=== PATIENT | male | born 1970 | race Caucasian/White ===

== ENCOUNTER → 2017-08-11 15:13 | Outpatient (REF) | payer BC, SELFPAY ==
[2017-08-11 18:55] LABS: Amphetamine/Metha Screen,Urine Negative ng/mL (<1000); Barbiturates Screen,Urine Negative ng/mL (<200); Benzodiazepines Screen,Urine Negative ng/mL (200); Cannabinoid Screen,Urine Negative ng/mL (<50); Cocaine Screen,Urine Negative ng/g (<300); Methadone Screen,Urine Negative ng/mL (<300); Opiate Screen,Urine Negative ng/mL (<300); Phencyclidine Screen,Urine Negative ng/mL (<25)
== END ==
LOC: LAB 15:13
PROVIDERS: Visit Provider Nurse Practitioner Family
DX: M54.9 Dorsalgia, unspecified (principal); Z79.899 Other long term (current) drug therapy
CPT/HCPCS: 80305

== ENCOUNTER → 2017-09-15 14:18 | Outpatient (CLI) | payer BC, SELFPAY ==
[2017-09-15 18:25] LABS: Basophils % 0.5 % (0.1-2.0); Eosinophils # 0.1 K/mm3 (0.0-0.4); Eosinophils % 1.8 % (0.1-12.0); Hematocrit 44.1 % (42.0-52.0); Lymphocytes # 2.4 K/mm3 (0.7-4.5); Lymphocytes % 33.7 K/mm3 (10-50); Mean Corpuscular Volume 97.2 fl (80-94); Mean Platelet Volume 7.9 fl (7.4-10.4); Monocytes # 0.4 K/mm3 (0.1-1.0); Monocytes % 5.5 % (1.7-9.3); Neutrophils # 4.2 K/mm3 (1.8-7.8); Neutrophils % 58.5 % (37.0-80.0); Platelet Count 370 K/mm3 (142-424); Red Blood Count 4.54 M/mm3 (4.60-6.20); Red Cell Distribution Width 13.7 % (11.5-17.5); White Blood Count 7.2 K/mm3 (4.8-10.8)
[2017-09-15 20:28] LABS: Alanine Aminotransferase 56 U/L (12-78); Albumin Level 4.4 gm/dL (3.4-5.0); Albumin/Globulin Ratio 1.2 (1.1-1.8); Alkaline Phosphatase 84 U/L (46-116); Anion Gap 18.1 mEq/L (5-15); Aspartate Amino Transferase 29 U/L (15-37); Bilirubin,Total 0.5 mg/dL (0.2-1.0); Blood Urea Nitrogen 16 mg/dL (7-18); Calcium 9.5 mg/dL (8.5-10.1); Carbon Dioxide 24 mmol/L (21.0-32.0); Chloride 103 mmol/L (98-107); Chol/HDL Ratio 7.2 (1-3.5); Cholesterol 236 mg/dL (140-200); Creatinine,Serum 1.01 mg/dL (0.70-1.30); Estimated Glomerular Filt Rate 79 ml/min (>60); Free T4 (Free Thyroxine) 1.07 ng/dl (0.76-1.46); GFR (African American) 95 ML/MIN (>60); Globulin 3.6 gm/dl (1.3-3.2); Glucose 165 mg/dL (74-106); HDL Cholesterol 33 mg/dL (27-67); Potassium 4.1 mmoL/L (3.5-5.1); Sodium 141 mmol/L (136-145); Thyroid Stimulating Hormone 1.25 uIU/ml (0.358-3.740)
[2017-09-15 20:35] LABS: Triglycerides 849 mg/dL (30-200)
[2017-09-15 23:15] LABS: Hemoglobin A1C 9.9 % (0.0-7.0)
== END ==
PROVIDERS: Visit Provider Nurse Practitioner Family
DX: R53.83 Other fatigue (principal); E11.9 Type 2 diabetes mellitus without complications; R09.89 Other specified symptoms and signs involving the circulatory and respiratory systems
CPT/HCPCS: 80053; 80061; 83036; 84439; 84443; 85025

== ENCOUNTER → 2017-09-27 08:56 | Outpatient (CLI) | payer BC, SELFPAY ==
--- NOTE | 2017-09-27 08:59 | CI_ITS ---
Cerebrovascular Exam Indications: 780.4 Dizziness and giddiness. IMPRESSIONS 1. The bilateral vertebral arteries are patent with normal antegrade flow. 2. Study suggests less than 20% stenosis involving the right internal carotid artery and the left internal carotid artery. History: Risk factors: Hypertension. Diabetes mellitus. Hyperlipidemia. Carotid duplex study. Complete study and Doppler flow study including spectral analysis, color and triplett scale imaging. Height: Height: 182.9cm. Height: 72in. Weight: Weight: 104.3kg. Weight: 229.5lb. Body mass index: BMI: 31.2kg/m^2. Body surface area: BSA: 2.33m^2. Location: Vascular laboratory. Patient status: Outpatient. Tables: Arterial flow: + +--------+--------+ Location V sys V ed + +--------+--------+ Right CCA - proximal 84.1cm/s 25.9cm/s + +--------+--------+ Right CCA - distal 90.4cm/s 28.3cm/s + +--------+--------+ Right ECA 107cm/s -------- + +--------+--------+ Right ICA - proximal 47.1cm/s 18.2cm/s + +--------+--------+ Right ICA - mid 69.1cm/s 33.9cm/s + +--------+--------+ Right ICA - distal 96.8cm/s 49cm/s + +--------+--------+ Right vertebral 53.4cm/s -------- + +--------+--------+ Left CCA - proximal 104cm/s 30.2cm/s + +--------+--------+ Left CCA - distal 89.3cm/s 28.3cm/s + +--------+--------+ Left ECA 93cm/s -------- + +--------+--------+ Left ICA - proximal 65.4cm/s 26.4cm/s + +--------+--------+ Left ICA - mid 69.8cm/s 30.8cm/s + +--------+--------+ Left ICA - distal 81.7cm/s 35.8cm/s + +--------+--------+ Left vertebral 41.5cm/s -------- + +--------+--------+ Velocity ratios: + + + + + + Right, V sys Right, V ed Left, V sys Left, V ed + + + + + + Max ICA/dist CCA 1.07 1.73 0.91 1.27 + + + + + + (Report amended ) Electronically signed by: Amado Evans [id number]
== END ==
PROVIDERS: Family Provider Nurse Practitioner Family; PCP Emergency Medicine; Visit Provider Nurse Practitioner Family
DX: R09.89 Other specified symptoms and signs involving the circulatory and respiratory systems (principal); R42 Dizziness and giddiness
CPT/HCPCS: 93880

== ENCOUNTER → 2017-10-11 06:12 | Outpatient (CLI) | payer BC, SELFPAY ==
--- NOTE | 2017-10-11 06:14 | NM_ITS ---
SPECT MYOCARDIAL PERFUSION SCAN, REST AND STRESS: EXERCISE STRESS: [facility] REVIEW QGS EF AND WALL MOTION EVALUATION: QPS - PERFUSION EVALUATION: HISTORY: Fatigue, HTN, DM, Hx of CT PROCEDURE: Rest imaging performed after administration of10.89 millicuries Tc MIBI. Dose administered at6:25 a.m., with imaging thereafter. Stress imaging was then performed following7 minutes 15 seconds of exercise stress. The patient achieved a heart [id number] with projected heart rate of146 . Resting BP138/93 with stress 146/90. At maximum exercise stress,31.8 millicuries Tc MIBI administered at8:15 a.m. with [id number] minutes thereafter. FINDINGS: Perfusion Evaluation: The single slice spect images as well as the [facility] bull's-eye data summary were reviewed. Wall Motion and Ejection Fraction Evaluation: Gated SPECT review and analysis used to evaluate these features. There is a 65% % left ventricular ejection fraction. There seems to be good wall motion Uniform myocardial activity with both stress and rest IMPRESSION: No scintigraphic evidence of exercise-induced myocardial ischemia. Normal ejection fraction normal wall motion
--- NOTE | 2017-10-11 06:14 | CA_ITS ---
PROCEDURE: 2-D M-mode and color Doppler study INDICATIONS FOR THE TEST: Chest pain+ COPD Heart Murmur Tobacco Smoking Palpitations Fatigue Syncope Edema Hypertension+Diabetes Mellitus+ Rheumatic Fever SOB CAMPBELL+Obesity+Hyperlipidemia+ Family History HD+ Additional History Dizziness PATIENT INFORMATION HEIGHT: 72 WEIGHT: 230 GENDER: Male B/P: 130/72 2-D/M-MODE INTERPRETATION: 2-D MEASUREMENTS OBSERVED VALUES IN CMS Right Ventricular Dimension (RVDd) 1.6 Interventricular Septum (Thickness)(IVsd) 1.0 Left Ventricular Internal Dimensions(LVIDd) 5.4 Left Ventricular Posterior Wall (Thickness)(LVPWd) 0.9 Aortic Root 3.1 Aortic Cusp Separation 2.1 Left Atrial Dimensions (LAD) 3.2 2D 1. Left atrium is mildly enlarged, left ventricle is normal size, there is mild qualitative concentric left ventricular hypertrophy, visually estimated ejection fraction 55% with no obvious regional wall motion abnormality. 2. The right atrium and right ventricle are normal size and contractility. 3. The aortic valve is minimally thickened and fibrosed. 4. The mitral and tricuspid valve are grossly normal. 5. The pulmonic valve is poorly visualized 6. No significant pericardial effusion noted. DOPPLER INTERROGATION: Doppler interrogation of the aortic, mitral and tricuspid valvular presence of mild mitral and tricuspid regurgitation, tricuspid regurgitant jet velocity insufficient for calculation of the right ventricular systolic pressure, grade 1 diastolic dysfunction seen without tissue Doppler evidence of raised left atrial pressure. CONCLUSION: 1. Mildly enlarged left atrium, normal left ventricular size, mild qualitative concentric left ventricular hypertrophy, visually estimated ejection fraction 55% with no obvious regional wall motion abnormality, grade 1 diastolic dysfunction seen without tissue Doppler evidence of raised left atrial pressure. 2. Mild mitral and tricuspid addition 3. No significant pericardial effusion noted.
--- NOTE | 2017-10-11 06:59 | HMH.ITSHM ---
BASAGLAR HUMALOG GABAPENTIN METOPROLOL ATORVASTATIN LISINOPRIL METFORMIN AMLODIPINE TIZANIDINE SPIRONOLACTONE TOPIRAMATE DULOXETINE
== END ==
PROVIDERS: Family Provider Nurse Practitioner Family; PCP Emergency Medicine; Visit Provider Internal Medicine
DX: G47.33 Obstructive sleep apnea (adult) (pediatric) (principal); Z82.49 Family history of ischemic heart disease and other diseases of the circulatory system; E11.9 Type 2 diabetes mellitus without complications
CPT/HCPCS: 78452; 93017; 93306; A9502

== ENCOUNTER → 2018-01-19 10:02 | Outpatient (CLI) | payer BC, SELFPAY | PROVIDERS: PCP Emergency Medicine; Visit Provider Internal Medicine Cardiovascular Disease | DX: I20.8 Other forms of angina pectoris (principal); R53.83 Other fatigue | CPT/HCPCS: 93225 ==

== ENCOUNTER → 2018-01-30 15:28 | Outpatient (CLI) | payer BC, SELFPAY ==
[2018-01-30 18:48] LABS: Amphetamine/Metha Screen,Urine Negative ng/mL (<1000); Barbiturates Screen,Urine Negative ng/mL (<200); Benzodiazepines Screen,Urine Negative ng/mL (<200); Cannabinoid Screen,Urine Negative ng/mL (<50); Cocaine Screen,Urine Negative ng/mL (<300); Methadone Screen,Urine Negative ng/mL (<300); Opiate Screen,Urine Negative ng/mL (<300); Phencyclidine Screen,Urine Negative ng/mL (<25)
== END ==
PROVIDERS: Visit Provider Nurse Practitioner Family
DX: Z79.899 Other long term (current) drug therapy (principal)
CPT/HCPCS: 80305

== ENCOUNTER → 2018-02-16 14:20 | Outpatient (CLI) | payer BC, SELFPAY | PROVIDERS: Visit Provider Nurse Practitioner Family | DX: R53.83 Other fatigue (principal); Z79.899 Other long term (current) drug therapy ==

== ENCOUNTER → 2018-02-17 07:45 | Outpatient (CLI) | payer BC, SELFPAY ==
[2018-02-17 08:11] LABS: Basophils # 0.1 K/mm3 (0-0.2); Basophils % 0.7 % (0.1-2.0); Eosinophils # 0.1 K/mm3 (0.0-0.4); Eosinophils % 1.7 % (0.1-12.0); Hematocrit 44.3 % (42.0-52.0); Hemoglobin 16.1 g/dL (14.1-18.0); Lymphocytes # 2.5 K/mm3 (0.7-4.5); Lymphocytes % 30.8 K/mm3 (10-50); Mean Corpuscular HGB Conc 36.3 g/dL (31.8-35.4); Mean Corpuscular Hemoglobin 34.6 pg (27.0-31.2); Mean Corpuscular Volume 95.5 fl (80-94); Mean Platelet Volume 6.7 fl (7.4-10.4); Monocytes # 0.4 K/mm3 (0.1-1.0); Neutrophils % 61.8 % (37.0-80.0); Platelet Count 376 K/mm3 (142-424); Red Blood Count 4.64 M/mm3 (4.60-6.20); Red Cell Distribution Width 13.4 % (11.5-17.5); White Blood Count 8.1 K/mm3 (4.8-10.8)
[2018-02-17 08:42] LABS: Hemoglobin A1C 9.6 % (0.0-7.0)
[2018-02-17 12:55] LABS: Anion Gap 18.2 mEq/L (5-15); Carbon Dioxide 27 mmol/L (21.0-32.0); Chloride 96 mmol/L (98-107); Potassium 4.2 mmoL/L (3.5-5.1); Sodium 137 mmol/L (136-145)
[2018-02-17 12:56] LABS: Cholesterol 253 mg/dL (140-200); HDL Cholesterol 28 mg/dL (27-67); Triglycerides 2280 mg/dL (30-200)
[2018-02-17 12:57] LABS: Calcium 9.1 mg/dL (8.5-10.1)
[2018-02-17 12:59] LABS: Bilirubin,Total 0.5 mg/dL (0.2-1.0); Total Protein,Serum 7.9 gm/dL (6.4-8.2)
[2018-02-17 13:00] LABS: Alkaline Phosphatase 104 U/L (46-116)
[2018-02-17 13:02] LABS: Albumin Level 4.3 gm/dL (3.4-5.0); Albumin/Globulin Ratio 1.2 (1.1-1.8); Globulin 3.6 gm/dl (1.3-3.2); T4 (Thyroxine) 10.1 ug/dl (4.7-13.3)
[2018-02-17 13:03] LABS: Alanine Aminotransferase 51.6 U/L (12-78); Aspartate Amino Transferase 26 U/L (15-37)
[2018-02-17 13:04] LABS: Blood Urea Nitrogen 14 mg/dL (7-18); Creatinine,Serum 1.08 mg/dL (0.70-1.30); Estimated Glomerular Filt Rate 73 ml/min (>60); GFR (African American) 88 ML/MIN (>60); Glucose 330 mg/dL (74-106)
[2018-02-18 09:21] LABS: Creatinine, Urine 71.4 mg/dL (Not Estab.); Microalbumin, Urine 7.1 ug/mL (Not Estab.)
== END ==
PROVIDERS: Visit Provider Nurse Practitioner Family
DX: R53.83 Other fatigue (principal); E11.9 Type 2 diabetes mellitus without complications; Z79.899 Other long term (current) drug therapy
CPT/HCPCS: 36415; 80053; 80061; 82043; 82570; 83036; 84436; 84443; 85025

== ENCOUNTER 2018-04-03 16:28 | Observation (INO) ==
--- NOTE | 2018-04-03 16:53 | Emergency Department Note ---
ED Disposition Clinical Impression: Acute kidney injury, CAD (coronary artery disease), Dehydration, Dizziness Disposition: Home, Self-Care Condition on Discharge: Fair Referrals: George Mendez APRN [Primary Care Provider] - - Critical Care Critical Care Time: No Attestation: On , the high probability of a clinically significant, sudden or life threatening deterioration of the following system(s) required my full and direct attention, intervention and personal management. The time I documented below is in addition to time spent performing reported procedures but includes the following listed in this critical care notation. Medical Decision Making - Medical Records Medical records reviewed: Yes: I reviewed the patient's medical records. - Kasi Inquiry Pt receiving controlled substance: No Kasi was queried for this patient: No Vital Signs: 04/03/18 16:43 04/03/18 16:58 Temperature 99.1 F Temperature Source Oral Pulse Rate [Left Radial] 106 H Pulse Rate [Orthostatic Lying Left Radial] 102 H Pulse Rate [Orthostatic Sitting Left Radial] 105 H Pulse Rate [Orthostatic Standing Left Radial] 117 H Respiratory Rate 18 Blood Pressure [Orthostatic Lying Right Arm] 122/72 Blood Pressure [Orthostatic Sitting Right Arm] 126/89 Blood Pressure [Orthostatic Standing Right Arm] 127/80 Blood Pressure [Right Arm] 119/78 Blood Pressure Mean [Right Arm] 91 Blood Pressure Source [Right Arm] Automatic Cuff Blood Pressure Position [Right Arm] Sitting 02 Sat by Pulse Oximetry 95 Oxygen Delivery Method Room Air - Lab Data Lab Results 04/03/18 16:40: WBC 11.6 H, RBC 4.44 L, Hgb 14.2, Hct 42.5, MCV 95.6 H, MCH 31.9 H, MCHC 33.4, RDW 12.8, Plt Count 350, MPV 6.7 L, Neut % (Auto) 66.0, Lymph % (Auto) 26.8, [place] % (Auto) 6.0, Eos % (Auto) 0.8, Baso % (Auto) 0.5, Neut # (Auto) 7.7, Lymph # (Auto) 3.1, [place] # (Auto) 0.7, Eos # (Auto) 0.1, Baso # (Auto) 0.1 04/03/18 16:40: Sodium 139, Potassium 3.9, Chloride 98, Carbon Dioxide 26, Anion Gap 15.0, BUN 28 H, Creatinine 2.08 H, Estimated Creat Clear 61, Estimated GFR 34 L, Est GFR ( Amer) 41 L, Glucose 146 H, Calcium 9.6, Total Bilirubin 0.6, AST 37, ALT 57, Alkaline Phosphatase 67, Total Creatine Kinase 668 H*, CK- MB (CK-2) 4.9 H D, CK-MB (CK-2) Rel Index 0.7, Troponin I < 0.02, Total Protein 8.5 H, Albumin 4.6, Globulin 3.9 H, Albumin/Globulin Ratio 1.2, TSH 2.53 D, Plasma/Serum Alcohol 0 Result diagrams: 04/03/18 16:40 04/03/18 16:40 Orders (Tests/Meds): ED MEDICATIONS Discontinued Medications Generic Name Dose Route Start Last Admin Trade Name Freq PRN Reason Stop Dose Admin Sodium Chloride 1,000 mls @ 999 mls/hr 04/03/18 17:00 04/03/18 17:30 Sod Chlor 0.9% 1000ml Bag IV 04/03/18 18:00 999 mls/hr .Q1H1M BELLA Administration ORDERS Category Date Time Status Drug Screen,Urine Stat Lab 04/03/18 16:55 Ordered Urinalysis and Microscopic Stat Lab 04/03/18 16:55 Ordered ECG Request by /Rory Stat Y 04/03/18 16:55 Ordered - Radiology Data #1 Image(s): Chest Image Reviewed: Yes I have reviewed radiologist's interpretation Preliminary Findings: Normal/NAD - CT Data CT Scan: Head Time Received: 18:13 - ECG Data Tracing #1 Normal sinus rhythm 99/min baseline artifact no acute finding ECG initial impression date: 04/03/18 ECG initial impression time: 16:54 Medical Decision Narrative: Patient did have elevated creatinine possible dehydration or acute kidney injury. Spoke with Dr. Zacarias agreed to admit admit the patient for IV rehydration therapy and rule out MA protocol. Dizzy HPI - General Stated Complaint: dizzy,sick at stomach,feels like going to pass out Time Seen by Provider: 04/03/18 16:50 Mode of Arrival: Ambulatory Limitations: No Limitations Description of Symptoms (Recalled from ER Triage Doc. by RN): Pt states that around 2pm today he felt like he was going to pass out a few times with some right jaw pain and nausea while he was walking around in the yard - History of Present Illness HPI Narrative: 47 years old white male with multiple medical problems including coronary artery disease hypertension hyperlipidemia and tobacco use. Today at 1400 the patient was walking when he started feeling dizzy associated with shortness of breath jaw locking and right hand numbness. Was resolved within 15 minutes. Became concerned came to the ED for evaluation. As having chest pain palpitations nausea vomiting hemoptysis hematemesis coffee-ground emesis melanotic stool or bleeding per rectum. He denies having diarrhea dysuria or hematuria. He denies having diplopia dysphagia dysphonia or dysarthria. MD complaint: dizziness Onset (ago): hour(s) (2 hours.) Time: 14:00 Timing: sudden onset Description: sense of movement History of similar episodes: No History of trauma: No Relieving factors: remaining still Exacerbating factors: movement Associated symptoms: other (see HPI. ) - Related Data Home Medications Medication Instructions Recorded Confirmed nitroglycerin 0.4 mg sublingual 0.4 mg SUBLINGUAL Q5M PRN 09/22/17 04/03/18 tablet Aspirin [Low Dose Aspirin EC] 81 mg PO DAILY 12/14/17 04/03/18 Topiramate 50 mg PO BID 12/14/17 04/03/18 Empagliflozin [Jardiance] 25 mg PO DAILY 04/03/18 04/03/18 Nortriptyline HCl 20 mg PO QHS 04/03/18 04/03/18 dilTIAZem HCl [Diltiazem 24Hr ER] 120 mg PO DAILY 04/03/18 04/03/18 Previous Rx's Medication Instructions Recorded atorvastatin 80 mg tablet 80 mg PO DAILY #90 tab 03/02/18 duloxetine 30 mg capsule,delayed 30 mg PO DAILY #90 cap 03/02/18 release insulin lispro protamine-lispro 60 unit SQ QAM #15 ml 03/02/18 100 unit/mL (75-25) subcutaneous pen lisinopril 20 1 tab PO DAILY #90 tab 03/02/18 mg-hydrochlorothiazide 12.5 mg tablet metformin 1,000 mg tablet 1,000 mg PO BID #60 tab 03/02/18 metoprolol tartrate 50 mg tablet 50 mg PO BID #60 tab 03/02/18 tizanidine 4 mg tablet 8 mg PO QHS 30 Days #60 tab 03/13/18 Allergies Allergy/AdvReac Type Severity Reaction Status Date / Time No Known Allergies Allergy Verified 03/13/18 13:58 [facility] History I have reviewed the patient's past medical history: Yes Medical History: Reports:: Aneurysm, Diabetes Mellitus Type 2, Hiatal Hernia, Hyperlipidemia, Hypertension, Kidney Stones, Migraine, Myocardial Infarction, Palpitations Denies:: Cancer, Diabetes Mellitus Type 1, MRSA Other Medical History: Reports: Arthritis Laterality Cases: Left: Other, Right: Arthroscopy Knee Other Surgeries: Yes: Cardiac Catheterization, Other Amputation: No Fractures: No Comment: Lt hand, Rt Knee x2, c6 and c7 fused - Social History Smoking Status: Never smoker Tobacco Type: smokeless tobacco Alcohol Intake: never Alcohol Intake Frequency:: other Substance Use Type: denies use Occupational Status: employed Housing: house Household Members: spouse - Psychiatric History Expresses thoughts of harming self/others: None Suicide Plan Description: No Plan Family Hx:: Cancer, Heart Attack, Diabetes ROS Obtained: Yes All systems reviewed & no additional complaints Physical Exam - General General appearance: alert, in no apparent distress - Head Head exam: atraumatic, normocephalic, normal inspection - Eye Eye exam: Present: normal appearance, PERRL, EOMI. Absent: scleral icterus, nystagmus - ENT ENT exam: Present: normal exam, normal oropharynx, mucous membranes moist, TM's normal bilaterally, normal external ear exam, other (Negative head turning test. ) - Neck Neck exam: Present: normal inspection, full ROM, trachea midline. Absent: meningismus, lymphadenopathy - Chest Chest inspection: Present: normal inspection, symmetric chest wall rise. Absent: tenderness - Respiratory Respiratory exam: Present: normal lung sounds bilaterally. Absent: respiratory distress - Cardiovascular Cardiovascular exam: Present: regular rate, normal rhythm. Absent: JVD - Abdominal Exam Abdominal exam: Present: soft, normal bowel sounds. Absent: distention, tenderness, guarding, rebound, rigidity - Extremities Exam Extremities exam: Present: normal inspection, full ROM, normal capillary refill. Absent: calf tenderness - Back Exam Back exam: Present: normal inspection. Absent: tenderness, CVA tenderness (R), CVA tenderness (L), paraspinal tenderness - Neurological Exam Neurological exam: Present: alert, oriented X3, CN II-XII intact, reflexes normal - Psychiatric Psychiatric exam: Present: normal affect, normal mood - Skin Skin exam: Present: warm, dry, intact, normal color - Lymphatic Lymphatic Findings: no adenopathy
[2018-04-03 17:07] LABS: Basophils # 0.1 K/mm3 (0-0.2); Basophils % 0.5 % (0.1-2.0); Eosinophils # 0.1 K/mm3 (0.0-0.4); Eosinophils % 0.8 % (0.1-12.0); Hematocrit 42.5 % (42.0-52.0); Hemoglobin 14.2 g/dL (14.1-18.0); Lymphocytes # 3.1 K/mm3 (0.7-4.5); Lymphocytes % 26.8 K/mm3 (10-50); Mean Corpuscular HGB Conc 33.4 g/dL (31.8-35.4); Mean Corpuscular Hemoglobin 31.9 pg (27.0-31.2); Mean Corpuscular Volume 95.6 fl (80-94); Mean Platelet Volume 6.7 fl (7.4-10.4); Monocytes # 0.7 K/mm3 (0.1-1.0); Neutrophils # 7.7 K/mm3 (1.8-7.8); Platelet Count 350 K/mm3 (142-424); Red Blood Count 4.44 M/mm3 (4.60-6.20); Red Cell Distribution Width 12.8 % (11.5-17.5); White Blood Count 11.6 K/mm3 (4.8-10.8)
[2018-04-03 17:19] LABS: Blood Urea Nitrogen 28 mg/dL (7-18); Carbon Dioxide 26 mmol/L (21.0-32.0); Chloride 98 mmol/L (98-107); Creatine Kinase 668 U/L (39-308); Potassium 3.9 mmoL/L (3.5-5.1); Sodium 139 mmol/L (136-145)
[2018-04-03 17:20] LABS: Alanine Aminotransferase 57 U/L (12-78); Albumin Level 4.6 gm/dL (3.4-5.0); Albumin/Globulin Ratio 1.2 (1.1-1.8); Alkaline Phosphatase 67 U/L (46-116); Aspartate Amino Transferase 37 U/L (15-37); Bilirubin,Total 0.6 mg/dL (0.2-1.0); Calcium 9.6 mg/dL (8.5-10.1); Ethyl Alcohol 0 mg/dL (0-99); Globulin 3.9 gm/dl (1.3-3.2); Glucose 146 mg/dL (74-106); Total Protein,Serum 8.5 gm/dL (6.4-8.2)
[2018-04-03 17:28] LABS: Thyroid Stimulating Hormone 2.53 uIU/ml (0.358-3.740)
--- NOTE | 2018-04-04 08:22 | Pharmacy Consult Notes ---
[facility] Pharmacy VTE Monitoring - Patient Demographics Admission date: 04/04/18 Report Date: 04/04/18 Time: 08:22 Allergies/Adverse Reactions: Patient Allergies No Known Allergies Allergy (Verified 03/13/18 13:58) Height: 1.83 m Weight: 99.79 kg Patient Problems: Current Active Problems Acute kidney injury (Acute) Dehydration (Acute) CAD (coronary artery disease) (Chronic) Dizziness (Acute) - VTE Risk Labs: VTE Related Lab Results Hgb 14.2 g/dL (14.1-18.0) 04/03/18 16:40 Hct 42.5 % (42.0-52.0) 04/03/18 16:40 Plt Count 350 K/mm3 (142-424) 04/03/18 16:40 BUN 28 mg/dL (7-18) H 04/03/18 16:40 Creatinine 2.08 mg/dL (0.70-1.30) H 04/03/18 16:40 Estimated Creat Clear 61 mL/min (0-300) 04/03/18 16:40 Was VTE Risk Assessment Performed: Yes VTE Risk Level: Very Low Risk Clinical Trial Participant: No - Prophylaxis VTE Prophylaxis Ordered?: Yes Types of VTE Prophylaxis: TEDS Knee High
[2018-04-04 09:49] LABS: Anion Gap 16.5 mEq/L (5-15); Potassium 4.5 mmoL/L (3.5-5.1)
--- NOTE | 2018-04-04 10:27 | Consult Report ---
History of Present Illness Consult date: 04/04/18 Requesting physician: Franky Lynch Chief complaint: Near syncope, dizziness Additional Medical History:: 1. Nonsustained ventricular tachycardia (likely RVOT origin) on Holter monitor, 01/2018 A. Nonischemic in origin with normal exercise Myoview 10/2017 B. Treated with both beta-collin and diltiazem therapy 2. Diabetes mellitus type 2 3. Coronary artery disease A. History of myocardial infarction approximately 2013, cardiac catheterization, [facility], [place], [place] with no need for intervention. B. Exercise Myoview, 10/2017 no ischemia with normal ejection fraction. 4. Hypertension A. Echocardiogram, 10/2017, normal left ventricular ejection fraction with no significant valvular heart disease 5. History of brain surgery due to aneurysm with metal plate placed in the head A. Followed by Dr. Valdez of neurology 6. Ex-smoker 7. History of IVORY with CPAP use History of present illness: 47-year-old white male presented to the hospital for evaluation of dizziness and near syncope. Patient had been out working on putting up a fence for about 6 hours yesterday sweating profusely when he developed lightheadedness, nausea, abdominal discomfort and tightness in the jaw. Patient had been drinking water, Powerade and propel but relates that he did not urinate during that 6-hour period. He denied any chest pain, pressure or tightness. He denies any palpitations. Patient came to the ER for evaluation and was admitted. Serial cardiac enzymes revealed elevated CPK but with normal troponins (this is consistent with his physical labor yesterday). EKG was sinus with no acute ST segment changes. Cardiology consulted for evaluation recommendations. [facility] History Medical History: Reports:: Aneurysm, Diabetes Mellitus Type 2, Hiatal Hernia, Hyperlipidemia, Hypertension, Kidney Stones, Migraine, Myocardial Infarction, Palpitations Denies:: Cancer, Diabetes Mellitus Type 1, MRSA Other Medical History: Reports: Arthritis Laterality Cases: Left: Other, Right: Arthroscopy Knee Other Surgeries: Yes: Cardiac Catheterization, Other Amputation: No Fractures: No - *Social History Educational Level: Completed High School Smoking Status: Current every day smoker Tobacco Type: smokeless tobacco Alcohol Intake: never Alcohol Intake Frequency:: other Substance Use Type: denies use Occupational Status: employed Housing: house Household Members: spouse - Psychiatric History Expresses thoughts of harming self/others: None Suicide Plan Description: No Plan *Family Hx:: Cancer, Heart Attack, Diabetes Meds Home Medications Medication Instructions Recorded Confirmed Type nitroglycerin 0.4 mg sublingual 0.4 mg SUBLINGUAL Q5M PRN 09/22/17 04/03/18 History tablet Aspirin [Low Dose Aspirin EC] 81 mg PO DAILY 12/14/17 04/03/18 History Empagliflozin [Jardiance] 25 mg PO DAILY 04/03/18 04/03/18 History dilTIAZem HCl [Diltiazem 24Hr ER] 120 mg PO DAILY 04/03/18 04/03/18 History Insulin Glargine,Hum.rec.anlog 70 unit SQ HS 04/04/18 04/04/18 History [Insulin Glargine 100 Units/mL 3mL flexpen] Insulin Lispro Protamin/Lispro 60 units SQ TID 04/04/18 04/04/18 History [HumaLOG Mix 75/25 3mL flexpen] Nortriptyline HCl [Pamelor 10mg 20 mg PO HS 04/04/18 04/04/18 History capsule] Allergies Allergy/AdvReac Type Severity Reaction Status Date / Time No Known Allergies Allergy Verified 03/13/18 13:58 Review of Systems - *Cardiovascular Reports shortness of breath with activity, Denies chest pain - *Respiratory Reports shortness of breath with activity - *Gastrointestinal Denies loose stools, Denies heartburn - *Genitourinary Denies blood in urine - *Musculoskeletal Reports muscle cramps - *Neurologic Reports dizziness Exam Vital signs and Labs for Last 24 Hours: Temp Pulse Resp BP Pulse Ox 98.6 F 88 16 118/63 98 04/04/18 08:00 04/04/18 08:00 04/04/18 08:00 04/04/18 08:00 04/04/18 08:00 Laboratory Results - last 24 hr 04/03/18 16:40: WBC 11.6 H, RBC 4.44 L, Hgb 14.2, Hct 42.5, MCV 95.6 H, MCH 31.9 H, MCHC 33.4, RDW 12.8, Plt Count 350, MPV 6.7 L, Neut % (Auto) 66.0, Lymph % (Auto) 26.8, [place] % (Auto) 6.0, Eos % (Auto) 0.8, Baso % (Auto) 0.5, Neut # (Auto) 7.7, Lymph # (Auto) 3.1, [place] # (Auto) 0.7, Eos # (Auto) 0.1, Baso # (Auto) 0.1 04/03/18 16:40: Sodium 139, Potassium 3.9, Chloride 98, Carbon Dioxide 26, Anion Gap 15.0, BUN 28 H, Creatinine 2.08 H, Estimated Creat Clear 61, Estimated GFR 34 L, Est GFR ( Amer) 41 L, Glucose 146 H, Calcium 9.6, Total Bilirubin 0.6, AST 37, ALT 57, Alkaline Phosphatase 67, Total Creatine Kinase 668 H*, CK- MB (CK-2) 4.9 H D, CK-MB (CK-2) Rel Index 0.7, Troponin I < 0.02, Total Protein 8.5 H, Albumin 4.6, Globulin 3.9 H, Albumin/Globulin Ratio 1.2, TSH 2.53 D, Plasma/Serum Alcohol 0 04/03/18 20:14: POC Glucose 161 H 04/03/18 21:28: Troponin I < 0.02 04/04/18 03:16: Troponin I < 0.02 04/04/18 09:25: Sodium 138, Potassium 4.5, Chloride 101, Carbon Dioxide 25, Anion Gap 16.5 H, BUN 20 H D, Creatinine 1.31 H D, Estimated Creat Clear 96, Estimated GFR 58 L, Est GFR ( Amer) 70 D, Glucose 151 H, Calcium 9.0 I & O for Last 24 hours: Intake & Output 04/01/18 04/02/18 04/03/18 04/04/18 11:59 11:59 11:59 11:59 Intake Total 3695 / 3695 Output Total 1935 / 1935 Balance 1760 / 1760 Weight 220 lb - *Routine Neck Exam Present: supple. Absent: JVD, carotid bruit - *Routine Respiratory Exam Present: CTA bilaterally. Absent: accessory muscle use, rales, rhonchi, wheezes - *Routine Cardiovascular Exam Present: RRR. Absent: murmur, gallop, rubs - *Routine Abdominal Exam Present: soft. Absent: tenderness, distended, guarding - *Routine Extremities Exam Absent: edema, calf tenderness - *Routine Neurological Exam Present: alert, oriented X3, moving all extremities Assessment and Plan (1) Acute kidney injury Current visit: Yes Status: Acute Category: Medical Code(s): N17.9 - Acute kidney failure, unspecified (2) Dehydration Current visit: Yes Status: Acute Category: Medical Code(s): E86.0 - Dehydration (3) Dizziness Current visit: Yes Status: Acute Category: Medical Code(s): R42 - Dizziness and giddiness (4) CAD (coronary artery disease) Current visit: Yes Status: Chronic Qualifiers: Category: Medical Code(s): I25.10 - Atherosclerotic heart disease of [place] coronary artery without angina pectoris (5) Ex-smoker Current visit: No Status: Acute Category: Social Hx Code(s): Z87.891 - Personal history of nicotine dependence (6) Diabetes mellitus Current visit: No Status: Chronic Qualifiers: Diabetes mellitus type: type 2 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: with 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 living use Diabetes mellitus complication status: with circulatory complication Diabetes mellitus complication detail: with other circulatory complications Qualified Code(s): E11.59 - Type 2 diabetes mellitus with other circulatory complications; 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 Category: Medical Code(s): E11.9 - Type 2 diabetes mellitus without complications (7) HTN (hypertension) Current visit: No Status: Chronic Qualifiers: Hypertension type: essential hypertension Qualified Code(s): I10 - Essential (primary) hypertension Category: Medical Code(s): I10 - Essential (primary) hypertension (8) History of MD (myocardial infarction) Current visit: No Status: Chronic Category: Medical Code(s): I25.2 - Old myocardial infarction (9) IVORY (obstructive sleep apnea) Current visit: No Status: Chronic Category: Medical Code(s): G47.33 - Obstructive sleep apnea (adult) (pediatric) - Assessment and plan all Dx Assessment and Plan for all problems:: 1. Dizziness and near syncope felt secondary to dehydration. Cardiac enzymes have returned normal, telemetry reveals no evidence of arrhythmias and patient denies any exertional chest pain pressure or tightness. After IV fluids have been given overnight his creatinine has significantly improved and the patient feels remarkably better. Recommend continuing his home medications. He could be discharged home from a cardiology standpoint. 2. He has an appointment in our office in 2 days which he will keep.
--- NOTE | 2018-04-04 21:16 | Cardiology Report ---
PROCEDURE: 2-D M-mode and color Doppler study INDICATIONS FOR THE TEST: Chest pain+ COPD Heart Murmur Tobacco Smoking+ Palpitations+ Fatigue Syncope Edema Hypertension+Diabetes Mellitus+ Rheumatic Fever SOB [place] Obesity Hyperlipidemia+ Family History HD+ Additional History CAD, dizziness, hx of CA, IVORY PATIENT INFORMATION HEIGHT: 72 WEIGHT: 220 GENDER: Male B/P: 124/85 2-D/M-MODE INTERPRETATION: 2-D MEASUREMENTS OBSERVED VALUES IN CMS Right Ventricular Dimension (RVDd) 1.9 Interventricular Septum (Thickness)(IVsd) 0.9 Left Ventricular Internal Dimensions(LVIDd) 5.3 Left Ventricular Posterior Wall (Thickness)(LVPWd) 0.9 Aortic Root 3.4 Aortic Cusp Separation 2.4 Left Atrial Dimensions (LAD) 3.5 2D 1. Technically difficult study, Definity contrast was utilized to delineate endocardial surfaces. 2. The left atrium is mildly enlarged, left ventricle is normal size, mild concentric left ventricular hypertrophy, visually estimated ejection fraction of 55% with no regional wall motion abnormality. 3. The right atrium and right ventricle are normal size and contractility. 4. The aortic valve is minimally thickened and fibrosed. 5. The mitral and tricuspid valve are grossly normal. 6. The pulmonic valve is poorly visualized. 7. No significant pericardial effusion noted. DOPPLER INTERROGATION: Doppler interrogation of the aortic, mitral and tricuspid valvular presence of mild mitral and tricuspid regurgitation, tricuspid regurgitation jet velocity is adequate for calculation of the right ventricular systolic pressure, grade 1 diastolic dysfunction seen with tissue Doppler evidence of raised left atrial pressure. CONCLUSION: 1. Technically difficult study, Definity contrast ordered test to delineate endocardial surfaces. 2. Mildly enlarged left atrium, normal left ventricular size, mild concentric left ventricular hypertrophy, visually estimated ejection fraction 55% with no regional wall motion abnormality, grade 1 diastolic dysfunction seen with tissue Doppler evidence of raised left atrial pressure. 3. Mild mitral and tricuspid regurgitation 4. No significant pericardial effusion noted.
--- NOTE | 2018-04-13 13:20 | H&P/Discharge Summary ---
General - General Admission date:: 04/03/18 Discharge date: 04/04/18 *Admission Date: 04/04/18 *Chief complaint: chest pain and dizzyness *History of present illness: this wm presented to [facility] ed with chest pain rad to jaw and had dizzyness - he had been working outside and had near syncopal feeling 7 years old white male with multiple medical problems including coronary artery disease hypertension hyperlipidemia and tobacco use. Today at 1400 the patient was walking when he started feeling dizzy associated with shortness of breath jaw locking and right hand numbness. Was resolved within 15 minutes. Became concerned came to the ED for evaluation. As having chest pain palpitations nausea vomiting hemoptysis hematemesis coffee-ground emesis melanotic stool or bleeding per rectum. He denies having diarrhea dysuria or hematuria.pt was admitted for ivf and card eval [facility] History I have reviewed the patient's past medical history: Yes Medical History: Reports:: Aneurysm, Diabetes Mellitus Type 2, Hiatal Hernia, Hyperlipidemia, Hypertension, Kidney Stones, Migraine, Myocardial Infarction, Palpitations Denies:: Cancer, Diabetes Mellitus Type 1, MRSA Other Medical History: Reports: Arthritis Laterality Cases: Left: Other, Right: Arthroscopy Knee Other Surgeries: Yes: Cardiac Catheterization, Other Amputation: No Fractures: No - *Social History Educational Level: Completed High School Smoking Status: Current every day smoker Tobacco Type: smokeless tobacco Alcohol Intake: never Alcohol Intake Frequency:: other Substance Use Type: denies use Occupational Status: employed Housing: house Household Members: spouse - Psychiatric History Expresses thoughts of harming self/others: None Suicide Plan Description: No Plan *Family Hx:: Cancer, Heart Attack, Diabetes Review of Systems - Review of Systems Review of systems:: pertinent systems reviewed and negative unless documented below - Constitutional Reports fatigue, Denies fever(s) - Eyes Denies change in vision - ENT Denies sore throat, Denies throat swelling - *Cardiovascular Reports chest pain, Reports chest pain with activity, Reports shortness of ramon ath, Reports lightheadedness, Reports radiating jaw, neck or arm pain - *Respiratory Denies cough, Denies coughing up blood - *Gastrointestinal Reports nausea, Denies abdominal pain, Denies vomiting blood - *Genitourinary Denies blood in urine - *Musculoskeletal Denies joint pain, Denies neck pain - Integumentary/Breasts Denies rash - *Neurologic Reports dizziness, Denies frequent falls, Denies headache(s), Denies seizure- like activity - Psychiatric Denies anxiety Exam Vital signs and Labs for Last 24 Hours: Temp Pulse Resp BP Pulse Ox 98.2 F 87 18 129/84 99 04/04/18 12:00 04/04/18 12:00 04/04/18 12:00 04/04/18 12:00 04/04/18 12:00 Laboratory Results - last 24 hr 04/03/18 16:40: WBC 11.6 H, RBC 4.44 L, Hgb 14.2, Hct 42.5, MCV 95.6 H, MCH 31.9 H, MCHC 33.4, RDW 12.8, Plt Count 350, MPV 6.7 L, Neut % (Auto) 66.0, Lymph % (Auto) 26.8, [place] % (Auto) 6.0, Eos % (Auto) 0.8, Baso % (Auto) 0.5, Neut # (Auto) 7.7, Lymph # (Auto) 3.1, [place] # (Auto) 0.7, Eos # (Auto) 0.1, Baso # (Auto) 0.1 04/03/18 16:40: Sodium 139, Potassium 3.9, Chloride 98, Carbon Dioxide 26, Anion Gap 15.0, BUN 28 H, Creatinine 2.08 H, Estimated Creat Clear 61, Estimated GFR 34 L, Est GFR ( Amer) 41 L, Glucose 146 H, Calcium 9.6, Total Bilirubin 0.6, AST 37, ALT 57, Alkaline Phosphatase 67, Total Creatine Kinase 668 H*, CK- MB (CK-2) 4.9 H D, CK-MB (CK-2) Rel Index 0.7, Troponin I < 0.02, Total Protein 8.5 H, Albumin 4.6, Globulin 3.9 H, Albumin/Globulin Ratio 1.2, TSH 2.53 D, Plasma/Serum Alcohol 0 04/03/18 20:14: POC Glucose 161 H 04/03/18 21:28: Troponin I < 0.02 04/04/18 03:16: Troponin I < 0.02 04/04/18 09:25: Sodium 138, Potassium 4.5, Chloride 101, Carbon Dioxide 25, Anion Gap 16.5 H, BUN 20 H D, Creatinine 1.31 H D, Estimated Creat Clear 96, Estimated GFR 58 L, Est GFR ( Amer) 70 D, Glucose 151 H, Calcium 9.0 I & O for Last 24 hours: Intake & Output 04/02/18 04/03/18 04/04/18 04/05/18 11:59 11:59 11:59 11:59 Intake Total 3695 / 3695 Output Total 1935 / 1935 Balance 1760 / 1760 Weight 220 lb - Constitutional no acute distress, average body habitus - *Routine HEENT Exam Head: Present: normocephalic Eye: Present: EOMI, PERRL ENT: Present: mucous membranes dry - *Routine Neck Exam Present: supple. Absent: JVD, carotid bruit - *Routine Respiratory Exam Present: CTA bilaterally - *Routine Cardiovascular Exam Present: RRR, murmur - *Routine Abdominal Exam Present: soft - *Routine Extremities Exam Absent: calf tenderness - *Routine Skin Exam Present: intact - *Routine Neurological Exam Present: alert, oriented X3, CN II-XII intact - Routine Psychiatric Exam Present: normal affect Hospital Course Hospital Course: pt did well with stable card enz and improved renal function with hydration -pt was seen by card -ef complaint: Near syncope, dizziness Additional Medical History:: 1. Nonsustained ventricular tachycardia (likely RVOT origin) on Holter monitor, 01/2018 A. Nonischemic in origin with normal exercise Myoview 10/2017 B. Treated with both beta-collin and diltiazem therapy 2. Diabetes mellitus type 2 3. Coronary artery disease A. History of myocardial infarction approximately 2013, cardiac catheterization, [facility], [place], [place] with no need for intervention. B. Exercise Myoview, 10/2017 no ischemia with normal ejection fraction. 4. Hypertension A. Echocardiogram, 10/2017, normal left ventricular ejection fraction with no significant valvular heart disease 5. History of brain surgery due to aneurysm with metal plate placed in the head A. Followed by Dr. Valdez of neurology 6. Ex-smoker 7. History of IVORY with CPAP use History of present illness: 47-year-old white male presented to the hospital for evaluation of dizziness and near syncope. Patient had been out working on putting up a fence for about 6 hours yesterday sweating profusely when he developed lightheadedness, nausea, abdominal discomfort and tightness in the jaw. Patient had been drinking water, Powerade and propel but relates that he did not urinate during that 6-hour period. He denied any chest pain, pressure or tightness. He denies any palpitations. Patient came to the ER for evaluation and was admitted. Serial cardiac enzymes revealed elevated CPK but with normal troponins (this is consistent with his physical labor yesterday). EKG was sinus with no acute ST segment changes. Cardiology consulted for evaluation recommendations. pt is diabetic and has been compliant with diet and meds - pt was improved to follow up with card and pcp Results Labs on day of discharge: Labs from last 24 hours 04/04/18 04/04/18 04/03/18 09:25 03:16 21:28 WBC RBC Hgb Hct MCV MCH MCHC RDW Plt Count MPV Neut % (Auto) Lymph % (Auto) [place] % (Auto) Eos % (Auto) Baso % (Auto) Neut # (Auto) Lymph # (Auto) [place] # (Auto) Eos # (Auto) Baso # (Auto) Sodium 138 Potassium 4.5 Chloride 101 Carbon Dioxide 25 Anion Gap 16.5 H BUN 20 H D Creatinine 1.31 H D Estimated Creat Clear 96 Estimated GFR 58 L Est GFR ( Amer) 70 D Glucose 151 H POC Glucose Calcium 9.0 Total Bilirubin AST ALT Alkaline Phosphatase Total Creatine Kinase CK-MB (CK-2) CK-MB (CK-2) Rel Index Troponin I < 0.02 < 0.02 Total Protein Albumin Globulin Albumin/Globulin Ratio TSH Plasma/Serum Alcohol 04/03/18 04/03/18 04/03/18 20:14 16:40 16:40 WBC 11.6 H RBC 4.44 L Hgb 14.2 Hct 42.5 MCV 95.6 H MCH 31.9 H MCHC 33.4 RDW 12.8 Plt Count 350 MPV 6.7 L Neut % (Auto) 66.0 Lymph % (Auto) 26.8 [place] % (Auto) 6.0 Eos % (Auto) 0.8 Baso % (Auto) 0.5 Neut # (Auto) 7.7 Lymph # (Auto) 3.1 [place] # (Auto) 0.7 Eos # (Auto) 0.1 Baso # (Auto) 0.1 Sodium 139 Potassium 3.9 Chloride 98 Carbon Dioxide 26 Anion Gap 15.0 BUN 28 H Creatinine 2.08 H Estimated Creat Clear 61 Estimated GFR 34 L Est GFR ( Amer) 41 L Glucose 146 H POC Glucose 161 H Calcium 9.6 Total Bilirubin 0.6 AST 37 ALT 57 Alkaline Phosphatase 67 Total Creatine Kinase 668 H* CK-MB (CK-2) 4.9 H D CK-MB (CK-2) Rel Index 0.7 Troponin I < 0.02 Total Protein 8.5 H Albumin 4.6 Globulin 3.9 H Albumin/Globulin Ratio 1.2 TSH 2.53 D Plasma/Serum Alcohol 0 DS: Diagnosis - Discharge Diagnosis (1) Acute kidney injury Status: Acute (2) Dehydration Status: Acute (3) Dizziness Status: Acute (4) CAD (coronary artery disease) Status: Chronic (5) Ex-smoker Status: Acute (6) Diabetes mellitus Status: Chronic (7) HTN (hypertension) Status: Chronic (8) History of IL (myocardial infarction) Status: Chronic (9) IVORY (obstructive sleep apnea) Status: Chronic Discharge Medications - Medications for Discharge Home Medication List at Discharge: New Insulin Lispro Protamin/Lispro [HumaLOG Mix 75/25 3mL flexpen] 60 unit SQ TI DWM insuln.pen Insulin Lispro Protamin/Lispro [HumaLOG Mix 75/25 3mL flexpen] 60 unit SQ TID insuln.pen Nortriptyline HCl [Pamelor 10mg capsule] 20 mg PO HS capsule Topiramate [Topiramate] 50 mg PO BID Continue nitroglycerin 0.4 mg sublingual tablet 0.4 mg SUBLINGUAL Q5M PRN PRN Reason: Chest Pain atorvastatin 80 mg tablet 80 mg PO DAILY #90 tab duloxetine 30 mg capsule,delayed release 30 mg PO DAILY #90 cap metformin 1,000 mg tablet 1,000 mg PO BID #60 tab metoprolol tartrate 50 mg tablet 50 mg PO BID #60 tab tizanidine 4 mg tablet 8 mg PO QHS 30 Days #60 tab lisinopril 20 mg-hydrochlorothiazide 12.5 mg tablet 1 tab PO DAILY #90 tab Aspirin [Low Dose Aspirin EC] 81 mg PO DAILY Empagliflozin [Jardiance] 25 mg PO DAILY dilTIAZem HCl [Diltiazem 24Hr ER] 120 mg PO DAILY Insulin Lispro Protamin/Lispro [HumaLOG Mix 75/25 3mL flexpen] 60 units SQ TID Insulin Glargine,Hum.rec.anlog [Insulin Glargine 100 Units/mL 3mL flexpen] 70 unit SQ HS Nortriptyline HCl [Pamelor 10mg capsule] 20 mg PO HS
== END 2018-04-04 13:59 | disposition home or self-care (01) ==
LOC: 2ND 16:28 → ER 16:28 → 2ND 19:14
PROVIDERS: ADMIT Family Medicine; ATTEND Emergency Medicine
CPT/HCPCS: 36415; 70450; 71020; 71046; 80048; 80053; 82550; 82553; 82962; 84443; 84484; 85025; 93005; 93306; 96365; 99284; G0378

== ENCOUNTER → 2018-04-07 09:09 | Outpatient (CLI) | payer BC, SELFPAY ==
--- NOTE | 2018-04-07 09:11 | MR_ITS ---
MR angio neck wo con CLINICAL INDICATION: ITS.REASON: syncope,headache neck pain, dizziness, blurry vision ORDERING PHYSICIAN: GERALDINE Holloway PATIENT AGE: 47 years Comparison: None TECHNIQUE: 3-D [id number] images are obtained without contrast with multi slab mip reformats FINDINGS: The carotids have an unremarkable appearance. No evidence of stenosis, dissection, or other significant anomalies. Vertebrals also appear unremarkable. IMPRESSION: Negative MRA of the neck
--- NOTE | 2018-04-07 09:11 | MR_ITS ---
MR head/brain wo con HISTORY: Severe headache ITS.REASON: syncope,headache neck pain, dizziness, blurry vision ORDERING PHYSICIAN: GERALDINE Holloway PATIENT AGE: 47 years Comparison: TECHNIQUE: Standard multiplanar multiecho sequences are performed without contrast. FINDINGS: No midline shift, mass effect, intracranial hemorrhage, or hydrocephalus is evident. The cerebellopontine angles, cerebellum, and brainstem are unremarkable. No acute infarction. The pituitary and optic chiasm, corpus callosum and cerebellar tonsils are unremarkable. There is normal triplett-white matter differentiation. Small T2 white matter hyperintensity is present in the right frontal lobe best seen on coronal image #8 nonspecific and may be due to small rounded focus. Susceptibility artifact noted in the right frontal area of the scalp. No mastoid effusion or sinus air-fluid level. IMPRESSION: 1. No acute intracranial finding. 2. Nonspecific small T2 hyperintensity in the deep white matter the right frontal lobe which could be due to small gliotic focus
--- NOTE | 2018-04-07 09:11 | MR_ITS ---
MR angio head wo con HISTORY: ITS.REASON: syncope, headache neck pain, dizziness, blurry vision ORDERING PHYSICIAN: GERALDINE Holloway PATIENT AGE: 47 years Comparison: None TECHNIQUE: 3-D [id number] images obtained without contrast. FINDINGS: No aneurysm, arteriovenous malformation, or major intracranial occlusive process evident. Single shot MR venogram shows no obvious sagittal sinus thrombosis IMPRESSION: Negative MRA of the brain without contrast
== END ==
PROVIDERS: Family Provider Nurse Practitioner Family; PCP Nurse Practitioner Family; Visit Provider Physician Assistant
DX: R55 Syncope and collapse (principal); R51 Headache; M54.2 Cervicalgia; M62.838 Other muscle spasm; E11.59 Type 2 diabetes mellitus with other circulatory complications; E78.5 Hyperlipidemia, unspecified; G47.33 Obstructive sleep apnea (adult) (pediatric)
CPT/HCPCS: 70544; 70547; 70551

== ENCOUNTER → 2018-05-04 13:12 | Outpatient (CLI) | payer BC, SELFPAY ==
--- NOTE | 2018-05-04 13:14 | CT_ITS ---
CT heart w calcium score ITS.REASON: CAD hypertension. Tachycardia ORDERING PHYSICIAN 47 years. 235 pounds. 6 foot COMPARISON: None Technique: All CT scans at this facility use one or more dose reduction techniques, viz.: automated exposure control, ma/kV adjustment per patient size (including targeted exams where dose is matched to indication, i.e. head) or iterative reconstruction technique. FINDINGS: Overall Coronary calcium score is = 263.. This reflects a moderate plaque burden with high coronary vascular disease risk Individual vessel scoring was as follows Right Coronary = 122, Posterior descending artery = 68, left Left main = 67, Left anterior descending = 6. There is a generous caliber somewhat dilated ascending aorta which measures up to 39 mm diameter IMPRESSION Total calcium score equal 263. This reflects a moderate plaque burden, with high coronary vascular disease risk
== END ==
PROVIDERS: PCP Emergency Medicine; Visit Provider Internal Medicine Cardiovascular Disease
DX: I25.10 Atherosclerotic heart disease of native coronary artery without angina pectoris (principal)
CPT/HCPCS: 75571

== ENCOUNTER → 2018-08-10 13:51 | Outpatient (CLI) | payer BC, SELFPAY ==
[2018-08-10 14:12] LABS: Basophils # 0.1 K/mm3 (0-0.2); Basophils % 0.5 % (0.1-2.0); Eosinophils # 0.1 K/mm3 (0.0-0.4); Eosinophils % 0.6 % (0.1-12.0); Hematocrit 43.8 % (42.0-52.0); Lymphocytes # 2.5 K/mm3 (0.7-4.5); Lymphocytes % 24.8 % (10-50); Mean Corpuscular HGB Conc 34.2 g/dL (31.8-35.4); Mean Corpuscular Hemoglobin 31.7 pg (27.0-31.2); Mean Corpuscular Volume 92.6 fl (80-94); Mean Platelet Volume 6.7 fl (7.4-10.4); Monocytes # 0.5 K/mm3 (0.1-1.0); Neutrophils % 69.1 % (37.0-80.0); Platelet Count 361 K/mm3 (142-424); Red Blood Count 4.72 M/mm3 (4.60-6.20); White Blood Count 10.1 K/mm3 (4.8-10.8)
[2018-08-10 14:34] LABS: Hemoglobin A1C 7.5 % (0.0-7.0)
[2018-08-10 15:07] LABS: Alanine Aminotransferase 56 U/L (12-78); Albumin Level 4.6 gm/dL (3.4-5.0); Albumin/Globulin Ratio 1.4 (1.1-1.8); Alkaline Phosphatase 52 U/L (46-116); Anion Gap 16.8 mEq/L (5-15); Aspartate Amino Transferase 32 U/L (15-37); Bilirubin,Total 0.6 mg/dL (0.2-1.0); Blood Urea Nitrogen 20 mg/dL (7-18); Calcium 9.6 mg/dL (8.5-10.1); Carbon Dioxide 26 mmol/L (21.0-32.0); Chloride 99 mmol/L (98-107); Chol/HDL Ratio 5.1 (1-3.5); Cholesterol 149 mg/dL (140-200); Creatinine,Serum 1.47 mg/dL (0.70-1.30); Estimated Glomerular Filt Rate 51 ml/min (>60); Free Thyroxine Index 3.4 ug/dL (5.93-13.13); GFR (African American) 62 ML/MIN (>60); Globulin 3.4 gm/dl (1.3-3.2); Glucose 82 mg/dL (74-106); HDL Cholesterol 29 mg/dL (27-67); LDL Cholesterol 76 mg/dL (0-130); Phosphorous 3.3 mg/dL (2.4-4.9); Potassium 3.8 mmoL/L (3.5-5.1); Sodium 138 mmol/L (136-145); T4 (Thyroxine) 10.6 ug/dl (4.7-13.3); Thyroid Stimulating Hormone 1.31 uIU/ml (0.358-3.740); Triglycerides 222 mg/dL (30-200); Triiodothryronine (T3) Uptake 32 % (31-39); VLDL Cholesterol 44 mg/dL (0-40)
[2018-08-14 08:35] LABS: Vitamin D 25 Hydroxy 18.1 ng/mL (30.0-100.0)
[2018-08-14 08:36] LABS: Microalbumin, Urine <3.0 ug/mL (Not Estab.)
== END ==
PROVIDERS: Visit Provider Nurse Practitioner Family
DX: E11.9 Type 2 diabetes mellitus without complications (principal); E78.2 Mixed hyperlipidemia; R53.83 Other fatigue
CPT/HCPCS: 80053; 80061; 80069; 82043; 82652; 83036; 84436; 84443; 84479; 85025

== ENCOUNTER → 2018-08-24 11:00 | Outpatient (CLI) | payer BC, SELFPAY ==
--- NOTE | 2018-08-24 11:05 | XR_ITS ---
EXAM: XR lumbar spine 6V w bending HISTORY: Low back pain which is increasing in severity ITS.REASON: back pain ORDERING PHYSICIAN: George Mendez PATIENT AGE: 47 years COMPARISON: None FINDINGS: There are hypoplastic 12th ribs. There is slight decrease in the disc space at L2-L3 with minimal osteophytes at L3-L4 and L5. There is mild degenerative disc disease at L5-S1. No fracture or dislocation. No lytic or blastic change. No abnormal subluxation with flexion or extension IMPRESSION: 1. No acute finding. 2. Mild degenerative change. 3. No abnormal subluxation in flexion or extension
--- NOTE | 2018-08-24 11:05 | XR_ITS ---
XR forearm RT 2V HISTORY: Anterior 4 ITS.REASON: pain ORDERING PHYSICIAN: George Mendez PATIENT AGE: 47 years COMPARISON: None FINDINGS: No obvious fracture, dislocation, lytic change or blastic change. Normal mineralization. A 3 mm calcific density is present along the anterior distal aspect of the radius as seen on the lateral view. This is well-circumscribed and could be due to an old avulsion fracture. IMPRESSION: 1. Possible old avulsion fracture of the anterior distal radius otherwise negative
== END ==
PROVIDERS: PCP Emergency Medicine; Visit Provider Nurse Practitioner Family
DX: M54.9 Dorsalgia, unspecified (principal); M79.631 Pain in right forearm; Y04.0XXA Assault by unarmed brawl or fight, initial encounter
CPT/HCPCS: 72114; 73090

== ENCOUNTER → 2018-11-02 10:40 | Outpatient (CLI) | payer BC, SELFPAY ==
[2018-11-02 10:43] LABS: Microscopic, Urine URINE MICROSCOPIC (MICROSCOPIC)
[2018-11-02 11:21] LABS: Appearance,Urine CLEAR (Clear); Bilirubin,Urine Negative (Negative); Blood, Urine Negative (Negative); Color,Urine YELLOW (Yellow); Glucose,Urine (UA) 3+ (Negative); Ketones,Urine Negative (Negative); Leukocyte Esterase,Urine Negative (Negative); Nitrate,Urine Negative (Negative); PH,Urine 6.5 (5.0-8.5); Protein,Urine Negative (Negative); Urobilinogen,Urine 0.2 EU/dl (0.2)
[2018-11-02 11:28] LABS: Basophils # 0.1 K/mm3 (0-0.2); Basophils % 0.5 % (0.1-2.0); Eosinophils # 0.1 K/mm3 (0.0-0.4); Eosinophils % 1.1 % (0.1-12.0); Hemoglobin 14.4 g/dL (14.1-18.0); Lymphocytes # 2.4 K/mm3 (0.7-4.5); Lymphocytes % 26.1 % (10-50); Mean Corpuscular HGB Conc 34.3 g/dL (31.8-35.4); Mean Corpuscular Hemoglobin 31.3 pg (27.0-31.2); Mean Corpuscular Volume 91.5 fl (80-94); Mean Platelet Volume 6.6 fl (7.4-10.4); Monocytes # 0.5 K/mm3 (0.1-1.0); Monocytes % 5.2 % (1.7-9.3); Neutrophils # 6.2 K/mm3 (1.8-7.8); Neutrophils % 67.1 % (37.0-80.0); Platelet Count 360 K/mm3 (142-424); Red Blood Count 4.59 M/mm3 (4.60-6.20); Red Cell Distribution Width 13.3 % (11.5-17.5); White Blood Count 9.2 K/mm3 (4.8-10.8)
[2018-11-02 11:41] LABS: Creatinine,Urine Random 92 mg/dL (20-320); Total Protein,Urine Random 8.6 mg/dL (0.0-11.9)
[2018-11-02 12:04] LABS: Bacteria,Urine Trace /lpf
[2018-11-02 12:55] LABS: Albumin Level 4.5 gm/dL (3.4-5.0); Anion Gap 17.1 mEq/L (5-15); Blood Urea Nitrogen 18 mg/dL (7-18); Calcium 9.8 mg/dL (8.5-10.1); Carbon Dioxide 26 mmol/L (21.0-32.0); Chloride 100 mmol/L (98-107); Estimated Glomerular Filt Rate 50 ml/min (>60); GFR (African American) 60 ML/MIN (>60); Glucose 99 mg/dL (74-106); Phosphorous 3.7 mg/dL (2.4-4.9); Potassium 4.1 mmoL/L (3.5-5.1); Sodium 139 mmol/L (136-145)
[2018-11-02 13:37] LABS: Hemoglobin A1C 7.2 % (0.0-7.0)
[2018-11-02 23:13] LABS: Alanine Aminotransferase 70 U/L (12-78); Albumin Level 4.7 gm/dL (3.4-5.0); Albumin/Globulin Ratio 1.4 (1.1-1.8); Alkaline Phosphatase 56 U/L (46-116); Aspartate Amino Transferase 40 U/L (15-37); Bilirubin,Total 0.6 mg/dL (0.2-1.0); Blood Urea Nitrogen 19 mg/dL (7-18); Calcium 9.8 mg/dL (8.5-10.1); Carbon Dioxide 28 mmol/L (21.0-32.0); Chloride 100 mmol/L (98-107); Chol/HDL Ratio 5.2 (1-3.5); Cholesterol 129 mg/dL (140-200); Creatinine,Serum 1.45 mg/dL (0.70-1.30); Estimated Glomerular Filt Rate 52 ml/min (>60); GFR (African American) 63 ML/MIN (>60); Globulin 3.4 gm/dl (1.3-3.2); Glucose 96 mg/dL (74-106); HDL Cholesterol 25 mg/dL (27-67); LDL Cholesterol 45 mg/dL (0-130); Sodium 138 mmol/L (136-145); T4 (Thyroxine) 9.2 ug/dl (4.7-13.3); Thyroid Stimulating Hormone 1.89 uIU/ml (0.358-3.740); Total Protein,Serum 8.1 gm/dL (6.4-8.2); Triglycerides 297 mg/dL (30-200); VLDL Cholesterol 59 mg/dL (0-40)
[2018-11-03 14:43] LABS: Parathyroid Hormone Intact 22 pg/mL (15-65)
[2018-11-03 14:43] LABS: Microalbumin, Urine 3.4 ug/mL (Not Estab.); Vitamin D 25 Hydroxy 32.5 ng/mL (30.0-100.0)
== END ==
PROVIDERS: Internal Medicine Nephrology; Visit Provider Nurse Practitioner Family
DX: E11.9 Type 2 diabetes mellitus without complications (principal); R53.83 Other fatigue; N18.3 Chronic kidney disease, stage 3 (moderate); Z79.84 Long term (current) use of oral hypoglycemic drugs
CPT/HCPCS: 36415; 80053; 80061; 80069; 81001; 82043; 82570; 82652; 83036; 83970; 84155; 84436; 84443; 85025

== ENCOUNTER → 2018-11-02 14:12 | Outpatient (POV) | payer BC, SELFPAY | PROVIDERS: Visit Provider Internal Medicine Nephrology | DX: Z00.00 Encounter for general adult medical examination without abnormal findings (principal) ==

== ENCOUNTER → 2019-02-06 16:54 | Outpatient (CLI) | payer BC, SELFPAY ==
[2019-02-06 20:58] LABS: Ferritin 146 ng/mL (8-388)
== END ==
PROVIDERS: Visit Provider Nurse Practitioner Family
DX: E83.10 Disorder of iron metabolism, unspecified (principal); R51 Headache
CPT/HCPCS: 36415; 82728

== ENCOUNTER → 2019-05-18 10:48 | Outpatient (CLI) | payer BC, SELFPAY ==
--- NOTE | 2019-05-18 10:52 | CA_ITS ---
APPROVED REPORT Shingle Packer: Christiane Colón RVT Laterality: Bilateral Indications: dizziness,yesi Risk Factors Hypertension: Hyperlipidemia Diabetes, Doppler Spectral Velocity Analysis ECA (R) 86.30/16.60 cm/s ECA (L) 78.60/19.40 cm/s dICA (R) 79.60/31.90 cm/s dICA (L) 66.10/30.00 cm/s Laurent (R) 50.70/14.10 cm/s Laurent (L) 76.40/37.00 cm/s pICA (R) 61.10/24.90 cm/s pICA (L) 66.60/20.20 cm/s dCCA (R) 60.40/16.00 cm/s dCCA (L) 89.90/25.70 cm/s pCCA (R) 91.80/14.10 cm/s pCCA (L) 126.50/28.90 cm/s Vert (R) 28.90/12.20 cm/s Vert (L) 32.20/12.20 cm/s ICA/CCA 1.32 ICA/CCA 0.85 Findings Antegrade flow seen bilateral vertebral arteries. Study suggests less than 20% stenosis of the right internal cartoid artery, unchanged from the 09/27/17 study. Study suggests less than 20% stenosis of the left internal cartoid artery, unchanged from the 09/27/17 study. Conclusion No increased velocities to suggest hemodynamically significant stenosis in either internal carotid artery. Electronically signed by : Amado Evans MD 05/18/2019 18:31:13
== END ==
PROVIDERS: PCP Nurse Practitioner Family; Visit Provider Urology
DX: I65.23 Occlusion and stenosis of bilateral carotid arteries (principal)
CPT/HCPCS: 93880

== ENCOUNTER → 2019-11-02 16:53 | Outpatient (CLI) | payer BC, SELFPAY ==
[2019-11-02 17:28] LABS: Basophils # 0.1 K/mm3 (0-0.2); Basophils % 0.8 % (0.1-2.0); Eosinophils # 0.1 K/mm3 (0.0-0.4); Eosinophils % 0.3 % (0.1-12.0); Hematocrit 49.2 % (42.0-52.0); Hemoglobin 16.4 g/dL (14.1-18.0); Lymphocytes % 5.5 % (10-50); Mean Corpuscular HGB Conc 33.3 g/dL (31.8-35.4); Mean Corpuscular Hemoglobin 32.6 pg (27.0-31.2); Mean Corpuscular Volume 97.9 fl (80-94); Mean Platelet Volume 8.4 fl (7.4-10.4); Monocytes # 0.9 K/mm3 (0.1-1.0); Monocytes % 4.8 % (1.7-9.3); Neutrophils # 15.8 K/mm3 (1.8-7.8); Neutrophils % 88.7 % (37.0-80.0); Platelet Count 471 K/mm3 (142-424); Red Blood Count 5.02 M/mm3 (4.60-6.20); Red Cell Distribution Width 13.2 % (11.5-17.5); White Blood Count 17.8 K/mm3 (4.8-10.8)
[2019-11-02 17:29] LABS: Chloride 98 mmol/L (98-107); Potassium 5.3 mmoL/L (3.5-5.1); Sodium 139 mmol/L (136-145)
[2019-11-02 17:31] LABS: Amylase 63 U/L (30-110); Blood Urea Nitrogen 22 mg/dl (9-20); Estimated Glomerular Filt Rate 58 ml/min (>60); GFR (African American) 71 ML/MIN (>60)
[2019-11-02 17:32] LABS: Alanine Aminotransferase 55 U/L (12-78); Albumin Level 5.3 g/dl (3.5-5.0); Albumin/Globulin Ratio 1.6 (1.1-1.8); Alkaline Phosphatase 78 U/L (38-126); Anion Gap 21.3 mEq/L (5-15); Aspartate Amino Transferase 49 U/L (17-59); Bilirubin,Total 0.9 mg/dl (0.2-1.3); Calcium 10.9 mg/dl (8.4-10.2); Carbon Dioxide 25 mmol/L (22.0-30.0); Globulin 3.3 g/dL (1.3-3.2); Glucose 231 mg/dl (74-100); HDL Cholesterol 38 mg/dl (40-60); Lipase 157 U/L (23-300); MANUAL DIFFERENTIAL MANUAL DIFFERENTIAL (MANUAL DIFF); Total Protein,Serum 8.6 g/dl (6.3-8.2)
[2019-11-02 17:33] LABS: Chol/HDL Ratio 3.3 (1-3.5); Cholesterol 127 mg/dl (140-200)
[2019-11-02 17:43] LABS: Direct LDL Cholesterol 43.16 mg/dL (100-129)
[2019-11-02 17:49] LABS: T4 (Thyroxine) 9.7 ug/dl (5.53-11.0)
[2019-11-02 17:57] LABS: Lymphocytes % 6 % (10-50); Macrocytosis 1+; Neutrophils % 85 % (42-76); Platelet Estimate Slight Increase; Total Cells Counted 100
[2019-11-02 17:58] LABS: Toxic Granulation 1+
[2019-11-02 18:03] LABS: Thyroid Stimulating Hormone 1.22 uIU/mL (0.465-4.68)
[2019-11-02 18:12] LABS: Triglycerides 446 mg/dl (30-150)
== END ==
PROVIDERS: Visit Provider Emergency Medicine
DX: R11.10 Vomiting, unspecified (principal); R19.7 Diarrhea, unspecified
CPT/HCPCS: 80053; 80061; 82150; 83036; 83690; 84436; 84443; 85007; 85025

== ENCOUNTER → 2019-11-09 07:42 | Outpatient (CLI) | payer BC, SELFPAY ==
--- NOTE | 2019-11-09 07:43 | US_ITS ---
PROCEDURE: US GALLBLADDER CLINICAL INDICATION: right upper quad pain, diarrhea Abdominal pain, vomiting, diarrhea, right upper quadrant pain COMPARISON: No exams were available for comparison FINDINGS: Pancreas: Unremarkable/Not well seen Liver: Diffuse fatty liver noted.. There is appropriate direction of blood flow within a non dilated portal vein. Right kidney: Unremarkable appearing. No hydronephrosis. Gallbladder: Gallbladder appears contracted. There is a small polyp along the right lateral wall of the gallbladder. No shadowing stones, gallbladder wall thickening, or pericholecystic fluid evident. IMPRESSION: Small gallbladder polyp with contracted gallbladder. Fatty liver. No obvious stones Dictated by: Amado Evans MD 11/09/2019 09:51 Electronically signed by Amado Evans MD in [place] 11/09/2019 09:51
== END ==
PROVIDERS: PCP Nurse Practitioner Family; Visit Provider Emergency Medicine
DX: R11.10 Vomiting, unspecified (principal); R19.7 Diarrhea, unspecified
CPT/HCPCS: 76705

== ENCOUNTER → 2019-11-09 13:25 | Outpatient (CLI) | payer BC, SELFPAY ==
[2019-11-09 14:54] LABS: Basophils # 0.1 K/mm3 (0-0.2); Basophils % 0.6 % (0.1-2.0); Eosinophils # 0.2 K/mm3 (0.0-0.4); Eosinophils % 1.5 % (0.1-12.0); Hemoglobin 13.6 g/dL (14.1-18.0); Lymphocytes # 2.6 K/mm3 (0.7-4.5); Lymphocytes % 26.9 % (10-50); Mean Corpuscular HGB Conc 33.9 g/dL (31.8-35.4); Mean Corpuscular Hemoglobin 32.7 pg (27.0-31.2); Mean Corpuscular Volume 96.3 fl (80-94); Mean Platelet Volume 7.9 fl (7.4-10.4); Monocytes # 0.5 K/mm3 (0.1-1.0); Monocytes % 5.1 % (1.7-9.3); Neutrophils # 6.3 K/mm3 (1.8-7.8); Platelet Count 404 K/mm3 (142-424); Red Blood Count 4.15 M/mm3 (4.60-6.20); White Blood Count 9.6 K/mm3 (4.8-10.8)
[2019-11-09 15:04] LABS: Alanine Aminotransferase 44 U/L (12-78); Albumin Level 5.1 g/dl (3.5-5.0); Albumin/Globulin Ratio 1.9 (1.1-1.8); Alkaline Phosphatase 85 U/L (38-126); Amylase 75 U/L (30-110); Anion Gap 15.3 mEq/L (5-15); Aspartate Amino Transferase 40 U/L (17-59); Bilirubin,Total 0.5 mg/dl (0.2-1.3); Blood Urea Nitrogen 24 mg/dl (9-20); Calcium 10.1 mg/dl (8.4-10.2); Carbon Dioxide 25 mmol/L (22.0-30.0); Chloride 98 mmol/L (98-107); Estimated Glomerular Filt Rate 58 ml/min (>60); GFR (African American) 71 ML/MIN (>60); Globulin 2.7 g/dL (1.3-3.2); Glucose 255 mg/dl (74-100); Lipase 232 U/L (23-300); Potassium 4.3 mmoL/L (3.5-5.1); Sodium 134 mmol/L (136-145); Total Protein,Serum 7.8 g/dl (6.3-8.2)
== END ==
PROVIDERS: Visit Provider Nurse Practitioner Family
DX: E11.9 Type 2 diabetes mellitus without complications (principal); I10 Essential (primary) hypertension; Z79.4 Long term (current) use of insulin
CPT/HCPCS: 80053; 82150; 83690; 85025

== ENCOUNTER → 2019-11-16 09:57 | Outpatient (CLI) | payer BC, SELFPAY ==
--- NOTE | 2019-11-16 10:08 | NM_ITS ---
PROCEDURE: NM HEPATOBILIARY W PHARM CLINICAL INDICATION: RUQ pain Right upper quadrant pain with vomiting and diarrhea, gallbladder polyp COMPARISON: No exams were available for comparison TECHNIQUE: DOSE: 8.06 mCi technetium Choletec and 2 mcg of CCK FINDINGS: Homogeneous activity is present within the hepatic parenchyma. Activity is present in the gallbladder by 5 minutes. Small bowel visualization is somewhat delayed only seen on the ejection fraction images. The gallbladder ejection fraction is calculated to be 88 percent. CCK-The patient did not report pain or other symptoms during CCK infusion. IMPRESSION: 1. No evidence of common or cystic duct obstruction. There is some delay in visualization of the small bowel nonspecific. 2. The ejection fraction is normal at 88 percent with no pain reported with CCK infusion Dictated by: Amado Evans MD 11/19/2019 10:06 Electronically signed by Amado Evans MD in [place] 11/19/2019 10:06
== END ==
PROVIDERS: PCP Nurse Practitioner Family; Visit Provider Surgery
DX: R10.11 Right upper quadrant pain (principal)
CPT/HCPCS: 78227; A9537; J2805

== ENCOUNTER → 2019-11-29 14:34 | Outpatient (CLI) | payer BC, SELFPAY ==
[2019-12-01 09:15] LABS: Creatinine, Urine 33.2 mg/dL (Not Estab.)
[2019-12-01 11:13] LABS: Microalbumin, Urine <3.0 ug/mL (Not Estab.)
== END ==
PROVIDERS: Visit Provider Nurse Practitioner Family
DX: E11.9 Type 2 diabetes mellitus without complications (principal); Z79.4 Long term (current) use of insulin
CPT/HCPCS: 82043; 82570

== ENCOUNTER → 2019-12-24 07:43 | Outpatient (CLI) | payer BC, SELFPAY ==
[2019-12-24 10:35] LABS: Coronavirus 19 IgG Antibody Negative (Negative); Coronavirus 19 IgM Antibody Negative (Negative)
== END ==
PROVIDERS: Visit Provider Surgery
DX: Z03.818 Encounter for observation for suspected exposure to other biological agents ruled out (principal)
CPT/HCPCS: 36415; 86328

== ENCOUNTER 2019-12-25 06:55 | Day surgery (SDC) | payer BC, SELFPAY ==
[2019-12-24 08:29] VITALS: BMI 30.5
--- NOTE | 2019-12-25 07:17 | HMH.GSHP ---
HPI HPI: Patient is a 48-year-old white male from [place] with history of carotid artery disease, coronary artery disease with angina and previous myocardial infarction, diabetes mellitus, obstructive sleep apnea. He was originally referred by George Mendez for gallbladder. Patient states that for several weeks he has had postprandial nausea and vomiting. He has had associated right upper quadrant pain. He states that he feels sick to my stomach . Symptoms often occur an hour postprandially. He does have a significant amount of vomiting and on one occasion it lasted all day. He underwent gallbladder ultrasound on 11/09/2019 which was relatively unremarkable other than a very tiny gallbladder polyp. He states that foods such as eggs and fatty type foods seem to be worse. After I had seen him in initial consultation, given the minimal findings on ultrasound, I had him undergo HIDA scan. This is unremarkable and normal with an ejection fraction of 88%. Patient does state that he did have some nausea however with CCK. His symptomatology may be potential gallbladder but this seems less likely at this time given the minimal findings on ultrasound and normal HIDA scan. I will plan to proceed with upper endoscopy as the next step. If this is completely unremarkable with normal pathology on biopsies then the potential for gallbladder may be readdressed if his symptomatology continues. Another possibility may be gastroparesis. [facility] History I have reviewed the patient's past medical history: Yes Medical History: Reports:: Aneurysm, Diabetes Mellitus Type 2, Hiatal Hernia, Hyperlipidemia, Hypertension, Kidney Stones, Migraine, Myocardial Infarction, Palpitations Denies:: Cancer, Diabetes Mellitus Type 1, MRSA *Have you ever received a pneumonia vaccine?: No *Have you received a flu vaccine this season?: No Other Medical History: Reports: Arthritis Laterality Cases: Left: Other, Right: Arthroscopy Knee Other Surgeries: Yes: Cardiac Catheterization, Colonoscopy, Other Amputation: No Fractures: No - *Social History Educational Level: Attended High School Smoking Status: Never smoker Tobacco Type: smokeless tobacco Alcohol Intake: never Alcohol Intake Frequency:: other Substance Use Type: denies use *Occupational Status:: employed Housing: house Household Members: spouse *Travel in the last 8 weeks: None Family Hx:: Coronary Artery Disease, Diabetes, Heart Attack Review of Systems - Review of Systems Review of systems:: pertinent systems reviewed and negative unless documented below Meds Home Medications Medication Instructions Recorded Confirmed Type nitroglycerin 0.4 mg sublingual 0.4 mg SUBLINGUAL Q5M PRN 09/22/17 12/24/19 History tablet Aspirin [Low Dose Aspirin EC] 81 mg PO DAILY 12/14/17 12/24/19 History insulin lispro protamine-lispro 60 unit SQ TID #15 ml 05/15/18 12/24/19 Rx 100 unit/mL (75-25) subcutaneous pen fenofibrate 160 mg tablet 160 mg PO DAILY 08/10/18 12/24/19 History atorvastatin 80 mg tablet 80 mg PO DAILY #90 tab 11/20/18 12/24/19 Rx celecoxib 200 mg capsule 200 mg PO DAILY 05/15/19 12/24/19 History tizanidine 4 mg tablet 8 mg PO QHS PRN 30 Days #60 tab 07/09/19 12/24/19 Rx tramadol 50 mg tablet 50 mg PO QHS tab 07/09/19 12/24/19 History lisinopril 20 0.5 tab PO DAILY #90 tab 11/13/19 12/24/19 Rx mg-hydrochlorothiazide 12.5 mg tablet pramipexole 0.25 mg tablet 0.25 mg PO DAILY tab 11/13/19 12/24/19 History Duloxetine HCl [Cymbalta] 60 mg PO DAILY 12/24/19 12/24/19 History Empagliflozin/Metformin HCl 1 each PO BID 12/24/19 12/24/19 History [Synjardy 12.5-1,000 mg Tablet] Nortriptyline HCl 20 mg PO HS 12/24/19 12/24/19 History bisoproloL fumarate [Bisoprolol 10 mg PO BID 12/24/19 12/24/19 History 10mg Tablet] Allergies Allergy/AdvReac Type Severity Reaction Status Date / Time No Known Allergies Allergy Verified 12/24/19 08:17 Exam I & O for Last 24 hours: Intake & Output
[2019-12-25 07:29] VITALS: BP 111/77; PULSE 77; RESP 20; TEMP 36.3; O2SAT 96
--- NOTE | 2019-12-25 08:02 | P.PN_ITS ---
[facility] Anesthesia Checklist - Patient Identification Patient Identification: Arm Band, Verbal (Name & ) - Structural Data Admitted From: Home Planned Operative Procedure/s: egd Consent for Planned Operative Procedure(s) Verified: Yes Verified Documents: History and Physical - NPO Status Verified Time NPO: 00:00 - Chart Verification Results Verified: CBC, BMP - Additional verifications Patient : No Anesthesia Reactions: No Hx Blood Transfusions: No Blood Transfusion Reaction: No Cephalosporin Allergy: No Previous Colonoscopy: No - Cardiovascular Assessment Heart Sounds: S1 & S2 Pulse Strength: Baseline Pulse Rhythm: Regular Peripheral Edema: No - Airway Assessment C-Spine Mobility Assessed: Yes TMJ Mobility Assessed: Yes Dentition: Good Dentition - Neurological Assessment Level of Consciousness: Awake, Alert, Appropriate Hx Seizures: No Numbness or tingling in extremities: No - Anesthesia Plan Anesthesia Risk discussed: Yes Anesthesia Plan: Verified ASA Class: II Anesthesia Type: MAC [facility] History I have reviewed the patient's past medical history: Yes Medical History: Reports:: Aneurysm, Diabetes Mellitus Type 2, Hiatal Hernia, Hyperlipidemia, Hypertension, Kidney Stones, Migraine, Myocardial Infarction, Palpitations Denies:: Cancer, Diabetes Mellitus Type 1, Internal Pacemaker, MRSA, Seizures *Have you ever received a pneumonia vaccine?: No *Have you received a flu vaccine this season?: No Other Medical History: Reports: Arthritis Anesthesia experience/problems:: none Laterality Cases: Left: Other, Right: Arthroscopy Knee Other Surgeries: Yes: Cardiac Catheterization, Colonoscopy, Other. No: Pacemaker Amputation: No Fractures: No - *Social History Educational Level: Attended High School Smoking Status: Never smoker Tobacco Type: smokeless tobacco Alcohol Intake: never Alcohol Intake Frequency:: other Substance Use Type: denies use *Occupational Status:: employed Housing: house Household Members: spouse *Travel in the last 8 weeks: None Family Hx:: Coronary Artery Disease, Diabetes, Heart Attack
[2019-12-25 08:14] VITALS: O2SAT 97
--- NOTE | 2019-12-25 08:21 | P.PCN_ITS ---
- Procedure: Date: 12/25/19 Procedure Performed:: Esophagogastroduodenoscopy with biopsies Indications:: Patient is a 48-year-old white male from [place] with history of carotid artery disease, coronary artery disease with angina and previous myocardial infarction, diabetes mellitus, obstructive sleep apnea. He was originally referred by George Mendez for gallbladder. Patient states that for several weeks he has had postprandial nausea and vomiting. He has had associated right upper q uadrant pain. He states that he feels sick to my stomach . Symptoms often occur an hour postprandially. He does have a significant amount of vomiting and on one occasion it lasted all day. He underwent gallbladder ultrasound on 11/09/2019 which was relatively unremarkable other than a very tiny gallbladder polyp. He states that foods such as eggs and fatty type foods seem to be worse. After I had seen him in initial consultation, given the minimal findings on ultrasound, I had him undergo HIDA scan. This is unremarkable and normal with an ejection fraction of 88%. Patient does state that he did have some nausea however with CCK. His symptomatology may be potential gallbladder but this seems less likely at this time given the minimal findings on ultrasound and normal HIDA scan. I will plan to proceed with upper endoscopy as the next step. If this is completely unremarkable with normal pathology on biopsies then the potential for gallbladder may be readdressed if his symptomatology continues. Another possibility may be gastroparesis. Performing Provider:: Manuel Quigley MD Referring Provider:: Aida Mendez Sedation:: Propofol Procedure:: Patient was taken to endoscopy procedure room. He was positioned in a lateral decubitus position. Adequate intravenous sedation was achieved with anesthesia titration of propofol. Olympus endoscope was inserted via the oropharynx advanced to the esophagus. Overall the esophagus appeared relatively unremarkable. Stomach was cannulated and insufflated. Relatively large amount of retained food was present within the stomach which precluded some visualization. It was unable to be determined if there was a hiatal hernia due to food high in the gastric lumen. There were no obvious masses or ulcers. Gastric mucosal biopsy was obtained for CLOtest for H. pylori. Gastric biopsy was obtained for histopathologic analysis. Pylorus was traversed and there was food within the duodenal bulb but no obvious duodenal obstruction. Endoscope was able to be advanced into the distal duodenum which revealed no evidence of any obstruction. Due to the amount of retained food matter within the stomach biopsies of the normal-appearing distal esophagus were not performed. Endoscope was withdrawn. Findings:: Large amount of retained food matter within the gastric lumen Recommendations:: I will follow-up on the H. pylori and histopathologic analysis. Etiology of his symptoms may potentially be gastroparesis secondary to his diabetes. If biopsies are unremarkable I may plan for upper GI with small bowel follow- through to rule out mechanical etiology and gastric emptying scan to rule out functional etiology. Complications:: None immediately apparent Estimated blood obtained (mL): 2
[2019-12-25 08:23] VITALS: BP 100/64; PULSE 81; RESP 16; TEMP 36.6; O2SAT 95
[2019-12-25 08:33] VITALS: BP 96/64; PULSE 77; RESP 16; TEMP 36.6; O2SAT 94
[2019-12-25 08:43] VITALS: BP 114/74; PULSE 73; RESP 16; TEMP 36.6; O2SAT 98
[2019-12-25 08:50] VITALS: BP 108/71; PULSE 74; RESP 16; TEMP 36.6; O2SAT 95
[2019-12-25 08:56] LABS: POC Glucose,Bedside 243 (70-110)
[2019-12-25 11:40] LABS: POC Glucose,Bedside 254 (70-110)
== END 2019-12-25 08:53 | disposition home or self-care (01) ==
LOC: OUTP 06:57
PROVIDERS: PCP Nurse Practitioner Family; Visit Provider Surgery
PROC: 0DJ08ZZ Inspection of Upper Intestinal Tract, Via Natural or Artificial Opening Endoscopic (ICD-10-PCS; CPT 43235; principal; 2019-12-25 08:00)
DX: R11.2 Nausea with vomiting, unspecified (principal); R10.11 Right upper quadrant pain; Z91.19 Patient's noncompliance with other medical treatment and regimen; I25.118 Atherosclerotic heart disease of native coronary artery with other forms of angina pectoris; I25.2 Old myocardial infarction; E11.9 Type 2 diabetes mellitus without complications; G47.33 Obstructive sleep apnea (adult) (pediatric); R00.2 Palpitations; G43.909 Migraine, unspecified, not intractable, without status migrainosus; Z87.39 Personal history of other diseases of the musculoskeletal system and connective tissue; Z79.82 Long term (current) use of aspirin; Z79.899 Other long term (current) drug therapy
CPT/HCPCS: 43239; 82962; 87339

== ENCOUNTER → 2020-01-23 09:51 | Outpatient (CLI) | payer BC, SELFPAY ==
--- NOTE | 2020-01-23 09:51 | NM_ITS ---
PROCEDURE: NM GASTRIC EMPTYING STUDY CLINICAL INDICATION: nausea and vomiting COMPARISON: No exams were available for comparison FINDINGS: Dose: 0.55 mCi technetium sulfur colloid in radial labeled meal The 1/2 emptying time is 76 minutes which is within normal limits. Approximately 55 percent of the gastric contents had emptied at 90 minutes. Images demonstrates no evidence GE reflux. IMPRESSION: Normal gastric emptying time Dictated by: Amado Evans MD 01/23/2020 15:28 Electronically signed by Amado Evans MD in [facility] 01/23/2020 15:28
== END ==
PROVIDERS: PCP Nurse Practitioner Family; Visit Provider Surgery
DX: R10.9 Unspecified abdominal pain (principal); R11.2 Nausea with vomiting, unspecified
CPT/HCPCS: 78264; A9541

== ENCOUNTER → 2020-01-28 08:34 | Outpatient (CLI) | payer BC, SELFPAY ==
--- NOTE | 2020-01-28 08:35 | FL_ITS ---
PROCEDURE: FL UPPER GI SMALL BOWEL CLINICAL INDICATION: Nausea and vomiting. Right-sided abdominal pain. COMPARISON: No relevant prior is available for comparison. TECHNIQUE: FLUOROSCOPY TIME : 2 minutes 4 seconds. Double contrast upper GI was performed. Single contrast small bowel follow-through was performed and overhead images were obtained. FINDINGS: Following oral administration of barium there is flow of barium through the esophagus into the stomach with no obstruction in countered. The esophagus is normal in course and caliber and is well distended. No narrowing or strictures is evident. Esophageal peristalsis is normal. No gastroesophageal reflux was detected. The gastroesophageal junction is normally positioned. The stomach is normal in course with normal mucosal pattern. There is no evidence of gastric ulceration or other deformity noted. The duodenal C-loop is nondisplaced. A 1.5 centimeter diverticulum/duplication cyst of the proximal segment of the duodenum is seen medially. Small intestinal status post performed and demonstrated normal contrast transit time. The outlined jejunal and ileal mucosa normal in appearance. There is no evidence of displacement or dilatation of the intestinal loops. No significant gastric retention is demonstrated. IMPRESSION: Unremarkable upper GI and small bowel follow-through. A normal variant small duodenal diverticulum is seen. Dictated by: Chuck Bucio 01/28/2020 17:05 Electronically signed by Chuck Bucio in [place] 01/28/2020 17:05
== END ==
PROVIDERS: PCP Nurse Practitioner Family; Visit Provider Surgery
DX: R10.9 Unspecified abdominal pain (principal); R11.2 Nausea with vomiting, unspecified
CPT/HCPCS: 74246; 74248

== ENCOUNTER → 2020-02-21 16:58 | Outpatient (CLI) | payer BC, SELFPAY ==
[2020-02-21 17:26] LABS: Basophils # 0.1 K/mm3 (0-0.2); Basophils % 0.8 % (0.1-2.0); Eosinophils # 0.1 K/mm3 (0.0-0.4); Eosinophils % 1.5 % (0.1-12.0); Hematocrit 40.8 % (42.0-52.0); Hemoglobin 14.1 g/dL (14.1-18.0); Lymphocytes # 1.9 K/mm3 (0.7-4.5); Lymphocytes % 30.1 % (10-50); Mean Corpuscular HGB Conc 34.5 g/dL (31.8-35.4); Mean Corpuscular Hemoglobin 33.5 pg (27.0-31.2); Mean Corpuscular Volume 97.3 fl (80-94); Mean Platelet Volume 7.7 fl (7.4-10.4); Monocytes # 0.4 K/mm3 (0.1-1.0); Neutrophils # 3.8 K/mm3 (1.8-7.8); Neutrophils % 61.6 % (37.0-80.0); Platelet Count 312 K/mm3 (142-424); Red Cell Distribution Width 12.6 % (11.5-17.5); White Blood Count 6.2 K/mm3 (4.8-10.8)
[2020-02-21 17:30] LABS: Chloride 99 mmol/L (98-107); Potassium 4.6 mmoL/L (3.5-5.1); Sodium 136 mmol/L (136-145)
[2020-02-21 17:32] LABS: Blood Urea Nitrogen 15 mg/dl (9-20); Estimated Glomerular Filt Rate 79 ml/min (>60); GFR (African American) 95 ML/MIN (>60)
[2020-02-21 17:33] LABS: Alanine Aminotransferase 47 U/L (12-78); Albumin Level 4.2 g/dl (3.5-5.0); Albumin/Globulin Ratio 1.4 (1.1-1.8); Alkaline Phosphatase 95 U/L (38-126); Anion Gap 19.6 mEq/L (5-15); Aspartate Amino Transferase 40 U/L (17-59); Bilirubin,Total 0.7 mg/dl (0.2-1.3); Carbon Dioxide 22 mmol/L (22.0-30.0); Cholesterol 231 mg/dl (140-200); Globulin 3.1 g/dL (1.3-3.2); Glucose 392 mg/dl (74-100); Total Protein,Serum 7.3 g/dl (6.3-8.2)
[2020-02-21 17:34] LABS: Calcium 10.1 mg/dl (8.4-10.2); Chol/HDL Ratio 9.2 (1-3.5); HDL Cholesterol 25 mg/dl (40-60)
[2020-02-21 17:45] LABS: Direct LDL Cholesterol < 30.00 mg/dL (100-129); Hemoglobin A1C 11.1 % (4.0-6.0)
[2020-02-21 17:50] LABS: T4 (Thyroxine) 7.8 ug/dl (5.53-11.0)
[2020-02-21 18:02] LABS: Triglycerides 2105 mg/dl (30-150)
[2020-03-02 18:48] LABS: 1,25 Dihydroxy Vitamin D 88 pg/mL (.); 1,25-Dihydroxy, Vitamin D-2 13 pg/mL (.); 1,25-Dihydroxy, Vitamin D-3 75 pg/mL (.)
== END ==
PROVIDERS: Visit Provider Nurse Practitioner Family
DX: E11.9 Type 2 diabetes mellitus without complications (principal); I10 Essential (primary) hypertension; R53.83 Other fatigue; E67.3 Hypervitaminosis D
CPT/HCPCS: 80053; 80061; 82652; 83036; 84436; 84443; 85025

== ENCOUNTER 2020-04-10 08:52 | Outpatient (RCR) | payer BC, SELFPAY | END 2020-05-06 15:15 | disposition home or self-care (01) | LOC: OT 08:52 | PROVIDERS: PCP Nurse Practitioner Family; Visit Provider Nurse Practitioner Family | DX: S49.91XA Unspecified injury of right shoulder and upper arm, initial encounter (principal) | CPT/HCPCS: 97165 ==

== ENCOUNTER → 2020-07-09 06:23 | Outpatient (CLI) | payer BC, SELFPAY ==
--- NOTE | 2020-07-09 06:24 | CA_ITS ---
APPROVED REPORT EXAM: Comprehensive 2D, Doppler, and color-flow Echocardiogram Licensed Psychiatric Technician: Christiane Colón RVT Ht: 6 ft 1 in Wt: 230lbs BSA: 2.28 BP: 132/84 mmHg Indications: PRE-OP,SOA,CAD,CP,IVORY,SMOKER,PALPS,DM,HLD,HTN 2D Dimensions LVOT 1.95 cm (M/F) 1.5-2.5 M-Mode Dimensions RVDd 3.29 cm (0.9-2.6) LA Diam 3.41 cm (1.9-4.0) LVDd 4.27 cm (3.5-5.7) Ao Diam 3.16 cm (2.0-3.7) LVDs 3.00 cm (3.5-5.7) IVSd 1.18 cm (0.6-1.1) PWd 0.86 cm (0.6-1.1) EF (Teich) 57.20% FS 29.70% EDV (Teich) 81.70 mL ESV (Teich) 35.00 mL LV Diastology E Decel Time 217.00 (160-240 msec) E/A Ratio 0.8 MED E' 5.40 (< 7 cm/sec) E'/MED E' Ratio 12.63 (>14) LAT E' 7.50 (<10 cm/sec) E/LAT E' Ratio 9.09 (>14) Mitral Valve MV E Max Yobany. 68.00 (40-130 cm/s) MV A Velocity 82.00 (40-130 cm/s) E/A Ratio 0.83 MV Decel. Time 217.00 (160-240 ms) MV PHT 63.00 ms Pulmonary Valve PV Peak Velocity 110.00 (50-150 cm/s) Left Ventricle Left atrium is mildly enlarged, left ventricle is normal size, mild concentric left ventricular hypertrophy, visually estimated ejection fraction 55% with no regional wall motion abnormality. Grade 1 diastolic dysfunction seen without tissue Doppler evidence of raise left atrial pressure. Right Ventricle Right atrium and right ventricle are mildly enlarged with normal contractility. Aortic Valve Aortic valve is minimally thickened and fibrosed, there is no aortic stenosis or aortic insufficiency. Mitral Valve Mitral valve is grossly normal, there is mild mitral regurgitation. Tricuspid Valve Tricuspid valve is grossly normal, there is mild tricuspid regurgitation, tricuspid regurgitation jet velocity is inadequate for calculation of the right ventricular systolic pressure. Pulmonic Valve Pulmonic valve is poorly visualized. Great Vessels Aortic root is normal size. Pericardium No significant pericardial effusion noted. Conclusion 1. Mild biatrial enlargement, normal left ventricular size, mild concentric left ventricular hypertrophy, visually estimated ejection fraction 55% with no regional wall motion abnormality, grade 1 diastolic dysfunction seen without tissue Doppler evidence of raise left atrial pressure. 2. Mildly enlarged right ventricle with normal contractility. 3. Mild mitral and tricuspid regurgitation. 4. No significant pericardial effusion noted. Electronically signed by : Everett Mackay, 07/10/2020 15:53:25
--- NOTE | 2020-07-09 06:24 | NM_ITS ---
APPROVED REPORT Exam: Nuclear Stress Test Indication: SOB, Palpitations, HTN, DM, High cholesterol, Family history Patient Location: Outpatient Stress Tech: Pauline Goel [place] Tech:Katia Wilson, ARRT, RT (R)(N) Ht: 6 ft 0 in Wt: 222 lbs HR: 88 bpm BP: 123/80 mmHg BSA: 2.23 m2 History: SOB, Palpitations, HTN, DM, High cholesterol, Family history Procedure: Patient received a 0.4 mg of intravenous Lexiscan, resting heart rate 88 bpm, resting blood pressure 123/80 mmHg, with Lexiscan maximum heart rate achived was 110 bpm which is Less than 85 % of the maximum predicted heart rate and blood pressure was 116/70 mmHg. With Lexiscan, patient denied any complaint of chest pain. Electrocardiogram Resting electrocardiogram showed sinus rhythm, with Lexiscan there is less than 1.[address] segment depression noted from the baseline EKG. The EKG portion of the Lexiscan is nondiagnostic. Cardiac Stress and Resting SPECT Images: Cardiac Stress and Resting SPECT images were obtained using technetium 99m Myoview 31.8 mCi stress and 10.91 mCi at rest. Gated SPECT for analysis of segmental wall motion and calculation of the ejection fraction also done. Prone images were also obtained. Cardiac stress and resting SPECT images show uniform myocardial activity without segmental perfusion abnormality, computer derived ejection fraction is 58% with no regional wall motion abnormality, right ventricle is normal size and contractility. Conclusion: 1. The EKG portion of the Lexiscan is nondiagnostic. 2. No scintigraphic evidence of reversible ischemia seen, computer derived ejection fraction 58% with no regional wall motion abnormality, right ventricle is normal size and contractility. 3. Normal Lexiscan Myoview study. Electronically signed by : Everett Mackay, 07/10/2020 11:04:09
--- NOTE | 2020-07-09 06:24 | CA_ITS ---
APPROVED REPORT Exam: Pharmacologic Technologist: Pauline Goel Ht: 6 ft 1 in Wt: 230 lbs BSA: 2.28 m2 HR: 88 bpm BP: 123/80 mmHg Indications: Shortness of Air, Pre-Op clearance Medical History Medications: Lisinopril,,,,, Aspirin,,,,, Atorvastatin,,,,, INSULIN,,,,, DulOXETINE,,,,, FeNOfibrate,,,,, BisOPROLOL,,,,, Tizanidine,,,,, Celecoxib,,,,, Nitroglycerin,,,,, Nortriptyline,,,,, EMpagliflozin-Metformin,,,,, Stress Test Details Test: LEXISCAN HR Resting HR: 97 bpm Max Heart Rate (APMHR): 169 bpm Max HR Achieved: 111 bpm Target HR (85% APMHR): 143 bpm % of APMHR: 65 Recovery HR: 101 bpm BP Resting BP: 123.0/80.0 mmHg Max BP: 123.0/80.0 mmHg Recovery BP: 120.0/79.0 mmHg ECG Resting ECG: Normal sinus rhythm, T wave abnormalities inferiorly, PVC Clinical Exercise duration: 04:00 min Highest Stage Achieved: Exercise capacity: 1.0 METs Stress ECG Conclusion Symptoms: Brief shortness of air, mild malaise. No chest pain. Arrhythmias/Ectopy: None ST-T Changes: No significant changes. Conclusion: Unremarkable Lexiscan stress. Myoview images reported separately. Electronically signed by : Everett Mackay, 07/10/2020 11:00:28
--- NOTE | 2020-07-09 08:00 | HMH.ITSHM ---
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 []TIZANIDINE NORTRIPTYLINE NITRO LISINOPRIL INSULIN FENOFIBRATE EMPAGLIFLOZIN DULOXETINE CELECOXIB BISOPROLOL ATORVASTATIN ASA
== END ==
PROVIDERS: PCP Nurse Practitioner Family; Visit Provider Urology
DX: Z01.810 Encounter for preprocedural cardiovascular examination (principal); I25.10 Atherosclerotic heart disease of native coronary artery without angina pectoris; I25.2 Old myocardial infarction; E78.2 Mixed hyperlipidemia; E78.1 Pure hyperglyceridemia; I65.23 Occlusion and stenosis of bilateral carotid arteries; I10 Essential (primary) hypertension; G47.33 Obstructive sleep apnea (adult) (pediatric)
CPT/HCPCS: 78452; 93017; 93306; A9502; J2785

== ENCOUNTER → 2020-11-07 13:03 | Outpatient (CLI) | payer BC, SELFPAY ==
[2020-11-07 13:09] LABS: Microscopic, Urine URINE MICROSCOPIC (MICROSCOPIC)
[2020-11-07 13:31] LABS: Appearance,Urine CLEAR (Clear); Bilirubin,Urine Negative (Negative); Blood, Urine Negative (Negative); Color,Urine YELLOW (Yellow); Glucose,Urine (UA) 3+ (Negative); Ketones,Urine Negative (Negative); Leukocyte Esterase,Urine Negative (Negative); Nitrate,Urine Negative (Negative); Protein,Urine Negative (Negative); Urobilinogen,Urine 0.2 EU/dl (0.2)
[2020-11-07 13:37] LABS: Basophils # 0.1 K/mm3 (0-0.2); Basophils % 0.7 % (0.1-2.0); Eosinophils # 0.2 K/mm3 (0.0-0.4); Eosinophils % 1.5 % (0.1-12.0); Hemoglobin 14.5 g/dL (14.1-18.0); Lymphocytes # 2.8 K/mm3 (0.7-4.5); Lymphocytes % 28.9 % (10-50); Mean Corpuscular HGB Conc 33.8 g/dL (31.8-35.4); Mean Corpuscular Hemoglobin 31.6 pg (27.0-31.2); Mean Corpuscular Volume 93.4 fl (80-94); Mean Platelet Volume 7.1 fl (7.4-10.4); Monocytes # 0.5 K/mm3 (0.1-1.0); Monocytes % 5.2 % (1.7-9.3); Neutrophils # 6.1 K/mm3 (1.8-7.8); Neutrophils % 63.7 % (37.0-80.0); Platelet Count 429 K/mm3 (142-424); Red Cell Distribution Width 14.9 % (11.5-17.5); White Blood Count 9.5 K/mm3 (4.8-10.8)
[2020-11-07 13:46] LABS: Creatinine,Urine Random 53 mg/dL (Not Estab.)
[2020-11-07 14:36] LABS: Chloride 93 mmol/L (98-107); Potassium 4.6 mmoL/L (3.5-5.1); Sodium 134 mmol/L (136-145)
[2020-11-07 14:37] LABS: Albumin Level 4.8 g/dl (3.5-5.0)
[2020-11-07 14:39] LABS: Anion Gap 21.6 mEq/L (5-15); Blood Urea Nitrogen 19 mg/dl (9-20); Carbon Dioxide 24 mmol/L (22.0-30.0); Estimated Glomerular Filt Rate 64 ml/min (>60); GFR (African American) 77 ML/MIN (>60); Phosphorous 5.9 mg/dl (2.5-4.5)
[2020-11-07 14:40] LABS: Calcium 10.2 mg/dl (8.4-10.2)
[2020-11-07 15:15] LABS: Ferritin 125 ng/ml (17.9-464)
[2020-11-07 16:44] LABS: Glucose 409 mg/dl (74-100)
== END ==
PROVIDERS: Nurse Practitioner Family; Visit Provider Internal Medicine Nephrology
DX: E83.10 Disorder of iron metabolism, unspecified (principal); G25.81 Restless legs syndrome
CPT/HCPCS: 36415; 80069; 81001; 82570; 82728; 84155; 85025

== ENCOUNTER → 2020-11-10 14:37 | Outpatient (POV) | payer BC, SELFPAY | PROVIDERS: Visit Provider Internal Medicine Nephrology | DX: Z00.00 Encounter for general adult medical examination without abnormal findings (principal) ==

== ENCOUNTER → 2020-11-17 09:19 | Outpatient (CLI) | payer BC, SELFPAY ==
[2020-11-17 10:00] LABS: Basophils # 0.1 K/mm3 (0-0.2); Basophils % 0.7 % (0.1-2.0); Eosinophils # 0.1 K/mm3 (0.0-0.4); Eosinophils % 1.7 % (0.1-12.0); Hematocrit 44.2 % (42.0-52.0); Hemoglobin 14.3 g/dL (14.1-18.0); Lymphocytes # 2.5 K/mm3 (0.7-4.5); Lymphocytes % 29.4 % (10-50); Mean Corpuscular HGB Conc 32.3 g/dL (31.8-35.4); Mean Corpuscular Volume 95.8 fl (80-94); Mean Platelet Volume 6.7 fl (7.4-10.4); Monocytes # 0.4 K/mm3 (0.1-1.0); Monocytes % 4.9 % (1.7-9.3); Neutrophils # 5.3 K/mm3 (1.8-7.8); Neutrophils % 63.4 % (37.0-80.0); Platelet Count 376 K/mm3 (142-424); Red Blood Count 4.62 M/mm3 (4.60-6.20); Red Cell Distribution Width 14.7 % (11.5-17.5); White Blood Count 8.4 K/mm3 (4.8-10.8)
[2020-11-17 10:48] LABS: Hemoglobin A1C 11.3 % (4.0-6.0)
[2020-11-17 11:16] LABS: Chloride 101 mmol/L (98-107); Sodium 140 mmol/L (136-145)
[2020-11-17 11:17] LABS: Potassium 5.1 mmoL/L (3.5-5.1)
[2020-11-17 11:19] LABS: Alanine Aminotransferase 24 U/L (12-78); Alkaline Phosphatase 117 U/L (38-126); Anion Gap 19.1 mEq/L (5-15); Aspartate Amino Transferase 27 U/L (17-59); Bilirubin,Total 0.7 mg/dl (0.2-1.3); Blood Urea Nitrogen 19 mg/dl (9-20); Carbon Dioxide 25 mmol/L (22.0-30.0); Estimated Glomerular Filt Rate 70 ml/min (>60); GFR (African American) 85 ML/MIN (>60)
[2020-11-17 11:20] LABS: Albumin Level 4.8 g/dl (3.5-5.0); Albumin/Globulin Ratio 1.5 (1.1-1.8); Calcium 10.7 mg/dl (8.4-10.2); Cholesterol 207 mg/dl (140-200); Globulin 3.1 g/dL (1.3-3.2); Glucose 234 mg/dl (74-100); Total Protein,Serum 7.9 g/dl (6.3-8.2)
[2020-11-17 11:34] LABS: T4 (Thyroxine) 9.5 ug/dl (5.53-11.0)
[2020-11-17 11:48] LABS: Thyroid Stimulating Hormone 1.26 uIU/mL (0.465-4.68)
== END ==
PROVIDERS: PCP Nurse Practitioner Family; Visit Provider Nurse Practitioner Family
DX: R42 Dizziness and giddiness (principal); E11.9 Type 2 diabetes mellitus without complications; R53.83 Other fatigue; E78.5 Hyperlipidemia, unspecified; Z79.4 Long term (current) use of insulin
CPT/HCPCS: 36415; 80053; 82465; 83036; 84436; 84443; 85025; 93017; 93270

== ENCOUNTER → 2020-11-25 12:56 | Outpatient (CLI) | payer BC, SELFPAY ==
--- NOTE | 2020-11-25 12:57 | CA_ITS ---
APPROVED REPORT EXAM: Comprehensive 2D, Doppler, and color-flow Echocardiogram Decision Unit Rn: Christiane Colón RVT Ht: 6 ft 1 in Wt: 227lbs BSA: 2.27 BP: 124/83 mmHg Indications: SOA,CAD,DM,SYNCOPE,SMOKER,HTN,HLD 2D Dimensions LVOT 2.44 cm (M/F) 1.5-2.5 LA Volume 22.50 mL LA Volume Index 9.91 mL/m2 (M/F) 16-34 M-Mode Dimensions RVDd 3.00 cm (0.9-2.6) LA Diam 3.61 cm (1.9-4.0) LVDd 5.29 cm (3.5-5.7) Ao Diam 3.25 cm (2.0-3.7) LVDs 3.65 cm (3.5-5.7) IVSd 0.50 cm (0.6-1.1) PWd 0.86 cm (0.6-1.1) EF (Teich) 58.20% FS 31.00% EDV (Teich) 134.80 mL TAPSE 2.26 (<1.7) ESV (Teich) 56.30 mL LV Diastology E Decel Time 247.00 (160-240 msec) E/A Ratio 1.0 MED E' 6.10 (< 7 cm/sec) E'/MED E' Ratio 12.66 (>14) LAT E' 9.00 (<10 cm/sec) E/LAT E' Ratio 8.58 (>14) Aortic Valve AO Peak GR. 6.90 mmHg Mitral Valve MV E Max Yobany. 77.00 (40-130 cm/s) MV A Velocity 76.00 (40-130 cm/s) E/A Ratio 1.02 MV Decel. Time 247.00 (160-240 ms) MV PHT 72.00 ms Pulmonary Valve PV Peak Velocity 98.00 (50-150 cm/s) Tricuspid Valve TR P. Velocity 261.00 cm/s RAP Estimate 10.00 mmHg RVSP 37.20 mmHg Left Ventricle Left atrium is mildly enlarged, left ventricle is normal size, mild concentric left ventricular hypertrophy, visually estimated ejection fraction 55% with no regional wall motion abnormality, grade 1 diastolic dysfunction seen without tissue Doppler evidence of raise left atrial pressure. Right Ventricle Right atrium and right ventricle are mildly enlarged with normal contractility. Aortic Valve Aortic valve is minimally thickened and fibrosed, there is no aortic stenosis or aortic insufficiency. Mitral Valve Mitral valve grossly normal, there is trace mitral regurgitation. Tricuspid Valve Tricuspid grossly normal, there is trace tricuspid regurgitation, tricuspid regurgitation jet velocity is inadequate for calculation of the right ventricular systolic pressure. Pulmonic Valve Pulmonic valve is poorly visualized. Great Vessels Aortic root is normal size. Pericardium No significant pericardial effusion noted. Conclusion 1. Mild biatrial normal, normal left ventricular size, mild concentric left ventricular hypertrophy, visually estimated ejection fraction 55% with no regional wall motion abnormality, grade 1 diastolic dysfunction seen without tissue Doppler evidence of raise left atrial pressure. 2. Trace mitral and tricuspid regurgitation. 3. No significant pericardial effusion noted. Electronically signed by : Everett Mackay, 11/25/2020 18:49:56
--- NOTE | 2020-11-25 12:57 | CA_ITS ---
APPROVED REPORT Perl Software Engineer: Christiane Colón RVT Laterality: Bilateral Study Quality: Good Indications: Dizziness Risk Factors Hypertension: Hyperlipidemia Smoking Doppler Spectral Velocity Analysis ECA (R) 89.80/15.00 cm/s ECA (L) 102.70/31.00 cm/s dICA (R) 94.10/38.50 cm/s dICA (L) 71.60/35.30 cm/s Laurent (R) 71.60/29.90 cm/s Laurent (L) 59.90/32.10 cm/s pICA (R) 72.70/17.10 cm/s pICA (L) 53.50/16.00 cm/s dCCA (R) 74.90/18.20 cm/s dCCA (L) 79.10/25.70 cm/s pCCA (R) 86.60/20.30 cm/s pCCA (L) 82.30/20.30 cm/s Vert (R) 38.50/16.00 cm/s Vert (L) 25.00/9.60 cm/s ICA/CCA 1.26 ICA/CCA 0.91 Findings Study suggests less than 20% stenosis of the right internal cartoid artery. Study suggests less than 20% stenosis of the left internal cartoid artery. Antegrade flow seen bilateral vertebral arteries. Conclusion Study suggests less than 20% stenosis of the right internal cartoid artery. Study suggests less than 20% stenosis of the left internal cartoid artery. Antegrade flow seen bilateral vertebral arteries. Electronically signed by : Amado Evans MD 11/25/2020 16:20:21
== END ==
PROVIDERS: PCP Nurse Practitioner Family; Visit Provider Nurse Practitioner Family
DX: R42 Dizziness and giddiness (principal); R06.02 Shortness of breath
CPT/HCPCS: 93306; 93880

== ENCOUNTER → 2021-01-26 10:55 | Outpatient (CLI) | payer BC, SELFPAY ==
--- NOTE | 2021-01-26 10:56 | CT_ITS ---
PROCEDURE: CT HEAD/BRAIN WO/W CON CLINICAL INDICATION: syncope Migraines Syncope x several months COMPARISON: CT HEADWO CT head/brain wo con from 04/03/2018 MR AGHEADWO MR angio head wo con from 04/07/2018 TECHNIQUE: IV Contrast: 100ML Isovue 370 Axial images obtained. All CT scans at the facility use one or more dose reduction, viz: automated exposure control, ma/kV adjustment per patient size (including targeted exams where dose is matched to indication, i.e. head), or iterative reconstruction technique. FINDINGS: No midline shift, mass effect, intracranial hemorrhage, hydrocephalus, or extra-axial fluid collection is evident. No enhancing lesions are evident. The calvarium has an unremarkable appearance. No mastoid effusion. No sinus air-fluid level IMPRESSION: Negative CT head without and with contrast. Dictated by: Amado Evans MD 01/27/2021 08:28 Amado Evans MD in [facility] 01/27/2021 08:28
[2021-01-26 12:09] LABS: Blood Urea Nitrogen 14 mg/dl (9-20); Estimated Glomerular Filt Rate 78 ml/min (>60); GFR (African American) 95 ML/MIN (>60)
== END ==
PROVIDERS: PCP Nurse Practitioner Family; Visit Provider Urology
DX: R06.00 Dyspnea, unspecified (principal); R55 Syncope and collapse; I25.10 Atherosclerotic heart disease of native coronary artery without angina pectoris; I10 Essential (primary) hypertension; I25.2 Old myocardial infarction; I65.29 Occlusion and stenosis of unspecified carotid artery; E78.1 Pure hyperglyceridemia; E78.2 Mixed hyperlipidemia
CPT/HCPCS: 36415; 70470; 82565; 84520; Q9967

== ENCOUNTER → 2021-04-24 13:54 | Outpatient (CLI) | payer BC, SELFPAY ==
[2021-04-24 14:02] LABS: Basophils # 0.1 K/mm3 (0-0.2); Basophils % 0.7 % (0.1-2.0); Eosinophils # 0.1 K/mm3 (0.0-0.4); Eosinophils % 1.5 % (0.1-12.0); Hematocrit 45.7 % (42.0-52.0); Hemoglobin 15.3 g/dL (14.1-18.0); Lymphocytes # 1.8 K/mm3 (0.7-4.5); Lymphocytes % 28.1 % (10-50); Mean Corpuscular HGB Conc 33.5 g/dL (31.8-35.4); Mean Corpuscular Hemoglobin 34.3 pg (27.0-31.2); Mean Corpuscular Volume 102.5 fl (80-94); Mean Platelet Volume 9.4 fl (7.4-10.4); Monocytes # 0.5 K/mm3 (0.1-1.0); Monocytes % 6.9 % (1.7-9.3); Neutrophils # 4.1 K/mm3 (1.8-7.8); Neutrophils % 62.8 % (37.0-80.0); Platelet Count 388 K/mm3 (142-424); Red Blood Count 4.46 M/mm3 (4.60-6.20); Red Cell Distribution Width 15.5 % (11.5-17.5); White Blood Count 6.6 K/mm3 (4.8-10.8)
[2021-04-24 14:24] LABS: Chloride 98 mmol/L (98-107); Potassium 4.9 mmoL/L (3.5-5.1); Sodium 138 mmol/L (136-145)
[2021-04-24 14:27] LABS: Alanine Aminotransferase 28 U/L (12-78); Albumin Level 4.7 g/dl (3.5-5.0); Albumin/Globulin Ratio 1.3 (1.1-1.8); Alkaline Phosphatase 123 U/L (38-126); Anion Gap 19.9 mEq/L (5-15); Aspartate Amino Transferase 35 U/L (17-59); Blood Urea Nitrogen 11 mg/dl (9-20); Carbon Dioxide 25 mmol/L (22.0-30.0); Cholesterol 224 mg/dl (140-200); Estimated Glomerular Filt Rate 118 ml/min (>60); GFR (African American) 143 ML/MIN (>60); Globulin 3.5 g/dL (1.3-3.2); Total Protein,Serum 8.2 g/dl (6.3-8.2)
[2021-04-24 14:28] LABS: Calcium 9.8 mg/dl (8.4-10.2); Chol/HDL Ratio 7.7 (1-3.5); Glucose 269 mg/dl (74-100); HDL Cholesterol 29 mg/dl (40-60); Hemoglobin A1C 9.7 % (4.0-6.0)
[2021-04-24 14:39] LABS: Direct LDL Cholesterol 71.75 mg/dL (100-129)
[2021-04-24 14:47] LABS: T4 (Thyroxine) 10.4 ug/dl (5.53-11.0)
[2021-04-24 14:48] LABS: Triglycerides 710 mg/dl (30-150)
[2021-04-24 14:58] LABS: Thyroid Stimulating Hormone 1.47 uIU/mL (0.465-4.68)
[2021-04-24 15:57] LABS: 25-OH Vitamin D, Total 38.7 ng/mL (30-100)
== END ==
PROVIDERS: Visit Provider Nurse Practitioner Family
DX: E11.9 Type 2 diabetes mellitus without complications (principal); E66.3 Overweight; I10 Essential (primary) hypertension; Z68.30 Body mass index [BMI] 30.0-30.9, adult; Z79.4 Long term (current) use of insulin
CPT/HCPCS: 80053; 80061; 82043; 82306; 83036; 84436; 84443; 84681; 85025

== ENCOUNTER → 2021-10-23 10:50 | Outpatient (CLI) | payer BC, SELFPAY ==
[2021-10-23 11:31] LABS: Basophils # 0.1 K/mm3 (0-0.2); Eosinophils # 0.1 K/mm3 (0.0-0.4); Eosinophils % 2.2 % (0.1-12.0); Hematocrit 48.5 % (42.0-52.0); Hemoglobin 16.4 g/dL (14.1-18.0); Lymphocytes # 2.1 K/mm3 (0.7-4.5); Lymphocytes % 33.7 % (10-50); Mean Corpuscular HGB Conc 33.9 g/dL (31.8-35.4); Mean Corpuscular Hemoglobin 34.3 pg (27.0-31.2); Mean Corpuscular Volume 101.3 fl (80-94); Mean Platelet Volume 7.7 fl (7.4-10.4); Monocytes # 0.4 K/mm3 (0.1-1.0); Monocytes % 6.7 % (1.7-9.3); Neutrophils # 3.5 K/mm3 (1.8-7.8); Neutrophils % 55.5 % (37.0-80.0); Platelet Count 345 K/mm3 (142-424); Red Blood Count 4.79 M/mm3 (4.60-6.20); Red Cell Distribution Width 14.4 % (11.5-17.5); White Blood Count 6.2 K/mm3 (4.8-10.8)
[2021-10-23 11:43] LABS: Alanine Aminotransferase 50 U/L (12-78); Albumin Level 4.9 g/dl (3.5-5.0); Albumin/Globulin Ratio 1.7 (1.1-1.8); Alkaline Phosphatase 71 U/L (38-126); Anion Gap 13.2 mEq/L (5-15); Aspartate Amino Transferase 43 U/L (17-59); Bilirubin,Total 0.6 mg/dl (0.2-1.3); Blood Urea Nitrogen 15 mg/dl (9-20); Calcium 9.9 mg/dl (8.4-10.2); Carbon Dioxide 31 mmol/L (22.0-30.0); Chloride 101 mmol/L (98-107); Chol/HDL Ratio 7.3 (1-3.5); Cholesterol 197 mg/dl (140-200); Estimated Glomerular Filt Rate 64 ml/min (>60); GFR (African American) 77 ML/MIN (>60); Globulin 2.9 g/dL (1.3-3.2); Glucose 145 mg/dl (74-100); HDL Cholesterol 27 mg/dl (40-60); Potassium 4.2 mmoL/L (3.5-5.1); Sodium 141 mmol/L (136-145); Total Protein,Serum 7.8 g/dl (6.3-8.2)
[2021-10-23 11:54] LABS: Direct LDL Cholesterol 75.55 mg/dL (100-129)
[2021-10-23 11:56] LABS: Triglycerides 583 mg/dl (30-150)
[2021-10-23 12:00] LABS: 25-OH Vitamin D, Total 29.9 ng/mL (30-100); T4 (Thyroxine) 8.9 ug/dl (5.53-11.0)
[2021-10-23 12:14] LABS: Thyroid Stimulating Hormone 3.21 uIU/mL (0.465-4.68)
[2021-10-23 12:30] LABS: Hemoglobin A1C 7.7 % (4.0-6.0)
[2021-10-24 16:20] LABS: C-Peptide 3.5 ng/mL (1.1-4.4)
== END ==
PROVIDERS: Visit Provider Nurse Practitioner Family
DX: E11.9 Type 2 diabetes mellitus without complications (principal); I10 Essential (primary) hypertension; E78.5 Hyperlipidemia, unspecified; G62.9 Polyneuropathy, unspecified; Z79.4 Long term (current) use of insulin
CPT/HCPCS: 36415; 80053; 80061; 82043; 82306; 83036; 84436; 84443; 84681; 85025

== ENCOUNTER → 2021-11-13 11:18 | Outpatient (CLI) | payer BC, SELFPAY ==
--- NOTE | 2021-11-13 11:22 | XR_ITS ---
FINAL REPORT CLINICAL HISTORY: shoulder pain COMPARISON: December 16, 2016 FINDINGS: RIGHT SHOULDER: 3 views of the right shoulder were obtained. There is no acute fracture or dislocation. There is mild AC joint degenerative change. There is no soft tissue abnormality. There are postoperative changes in the lower cervical spine. IMPRESSION: Mild AC joint degenerative change. Reviewed, Interpreted and Dictated by Manuel Neri III, MD Transcribed by William De Jesus Authenticated by Manuel Neri III, MD on 11/13/2021 11:54:15 AM [facility]
--- NOTE | 2021-11-13 11:22 | XR_ITS ---
FINAL REPORT CLINICAL HISTORY: shoulder pain FINDINGS: LEFT SHOULDER Three views demonstrate no acute fracture or dislocation. There are mild degenerative changes of the acromioclavicular and the glenohumeral joints. The visualized bony structures are well aligned. No soft tissue abnormality is seen. IMPRESSION: Mild degenerative changes. Reviewed, Interpreted and Dictated by Manuel Neri III, MD Transcribed by William De Jesus Authenticated by Manuel Neri III, MD on 11/13/2021 12:16:[address] [facility]
== END ==
PROVIDERS: PCP Nurse Practitioner Family; Visit Provider Orthopaedic Surgery
DX: M25.511 Pain in right shoulder (principal); M25.512 Pain in left shoulder
CPT/HCPCS: 73030

== ENCOUNTER → 2021-12-03 15:53 | Outpatient (CLI) | payer BC, SELFPAY | PROVIDERS: PCP Nurse Practitioner Family; Visit Provider Internal Medicine Nephrology | DX: N17.9 Acute kidney failure, unspecified (principal) ==

== ENCOUNTER → 2021-12-03 16:02 | Outpatient (POV) | payer BC, SELFPAY | PROVIDERS: Visit Provider Internal Medicine Nephrology | DX: Z00.00 Encounter for general adult medical examination without abnormal findings (principal) ==

== ENCOUNTER → 2021-12-22 13:39 | Outpatient (CLI) | payer BC, SELFPAY ==
--- NOTE | 2021-12-22 13:40 | MR_ITS ---
FINAL REPORT CLINICAL HISTORY: left shoulder pain limited rom x 3 months weakness in arm FINDINGS: Multiplanar MR imaging of the left shoulder was performed without contrast. There is supraspinatus tendinosis. There is a partial-thickness articular surface tear of the anterior footprint of the supraspinatus tendon involving greater than 50%. There is moderate acromioclavicular joint arthrosis. A small amount of fluid is seen in the subacromial/subdeltoid bursa. There is increased signal at the base of the superior labrum which likely represents a SLAP tear. The long head of the biceps tendon is intact. No significant glenohumeral joint effusion is seen. There is no evidence of fracture or dislocation. The musculature is intact. There is no evidence of soft tissue mass. There is mild glenohumeral joint degenerative change with moderate chondromalacia. There are small subchondral cysts in the glenoid. There is abnormal signal and thickening of the joint capsule at the axillary recess, consistent with adhesive capsulitis. IMPRESSION: Supraspinatus tendon tear as above. Findings likely representing a SLAP tear. Adhesive capsulitis. Degenerative change and chondromalacia. Reviewed, Interpreted and Dictated by Manuel Neri III, MD Transcribed by Jodi Crowe Authenticated and [facility]
== END ==
PROVIDERS: PCP Nurse Practitioner Family; Visit Provider Orthopaedic Surgery
DX: M75.102 Unspecified rotator cuff tear or rupture of left shoulder, not specified as traumatic (principal)
CPT/HCPCS: 73221

== ENCOUNTER → 2022-05-17 12:24 | Outpatient (CLI) | payer BC, SELFPAY ==
--- NOTE | 2022-05-17 13:09 | XR_ITS ---
FINAL REPORT CLINICAL HISTORY: pain, falls, imbal, prior surger COMPARISON: 08/24/2018 FINDINGS: LUMBAR SPINE Three views were obtained. There is new posterior interbody fusion hardware at L5-S1. There is no acute fracture. There is no malalignment. There is mild anterior osteophyte formation at C2-3 and C3-4. There is no soft tissue abnormality. IMPRESSION: No acute bony abnormality. Reviewed, Interpreted and Dictated by Martín Camejo MD Transcribed by Simona Perez Authenticated and [facility]
--- NOTE | 2022-05-17 13:09 | XR_ITS ---
FINAL REPORT CLINICAL HISTORY: neck pain, imbala, falls, prior surgery COMPARISON: 12/16/2016 FINDINGS: CERVICAL SPINE 5 views including flexion and extension views were obtained. There is no acute fracture. There is anterior interbody fusion hardware at C5-6 and C6-7. There is no malalignment. There is moderate hypertrophic changes at C3-4. There is no significant instability with flexion or extension. The disc spaces are preserved. There is no soft tissue abnormality. IMPRESSION: New fusion hardware since the previous exam. Moderate hypertrophic changes at C3-4 which have significantly progressed since the prior exam. Reviewed, Interpreted and Dictated by Martín Camejo MD Transcribed by Simona Perez Authenticated and [facility]
[2022-05-17 13:23] LABS: Basophils # 0.1 K/mm3 (0-0.2); Basophils % 1.4 % (0.1-2.0); Eosinophils # 0.1 K/mm3 (0.0-0.4); Eosinophils % 1.3 % (0.1-12.0); Hematocrit 46.1 % (42.0-52.0); Hemoglobin 15.6 g/dL (14.1-18.0); Lymphocytes # 2.6 K/mm3 (0.7-4.5); Lymphocytes % 26.8 % (10-50); Mean Corpuscular HGB Conc 33.8 g/dL (31.8-35.4); Mean Corpuscular Hemoglobin 33.8 pg (27.0-31.2); Mean Corpuscular Volume 99.9 fl (80-94); Mean Platelet Volume 7.5 fl (7.4-10.4); Monocytes # 0.5 K/mm3 (0.1-1.0); Neutrophils # 6.3 K/mm3 (1.8-7.8); Neutrophils % 65.5 % (37.0-80.0); Platelet Count 417 K/mm3 (142-424); Red Blood Count 4.62 M/mm3 (4.60-6.20); Red Cell Distribution Width 13.6 % (11.5-17.5); White Blood Count 9.6 K/mm3 (4.8-10.8)
[2022-05-17 13:51] LABS: Alanine Aminotransferase 55 U/L (12-78); Albumin Level 5.2 g/dl (3.5-5.0); Albumin/Globulin Ratio 1.7 (1.1-1.8); Alkaline Phosphatase 87 U/L (38-126); Anion Gap 23.3 mEq/L (5-15); Aspartate Amino Transferase 52 U/L (17-59); Bilirubin,Total 0.4 mg/dl (0.2-1.3); Blood Urea Nitrogen 24 mg/dl (9-20); Calcium 10.9 mg/dl (8.4-10.2); Carbon Dioxide 25 mmol/L (22.0-30.0); Chloride 98 mmol/L (98-107); Estimated Glomerular Filt Rate 53 ml/min (>60); GFR (African American) 64 ML/MIN (>60); Glucose 157 mg/dl (74-100); Potassium 4.3 mmoL/L (3.5-5.1); Sodium 142 mmol/L (136-145); Total Protein,Serum 8.2 g/dl (6.3-8.2)
[2022-05-17 14:15] LABS: Hemoglobin A1C 7.2 % (4.0-6.0)
[2022-05-17 14:23] LABS: Thyroid Stimulating Hormone 1.31 uIU/mL (0.465-4.68)
[2022-05-17 14:29] LABS: Ferritin 79.9 ng/ml (17.9-464)
[2022-05-17 15:05] LABS: Vitamin B12 < 159 pg/mL (239-931)
[2022-05-19 08:44] LABS: Ceruloplasmin 24.1 mg/dL (16.0-31.0)
== END ==
PROVIDERS: PCP Nurse Practitioner Family; Visit Provider Nurse Practitioner Family
DX: E11.69 Type 2 diabetes mellitus with other specified complication (principal); G25.81 Restless legs syndrome; G89.29 Other chronic pain; M54.2 Cervicalgia; M54.50 Low back pain, unspecified; R25.1 Tremor, unspecified; E66.9 Obesity, unspecified; R29.3 Abnormal posture; R29.6 Repeated falls; R51.9 Headache, unspecified; Z98.890 Other specified postprocedural states
CPT/HCPCS: 36415; 72052; 72100; 80053; 82390; 82607; 82728; 82746; 83036; 84443; 85025; 94762

== ENCOUNTER → 2022-06-29 12:02 | Outpatient (CLI) | payer BC, SELFPAY ==
--- NOTE | 2022-06-29 12:07 | XR_ITS ---
FINAL REPORT TECHNIQUE: Chest PA & Lateral CLINICAL HISTORY: nocturnal hypoxemia COMPARISON: April 2018 FINDINGS: 2 views of the chest were performed. The heart size is normal. The mediastinum is within normal limits. There is no acute cardiopulmonary process. There are no pleural effusions. There is no pneumothorax. There is postoperative change in the lower cervical spine. IMPRESSION: No acute cardiopulmonary process. Reviewed, Interpreted and Dictated by Manuel Neri III, MD Transcribed by William De Jesus Authenticated and [facility]
== END ==
PROVIDERS: PCP Nurse Practitioner Family; Visit Provider Nurse Practitioner Family
DX: G47.34 Idiopathic sleep related nonobstructive alveolar hypoventilation (principal)
CPT/HCPCS: 71046

== ENCOUNTER → 2022-07-06 12:34 | Outpatient (CLI) | payer BC, SELFPAY ==
--- NOTE | 2022-07-06 12:35 | MR_ITS ---
FINAL REPORT TECHNIQUE: Multiplanar MR without gadolinium enhancement CLINICAL HISTORY: neck pain, prior neck surgery, imbalance, falls FINDINGS: Limited images of the posterior fossa are unremarkable. Fusion of C5-C7. Alignment is normal. Cervical spinal cord shows normal signal and contour. C2-3: Unremarkable. C3-4: Moderate annular disc bulge partially covered by osteophytes. Moderate bilateral neural foraminal narrowing. C4-5: Moderate annular disc bulge partially covered by osteophytes. Moderate bilateral neural foraminal narrowing. C5-6: Postoperative change of fusion without central canal or neural foraminal narrowing. C6-7: Postoperative change from fusion. Bony hypertrophic changes resulting in severe left neural foraminal narrowing. No central canal or right neural foraminal narrowing. C7-T1: Minimal annular disc bulge. IMPRESSION: Postoperative and degenerative changes as described. Reviewed, Interpreted and Dictated by Janneth Gao MD Transcribed by William De Jesus Authenticated and [facility]
--- NOTE | 2022-07-06 12:35 | MR_ITS ---
FINAL REPORT TECHNIQUE: Multiplanar MR without contrast CLINICAL HISTORY: pain, falls, imbalance , prior surgery FINDINGS: Sagittal images show normal vertebral height. There are postoperative changes from fusion of L5-S1. Alignment is normal. Marrow signal pattern is unremarkable. T12-L1: Unremarkable L1-2: Unremarkable L2-3: Unremarkable L3-4: Unremarkable L4-5: No focal disc protrusion. Mild bony hypertrophic changes with moderate bilateral neural foraminal narrowing. No central canal stenosis. L5-S1: Postoperative changes from fusion. Mild bilateral neural foraminal narrowing. IMPRESSION: Neural foraminal narrowing in the lower lumbar spine. Reviewed, Interpreted and Dictated by Janneth Gao MD Transcribed by Rosi Chan Authenticated and . [facility]
--- NOTE | 2022-07-06 12:35 | MR_ITS ---
FINAL REPORT TECHNIQUE: Multiplanar MR without contrast CLINICAL HISTORY: imbalance, falls, tremor, headache COMPARISON: 04/07/2018 FINDINGS: Diffusion sequences show no signal abnormality to indicate acute infarct. No mass, hemorrhage or edema is seen. Ventricles are normal. Major vascular flow voids are intact. IMPRESSION: Unremarkable MR of the brain without contrast Reviewed, Interpreted and Dictated by Janneth Gao MD Transcribed by Rosi Chan Authenticated and [facility]
== END ==
PROVIDERS: PCP Nurse Practitioner Family; Visit Provider Nurse Practitioner Family
DX: R51.9 Headache, unspecified (principal); M54.2 Cervicalgia; M54.50 Low back pain, unspecified; R29.6 Repeated falls; E11.69 Type 2 diabetes mellitus with other specified complication; G25.81 Restless legs syndrome; G89.29 Other chronic pain; R25.1 Tremor, unspecified; R29.3 Abnormal posture; E66.9 Obesity, unspecified; Z68.32 Body mass index [BMI] 32.0-32.9, adult; Z98.890 Other specified postprocedural states; Z79.4 Long term (current) use of insulin
CPT/HCPCS: 70551; 72141; 72148; 76376

== ENCOUNTER → 2022-07-08 12:51 | Outpatient (CLI) | payer BC, SELFPAY | PROVIDERS: PCP Nurse Practitioner Family; Visit Provider Nurse Practitioner Family | DX: G47.34 Idiopathic sleep related nonobstructive alveolar hypoventilation (principal) | CPT/HCPCS: 94060; 94618; 94726; 94729 ==

== ENCOUNTER → 2022-08-23 13:30 | Outpatient (POV) | payer BC, SELFPAY ==
--- NOTE | 2022-08-23 13:46 | EXP.PAIN.OV ---
HPI Data of Consult Patient: new to practice Consult date: 08/23/22 Requesting Physician: Viviana Jovel APRN Primary Care Provider: George Mendez APRN Consult Narrative Reason for consult: Low back pain with bilateral leg pain, neck pain with bilateral arm pain History of present illness: Mr. Ordaz is a 51 year old male who presents today as a new patient. He is a referral from Dr. Valdez's office. Today the patient rates his pain a 7 out of 10. Patient states he has pain in his upper back/neck with radiating symptoms into his bilateral arms as well as low back pain with radiating symptoms into his bilateral lower extremities. Patient states that he has had his low back pain since he was in his 20s. Patient states that it is progressively worsened over time. Patient does describe this as a aching, throbbing sensation that is worse with increased activity as well as constant cramping, spasms in his lower extremities. Patient states he was previously told that slow iron tablets would help improve his symptoms however he states he has not seen any additional benefit. Patient does state his neck pain is the result from a tree limb coming down and hitting him approximately 7 years ago. He describes this as an aching sensation that does cause limited range of motion and migraines. He does have numbness and tingling in his bilateral arms that is worse with increased activity. Patient has had physical therapy last fall and this did provide increased range of motion of his upper extremities however no additional improvement in his pain symptoms. Patient has had multiple injections in the past however these did not provide additional improvement. Patient has tried Tylenol and ibuprofen along with heat and ice however this did not improve his symptoms. Patient is also used ontu-bhc-vznnbtx creams such as Biofreeze, Blue emu, Aspercreme with minimal relief. Patient has done multiple massage therapy treatments however this is only gives temporary relief. Patient has also tried tizanidine but states he has not noticed any additional relief. Patient does state that he constantly feels like he has spasms and tightening in his lower extremities. Patient states that he did have a nerve conduction test done in [place]. Patient does also see Dr. Johnson. Patient's states that he had an abnormal finding on an EKG and is scheduled for a repeat stress test just as a follow-up precaution. Patient does have a history of cervical fusion as well as lumbar fusion. Patient is also managed with gabapentin 300 mg 3 times a day from his primary care provider. Patient denies any side effects from this medication. His Kasi is [id number]. Patient's Kasi has been reviewed and appropriate. CC: Viviana Jovel APRN [facility] Disclaimer: The information contained in this section may have been updated after the patient was seen, as this information can be updated by other users. Medical History (Updated 08/23/22 @ 13:48 by Viviana Jovel APRN) Back Pain Carotid artery stenosis Diabetes mellitus HLD (hyperlipidemia) Neuropathy Surgical History (Updated 08/23/22 @ 13:49 by Viviana Jovel APRN) Previous back surgery Social History Smoking Status: Never smoker alcohol intake: never counseling provided: none substance use type: denies use current occupational status: unemployed Travel in the last 8 weeks: None household members: spouse housing: house caffeine: Yes Review of Systems Review of Systems Review of systems:: pertinent systems reviewed and negative unless documented below Review of systems (narrative): Review of Systems: General: No recent weight changes, no fever, no sleep disturbances Respiratory: No cough, no shortness of air, no recurring pulmonary infections Cardiovascular/peripheral vascular: No chest pain, no palpitations, no edema, no shortness of breath Gastr
[2022-08-23 15:19] VITALS: BP 127/90; PULSE 87; RESP 18; O2SAT 97; BMI 33.0
== END | disposition home or self-care (01) ==
PROVIDERS: PCP Nurse Practitioner Family; Visit Provider Nurse Practitioner Family
DX: M50.30 Other cervical disc degeneration, unspecified cervical region (principal); M51.36 Other intervertebral disc degeneration, lumbar region; Z98.1 Arthrodesis status; Z79.899 Other long term (current) drug therapy
CPT/HCPCS: 99202; G0463

== ENCOUNTER → 2022-09-08 10:06 | Outpatient (CLI) | payer BC, SELFPAY ==
[2022-09-08 11:15] LABS: Blood Urea Nitrogen 16 mg/dl (9-20); Carbon Dioxide 27 mmol/L (22.0-30.0); Chloride 102 mmol/L (98-107); Estimated Glomerular Filt Rate 63 ml/min (>60); GFR (African American) 77 ML/MIN (>60); Glucose 100 mg/dl (74-100); Sodium 139 mmol/L (136-145)
== END ==
PROVIDERS: PCP Nurse Practitioner Family; Visit Provider Internal Medicine
DX: I20.8 Other forms of angina pectoris (principal); E11.59 Type 2 diabetes mellitus with other circulatory complications; E11.69 Type 2 diabetes mellitus with other specified complication; I10 Essential (primary) hypertension; E78.2 Mixed hyperlipidemia; I65.23 Occlusion and stenosis of bilateral carotid arteries; R94.31 Abnormal electrocardiogram [ECG] [EKG]; G47.33 Obstructive sleep apnea (adult) (pediatric); E66.9 Obesity, unspecified; Z68.32 Body mass index [BMI] 32.0-32.9, adult; Z79.4 Long term (current) use of insulin
CPT/HCPCS: 36415; 78452; 80048; 93017; 93306; A9502; J2785

== ENCOUNTER → 2022-09-23 12:47 | Outpatient (POV) | payer BC, SELFPAY ==
--- NOTE | 2022-09-23 13:10 | EXP.PAIN.SOA ---
[facility] Pain Management SOAP Note Subjective:: Patient is a pleasant 51-year-old male who presents today for follow-up of psychiatric evaluation. We are currently treating the patient for degenerative disc disease of cervical and lumbar spine with cervical and lumbar radiculopathy symptoms, low back pain, neck pain, status post cervical fusion. Today he rates his pain a 7 out of 10. Patient denies any new trauma or injury. Patient denies any change to location or type of pain he experiences. Patient continues to describe his pain as a aching, throbbing sensation that is worse with increased activity that does occasionally have cramping and spasms into his lower extremities. Patient has been to physical therapy just last fall and it did help improve some of his range of motion however made no difference in his pain symptoms. Patient has tried multiple medications including donb-akw-ewqzqti Tylenol and ibuprofen along with heat and ice and multiple creams such as Biofreeze and Aspercreme with minimal improvement. Patient continues to do at home exercising and stretching with no additional relief. At our last visit he was prescribed ropinirole 2 Mg and methocarbamol 750 mg twice a day. Patient states the muscle relaxer did help however he did not notice significant improvement with the ropinirole.his Kasi is [id number]. Its been reviewed and appropriate. Review of Systems: General: No recent weight changes, no fever, no sleep disturbances Respiratory: No cough, no shortness of air, no recurring pulmonary infections Cardiovascular/peripheral vascular: No chest pain, no palpitations, no edema, no shortness of breath Gastrointestinal: No new onset incontinence, normal bowel movements reported Genitourinary: No new onset incontinence Musculoskeletal: Low back pain Psychiatric: [Normal mood/affect] Neurological: [Denies weakness in extremities], [denies balance issues] Objective:: Physical Exam: General: Alert and oriented x3, no acute distress, pleasant and cooperative Lungs: Respirations even and unlabored, symmetrical chest expansion Eyes: PERRL Musculoskeletal: Flexion and extension of lumbar [spine] somewhat guarded secondary to pain, [antalgic gait noted] Neurological: Speech clear, no gross sensory deficit FINAL REPORT TECHNIQUE: Multiplanar MR without contrast CLINICAL HISTORY: pain, falls, imbalance , prior surgery FINDINGS: Sagittal images show normal vertebral height.? There are postoperative changes from fusion of L5-S1.? Alignment is normal. Marrow signal pattern is unremarkable.? T12-L1: Unremarkable? L1-2: Unremarkable ? L2-3: Unremarkable? L3-4: Unremarkable? L4-5:? No focal disc protrusion.? Mild bony hypertrophic changes with moderate bilateral neural foraminal narrowing.? No central canal stenosis.? L5-S1:? Postoperative changes from fusion.? Mild bilateral neural foraminal narrowing. IMPRESSION: Neural foraminal narrowing in the lower lumbar spine. Reviewed, Interpreted and Dictated by Jannteh Gao MD Transcribed by Rosi Chan Authenticated and . [facility] Assessment:: Degenerative disc disease of cervical and lumbar spine with cervical and lumbar radiculopathy symptoms, low back pain, neck pain, status post cervical fusion Plan:: Patient continues to have significant pain in his low back and neck with limited range of motion. Patient has tried and failed conservative therapy such as oral medications, heat and ice, topicals, physical therapy, at home stretching and exercise for longer than 6 weeks. Patient was deemed an appropriate candidate for a pain pump trial by psychiatric evaluation. We will plan to proceed forward with the pain pump trial and submit this to insurance during today's visit. I will refill the patient's methocarbamol 750 mg 3 times a day and provide a 1 month supply of this medication. Patient does still have ropinirole av
[2022-09-23 13:17] VITALS: BP 108/70; PULSE 90; RESP 18; O2SAT 97; BMI 32.8
== END | disposition home or self-care (01) ==
PROVIDERS: PCP Nurse Practitioner Family; Visit Provider Nurse Practitioner Family
DX: M50.10 Cervical disc disorder with radiculopathy, unspecified cervical region (principal); M51.16 Intervertebral disc disorders with radiculopathy, lumbar region; Z98.1 Arthrodesis status
CPT/HCPCS: 99212; G0463

== ENCOUNTER 2022-10-15 10:11 | Day surgery (SDC) | payer BC, SELFPAY ==
[2022-10-15] VITALS (7 sets, daily range): BP systolic 116–170; BP diastolic 49–100; PULSE 80–90; RESP 18–20; O2SAT 94–98; BMI 32.5
--- NOTE | 2022-10-15 12:06 | PC.NURSE ---
1100-pt ambulated to bay, accompanied by nursing staff. VSS, no c/o pain. Lumbar dressing C/D/I. pt c/o itching. medicated per PRN order. no other needs or concerns at this time. spouse at bedside. 1115-pt resting in chair, tolerating po fluids. VSS, no c/o pain. continues to itch. lumbar dressing c/d/i. no needs or concerns at this time. spouse at bedside 1120-MD at bedside. 1130-pt resting in chair. VSS, no c/o pain. reports itching has eased somewhat. lumbar dressing c/d/i. no needs or concerns at this time. 1140-Pt ambulated to nurse's station, accompanied by nursing staff. gait steady. no c/o pain with ambulation. 1145-pt resting in chair. VSS, no c/o pain lumbar dressing c/d/i. no needs or concerns at this time.
--- NOTE | 2022-10-15 12:23 | EXP.PAIN.PRO ---
Procedure Date: 10/15/22 Time: 12:23 Anesthesiologist:: Dwayne Garcia MD Complications:: None Pre-procedure Diagnosis:: Postlaminectomy syndrome cervical spine with cervical radiculopathy symptoms. Postlaminectomy syndrome lumbar spine with lumbar radiculopathy symptoms. Post-procedure Diagnosis:: Same Indications for Procedure:: This patient is a pleasant 51-year-old white male who we are treating for neck pain and low back pain with cervical and lumbar radiculopathy symptoms. He has failed all previous conservative treatments including injections, oral medications, physical therapy and previous surgery. He is not a candidate for any further surgery. He has had a successful psychological evaluation. He presents for intrathecal pump trial today Procedure Details:: Pain pump trial Informed consent was obtained and the risk and benefits of the procedure was explained to the patient. The patient was taken to the procedure room and placed prone on the procedure table. Patient was prepped and draped in sterile fashion. C-arm fluoroscopy was used to view the lumbar spine. The skin and subcutaneous tissues were anesthetized using lidocaine. I placed a 18-gauge spinal needle into the L4-5 interspace and advanced until clear CSF was obtained. After this intrathecal catheter was inserted and advanced very easily to the T8 vertebral body. The needle was withdrawn. We were able to freely withdraw clear CSF through the catheter. We then injected intrathecal opioid single shot bolus of 25 mcg followed by saline and followed by the previous CSF that was withdrawn. The needle and catheter were then removed and a Band-Aid was placed. Patient tolerated the procedure well with no complications. We reevaluated the patient after 30 minutes to 1 hour. He had 80 to 90% relief in pain symptoms. He is much more functional. He did have some itching however overall he was doing much better. Pain score is down to 1 out of 10. Bowel indications this was a successful intrathecal pump trial. Patient was discharged home neurologic intact with good relief of pain symptoms. Plan and Disposition:: We will follow-up with him in 1 week. We will reevaluate efficacy of this trial. If successful we will plan on permanent placement with intrathecal morphine 1 mg/mL to start at 0.1 mg/day. Catheter tip will be at the T8 vertebral body.
== END 2022-10-15 12:00 | disposition home or self-care (01) ==
LOC: SC.PAINP 10:11
PROVIDERS: PCP Nurse Practitioner Family; Visit Provider Anesthesiology
DX: M54.12 Radiculopathy, cervical region (principal); M54.2 Cervicalgia; M96.1 Postlaminectomy syndrome, not elsewhere classified
CPT/HCPCS: 62323; 96365

== ENCOUNTER → 2022-10-28 08:23 | Outpatient (CLI) | payer BC, SELFPAY ==
[2022-10-28 09:00] LABS: Basophils # 0.1 K/mm3 (0-0.2); Basophils % 0.6 % (0.1-2.0); Eosinophils # 0.1 K/mm3 (0.0-0.4); Eosinophils % 1.1 % (0.1-12.0); Hematocrit 47.2 % (42.0-52.0); Lymphocytes # 2.4 K/mm3 (0.7-4.5); Lymphocytes % 25.6 % (10-50); Mean Corpuscular HGB Conc 33.8 g/dL (31.8-35.4); Mean Corpuscular Hemoglobin 31.8 pg (27.0-31.2); Mean Platelet Volume 7.1 fl (7.4-10.4); Monocytes # 0.5 K/mm3 (0.1-1.0); Monocytes % 5.5 % (1.7-9.3); Neutrophils # 6.3 K/mm3 (1.8-7.8); Neutrophils % 67.2 % (37.0-80.0); Platelet Count 270 K/mm3 (142-424); Red Blood Count 5.02 M/mm3 (4.60-6.20); Red Cell Distribution Width 13.1 % (11.5-17.5); White Blood Count 9.3 K/mm3 (4.8-10.8)
[2022-10-28 09:10] LABS: Amphetamine/Metha Screen,Urine Negative ng/ml (<1000); Benzodiazepines Screen,Urine Negative ng/ml (<200)
[2022-10-28 09:11] LABS: Barbiturates Screen,Urine Negative ng/ml (<200)
[2022-10-28 09:12] LABS: Cannabinoid Screen,Urine Negative ng/ml (<50); Cocaine Screen,Urine Negative ng/ml (<300)
[2022-10-28 09:13] LABS: Methadone Screen,Urine Negative ng/ml (<300); Opiate Screen,Urine Negative ng/ml (<300)
[2022-10-28 09:14] LABS: Phencyclidine Screen,Urine Negative ng/ml (<25)
[2022-10-28 09:42] LABS: Blood Urea Nitrogen 19 mg/dl (9-20); Calcium 9.2 mg/dl (8.4-10.2); Carbon Dioxide 30 mmol/L (22.0-30.0); Chloride 99 mmol/L (98-107); Estimated Glomerular Filt Rate 70 ml/min (>60); GFR (African American) 85 ML/MIN (>60); Glucose 112 mg/dl (74-100); Sodium 140 mmol/L (136-145)
[2022-10-28 15:08] LABS: Hemoglobin A1C 6.6 % (4.0-6.0)
== END ==
PROVIDERS: PCP Nurse Practitioner Family; Visit Provider Anesthesiology
DX: Z01.812 Encounter for preprocedural laboratory examination (principal); M51.36 Other intervertebral disc degeneration, lumbar region
CPT/HCPCS: 36415; 80048; 80305; 83036; 85025

== ENCOUNTER 2022-10-29 07:42 | Day surgery (SDC) | payer BC, SELFPAY ==
[2022-10-22 10:42] VITALS: BMI 31.8
[2022-10-29] VITALS (10 sets, daily range): BP systolic 116–141; BP diastolic 68–88; PULSE 75–89; RESP 14–16; TEMP 36.5–43; O2SAT 93–100
[2022-10-29 08:15] LABS: POC Glucose,Bedside 143 (70-110)
--- NOTE | 2022-10-29 09:08 | P.PN_ITS ---
[facility] Disclaimer: The information contained in this section may have been updated after the patient was seen, as this information can be updated by other users. Medical History Back Pain Carotid artery stenosis Claudication Diabetes mellitus Gout HLD (hyperlipidemia) Hypertension Kidney stone Neuropathy Surgical History Hx of cardiac cath Previous back surgery S/P right knee arthroscopy Family History Father Prostate cancer Grandmother Family history of myocardial infarction Grandfather Family history of myocardial infarction Sister Family history of myocardial infarction Sister Family history of myocardial infarction Mother Family history of diabetes mellitus type II Other No significant family history Social History (Updated 10/29/22 @ 08:10 by Radha Dailey RN) Smoking Status: Never smoker alcohol intake: never counseling provided: none substance use type: denies use current occupational status: unemployed Travel in the last 8 weeks: None household members: spouse housing: house caffeine: Yes [facility] Anesthesia Checklist Patient Identification Patient Identification: Verbal (Name & ) Structural Data Admitted From: Home Planned Operative Procedure/s: intrathecal pain pump Additional verifications Anesthesia Reactions: No Hx Blood Transfusions: No Blood Transfusion Reaction: No Airway Assessment C-Spine Mobility Assessed: Yes TMJ Mobility Assessed: Yes Dentition: Good Dentition Neurological Assessment Level of Consciousness: Awake, Alert and Appropriate Anesthesia Plan Anesthesia Risk discussed: Yes Anesthesia Plan: Verified ASA Class: II Anesthesia Type: MAC
--- NOTE | 2022-10-29 09:40 | EXP.OP.NOTE ---
Date of procedure: 10/29/22 Pre-op Diagnosis:: Postlaminectomy syndrome lumbar spine with lumbar radiculopathy symptoms Post-op Diagnosis:: Same Procedure performed:: Permanent placement intrathecal pain pump with tunneled intrathecal catheter and generator placement Surgeon:: Dwayne Garcia MD [employer] DEPARTMENT:: Robel Ferraro Anesthesia: MAC Estimated blood loss (mL): 5 Clinical Note:: This patient is a pleasant 51-year-old white male who we have been treating for low back pain with lumbar radiculopathy symptoms and postlaminectomy syndrome of the cervical and lumbar spine with cervical lumbar radiculopathy symptoms. He has failed all previous conservative treatments including injections, oral medications, physical therapy and previous surgery. He is not a candidate for any further surgery. He has had a successful psychological evaluation and a successful intrathecal pump trial. He presents for permanent placement of his intrathecal pain pump today. Operative findings:: None Operative note:: Informed consent was obtained risk and benefits of the procedure were explained to the patient. The patient was taken the operating room placed prone on the procedure table. He was prepped and draped in sterile fashion. C-arm fluoroscopy was used to view the right flank. The skin and subcutaneous tissues chcf between the 12th rib and iliac crest were anesthetized using lidocaine. I made an incision and dissected out the pump pocket. We placed 3 Ray-Rosa M's in the pump pocket for hemostasis. We then viewed the lumbar spine with C arm fluoroscopy. The skin and subcutaneous tissues were anesthetized using lidocaine. I made an incision adjacent to the L4-5 and L5-S1 interspace. I dissected down to the lumbar paraspinous fascia. A 17-gauge spinal needle was inserted and advanced into the L4-5 interspace until clear CSF was obtained. After this intrathecal catheter was inserted and advanced very easily to the T8 vertebral body. The stylette of the catheter and the needle were withdrawn. The catheter secured to the fascia with anchor device and 2-0 Prolene. I then prepared the pump with 20 mils of intrathecal morphine 1 mg per mill. I tunneled the catheter from the back to the pump pocket and attached catheter to the pump. We were able to freely withdraw clear CSF from the sideport once we placed pump in the pump pocket. Prior to this the 3 Ray-Rosa M's were removed. Both incisions were irrigated with antibiotic solution. Both incisions were then closed with 2-0 Vicryl followed by 4-0 nylon. A wound VAC was placed over both incisions. The patient was placed in an abdominal binder taken recovery in stable condition. The patient tolerated the procedure well with no complications. The pump was interrogated and started at 0.1 mg/day of intrathecal morphine with PTM boluses of 0.01 mg up to 4 times a day. Patient was discharged home neurologic intact with good relief of pain symptoms. Plan and disposition: We will follow-up with this patient in 1 week for wound check and reprogram. We will follow-up in 2 weeks for suture removal. Condition: stable Disposition: PACU Complications:: None
--- NOTE | 2022-10-29 10:56 | P.PN_ITS ---
[facility] Disclaimer: The information contained in this section may have been updated after the patient was seen, as this information can be updated by other users. Medical History Back Pain Carotid artery stenosis Claudication Diabetes mellitus Gout HLD (hyperlipidemia) Hypertension Kidney stone Neuropathy Surgical History Hx of cardiac cath Previous back surgery S/P right knee arthroscopy Family History Father Prostate cancer Grandmother Family history of myocardial infarction Grandfather Family history of myocardial infarction Sister Family history of myocardial infarction Sister Family history of myocardial infarction Mother Family history of diabetes mellitus type II Other No significant family history Social History (Updated 10/29/22 @ 08:10 by Radha Dailey RN) Smoking Status: Never smoker alcohol intake: never counseling provided: none substance use type: denies use current occupational status: unemployed Travel in the last 8 weeks: None household members: spouse housing: house caffeine: Yes [facility] Anesthesia Checklist Patient Identification Patient Identification: Verbal (Name & ) Structural Data Admitted From: Home Planned Operative Procedure/s: pain pump lead revision Additional verifications Anesthesia Reactions: No Hx Blood Transfusions: No Blood Transfusion Reaction: No Airway Assessment C-Spine Mobility Assessed: Yes TMJ Mobility Assessed: Yes Dentition: Poor Dentition Anesthesia Plan Anesthesia Risk discussed: Yes Anesthesia Plan: Verified ASA Class: III Anesthesia Type: MAC
== END 2022-10-29 11:00 | disposition home or self-care (01) ==
PROVIDERS: PCP Nurse Practitioner Family; Visit Provider Anesthesiology
PROC: (CPT 62350; principal; 2022-10-29 09:30)
DX: M54.16 Radiculopathy, lumbar region (principal); M96.1 Postlaminectomy syndrome, not elsewhere classified; Z79.899 Other long term (current) drug therapy; E11.9 Type 2 diabetes mellitus without complications
CPT/HCPCS: 62350; 62362; 82962; 96374; C1755; C1772; J2704

== ENCOUNTER → 2022-11-05 10:26 | Outpatient (POV) | payer BC, SELFPAY ==
--- NOTE | 2022-11-05 11:37 | EXP.PAIN.PRO ---
Procedure Date: 11/05/22 Time: 10:55 Anesthesiologist:: Viviana Jovel APRN Complications:: None Pre-procedure Diagnosis:: Degenerative disc disease of cervical and lumbar spine with cervical and lumbar radiculopathy symptoms, low back pain, neck pain, status post cervical fusion Post-procedure Diagnosis:: Same Indications for Procedure:: Patient is a pleasant 51-year-old male who presents today for intrathecal pain pump reprogramming and adjustment and follow-up of intrathecal pain pump placement on 10/29/2022. The patient is being treated for degenerative disc disease of cervical and lumbar spine with cervical and lumbar radiculopathy symptoms, low back pain, neck pain, status post cervical fusion. Patient is currently being managed with methocarbamol 750 mg twice a day and intrathecal morphine 1 mg/mL with a daily dose of 0.1 mg/day. Patient denies any side effects from this medication. Patient rates pain a 5 out of 10. Drug screen is appropriate. Kasi has been reviewed and is appropriate. Physical exam General: Alert and oriented x3, no acute distress, pleasant and cooperative Lungs: Respirations even and unlabored, symmetrical chest expansion Eyes: PERRL Musculoskeletal: Flexion and extension of lumbar [spine] somewhat guarded secondary to pain, [antalgic gait noted] Neurological: Speech clear, no gross sensory deficit Skin: Incision sites clean, dry, well approximated with minimal erythema noted, fay and sutures intact Procedure Details:: Informed consent was obtained and the risk and benefits of the procedure were explained to the patient. Patient was taken to the procedure room where noninvasive monitoring was placed including noninvasive blood pressure cuff and pulse oximeter. Patient's pump was interrogated and was reprogrammed to morphine 0.11 mg/day. The patient tolerated the procedure well with no complications. Plan and Disposition:: Patient is doing well following his intrathecal pain pump placement. His incisions are clean, dry, well approximated with minimal erythema noted and fay and sutures intact. I have counseled the patient that at our next visit we will plan on removing the sutures and fay if indicated and applying skin glue and Steri-Strips. Patient has been counseled to continue his postop restrictions with minimal bending, lifting or twisting, continue to wear his abdominal binder to prevent seroma formation and no submerging in water until his incision is fully healed. Patient does have some complaints of itching and I will prescribe Vistaril 25 mg twice daily and provide 14 tablets. Patient will return to clinic in 2 weeks for reevaluation of symptoms, suture and staple removal and plan of care. patient has been instructed to contact the clinic with any concerns before the next appointment. Dr. Garcia has reviewed this note and agrees with this plan of care. This note was dictated using voice recognition software and make contain errors or omissions. -- It Is medically necessary for this patient to continue to have their intrathecal pump refilled at regular intervals. This patient had an intrathecal pain pump implanted after meeting criteria of chronic intractable pain for greater than 3 months and failing conservative treatments. Patient has committed and been compliant to the treatment plan and all planned follow up care. Since implantation of the intrathecal pain pump, the patient has had decreased pain and been more functional. Oral medications have been reduced including intake of oral opioids. Patient continues to do well with intrathecal therapy with decrease in pain symptoms and increase in functional status. Stopping intrathecal medications can lead to life threatening withdrawal, seizures, cardiac arrest, severe pain, and possible . Pumps that are not refilled at regular intervals can be damages and cause and need for replacement. We continually titrate dose and concentration to optimize
[2022-11-05 11:45] VITALS: BP 108/78; PULSE 88; RESP 20; BMI 32.5
== END | disposition home or self-care (01) ==
PROVIDERS: PCP Nurse Practitioner Family; Visit Provider Nurse Practitioner Family
DX: Z45.1 Encounter for adjustment and management of infusion pump (principal); M50.10 Cervical disc disorder with radiculopathy, unspecified cervical region; Z98.1 Arthrodesis status
CPT/HCPCS: 62368

== ENCOUNTER → 2022-11-22 12:11 | Outpatient (POV) | payer BC, SELFPAY ==
--- NOTE | 2022-11-22 12:46 | EXP.PAIN.SOA ---
[facility] Pain Management SOAP Note Subjective:: Patient is a pleasant 52-year-old male who presents today for 3-week follow-up of intrathecal pain pump placement on 11/05/2022. We are currently treating the patient for degenerative disc disease of cervical and lumbar spine with cervical and lumbar radiculopathy symptoms, low back pain, neck pain, status post cervical fusion. Today he rates his pain a 0 out of 10. Patient denies any new trauma or injury. Patient denies any change to location or type of pain he experiences. He does state he is done well following this procedure and had much better pain coverage been in the past. He is currently managed with morphine 1 mg/mL with a daily dose of 0.11 mg/day. Patient denies any side effects from this medication. He is also prescribed ropinirole 2 mg 1 to 2 tablets at bedtime and methocarbamol 750 mg 3 a day. Patient denies any side effects from these medications. He is requesting refills today. His Kasi has been reviewed and is appropriate. Review of Systems: General: No recent weight changes, no fever, no sleep disturbances Respiratory: No cough, no shortness of air, no recurring pulmonary infections Cardiovascular/peripheral vascular: No chest pain, no palpitations, no edema, no shortness of breath Gastrointestinal: No new onset incontinence, normal bowel movements reported Genitourinary: No new onset incontinence Musculoskeletal: Low back pain Psychiatric: [Normal mood/affect] Neurological: [Denies weakness in extremities], [denies balance issues] Objective:: Physical Exam: General: Alert and oriented x3, no acute distress, pleasant and cooperative Lungs: Respirations even and unlabored, symmetrical chest expansion Eyes: PERRL Musculoskeletal: Flexion and extension of lumbar [spine] somewhat guarded secondary to pain, [antalgic gait noted] Neurological: Speech clear, no gross sensory deficit Skin: Incision sites are clean, dry, well approximated with minimal erythema and sutures and fay intact Assessment:: Degenerative disc disease of cervical and lumbar spine with cervical and lumbar radiculopathy symptoms, low back pain, neck pain, status post cervical fusion Plan:: Patient continues to do well from his intrathecal pain pump placement. His incision sites are clean, dry, well approximated with no erythema noted. His sutures and fay were removed with skin glue and Steri-Strips applied. I have counseled the patient to continue his 6-week postop restrictions of minimal bending, lifting or twisting no submerging in water until his incision is fully healed and to continue to wear his abdominal binder to prevent seroma formation. I will refill the patient's ropinirole 2 mg 1 to 2 tablets at night and methocarbamol 750 mg 3 times a day and provide a 1 month supply of this medication. Patient will return to clinic in 1 month for reevaluation of symptoms and plan of care. Patient has been instructed to contact the clinic with any concerns before the next appointment. Dr. Garcia has reviewed this note and agrees with this plan of care. This note was dictated using voice recognition software and make contain errors or omissions. -- It Is medically necessary for this patient to continue to have their intrathecal pump refilled at regular intervals. This patient had an intrathecal pain pump implanted after meeting criteria of chronic intractable pain for greater than 3 months and failing conservative treatments. Patient has committed and been compliant to the treatment plan and all planned follow up care. Since implantation of the intrathecal pain pump, the patient has had decreased pain and been more functional. Oral medications have been reduced including intake of oral opioids. Patient continues to do well with intrathecal therapy with decrease in pain symptoms and increase in functional status. Stopping intrathecal medications can lead to life threatening withdrawal, seizures, cardiac arrest, severe pain, and po
[2022-11-22 13:09] VITALS: BP 97/61; PULSE 72; RESP 18; O2SAT 98; BMI 31.8
== END | disposition home or self-care (01) ==
PROVIDERS: Visit Provider Nurse Practitioner Family
DX: M51.16 Intervertebral disc disorders with radiculopathy, lumbar region (principal); M50.10 Cervical disc disorder with radiculopathy, unspecified cervical region; Z98.890 Other specified postprocedural states
CPT/HCPCS: 99213; G0463

== ENCOUNTER → 2022-12-13 12:37 | Outpatient (POV) | payer BC, SELFPAY | PROVIDERS: Visit Provider Internal Medicine Nephrology | DX: Z00.00 Encounter for general adult medical examination without abnormal findings (principal) ==

== ENCOUNTER → 2022-12-20 11:28 | Outpatient (POV) | payer BC, SELFPAY ==
--- NOTE | 2022-12-20 11:46 | EXP.PAIN.PRO ---
Procedure Date: 12/20/22 Time: 11:46 Anesthesiologist:: Viviana Jovel APRN Complications:: None Pre-procedure Diagnosis:: Degenerative disc disease of cervical and lumbar spine with cervical and lumbar radiculopathy symptoms, low back pain, neck pain, status post cervical fusion Post-procedure Diagnosis:: Same Indications for Procedure:: Patient is a pleasant 52-year-old male who presents today for intrathecal adjustment and reprogram as well as medication refill. We are currently treating the patient for degenerative disc disease of cervical and lumbar spine with cervical and lumbar radiculopathy symptoms, low back pain, neck pain, status post cervical fusion. Today he rates his pain a 5 out of 10. Patient denies any new trauma or injury. Patient denies any change location or type of pain he experiences. Patient does state that he is experiencing worsening pain but this is more related to him increasing his activity. Patient states he has been able to move around easier and do things around the house with decreased pain following his intrathecal pump placement. He is currently managed with morphine 1 mg/mL with a daily dose of 0.11 mg/day. Patient denies any side effects from this medication. He is also managed with ropinirole 2 mg 1 to 2 tablets at bedtime and methocarbamol 750 mg 3 times a day. Patient denies any side effects from this medication. His Kasi has been reviewed and is appropriate. Physical Exam: General: Alert and oriented x3, no acute distress, pleasant and cooperative Lungs: Respirations even and unlabored, symmetrical chest expansion Eyes: PERRL Musculoskeletal: Flexion and extension of lumbar [spine] somewhat guarded secondary to pain, [antalgic gait noted] Neurological: Speech clear, no gross sensory deficit Procedure Details:: Informed consent was obtained and the risk and benefits of the procedure were explained to the patient. Patient was taken to the procedure room where noninvasive monitoring was placed including noninvasive blood pressure cuff and pulse oximeter. Patient's pump was interrogated and was reprogrammed to morphine 0.1-1 1 mg/day. The patient tolerated the procedure well with no complications. Plan and Disposition:: Patient continues to do well following his intrathecal pump placement. Patient tolerated his intrathecal increase with no complications and was discharged neurologically intact. I will refill the patient's ropinirole 2 mg 1 to 2 tablets at bedtime and methocarbamol 750 mg 3 times a day and provide a 3-month supply of these medications. Patient will return to clinic in 1 month for reevaluation of symptoms and possible intrathecal adjustment and reprogram. Patient has been instructed to contact the clinic with any concerns before the next appointment. Dr. Garcia has reviewed this note and agrees with this plan of care. This note was dictated using voice recognition software and make contain errors or omissions. -- It Is medically necessary for this patient to continue to have their intrathecal pump refilled at regular intervals. This patient had an intrathecal pain pump implanted after meeting criteria of chronic intractable pain for greater than 3 months and failing conservative treatments. Patient has committed and been compliant to the treatment plan and all planned follow up care. Since implantation of the intrathecal pain pump, the patient has had decreased pain and been more functional. Oral medications have been reduced including intake of oral opioids. Patient continues to do well with intrathecal therapy with decrease in pain symptoms and increase in functional status. Stopping intrathecal medications can lead to life threatening withdrawal, seizures, cardiac arrest, severe pain, and possible . Pumps that are not refilled at regular intervals can be damages and cause and need for replacement. We continually titrate dose and concentration to optimize pain relief and function. We a
[2022-12-20 11:51] VITALS: BP 129/89; PULSE 83; RESP 18; BMI 31.8
== END | disposition home or self-care (01) ==
PROVIDERS: PCP Nurse Practitioner Family; Visit Provider Nurse Practitioner Family
DX: M50.10 Cervical disc disorder with radiculopathy, unspecified cervical region (principal); M51.16 Intervertebral disc disorders with radiculopathy, lumbar region; M43.22 Fusion of spine, cervical region
CPT/HCPCS: 62368; 99213; G0463

== ENCOUNTER → 2023-01-17 10:26 | Outpatient (POV) | payer BC, SELFPAY ==
--- NOTE | 2023-01-17 10:44 | EXP.PAIN.SOA ---
[facility] Pain Management SOAP Note Subjective:: Patient is a pleasant 52-year-old male who presents today for follow-up. We are currently treating the patient for degenerative disc disease of cervical and lumbar spine with cervical and lumbar radiculopathy symptoms, low back pain, neck pain, status post cervical fusion. Today the patient rates his pain a 0 out of 10. Patient denies any new trauma or injury. He denies any change location or type of pain he experiences. He does state that he was mowing his neighbors yard last night and did have a little bit of a flareup of his back pain however he used his bolus device and he is back to his baseline today. He denies any problems with his intrathecal pump medication of morphine 1 mg/mL with a daily dose of 0.1211 mg/day. He is also managed with ropinirole 2 mg 1 to 2 tablets at bedtime and methocarbamol 750 mg 3 times a day. He denies any side effects from these medications. His Kasi has been reviewed and is appropriate. Review of Systems: General: No recent weight changes, no fever, no sleep disturbances Respiratory: No cough, no shortness of air, no recurring pulmonary infections Cardiovascular/peripheral vascular: No chest pain, no palpitations, no edema, no shortness of breath Gastrointestinal: No new onset incontinence, normal bowel movements reported Genitourinary: No new onset incontinence Musculoskeletal: Low back pain Psychiatric: [Normal mood/affect] Neurological: [Denies weakness in extremities], [denies balance issues] Objective:: Physical Exam: General: Alert and oriented x3, no acute distress, pleasant and cooperative Lungs: Respirations even and unlabored, symmetrical chest expansion Eyes: PERRL Musculoskeletal: Flexion and extension of lumbar [spine] somewhat guarded secondary to pain, [antalgic gait noted] Neurological: Speech clear, no gross sensory deficit Assessment:: Degenerative disc disease of cervical and lumbar spine with cervical and lumbar radiculopathy symptoms, low back pain, neck pain, status post cervical fusion Plan:: I will refill the patient's ropinirole 2 mg 1 to 2 tablets at bedtime and methocarbamol 750 mg 3 times a day and provide a 2 month supply of these medications. Patient will return to clinic in 2 months for reevaluation of symptoms and medication refill. Patient has been instructed to contact the clinic with any concerns before the next appointment. Dr. Garcia has reviewed this note and agrees with this plan of care. This note was dictated using voice recognition software and make contain errors or omissions. [facility] Disclaimer: The information contained in this section may have been updated after the patient was seen, as this information can be updated by other users. Medical History Back Pain Carotid artery stenosis Claudication Diabetes mellitus Gout HLD (hyperlipidemia) Hypertension Kidney stone Neuropathy Surgical History Hx of cardiac cath Previous back surgery S/P right knee arthroscopy Family History Father Prostate cancer Grandmother Family history of myocardial infarction Grandfather Family history of myocardial infarction Sister Family history of myocardial infarction Sister Family history of myocardial infarction Mother Family history of diabetes mellitus type II Other No significant family history Social History (Updated 10/29/22 @ 08:10 by Radha Dailey RN) Smoking Status: Never smoker alcohol intake: never counseling provided: none substance use type: denies use current occupational status: disabled Travel in the last 8 weeks: None household members: spouse housing: house caffeine: Yes
[2023-01-17 10:50] VITALS: BP 121/81; PULSE 81; RESP 18; O2SAT 91; BMI 31.8
== END | disposition home or self-care (01) ==
PROVIDERS: PCP Nurse Practitioner Family; Visit Provider Nurse Practitioner Family
DX: M50.10 Cervical disc disorder with radiculopathy, unspecified cervical region (principal); M51.16 Intervertebral disc disorders with radiculopathy, lumbar region; M43.22 Fusion of spine, cervical region
CPT/HCPCS: 99212; G0463

== ENCOUNTER 2023-02-15 13:42 | Day surgery (SDC) | payer BC, SELFPAY ==
[2023-02-15 13:47] VITALS: BP 122/87; PULSE 87; RESP 18; O2SAT 96
[2023-02-15 13:50] VITALS: BP 142/89; PULSE 89; RESP 18; TEMP 36.4; O2SAT 99; BMI 31.8
--- NOTE | 2023-02-15 14:05 | EXP.PAIN.PRO ---
Procedure Date: 02/15/23 Time: 14:00 Anesthesiologist:: Deshaun Clements CRNA Complications:: None Pre-procedure Diagnosis:: Degenerative disc lumbar spine multilevels. Lumbar radiculopathy Post-procedure Diagnosis:: Same. Indications for Procedure:: Patient is a pleasant 52-year-old male that comes our clinic today for intrathecal pain pump interrogation refill. Patient currently being managed with morphine sulfate 1 mg/mL at 0.1211 mg/day. He is doing very well with his current settings. He does not request any changes in his current intrathecal pain pump management. He does not report any side effects or complications. Procedure Details:: Details of the procedure explained to the patient. The patient taken the procedure room placed in sitting position. The area of the pumps cleansed using chlorhexidine as a cleansing solution. The pump was interrogated. The pump was accessed with ease using a 22-gauge inch and a half needle. 6 mL of solution was withdrawn and discarded appropriately. The pump was then filled with 20 cc of a solution containing morphine sulfate 1 mg/mL. Patient tolerated procedure without difficulty. There are no complications. Plan and Disposition:: Patient was discharged without incident.
[2023-02-15 14:07] VITALS: BP 128/85; PULSE 81; RESP 16; O2SAT 99
[2023-02-15 21:20] LABS: Amphetamine/Metha Screen,Urine Negative ng/ml (<1000)
[2023-02-15 21:21] LABS: Barbiturates Screen,Urine Negative ng/ml (<200)
[2023-02-15 21:22] LABS: Benzodiazepines Screen,Urine Negative ng/ml (<200); Cannabinoid Screen,Urine Negative ng/ml (<50)
[2023-02-15 21:23] LABS: Cocaine Screen,Urine Negative ng/ml (<300); Methadone Screen,Urine Negative ng/ml (<300)
[2023-02-15 21:25] LABS: Opiate Screen,Urine Negative ng/ml (<300)
[2023-02-15 21:26] LABS: Phencyclidine Screen,Urine Negative ng/ml (<25)
[2023-02-21 18:36] LABS: Opiates Negative (Cutoff=100)
== END 2023-02-15 14:07 | disposition home or self-care (01) ==
PROVIDERS: Anesthesiology; PCP Nurse Practitioner Family; Visit Provider Nurse Anesthetist, Certified Registered
DX: M51.16 Intervertebral disc disorders with radiculopathy, lumbar region (principal)
CPT/HCPCS: 80305; 80361; 80365; 95991; G0480

== ENCOUNTER → 2023-03-31 13:25 | Outpatient (POV) | payer BC, SELFPAY ==
--- NOTE | 2023-03-31 13:48 | EXP.PAIN.PRO ---
Procedure Date: 03/31/23 Time: 13:48 Anesthesiologist:: Viviana Jovel APRN Complications:: None Pre-procedure Diagnosis:: Degenerative disc disease of cervical and lumbar spine with cervical and lumbar radiculopathy symptoms status post cervical fusion Post-procedure Diagnosis:: Same Indications for Procedure:: Patient is a pleasant 52-year-old male who presents today for follow-up. We are currently treating the patient for degenerative disc disease of cervical and lumbar spine with cervical and lumbar radiculopathy symptoms. Patient does state he did have a recent fall last week however this was related to him losing his balance as he was walking in the yard. Patient denies any leg weakness or new changes to the pain he experiences. He is currently managed with morphine 1 mg/mL with a daily dose of 0.1211 mg/day. Patient denies any side effects from this medication. He is also managed on ropinirole 2 mg 1 to 2 tablets at bedtime and methocarbamol 750 mg 3 times a day. Patient denies any side effects from these medications. His Kasi has been appropriate. Physical Exam: General: Alert and oriented x3, no acute distress, pleasant and cooperative Lungs: Respirations even and unlabored, symmetrical chest expansion Eyes: PERRL Musculoskeletal: Flexion and extension of lumbar [spine] somewhat guarded secondary to pain, [antalgic gait noted] Neurological: Speech clear, no gross sensory deficit Procedure Details:: Informed consent was obtained and the risk and benefits of the procedure were explained to the patient. Patient was taken to the procedure room where noninvasive monitoring was placed including noninvasive blood pressure cuff and pulse oximeter. Patient's pump was interrogated and was reprogrammed to morphine 0.1332 mg/day. The patient tolerated the procedure well with no complications. Plan and Disposition:: Patient tolerated his intrathecal increase with no complications and was discharged neurologically intact. I will refill his ropinirole 2 mg 1 to 2 tablets at bedtime and methocarbamol 750 mg 3 times a day and provide a 1 month supply of this medication. Patient will return to clinic in 1 month for reevaluation of symptoms and plan of care. Patient has been instructed to contact the clinic with any concerns before the next appointment. Dr. Garcia has reviewed this note and agrees with this plan of care. This note was dictated using voice recognition software and make contain errors or omissions. -- It Is medically necessary for this patient to continue to have their intrathecal pump refilled at regular intervals. This patient had an intrathecal pain pump implanted after meeting criteria of chronic intractable pain for greater than 3 months and failing conservative treatments. Patient has committed and been compliant to the treatment plan and all planned follow up care. Since implantation of the intrathecal pain pump, the patient has had decreased pain and been more functional. Oral medications have been reduced including intake of oral opioids. Patient continues to do well with intrathecal therapy with decrease in pain symptoms and increase in functional status. Stopping intrathecal medications can lead to life threatening withdrawal, seizures, cardiac arrest, severe pain, and possible . Pumps that are not refilled at regular intervals can be damages and cause and need for replacement. We continually titrate dose and concentration to optimize pain relief and function. We are limited in concentration for certain drugs to safely deliver medications through the pump and stay within the recommendations from the Polyanalgesic Consensus Committee Guidelines. Depending on dose and concentration these pumps may need to be refilled sooner than 3 months as we titrate.
[2023-03-31 14:37] VITALS: BP 150/90; PULSE 101; RESP 18; O2SAT 95; BMI 33.2
== END | disposition home or self-care (01) ==
PROVIDERS: PCP Nurse Practitioner Family; Visit Provider Nurse Practitioner Family
DX: M50.10 Cervical disc disorder with radiculopathy, unspecified cervical region (principal); M51.16 Intervertebral disc disorders with radiculopathy, lumbar region; M43.22 Fusion of spine, cervical region; Z97.8 Presence of other specified devices
CPT/HCPCS: 62368; 99213; G0463

== ENCOUNTER → 2023-04-01 13:26 | Outpatient (CLI) | payer BC, SELFPAY ==
--- NOTE | 2023-04-01 13:26 | CA_ITS ---
FINAL REPORT TECHNIQUE: Multiple transverse and longitudinal images were performed of the right femoral-popliteal deep venous system with augmentation and compression maneuvers. CLINICAL HISTORY: Right lower extremity edema FINDINGS: Right lower extremity duplex ultrasound demonstrates normal flow in the deep venous system. There is no abnormal echogenicity to suggest thrombus. There is normal compression and augmentation. IMPRESSION: No evidence of right DVT. Reviewed, Interpreted and Dictated by Sapphire Marquez MD Transcribed by Guerline Rincon Authenticated and [facility]
== END ==
PROVIDERS: PCP Nurse Practitioner Family; Visit Provider Nurse Practitioner
DX: M79.89 Other specified soft tissue disorders (principal)
CPT/HCPCS: 93971

== ENCOUNTER → 2023-04-28 13:35 | Outpatient (POV) | payer BC, SELFPAY ==
[2023-04-28 13:56] VITALS: BP 148/88; PULSE 105; RESP 20; O2SAT 98; BMI 31.1
--- NOTE | 2023-04-28 13:59 | EXP.PAIN.SOA ---
[facility] Pain Management SOAP Note Subjective:: Patient is a pleasant 52-year-old male who presents today for 1 month follow-up. We are currently treating the patient for degenerative disc disease of cervical and lumbar spine with cervical and lumbar radiculopathy symptoms, status post cervical fusion. Today he rates his pain a 2 out of 10. Patient denies any new trauma or injury. He does state that the intrathecal pump medication has been working well and overall does a great job controlling his back pain. He is currently managed with morphine 1 mg/mL with a daily dose of 0.1332 mg/day. Patient denies any side effects from this medication. He is also managed with ropinirole 2 mg 1 to 2 tablets at bedtime and methocarbamol 750 mg 3 times a day. He denies any side effects from these medications. He does state that this overall combination has worked well for him and he feels like he is able to be more functional and do more activities. His Kasi has been reviewed and is appropriate. Review of Systems: General: No recent weight changes, no fever, no sleep disturbances Respiratory: No cough, no shortness of air, no recurring pulmonary infections Cardiovascular/peripheral vascular: No chest pain, no palpitations, no edema, no shortness of breath Gastrointestinal: No new onset incontinence, normal bowel movements reported Genitourinary: No new onset incontinence Musculoskeletal: Low back pain Psychiatric: [Normal mood/affect] Neurological: [Denies weakness in extremities], [denies balance issues] Objective:: Physical Exam: General: Alert and oriented x3, no acute distress, pleasant and cooperative Lungs: Respirations even and unlabored, symmetrical chest expansion Eyes: PERRL Musculoskeletal: Flexion and extension of lumbar [spine] somewhat guarded secondary to pain, [antalgic gait noted] Neurological: Speech clear, no gross sensory deficit Assessment:: Degenerative disc disease of cervical and lumbar spine with cervical and lumbar radiculopathy symptoms, status post cervical fusion Plan:: Patient is doing well with his current medication regimen. Patient does not need any adjustment with his intrathecal pump today. I will refill his ropinirole 2 mg 1 to 2 tablets at bedtime and methocarbamol 750 mg 3 times a day and provide a 3-month supply of this medications. Patient will follow-up at his next intrathecal refill date. We will see the patient back in the clinic at the next intrathecal refill. Patient has been instructed to contact the clinic with any concerns before the next appointment. Dr. Garcia has reviewed this note and agrees with this plan of care. This note was dictated using voice recognition software and make contain errors or omissions. -- It Is medically necessary for this patient to continue to have their intrathecal pump refilled at regular intervals. This patient had an intrathecal pain pump implanted after meeting criteria of chronic intractable pain for greater than 3 months and failing conservative treatments. Patient has committed and been compliant to the treatment plan and all planned follow up care. Since implantation of the intrathecal pain pump, the patient has had decreased pain and been more functional. Oral medications have been reduced including intake of oral opioids. Patient continues to do well with intrathecal therapy with decrease in pain symptoms and increase in functional status. Stopping intrathecal medications can lead to life threatening withdrawal, seizures, cardiac arrest, severe pain, and possible . Pumps that are not refilled at regular intervals can be damages and cause and need for replacement. We continually titrate dose and concentration to optimize pain relief and function. We are limited in concentration for certain drugs to safely deliver medications through the pump and stay within the recommendations from the Polyanalgesic Consensus Committee Guidelines. Depending on dose and concentration these pumps may need
== END | disposition home or self-care (01) ==
PROVIDERS: PCP Nurse Practitioner Family; Visit Provider Nurse Practitioner Family
DX: M50.10 Cervical disc disorder with radiculopathy, unspecified cervical region (principal); M43.22 Fusion of spine, cervical region; M51.16 Intervertebral disc disorders with radiculopathy, lumbar region; Z97.8 Presence of other specified devices
CPT/HCPCS: 99212; G0463

== ENCOUNTER 2023-05-24 13:04 | Day surgery (SDC) | payer BC, SELFPAY ==
[2023-05-24 13:21] VITALS: BP 138/86; PULSE 97; RESP 16; TEMP 37; O2SAT 95; BMI 31.1
[2023-05-24 13:29] VITALS: PULSE 99; O2SAT 97
--- NOTE | 2023-05-24 13:35 | EXP.PAIN.PRO ---
Procedure Date: 05/24/23 Time: 13:50 Anesthesiologist:: Deshaun Clements CRNA Complications:: None Pre-procedure Diagnosis:: Degenerative disc lumbar spine multilevels. Lumbar radiculopathy. Lumbar postlaminectomy syndrome. Left sacroiliitis. Post-procedure Diagnosis:: Same. Indications for Procedure:: Patient is a very pleasant 52-year-old male comes our clinic today for intrathecal pain pump interrogation refill. He is currently being managed with morphine sulfate 1 mg/mL daily dose of 0.1332 mg/day. Patient doing very well with his current settings. He does not request any changes at this time. Patient reports having some left low lumbar back pain with left posterior hip pain. He describes the pain as constant, dull, sharp, stabbing. Patient reports he is having difficulty transitioning from sitting to standing. Upon examination is as extreme point tenderness over the left sacroiliac joint. He has positive left Aaron test. Positive left Gaenslen's test. Positive left sacroiliac joint compression test. I discussed in detail with the patient regarding left sacroiliac joint injection. He wishes to proceed. We will get this scheduled for him. Procedure Details:: Details of procedure explained to the patient. Patient was taken the procedure room and placed in the sitting position. The area over the pump was cleansed with chlorhexidine's cleansing solution. The pump was interrogated. The pump was accessed with ease using a 22-gauge inch and half needle. 6.5 mL of solution was withdrawn and discarded appropriately. The pump was then filled with 20 cc of solution containing morphine sulfate 1 mg/mL. No change in rate. Patient tolerated procedure without difficulty. There were no complications. Plan and Disposition:: Patient was discharged without incident.
[2023-05-24 13:36] VITALS: PULSE 93; O2SAT 97
[2023-05-24 13:50] VITALS: BP 127/84; PULSE 93; RESP 16; O2SAT 95
== END 2023-05-24 13:50 | disposition home or self-care (01) ==
PROVIDERS: PCP Nurse Practitioner Family; Visit Provider Nurse Anesthetist, Certified Registered
DX: M51.16 Intervertebral disc disorders with radiculopathy, lumbar region (principal); M96.1 Postlaminectomy syndrome, not elsewhere classified; M46.1 Sacroiliitis, not elsewhere classified; Z97.8 Presence of other specified devices
CPT/HCPCS: 95991

== ENCOUNTER 2023-06-21 10:51 | Day surgery (SDC) | payer BC, SELFPAY ==
[2023-06-21 11:07] VITALS: BP 148/91; PULSE 100; RESP 18; TEMP 36.4; O2SAT 98; BMI 31.1
[2023-06-21 11:23] VITALS: BP 124/82; PULSE 95; RESP 18; O2SAT 98
[2023-06-21 11:27] VITALS: BP 124/82; PULSE 95; RESP 18; O2SAT 98
--- NOTE | 2023-06-21 11:29 | P.PCN_ITS ---
Procedure Date: 06/21/23 Time: 11:05 Anesthesiologist:: Deshaun Clements CRNA Complications:: None Pre-procedure Diagnosis:: Left sacroiliitis. Degenerative disc lumbar spine multilevels. Lumbar radiculopathy. Lumbar postlaminectomy syndrome. Post-procedure Diagnosis:: Same. Indications for Procedure:: Patient is a very pleasant 52-year-old male comes our clinic today for left sacroiliac joint injection. Patient has low lumbar back pain chronically. Patient had lumbar fusion several years ago. He continues having low back pain as well as bilateral hip and leg radicular symptoms. His main focal point today is left posterior hip as well as left low lumbar back pain. He has extreme point tenderness over his left sacroiliac joint. Patient reports having difficulty since sitting and/or standing. He reports difficulty transitioning from sitting to standing. Difficult with ambulation. Procedure Details:: Procedure: Left sacroiliac injection under fluoroscopy Informed consent was obtained and the risk and benefits of the procedure were explained to the patient.~ The patient was taken to the procedure room and noninvasive monitors were placed including noninvasive blood pressure cuff and pulse oximeter.~ The patient was placed prone on the procedure table.~ The~ left hip was cleansed using Betadine as a cleansing solution.~ C-arm fluorosocpy was used to view the left SI joint.~ The skin and subcutaneous tissues were ane sthetized using Lidocaine 1.5% and a 25-gauge needle.~ After this, a 22-gauge spinal needle was inserted under fluoroscopic guidance into the inferior aspect of the left SI joint.~ Omnipaque dye was injected and a good spread was seen throughout the joint.~ After this, approximately 5 mL of bupivacaine 0.25% and Depo-Medrol 40 mg was incrementally injected into the sacroiliac joint.~ The patient tolerated the procedure well with no complications.~ The patient was observed in the Pain Clinic for a period of 30-45 minutes, then discharged home neurologically intact.~ Plan and Disposition:: She was discharged without incident.
[2023-06-21 11:30] VITALS: BP 132/88; PULSE 94
== END 2023-06-21 11:30 | disposition home or self-care (01) ==
LOC: SC.PAINP 10:52
PROVIDERS: PCP Nurse Practitioner Family; Visit Provider Nurse Anesthetist, Certified Registered
DX: M46.1 Sacroiliitis, not elsewhere classified (principal); M51.16 Intervertebral disc disorders with radiculopathy, lumbar region; M96.1 Postlaminectomy syndrome, not elsewhere classified
CPT/HCPCS: 27096; G0260; J1040

== ENCOUNTER → 2023-07-08 12:51 | Outpatient (POV) | payer BC, SELFPAY ==
[2023-07-08 13:08] VITALS: BP 107/76; PULSE 86; RESP 18; O2SAT 97; BMI 31.1
--- NOTE | 2023-07-08 13:23 | EXP.PAIN.PRO ---
Procedure Date: 07/08/23 Time: 13:23 Anesthesiologist:: Viviana Jovel APRN Complications:: None Pre-procedure Diagnosis:: Degenerative disc disease of lumbar spine with lumbar radiculopathy symptoms, lumbar postlaminectomy syndrome Post-procedure Diagnosis:: Same Indications for Procedure:: Patient is a pleasant 52-year-old male who comes in today for intrathecal adjustment and reprogram and follow-up of left SI injection on 06/21/2023. We are currently treating the patient for degenerative disc disease of lumbar spine with lumbar radiculopathy symptoms, lumbar postlaminectomy syndrome, sacroiliitis. Today he rates his pain a 5 out of 10. Patient denies any new trauma or injury. He does state that he has had at least 50 to 60% improvement following this injection. Patient does state it is still providing additional relief however he does still feel occasional pain at this site that seems to be triggered by prolonged driving. Patient does state this has been going on for years and typically will flareup from time to time. 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 Patient is currently managed with methocarbamol 750 mg 3 times a day and ropinirole 2 mg 1 to 2 tablets at bedtime along with intrathecal morphine 1 mg/mL with a daily dose of 0.1332 mg/day. He denies any side effects from these medications. His Kasi is in manual process currently. Physical Exam: General: Alert and oriented x3, no acute distress, pleasant and cooperative Lungs: Respirations even and unlabored, symmetrical chest expansion Eyes: PERRL Musculoskeletal: Flexion and extension of lumbar [spine] somewhat guarded secondary to pain, [antalgic gait noted] Neurological: Speech clear, no gross sensory deficit Procedure Details:: Informed consent was obtained and the risk and benefits of the procedure were explained to the patient. Patient was taken to the procedure room where noninvasive monitoring was placed including noninvasive blood pressure cuff and pulse oximeter. Patient's pump was interrogated and was reprogrammed to morphine 0.1466 mg/day. The patient tolerated the procedure well with no complications. Plan and Disposition:: Patient did have significant improvement following his sacroiliac joint injection. I have discussed with the patient due to this being a chronic issue that he may benefit from a SI fusion in the future. Risk and benefits and educational handouts were given at today's visit. We will follow-up with this at future visits. I will refill the patient's methocarbamol 750 mg 3 times a day and ropinirole 2 mg 1 to 2 tablets at bedtime and provide a 3-month supply of this medication. Patient will return to clinic at his next intrathecal refill date. Patient tolerated his intrathecal increase with no complications and was discharged neurologically intact. We will see the patient back in the clinic at the next intrathecal refill. Patient has been instructed to contact the clinic with any concerns before the next appointment. Dr. Garcia has reviewed this note and agrees with this plan of care. This note was dictated using voice recognition software and make contain errors or omissions. -- It Is medically necessary for this patient to continue to have their intrathecal pump refilled at regular intervals. This patient had an intrathecal pain pump implanted after meeting criteria of chronic intractable pain for greater than 3 months and failing conservative treatments. Patient has committed and been compliant to the treatment plan and all planned follow up care. Since implantation of the intrathecal pain pump, the patient has had decreased pain and been more functional. Oral medications have been reduced including intake of oral opioids. Patient continues to do well with intrathecal therapy with decrease in pain symptoms and increase in functional status. Stopping intrathecal medications can lead to life threatening withdrawal, seizures, cardiac arrest, severe pain, and possible . Pumps that are not refilled at regular intervals can be damages and cause and need for replacement. We continually titrate dose and concentration to optimize pain relief and function. We are limited in concentration for certain drugs to safely deliver medications through the pump and stay within the recommendations from the Polyanalgesic Consensus Committee Guidelines. Depending on dose and concentration these pumps may need to be refilled sooner than 3 months as we titrate.
== END | disposition home or self-care (01) ==
PROVIDERS: PCP Nurse Practitioner Family; Visit Provider Nurse Practitioner Family
DX: M51.16 Intervertebral disc disorders with radiculopathy, lumbar region (principal); M96.1 Postlaminectomy syndrome, not elsewhere classified; Z97.8 Presence of other specified devices; Z45.1 Encounter for adjustment and management of infusion pump
CPT/HCPCS: 62368; 99212; G0463

== ENCOUNTER 2023-08-16 11:05 | Day surgery (SDC) | payer BC, SELFPAY ==
[2023-08-16 11:08] VITALS: BP 148/98; PULSE 93; RESP 18; O2SAT 98; BMI 31.8
[2023-08-16 11:22] VITALS: BP 156/96; PULSE 92; RESP 18; O2SAT 98
[2023-08-16 11:23] VITALS: BP 156/96; PULSE 92; RESP 18; O2SAT 95
--- NOTE | 2023-08-16 11:31 | EXP.PAIN.PRO ---
Procedure Date: 08/16/23 Time: 11:30 Anesthesiologist:: Deshaun Clements CRNA Complications:: None Pre-procedure Diagnosis:: Degenerative disc lumbar spine multilevels. Lumbar radiculopathy. Lumbar postlaminectomy syndrome. Post-procedure Diagnosis:: Same. Indications for Procedure:: Patient very pleasant 52-year-old male comes our clinic today for intrathecal pain pump interrogation refill. Patient currently being managed with morphine sulfate 1 mg/mL. With a daily dose of 0.1466 mg/day. He doing very well his current settings. He is not reporting any side effects or complications. He is not requesting any changes. Procedure Details:: Details of the procedure explained to the patient. The patient taken to procedure room placed in the sitting position. The area of the pump was cleansed using chlorhexidine as a cleansing solution. The pump was interrogated. The pump was accessed with ease using a 22-gauge inch and half needle. 7 mL of solution was withdrawn discarded appropriate. The pump was then filled with 20 cc of a solution containing morphine sulfate 1 mg/mL. Pump rate will remain the same. 0.1466 mg/day. Patient tolerated procedure without difficulty. There are no complications. Plan and Disposition:: Patient was discharged without incident.
[2023-08-16 11:36] VITALS: BP 153/92; PULSE 84; RESP 16; O2SAT 98
[2023-08-16 12:11] LABS: Amphetamine/Metha Screen,Urine Negative ng/ml (<1000); Barbiturates Screen,Urine Negative ng/ml (<200)
[2023-08-16 12:12] LABS: Benzodiazepines Screen,Urine Negative ng/ml (<200)
[2023-08-16 12:32] LABS: Phencyclidine Screen,Urine Negative ng/ml (<25)
[2023-08-16 12:33] LABS: Opiate Screen,Urine Negative ng/ml (<300)
[2023-08-16 12:50] LABS: Cannabinoid Screen,Urine Negative ng/ml (<50)
[2023-08-16 12:51] LABS: Cocaine Screen,Urine Negative ng/ml (<300)
[2023-08-16 12:55] LABS: Methadone Screen,Urine Negative ng/ml (<300)
[2023-08-21 18:30] LABS: Opiates Negative (Cutoff=100)
== END 2023-08-16 11:36 | disposition home or self-care (01) ==
PROVIDERS: Anesthesiology; PCP Nurse Practitioner Family; Visit Provider Nurse Anesthetist, Certified Registered
DX: M51.16 Intervertebral disc disorders with radiculopathy, lumbar region (principal); M96.1 Postlaminectomy syndrome, not elsewhere classified; Z97.8 Presence of other specified devices; Z45.1 Encounter for adjustment and management of infusion pump
CPT/HCPCS: 80307; 80361; 80365; 95991; G0480

== ENCOUNTER 2023-09-29 11:05 | Outpatient (POV) | payer BC, SELFPAY ==
--- NOTE | 2023-09-29 11:40 | P.PCN_ITS ---
Procedure Date: 09/29/23 Time: 11:47 Anesthesiologist:: Viviana Jovel APRN Complications:: None Pre-procedure Diagnosis:: degenerative disc disease of lumbar spine with lumbar radiculopathy symptoms, lumbar postlaminectomy syndrome, sacroiliitis Post-procedure Diagnosis:: Same Indications for Procedure:: Patient is a pleasant 52-year-old male who comes in today for intrathecal adjustment and reprogram and follow-up. We are currently treating the patient for degenerative disc disease of lumbar spine with lumbar radiculopathy symptoms, lumbar postlaminectomy syndrome, sacroiliitis. Today he rates his pain a 10 out of 10. Patient states that last week he started experiencing severe muscle spasms. He states that his entire body was shaking. He states he had not had any injury or trauma. He states that he did end up going to the ER for evaluation and he had a critically low magnesium level. Patient states he was given IV magnesium and Valium. He states that he was put on oral magnesium 3 times a day. Patient states that he did have updated lab work done about 3 days ago from his primary care however he has not been given the results. He does state his pain today is severe aching, throbbing sensation with numbness and tingling that goes down the entire length of his right leg. Patient states the pain does interfere with his ability perform activities of daily living such as cooking and cleaning. Patient is interested in any help we may be able to provide. Patient is currently managed with methocarbamol 750 mg 3 times a day and ropinirole 2 mg 1 to 2 tablets at bedtime along with intrathecal morphine 1 mg/mL with a daily dose of 0.1466 mg/day. He denies any side effects from these medications. His Kasi is in manual process currently. Physical Exam: General: Alert and oriented x3, no acute distress, pleasant and cooperative Lungs: Respirations even and unlabored, symmetrical chest expansion Eyes: PERRL Musculoskeletal: Flexion and extension of lumbar [spine] somewhat guarded secondary to pain, [antalgic gait noted] extreme point tenderness along right SI, patient unable to tolerate Aaron's test, decreased sensation to light touch with a positive right leg raise Neurological: Speech clear, no gross sensory deficit Procedure Details:: Informed consent was obtained and the risk and benefits of the procedure were explained to the patient. Patient was taken to the procedure room where noninva sive monitoring was placed including noninvasive blood pressure cuff and pulse oximeter. Patient's pump was interrogated and was reprogrammed to morphine 0.1614 mg/day. The patient tolerated the procedure well with no complications. Plan and Disposition:: Patient is experiencing significant pain throughout his low back that radiates down his entire right extremity. Patient did have limited range of motion of his lumbar spine along with extreme point tenderness at his right SI joint and was not able to tolerate additional testing such as the Aaron's test. Patient did have decreased sensation to light touch with a positive right leg raise. I have discussed with the patient that he may benefit from both the right SI as well as a right transforaminal epidural steroid injection. Risk and benefits were discussed with the patient and at this time we will proceed forward with a right transforaminal. Patient is not on any blood thinners. Patient tolerated his intrathecal increase with adjustment of PTM bolus device with up to 6 boluses available in 24-hour. I have discussed with the patient that I will send when a 7-day dose of prednisone 20 mg twice daily along with increase of methocarbamol 1000 mg 3 times a day. I will also order the patient a compounded cream and reach out to George from his office for his updated lab work regarding his magnesium level for our records. Patient was counseled to contact her office as well to get his results for himself. I have also counseled the patient due to the severity of his pain I will go ahead and order x-ray imaging to confirm any immediate fractures or change in his spine to explain the constant pain. Patient will be scheduled for a right transforaminal epidural steroid injection L4-L5 and L5-S1 under fluoroscopy. Patient has been instructed to contact the clinic with any concerns before the next appointment. Dr. Garcia has reviewed this note and agrees with this plan of care. This note was dictated using voice recognition software and make contain errors or omissions. -- It Is medically necessary for this patient to continue to have their intrathecal pump refilled at regular intervals. This patient had an intrathecal pain pump implanted after meeting criteria of chronic intractable pain for greater than 3 months and failing conservative treatments. Patient has committed and been compliant to the treatment plan and all planned follow up care. Since implantation of the intrathecal pain pump, the patient has had decreased pain and been more functional. Oral medications have been reduced including intake of oral opioids. Patient continues to do well with intrathecal therapy with decrease in pain symptoms and increase in functional status. Stopping intrat hecal medications can lead to life threatening withdrawal, seizures, cardiac arrest, severe pain, and possible . Pumps that are not refilled at regular intervals can be damages and cause and need for replacement. We continually titrate dose and concentration to optimize pain relief and function. We are limited in concentration for certain drugs to safely deliver medications through the pump and stay within the recommendations from the Polyanalgesic Consensus Committee Guidelines. Depending on dose and concentration these pumps may need to be refilled sooner than 3 months as we titrate. Addendum: Patient's magnesium level was within range 1.8
--- NOTE | 2023-09-29 11:58 | XR_ITS ---
FINAL REPORT CLINICAL HISTORY: RT LEG PAIN, woke up 3 weeks ago with shaking in back and leg then pain came later in right leg very unsteady, doc wanted him standing if possible, patient was able to stand for all but oblique views FINDINGS: LUMBAR SPINE Seven views demonstrate no acute fracture. There is posterior and interbody fusion hardware at L5-S1. There are moderate hypertrophic changes at L3-4. Stimulator device is seen in the right flank. There is no malalignment. IMPRESSION: Degenerative and postsurgical changes. Reviewed, Interpreted and Dictated by Martín Camejo MD Transcribed by Rosi Chan Authenticated and [facility]
[2023-09-29 12:26] VITALS: BP 175/100; PULSE 111; RESP 20; O2SAT 97; BMI 31.0
== END 2023-09-29 23:59 | disposition home or self-care (01) ==
PROVIDERS: PCP Nurse Practitioner Family; Visit Provider Nurse Practitioner Family
DX: M51.16 Intervertebral disc disorders with radiculopathy, lumbar region (principal); M96.1 Postlaminectomy syndrome, not elsewhere classified; M46.1 Sacroiliitis, not elsewhere classified; Z97.8 Presence of other specified devices; Z45.1 Encounter for adjustment and management of infusion pump
CPT/HCPCS: 62368; 72110; 99213; G0463

== ENCOUNTER 2023-10-07 09:43 | Day surgery (SDC) | payer BC, SELFPAY ==
[2023-10-07 09:54] VITALS: BP 125/97; PULSE 104; PULSE 105; RESP 19; O2SAT 99
[2023-10-07 10:01] VITALS: BP 140/92; PULSE 104; RESP 18; TEMP 36.2; O2SAT 98; BMI 35.2
[2023-10-07] MEDS: LIDOCAINE 1% 5ML PF VIAL 5 ML (10:02)
[2023-10-07] MEDS: IOPAMIDOL-200 (41%);10ML VIAL 10 ML IV (10:09)
[2023-10-07 10:13] VITALS: BP 156/99; PULSE 94; RESP 16; O2SAT 98
--- NOTE | 2023-10-07 10:15 | EXP.PAIN.PRO ---
Procedure Date: 10/07/23 Time: 10:00 Anesthesiologist:: Deshaun Clements CRNA Complications:: None Pre-procedure Diagnosis:: Degenerative disc lumbar spine multilevels. Lumbar radiculopathy. Lumbar postlaminectomy syndrome Post-procedure Diagnosis:: Same. Indications for Procedure:: Patient is a pleasant 52-year-old male comes our clinic today for right L4-5 and L5-S1 transforaminal epidural steroid injection. Patient describes right hip and leg radicular symptoms to the foot. Patient also reporting low lumbar back pain right greater than left. He rates his pain 7/10 Procedure Details:: Details of the procedure explained to the patient. The patient taken procedure room placed in the prone position on the fluoroscopy table. The area over the lumbar spine was cleansed using chlorhexidine's cleansing solution. A marker was placed on the right lateral border of the L4 vertebral body. The skin is subcutaneous tissue was anesthetized using 1% lidocaine and 25-gauge needle. Using fluoroscopy guidance a 22-gauge 3 and half inch spinal needle was used to access the upper one third of the right L4-5 foramen. Needle position was confirmed using fluoroscopy and a lateral position and injecting 0.5 mL of contrast dye. Positive neurogram was identified. At this time after negative aspiration I injected 2 cc of 1% lidocaine and 40 mg of Depo-Medrol. Patient tolerated procedure without difficulty. There are no complications. L5-S1 was not visible due to hardware. Plan and Disposition:: Patient was discharged without incident.
--- NOTE | 2023-10-07 10:29 | EXP.PAIN.PRO ---
Procedure Date: 10/07/23 Time: 10:00 Anesthesiologist:: Deshaun Clements CRNA Complications:: None Pre-procedure Diagnosis:: Degenerative disc lumbar spine multilevels. Lumbar radiculopathy. Lumbar postlaminectomy syndrome. Post-procedure Diagnosis:: Same. Indications for Procedure:: Patient is a very pleasant 52-year-old female comes our clinic today for lumbar epidural steroid injection L3-4 level. She reports low back pain as well as bilateral hip and leg radicular symptoms at times. She rates pain 01/10 Procedure Details:: Procedure: Lumbar epidural steroid injection under fluoroscopy Informed consent was obtained and the risks and benefits of the procedure were explained to the patient. The patient was taken to the procedure room and noninvasive monitors placed, including noninvasive blood pressure cuff and pulse oximeter. The back was viewed using C-arm Fluoroscopy and prepped using Chloraprep as a cleansing solution and the L3-4 interspace was palpated. Skin and subcutaneous tissues were anesthetized using lidocaine 1.5% and a 25-gauge needle. After this, an 18-gauge Touhy epidural needle was placed into the L3-4 interspace and advanced using fluoroscopic guidance and loss of resistance to air until the epidural space was encountered. After confirmation of needle placement in the epidural space, with dye, a solution containing normal saline, 3 mL and Depo-Medrol 80 mg were incrementally injected into the lumbar epidural space. The patient tolerated the procedure well with no complications. The patient was observed in the Pain Clinic and then discharged home neurologically intact. Plan and Disposition:: Patient was discharged without incident.
== END 2023-10-07 10:13 | disposition home or self-care (01) ==
PROVIDERS: PCP Nurse Practitioner Family; Visit Provider Nurse Anesthetist, Certified Registered
DX: M51.16 Intervertebral disc disorders with radiculopathy, lumbar region (principal); M96.1 Postlaminectomy syndrome, not elsewhere classified
CPT/HCPCS: 64483; J1010; Q9966

== ENCOUNTER 2023-10-19 13:55 | Outpatient (POV) | payer BC, SELFPAY ==
[2023-10-19 13:56] VITALS: BP 132/88; PULSE 88; RESP 18; O2SAT 96; BMI 32.5
--- NOTE | 2023-10-19 16:15 | A.OFFVIS_ITS ---
[facility] Pain Management SOAP Note Subjective:: Patient is a pleasant 52-year-old male who presents today for follow-up of right transforaminal epidural steroid injection L4-L5 and L5-S1 on 10/07/2023. Today he rates his pain a 2 out of 10. Patient states that he has had at least 95% improvement from our last visit and feels like it is still helping. He does state that he will still have some pain in and around the left side of his low back as well as numbness on the right lower extremity below the knee however it is much better than what it had been. Patient does state that the oral steroids and increased muscle relaxer of the methocarbamol 1000 mg 3 times a day did help significantly. Patient does state that he is needing to follow-up with his PCP regarding if he needs to continue to take his magnesium due to the previous low levels. Patient is currently managed with intrathecal morphine 1 mg/mL with a daily dose 0.1614 mg/day. He denies any side effects from this medication. He does feel like this is working well for him. His Kasi has been reviewed and is appropriate. Review of Systems: General: No recent weight changes, no fever, no sleep disturbances Respiratory: No cough, no shortness of air, no recurring pulmonary infections Cardiovascular/peripheral vascular: No chest pain, no palpitations, no edema, no shortness of breath Gastrointestinal: No new onset incontinence, normal bowel movements reported Genitourinary: No new onset incontinence Musculoskeletal: Low back pain Psychiatric: [Normal mood/affect] Neurological: [Denies weakness in extremities], [denies balance issues] Objective:: Physical Exam: General: Alert and oriented x3, no acute distress, pleasant and cooperative Lungs: Respirations even and unlabored, symmetrical chest expansion Eyes: PERRL Musculoskeletal: Flexion and extension of lumbar [spine] somewhat guarded secondary to pain, [antalgic gait noted] Neurological: Speech clear, no gross sensory deficit Assessment:: Degenerative disc disease of lumbar spine with lumbar radiculopathy symptoms, lumbar postlaminectomy syndrome, sacroiliitis Plan:: I will refill the patient's methocarbamol 1000 mg 3 times a day and provide a 1 month supply of this medication. I have counseled the patient to follow-up with his primary care regarding his magnesium levels and have recommended that to order additional updated labs at the 3-month awa as a precaution. Patient did also mention that he recently had some updated imaging related to a urology appointment. Patient states at that visit they did mention that there was some type of device noted in his abdomen on the opposite side of his pump that look like batteries. Patient states that he was unsure what exactly this was. Patient does state that this was at [facility] in [place]. We will reach out to this facility and get a copy of the imaging to see what exactly was shown on the imaging. We will plan on reviewing this at the next visit. Patient will return to clinic in 1 month for reevaluation of symptoms and plan of care. Patient has been instructed to contact the clinic with any concerns before the next appointment. Dr. Garcia has reviewed this note and agrees with this plan of care. This note was dictated using voice recognition software and make contain errors or omissions. -- It Is medically necessary for this patient to continue to have their intrathecal pump refilled at regular intervals. This patient had an intrathecal pain pump implanted after meeting criteria of chronic intractable pain for greater than 3 months and failing conservative treatments. Patient has committed and been compliant to the treatment plan and all planned follow up care. Since implantation of the intrathecal pain pump, the patient has had decreased pain and been more functional. Oral medications have been reduced including intake of oral opioids. Patient continues to do well with intrathecal therapy with decrease in pain symptoms and increase in functional status. Stopping intrathecal medications can lead to life threatening withdrawal, seizures, cardiac arrest, severe pain, and possible . Pumps that are not refilled at regular intervals can be damages and cause and need for replacement. We continually titrate dose and concentration to optimize pain relief and function. We are limited in concentration for certain drugs to safely deliver medications through the pump and stay within the recommendations from the Polyanalgesic Consensus Committee Guidelines. Depending on dose and concentration these pumps may need to be refilled sooner than 3 months as we titrate. [facility] Disclaimer: The information contained in this section may have been updated after the patient was seen, as this information can be updated by other users. Medical History Back Pain Carotid artery stenosis Claudication Diabetes mellitus Gout HLD (hyperlipidemia) Hypertension Kidney stone Neuropathy Surgical History Hx of cardiac cath Previous back surgery S/P right knee arthroscopy Family History Father Prostate cancer Grandmother Family history of myocardial infarction Grandfather Family history of myocardial infarction Sister Family history of myocardial infarction Sister Family history of myocardial infarction Mother Family history of diabetes mellitus type II Other No significant family history Social History Smoking Status: Never smoker alcohol intake: never counseling provided: none substance use type: denies use current occupational status: employed Travel in the last 8 weeks: None household members: spouse housing: house caffeine: Yes
== END 2023-10-19 23:59 | disposition home or self-care (01) ==
PROVIDERS: PCP Nurse Practitioner Family; Visit Provider Nurse Practitioner Family
DX: M51.16 Intervertebral disc disorders with radiculopathy, lumbar region (principal); M96.1 Postlaminectomy syndrome, not elsewhere classified; M46.1 Sacroiliitis, not elsewhere classified; Z97.8 Presence of other specified devices
CPT/HCPCS: 99212; G0463

== ENCOUNTER 2023-11-01 09:40 | Day surgery (SDC) | payer BC, SELFPAY ==
[2023-11-01 09:53] VITALS: BP 146/91; PULSE 107; RESP 16; O2SAT 96; BMI 33.2
[2023-11-01 10:13] VITALS: BP 150/104; PULSE 91; RESP 18; O2SAT 96
--- NOTE | 2023-11-01 12:24 | EXP.PAIN.PRO ---
Procedure Date: 11/01/23 Time: 10:45 Anesthesiologist:: Deshaun Clements CRNA Complications:: None Pre-procedure Diagnosis:: Degenerative disc lumbar spine multilevels. Lumbar radiculopathy. Lumbar postlaminectomy syndrome. Lumbar spondylosis. Post-procedure Diagnosis:: Same. Indications for Procedure:: Patient is a very pleasant 52-year-old male comes our clinic today for intrathecal pain pump interrogation refill. Patient is currently being managed with morphine sulfate 1 mg/mL at a rate of 0.1614 mg/day. Patient is reporting some right leg numbness below the knee. He reports makes his legs feel somewhat weak. Will increase his pump 20% today to see if in fact this does help. Patient rates his pain 08/13 Procedure Details:: Details of the procedure explained to the patient. The patient taken the procedure room placed in sitting position. The area over the pump is cleansed using chlorhexidine as a cleansing solution. The pump was interrogated. The pump was accessed with ease using a 22-gauge inch and half needle. 7 mL of solution was withdrawn discarded appropriately. The pump was then filled with 20 cc of a solution containing morphine sulfate 1 mg/mL. The rate was increased by 20%. His new rate will be 0.1935 mg/day. Patient tolerated procedure without difficulty. There are no complications Plan and Disposition:: Patient was discharged without incident.
== END 2023-11-01 10:13 | disposition home or self-care (01) ==
LOC: SC.PAINP 09:41
PROVIDERS: PCP Nurse Practitioner Family; Visit Provider Nurse Anesthetist, Certified Registered
DX: M51.16 Intervertebral disc disorders with radiculopathy, lumbar region (principal); M96.1 Postlaminectomy syndrome, not elsewhere classified; M47.26 Other spondylosis with radiculopathy, lumbar region; Z97.8 Presence of other specified devices; Z45.1 Encounter for adjustment and management of infusion pump
CPT/HCPCS: 62370

== ENCOUNTER 2023-11-17 14:02 | Outpatient (POV) | payer BC, SELFPAY ==
[2023-11-17 14:17] VITALS: BP 111/72; PULSE 114; RESP 16; O2SAT 96; BMI 33.2
--- NOTE | 2023-11-17 15:08 | EXP.PAIN.SOA ---
[facility] Pain Management SOAP Note Subjective:: Patient is a pleasant 52-year-old male who presents today for follow-up. Today he rates his pain a 0 out of 10. He states he is doing really well and denies any new injuries or trauma. He does state that occasionally he will still have pain in and around his right groin that has a catching sensation but it is random. He also still feels like his right foot has some weakness. Patient does state that his current dosage in his pump is working well. He does however request that he is still having issues with his right arm with numbness and tingling and is unsure if it is nerve related patient does state that in the past he did see a neurologist who did do some testing however he is unsure what all they went into there in [place]. He states he does not remember his name. He is currently managed with morphine 1 mg/mL with a daily dose of 0.1935 mg/day. He states that he has been able to increase his activity with this medication and that he even mowed the yard yesterday with minimal pain. He is also prescribed methocarbamol 1000 mg 3 times a day. He denies any side effects from these medications and is requesting a refill. His Kasi has been reviewed and is appropriate. Review of Systems: General: No recent weight changes, no fever, no sleep disturbances Respiratory: No cough, no shortness of air, no recurring pulmonary infections Cardiovascular/peripheral vascular: No chest pain, no palpitations, no edema, no shortness of breath Gastrointestinal: No new onset incontinence, normal bowel movements reported Genitourinary: No new onset incontinence Musculoskeletal: Low back pain Psychiatric: [Normal mood/affect] Neurological: [Denies weakness in extremities], [denies balance issues] Objective:: Physical Exam: General: Alert and oriented x3, no acute distress, pleasant and cooperative Lungs: Respirations even and unlabored, symmetrical chest expansion Eyes: PERRL Musculoskeletal: Flexion and extension of lumbar [spine] somewhat guarded secondary to pain, [antalgic gait noted] Neurological: Speech clear, no gross sensory deficit Assessment:: Degenerative disc disease of lumbar spine with lumbar radiculopathy symptoms, lumbar postlaminectomy syndrome, sacroiliitis Plan:: Patient will be refilled on his methocarbamol 1000 mg 3 times a day and provided a 3-month supply of this medication. I have counseled the patient that we will reach out to the neurologist there and myself to see whether or not if he did already have the EMG testing for his right arm symptoms. We will send a referral to this office if needed to be reevaluated. Patient will return to clinic on or before his next intrathecal pump refill date. Patient agrees with this plan of care. We will see the patient back in the clinic at the next intrathecal refill. Patient has been instructed to contact the clinic with any concerns before the next appointment. Dr. Garcia has reviewed this note and agrees with this plan of care. This note was dictated using voice recognition software and make contain errors or omissions. -- It Is medically necessary for this patient to continue to have their intrathecal pump refilled at regular intervals. This patient had an intrathecal pain pump implanted after meeting criteria of chronic intractable pain for greater than 3 months and failing conservative treatments. Patient has committed and been compliant to the treatment plan and all planned follow up care. Since implantation of the intrathecal pain pump, the patient has had decreased pain and been more functional. Oral medications have been reduced including intake of oral opioids. Patient continues to do well with intrathecal therapy with decrease in pain symptoms and increase in functional status. Stopping intrathecal medications can lead to life threatening withdrawal, seizures, cardiac arrest, severe pain, and possible . Pumps that are not refilled at regular intervals can be damages and cause and need for replacement. We continually titrate dose and concentration to optimize pain relief and function. We are limited in concentration for certain drugs to safely deliver medications through the pump and stay within the recommendations from the Polyanalgesic Consensus Committee Guidelines. Depending on dose and concentration these pumps may need to be refilled sooner than 3 months as we titrate. [facility] Disclaimer: The information contained in this section may have been updated after the patient was seen, as this information can be updated by other users. Medical History Back Pain Carotid artery stenosis Claudication Diabetes mellitus Gout HLD (hyperlipidemia) Hypertension Kidney stone Neuropathy Surgical History Hx of cardiac cath Previous back surgery S/P right knee arthroscopy Family History Father Prostate cancer Grandmother Family history of myocardial infarction Grandfather Family history of myocardial infarction Sister Family history of myocardial infarction Sister Family history of myocardial infarction Mother Family history of diabetes mellitus type II Other No significant family history Social History Smoking Status: Never smoker alcohol intake: never counseling provided: none substance use type: denies use current occupational status: other Travel in the last 8 weeks: None household members: spouse housing: house caffeine: Yes
--- NOTE | 2023-11-18 12:31 | PC.NURSE ---
Records requested from [facility] r/t appt with GERALDINE Whaley neurology per BERTHA Tinoco request. states will fax records that are available.
== END 2023-11-17 23:59 | disposition home or self-care (01) ==
LOC: SC.PAIN 14:03
PROVIDERS: Visit Provider Nurse Practitioner Family
DX: M51.16 Intervertebral disc disorders with radiculopathy, lumbar region (principal); M96.1 Postlaminectomy syndrome, not elsewhere classified; M46.1 Sacroiliitis, not elsewhere classified; Z97.8 Presence of other specified devices
CPT/HCPCS: 99212; G0463

== ENCOUNTER 2023-12-13 12:44 | Day surgery (SDC) | payer BC, SELFPAY ==
[2023-12-13 13:06] VITALS: BP 164/99; PULSE 98; RESP 18; TEMP 36.2; O2SAT 98; BMI 32.5
[2023-12-13 13:08] VITALS: BP 165/97; PULSE 91; RESP 18; O2SAT 97
--- NOTE | 2023-12-13 13:12 | EXP.PAIN.PRO ---
Procedure Date: 12/13/23 Time: 13:10 Anesthesiologist:: Deshaun Clements CRNA Complications:: None Pre-procedure Diagnosis:: Degenerative disc lumbar spine multilevels. Lumbar radiculopathy. Post-procedure Diagnosis:: Same. Indications for Procedure:: Patient is a very pleasant 53-year-old male comes our clinic today for intrathecal pain pump interrogation and refill. He is currently being managed with morphine sulfate 1 mg/mL. His rate is 0.1935 mg/day. He is reporting again today numbness tingling in his right leg from the knee down. This is on the lateral border of the right lower leg. He reports the same on the left lower leg. However, right is greater than left. We discussed that his last feeling potential for lumbar epidural steroid injection. He is requesting today to try lumbar epidural steroid injection for the bilateral leg radicular symptoms. Patient has tried and failed conservative measures including physical therapy, home exercise program, NSAIDs, acetaminophen and currently is being managed with intrathecal pain pump. Otherwise, he is doing well. He is not reporting side effects or complications. He is not requesting any changes. Procedure Details:: Details of the procedure explained to the patient. The patient taken procedure and placed in sitting position. The area of the pump was cleansed using chlorhexidine's cleansing solution. The pump was interrogated. The pump was accessed with ease using a 22-gauge inch and half needle. 11 mL of solution was withdrawn discarded appropriately. The pump was then filled with 20 cc of solution containing morphine sulfate 1 mg/mL. The rate will remain the same. Patient tolerated procedure without difficulty. There are no complications. Plan and Disposition:: Patient was discharged without incident.
[2023-12-13 13:26] VITALS: BP 164/94; PULSE 87; RESP 18; O2SAT 97
[2023-12-13 16:05] LABS: Opiate Screen,Urine Negative ng/ml (<300)
[2023-12-13 16:06] LABS: Phencyclidine Screen,Urine Negative ng/ml (<25)
[2023-12-13 16:07] LABS: Amphetamine/Metha Screen,Urine Negative ng/ml (<1000)
[2023-12-13 16:08] LABS: Benzodiazepines Screen,Urine Negative ng/ml (<200)
[2023-12-13 16:09] LABS: Cannabinoid Screen,Urine Negative ng/ml (<50)
[2023-12-13 16:10] LABS: Cocaine Screen,Urine Negative ng/ml (<300)
[2023-12-13 16:11] LABS: Methadone Screen,Urine Negative ng/ml (<300)
[2023-12-13 17:12] LABS: Barbiturates Screen,Urine Negative ng/ml (<200)
[2023-12-19 06:08] LABS: Opiates Negative (Cutoff=100)
== END 2023-12-13 13:27 | disposition home or self-care (01) ==
PROVIDERS: Anesthesiology; PCP Nurse Practitioner Family; Visit Provider Nurse Anesthetist, Certified Registered
DX: M51.16 Intervertebral disc disorders with radiculopathy, lumbar region (principal); Z97.8 Presence of other specified devices; Z45.1 Encounter for adjustment and management of infusion pump
CPT/HCPCS: 80307; 80361; 80365; 95991; G0480

== ENCOUNTER 2024-01-24 09:16 | Day surgery (SDC) | payer BC, SELFPAY ==
[2024-01-24 09:30] VITALS: BP 136/93; PULSE 71; RESP 18; TEMP 36.3; O2SAT 98; BMI 33.2
[2024-01-24 09:40] VITALS: BP 129/81; PULSE 73; RESP 18; O2SAT 97
[2024-01-24 09:41] VITALS: BP 129/81; PULSE 73; RESP 18; O2SAT 97
--- NOTE | 2024-01-24 09:52 | P.PCN_ITS ---
Procedure Date: 01/24/24 Time: 09:30 Anesthesiologist:: Deshaun Clements CRNA Complications:: None Pre-procedure Diagnosis:: Degenerative disc lumbar spine multilevels. Lumbar radiculopathy. Post-procedure Diagnosis:: Same. Indications for Procedure:: Patient is a pleasant 53-year-old male comes our clinic today for intrathecal pain pump interrogation refill. Patient currently being managed with morphine sulfate 1 mg/mL at a rate of 0.1935 mg/day. Patient doing very well with his current settings. He is not requesting any changes. He is not reporting any side effects or complications. Procedure Details:: Details of the procedure explained to the patient. The patient taken procedure and placed in sitting position. They over the pumps cleansed using chlorhexidine's cleansing solution. The pump was interrogated. The pump was ac cessed with ease using a 22-gauge inch and half needle. 11 mL of solution was withdrawn and discarded appropriately. The pump was then filled with 20 cc of a solution containing morphine sulfate 1 mg/mL. The pump rate will remain the same at 0.1935 mg/day. Patient tolerated procedure without difficulty. There are no complications. Plan and Disposition:: Patient was discharged without incident.
[2024-01-24 09:54] VITALS: BP 122/82; PULSE 71; RESP 18; TEMP 36.3; O2SAT 97
== END 2024-01-24 09:55 | disposition home or self-care (01) ==
PROVIDERS: PCP Nurse Practitioner Family; Visit Provider Nurse Anesthetist, Certified Registered
DX: G89.29 Other chronic pain (principal); M51.36 Other intervertebral disc degeneration, lumbar region; M54.16 Radiculopathy, lumbar region
CPT/HCPCS: 95991

== ENCOUNTER 2024-05-01 12:55 | Day surgery (SDC) | payer BC, SELFPAY ==
[2024-05-01 13:07] VITALS: BP 168/92; PULSE 82; RESP 16; TEMP 36.6; O2SAT 97; BMI 33.2
[2024-05-01 13:22] VITALS: BP 156/97; PULSE 81; RESP 18; O2SAT 97
[2024-05-01 13:29] VITALS: BP 156/97; PULSE 81; RESP 18; O2SAT 97
--- NOTE | 2024-05-01 13:31 | P.PCN_ITS ---
Procedure Date: 05/01/24 Time: 13:15 Anesthesiologist:: Deshaun Clements CRNA Complications:: None Pre-procedure Diagnosis:: Degenerative disc lumbar spine multilevels. Lumbar radiculopathy. Lumbar postlaminectomy syndrome. Post-procedure Diagnosis:: Same. Indications for Procedure:: Patient is a pleasant 53-year-old male who comes our clinic today for intrathecal pain pump interrogation and refill. Patient is currently being managed with morphine sulfate 1 mg/mL at a rate of 0.1935 mg/day. Patient is requesting increase in the pump rate. He is reporting low back pain off the midline to the left. Pain intensifies with activity. He reports suffering a fall recently. He rates his pain 7/10. I will increase his pump 20% today. Patient is awake alert [place] x 3. In no acute distress. Flexion-extension lumbar spine somewhat guarded secondary to pain. Deep tendon reflexes upper and lower extremities normal. Motor strength upper and lower extremities normal. There is no gross sensory deficit. Gait is normal. Procedure Details:: Details of the procedure explained to the patient. The patient taken procedure room placed in the sitting position. The air over the pump was cleansed using chlorhexidine as a cleansing solution. The pump was interrogated. The pump was accessed with ease using a 22-gauge inch and half needle. 8.5 mL of solution was withdrawn discarded appropriate. The pump was then filled with 20 cc of solution containing morphine sulfate 1 mg/mL. Pump rate will increase to 0.23 to 3 mg/day. Patient tolerated procedure without difficulty. No complications. Plan and Disposition:: Patient was discharged without incident.
[2024-05-01 13:35] VITALS: BP 159/99; PULSE 76; RESP 16; O2SAT 99
== END 2024-05-01 13:35 | disposition home or self-care (01) ==
PROVIDERS: PCP Nurse Practitioner Family; Visit Provider Nurse Anesthetist, Certified Registered
DX: M51.16 Intervertebral disc disorders with radiculopathy, lumbar region (principal); M96.1 Postlaminectomy syndrome, not elsewhere classified
CPT/HCPCS: 62370

== ENCOUNTER 2024-05-07 14:05 | Outpatient (POV) | payer BC, SELFPAY ==
--- NOTE | 2024-05-07 14:38 | EXP.PAIN.PRO ---
Procedure Date: 05/07/24 Time: 14:38 Anesthesiologist:: Viviana Jovel APRN Complications:: None Pre-procedure Diagnosis:: Degenerative disc disease of lumbar spine with lumbar radiculopathy symptoms, lumbar postlaminectomy syndrome Post-procedure Diagnosis:: Same Indications for Procedure:: Patient is a pleasant 53-year-old male who presents today for worsening pain. He rates his pain a 8 out of 10. Patient states that he was helping a family member last week and ended up having to pick him up 3 times to help assist with moving him and that he feels like he may have pulled something in his low back. He states he is just have a lot more soreness and did have sharp shooting pains on the third lift. He states he was recently also diagnosed with a abdominal hernia. Patient denies any other injuries or changes from her last visit. Patient is currently managed with morphine 1 mg/mL with a daily dose of 0.2323 mg/day. He denies any side effects from this medication. He is requesting an increase if possible. He is also managed with methocarbamol 1000 mg 3 times a day from our office. He states he has still been using this and it does help. He is not requesting refills at this time. He is also prescribed compounded cream. His Kasi has been reviewed and is appropriate. Physical Exam: General: Alert and oriented x3, no acute distress, pleasant and cooperative Lungs: Respirations even and unlabored, symmetrical chest expansion Eyes: PERRL Musculoskeletal: Flexion and extension of lumbar [spine] somewhat guarded secondary to pain, [antalgic gait noted] Neurological: Speech clear, no gross sensory deficit Procedure Details:: Informed consent was obtained and the risk and benefits of the procedure were explained to the patient. Patient was taken to the procedure room where noninvasive monitoring was placed including noninvasive blood pressure cuff and pulse oximeter. Patient's pump was interrogated and was reprogrammed to morphine 0.2787 mg/day. The patient tolerated the procedure well with no complications. Plan and Disposition:: Patient tolerated his intrathecal increase with no complications and was discharged neurologically intact. I did discuss with the patient in future we could always do oral steroids however the patient is a diabetic and just now has his sugar better regulated. I did also discuss if the pain does not get better or progressively worsens that we may need to order additional imaging to confirm no other injuries. Patient acknowledges understanding. Patient will be scheduled for a 2-week follow-up for reevaluation of symptoms and plan of care. We will see the patient back in the clinic at the next intrathecal refill. Patient has been instructed to contact the clinic with any concerns before the next appointment. Dr. Garcia has reviewed this note and agrees with this plan of care. This note was dictated using voice recognition software and make contain errors or omissions. -- It Is medically necessary for this patient to continue to have their intrathecal pump refilled at regular intervals. This patient had an intrathecal pain pump implanted after meeting criteria of chronic intractable pain for greater than 3 months and failing conservative treatments. Patient has committed and been compliant to the treatment plan and all planned follow up care. Since implantation of the intrathecal pain pump, the patient has had decreased pain and been more functional. Oral medications have been reduced including intake of oral opioids. Patient continues to do well with intrathecal therapy with decrease in pain symptoms and increase in functional status. Stopping intrathecal medications can lead to life threatening withdrawal, seizures, cardiac arrest, severe pain, and possible . Pumps that are not refilled at regular intervals can be damages and cause and need for replacement. We continually titrate dose and concentration to optimize pain relief and function. We are limited in concentration for certain drugs to safely deliver medications through the pump and stay within the recommendations from the Polyanalgesic Consensus Committee Guidelines. Depending on dose and concentration these pumps may need to be refilled sooner than 3 months as we titrate.
[2024-05-07 14:40] VITALS: BP 138/92; PULSE 99; RESP 18; O2SAT 97; BMI 33.1
== END 2024-05-07 23:59 | disposition home or self-care (01) ==
PROVIDERS: PCP Nurse Practitioner Family; Visit Provider Nurse Practitioner Family
DX: M51.16 Intervertebral disc disorders with radiculopathy, lumbar region (principal); M96.1 Postlaminectomy syndrome, not elsewhere classified
CPT/HCPCS: 62368; 99212; 99213; G0463

== ENCOUNTER 2024-06-15 09:44 | Day surgery (SDC) | payer BC, SELFPAY ==
--- NOTE | 2024-06-15 10:02 | EXP.PAIN.PRO ---
Procedure Date: 06/15/24 Time: 09:56 Anesthesiologist:: Viviana Jovel APRN Complications:: None Pre-procedure Diagnosis:: Degenerative disc disease of lumbar spine with lumbar radiculopathy symptoms, chronic pain syndrome Post-procedure Diagnosis:: Same Indications for Procedure:: Patient is a pleasant 53-year-old male who presents today for intrathecal refill and reprogram. Today he rates his pain a 5 out of 10. He denies any new trauma or injury. He does state that he recently got a new fireplace and he was taking that as she is out in the bucket fell causing him to bend down to get it. Patient states he did have increased pain there to his low back along the right side during that time. He states it has still continued and has been bothersome but is only staying at his right side and denies any radiating symptoms into his legs. Patient is currently managed with morphine 1 mg/mL with a daily dose of 0.2787 mg/day. He denies any side effects from this medication. He is requesting an adjustment. Patient is also managed with methocarbamol 1000 mg 3 times daily as needed. He denies any side effects from this medication. He states he is also using his compounded cream that still continues to help. His Kasi has been reviewed and is appropriate. Physical Exam: General: Alert and oriented x3, no acute distress, pleasant and cooperative Lungs: Respirations even and unlabored, symmetrical chest expansion Eyes: PERRL Musculoskeletal: Flexion and extension of lumbar [spine] somewhat guarded secondary to pain, [antalgic gait noted] point tenderness along right SI with positive right Aaron's, Danny's, Gaenslen's, compression and distraction exam Neurological: Speech clear, no gross sensory deficit Procedure Details:: Informed consent was obtained and the risk and benefits of the procedure were explained to the patient. The patient had noninvasive monitoring placed including noninvasive blood pressure cuff and pulse oximeter. Patient's pump was interrogated. The area over the pump was cleansed with chlorhexidine as a cleansing solution.In sterile fashion the pump was accessed with a 22-gauge needle. Approximately 6.8 mls of the pump solution was removed and discarded appropriately. The pump was then refilled with 20 mL's of morphine 1 mg/mL. The needle was withdrawn and a bandage was placed over the puncture site. The infusion rate was reprogrammed and morphine 0.3063 mg/day. The patient tolerated well with no complication. Plan and Disposition:: Patient tolerated his intrathecal refill and reprogram with no complications and was discharged neurologically intact. I will refill his methocarbamol. I did discuss with the patient that he does have symptoms consistent with right sacroiliitis. Patient was recommended that he may benefit from injection therapy however patient did have a previous reaction to steroids in the past and is not interested in this option at this time. Patient will return to clinic on before his next intrathecal refill. We will see the patient back in the clinic at the next intrathecal refill. Patient has been instructed to contact the clinic with any concerns before the next appointment. Dr. Garcia has reviewed this note and agrees with this plan of care. This note was dictated using voice recognition software and make contain errors or omissions. -- It Is medically necessary for this patient to continue to have their intrathecal pump refilled at regular intervals. This patient had an intrathecal pain pump implanted after meeting criteria of chronic intractable pain for greater than 3 months and failing conservative treatments. Patient has committed and been compliant to the treatment plan and all planned follow up care. Since implantation of the intrathecal pain pump, the patient has had decreased pain and been more functional. Oral medications have been reduced including intake of oral opioids. Patient continues to do well with intrathecal therapy with decrease in pain symptoms and increase in functional status. Stopping intrathecal medications can lead to life threatening withdrawal, seizures, cardiac arrest, severe pain, and possible . Pumps that are not refilled at regular intervals can be damages and cause and need for replacement. We continually titrate dose and concentration to optimize pain relief and function. We are limited in concentration for certain drugs to safely deliver medications through the pump and stay within the recommendations from the Polyanalgesic Consensus Committee Guidelines. Depending on dose and concentration these pumps may need to be refilled sooner than 3 months as we titrate. A UDS is needed to verify patient's compliance with our office pain contract. This is ordered based off specific treatments related to chronic pain with the potential to abuse certain medications.
[2024-06-15 10:25] VITALS: BP 125/76; PULSE 121; RESP 16; TEMP 36.6; O2SAT 97; BMI 33.2
[2024-06-15 10:30] VITALS: BP 119/74; PULSE 112; RESP 18; O2SAT 94
[2024-06-15 10:31] VITALS: BP 119/74; PULSE 109; RESP 20; O2SAT 94
[2024-06-15 10:51] VITALS: BP 122/76; PULSE 67; RESP 16; O2SAT 99
== END 2024-06-15 10:51 | disposition home or self-care (01) ==
PROVIDERS: PCP Nurse Practitioner Family; Visit Provider Nurse Practitioner Family
DX: M51.16 Intervertebral disc disorders with radiculopathy, lumbar region (principal); G89.4 Chronic pain syndrome
CPT/HCPCS: 62370

== ENCOUNTER 2024-07-20 09:00 | Day surgery (SDC) | payer OTHER, SELFPAY ==
[2024-07-20 09:45] VITALS: BP 126/84; PULSE 84; RESP 16; TEMP 36.8; O2SAT 100; BMI 33.2
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
[2024-07-20 10:13] VITALS: BP 142/95; PULSE 92; RESP 18; O2SAT 94
[2024-07-20 10:14] VITALS: BP 142/95; PULSE 92; RESP 18; O2SAT 94
[2024-07-20 10:20] VITALS: BP 114/80; PULSE 69; RESP 16; O2SAT 95
== END 2024-07-20 10:20 | disposition home or self-care (01) ==
PROVIDERS: PCP Nurse Practitioner Family; Visit Provider Nurse Practitioner Family
DX: M51.16 Intervertebral disc disorders with radiculopathy, lumbar region (principal)
CPT/HCPCS: 62370

== ENCOUNTER 2024-10-12 10:06 | Day surgery (SDC) | payer OTHER, SELFPAY ==
[2024-10-12 10:16] VITALS: BP 127/85; PULSE 74; RESP 16; TEMP 36.8; O2SAT 98; BMI 31.8
--- NOTE | 2024-10-12 10:41 | EXP.PAIN.PRO ---
Procedure Date: 10/12/24 Time: 10:48 Anesthesiologist:: Viviana Jovel APRN Complications:: None Pre-procedure Diagnosis:: Degenerative disc disease of lumbar spine with lumbar radiculopathy symptoms Post-procedure Diagnosis:: Same Indications for Procedure:: Patient is a pleasant 53-year-old male who presents today for intrathecal refill and reprogram. Today he rates his pain a 3 out of 10 however does state that he has been having worsening pain along the left side of his hip and it will go to a 10 out of 10 or above. He states that he was doing more work around the house and had a water leak and had been shoveling dirt when this immediately sent sharp shooting pains. He states for the most part it stays right there at his low back and left hip. He states the pain is interfering with his ability to perform activities of daily living such as cooking and cleaning. Patient is interested in additional injection therapy.Patient is currently managed with morphine 2 mg/mL with a daily dose of 0.3063 mg/day and methocarbamol 1000 mg 3 times a day with compounded cream from our office. He denies any side effects from this medication. His Kasi has been reviewed and is appropriate. Physical Exam: General: Alert and oriented x3, no acute distress, pleasant and cooperative Lungs: Respirations even and unlabored, symmetrical chest expansion Eyes: PERRL Musculoskeletal: Flexion and extension of lumbar [spine] somewhat guarded secondary to pain, [antalgic gait noted] point tenderness along left SI with positive left Aaron's, Danny's, Gaenslen's, compression and distraction exam Neurological: Speech clear, no gross sensory deficit Procedure Details:: Informed consent was obtained and the risk and benefits of the procedure were explained to the patient. The patient had noninvasive monitoring placed including noninvasive blood pressure cuff and pulse oximeter. Patient's pump was interrogated. The area over the pump was cleansed with chlorhexidine as a cleansing solution. In sterile fashion the pump was accessed with a 22-gauge needle. Approximately 6.6 mls of the pump solution was removed and discarded appropriately. The pump was then refilled with 20 mL's of morphine 2 mg/mL. The needle was withdrawn and a bandage was placed over the puncture site. The infusion rate was reprogrammed and continued at its current dosage. The patient tolerated well with no complication. Plan and Disposition:: Patient tolerated the procedure well with no complications and was discharged neurologically intact. Patient did have extreme point tenderness along his left SI with positive Aaron's, Danny's, Gaenslen's, compression and distraction exam. I did discuss with the patient that I do believe he would benefit from a left SI injection. Patient has done conservative therapy including oral medication, heat and ice, topicals, at home stretching exercise for longer than 12 weeks that was physician guided. Patient has had issues with sacroiliitis in the past and his last injection wasIn June 2023. Patient did have 80% initially with this injection and then it did start to decrease down after the 2-week awa at about 60%. Patient does state that it did provide an overall decrease of the severity of that pain for longer than 3 months.patient will be given 2 appointments with 1 being a left SI injection under fluoroscopy and his next refill date. Patient will return to clinic on or before their next intrathecal refill date. We will see the patient back in the clinic at the next intrathecal refill. Patient has been instructed to contact the clinic with any concerns before the next appointment. Dr. Garcia has reviewed this note and agrees with this plan of care. This note was dictated using voice recognition software and make contain errors or omissions. -- It Is medically necessary for this patient to continue to have their intrathecal pump refilled at regular intervals. This patient had an intrathecal pain pump implanted after meeting criteria of chronic intractable pain for greater than 3 months and failing conservative treatments. Patient has committed and been compliant to the treatment plan and all planned follow up care. Since implantation of the intrathecal pain pump, the patient has had decreased pain and been more functional. Oral medications have been reduced including intake of oral opioids. Patient continues to do well with intrathecal therapy with decrease in pain symptoms and increase in functional status. Stopping intrathecal medications can lead to life threatening withdrawal, seizures, cardiac arrest, severe pain, and possible . Pumps that are not refilled at regular intervals can be damages and cause and need for replacement. We continually titrate dose and concentration to optimize pain relief and function. We are limited in concentration for certain drugs to safely deliver medications through the pump and stay within the recommendations from the Polyanalges[employer] Consensus Committee Guidelines. Depending on dose and concentration these pumps may need to be refilled sooner than 3 months as we titrate. A UDS is needed to verify patient's compliance with our office pain contract. This is ordered based off specific treatments related to chronic pain with the potential to abuse certain medications.
[2024-10-12 10:46] VITALS: BP 128/87; PULSE 76; RESP 18; O2SAT 98
[2024-10-12 10:47] VITALS: BP 128/87; PULSE 76; RESP 18; O2SAT 98
[2024-10-12 10:59] VITALS: BP 122/81; PULSE 79; RESP 16; O2SAT 98
== END 2024-10-12 10:59 | disposition home or self-care (01) ==
PROVIDERS: PCP Nurse Practitioner Family; Visit Provider Nurse Practitioner Family
DX: M51.16 Intervertebral disc disorders with radiculopathy, lumbar region (principal); Z73.89 Other problems related to life management difficulty
CPT/HCPCS: 62370; 99212; G0463

== ENCOUNTER 2024-12-05 14:56 | Outpatient (POV) | payer OTHER, SELFPAY ==
[2024-12-05 15:22] VITALS: BP 117/77; PULSE 84; RESP 14; O2SAT 99; BMI 30.9
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
== END 2024-12-05 23:59 | disposition home or self-care (01) ==
PROVIDERS: Visit Provider Nurse Practitioner Family
DX: M51.360 Other intervertebral disc degeneration, lumbar region with discogenic back pain only (principal); M46.1 Sacroiliitis, not elsewhere classified; G89.4 Chronic pain syndrome; Z79.891 Long term (current) use of opiate analgesic; Z79.899 Other long term (current) drug therapy
CPT/HCPCS: 99212; G0463

== ENCOUNTER 2024-12-25 10:26 | Day surgery (SDC) | payer OTHER, SELFPAY ==
[2024-12-25 10:33] VITALS: BP 138/86; PULSE 85; RESP 18; O2SAT 100; BMI 31.8
[2024-12-25] MEDS: DEXAMETHASONE 10MG/ML 1ML VIAL 10 MG (10:49)
[2024-12-25] MEDS: LIDOCAINE 1% 5ML PF VIAL 5 ML (10:49)
[2024-12-25] MEDS: BUPIVACAINE 0.25% 10ML INJ 25 MG IJ (10:49)
[2024-12-25 10:50] VITALS: BP 138/77; PULSE 91; RESP 18; O2SAT 98
[2024-12-25 10:51] VITALS: BP 138/77; PULSE 91; RESP 18; O2SAT 98
--- NOTE | 2024-12-25 10:57 | P.PCN_ITS ---
Procedure Date: 12/25/24 Time: 10:45 Anesthesiologist:: Deshaun Clements CRNA Complications:: None Pre-procedure Diagnosis:: Left sacroiliitis. Degenerative disc lumbar spine multilevels. Lumbar radiculopathy. Lumbar postlaminectomy syndrome. Post-procedure Diagnosis:: Same. Indications for Procedure:: Patient's pleasant 54-year-old male who comes our clinic today for left sacroiliac joint injection. Patient reports having months of relief with previous left sacroiliac joint injection. He describes his left low lumbar back pain as constant, dull, aching. Patient is status post L5-S1 lumbar fusion. We also managed him with intrathecal pain pump. He rates his left posterior hip p ain 7/10. Procedure Details:: Procedure: Left sacroiliac injection under fluoroscopy Informed consent was obtained and the risk and benefits of the procedure were explained to the patient.~ The patient was taken to the procedure room and noninvasive monitors were placed including noninvasive blood pressure cuff and pulse oximeter.~ The patient was placed prone on the procedure table.~ The~ left hip was cleansed using Betadine as a cleansing solution.~ C-arm fluorosocpy was used to view the left SI joint.~ The skin and subcutaneous tissues were anesthetized using Lidocaine 1.5% and a 25-gauge needle.~ After this, a 22-gauge spinal needle was inserted under fluoroscopic guidance into the inferior aspect of the left SI joint.~ Omnipaque dye was injected and a good spread was seen throughout the joint.~ After this, approximately 5 mL of bupivacaine 0.25% and dexamethasone 10 mg was incrementally injected into the sacroiliac joint.~ The patient tolerated the procedure well with no complications.~ The patient was observed in the Pain Clinic for a period of 30-45 minutes, then discharged home neurologically intact.~ Plan and Disposition:: Patient was discharged without incident.
[2024-12-25 11:09] VITALS: BP 129/85; PULSE 88; RESP 16; O2SAT 99
== END 2024-12-25 11:09 | disposition home or self-care (01) ==
PROVIDERS: Visit Provider Nurse Anesthetist, Certified Registered
DX: M46.1 Sacroiliitis, not elsewhere classified (principal); M51.16 Intervertebral disc disorders with radiculopathy, lumbar region; M96.1 Postlaminectomy syndrome, not elsewhere classified; Z97.8 Presence of other specified devices; I65.29 Occlusion and stenosis of unspecified carotid artery; E11.9 Type 2 diabetes mellitus without complications; E78.5 Hyperlipidemia, unspecified; I10 Essential (primary) hypertension; Z79.85 Long-term (current) use of injectable non-insulin antidiabetic drugs; Z79.899 Other long term (current) drug therapy; Z79.84 Long term (current) use of oral hypoglycemic drugs; Z88.8 Allergy status to other drugs, medicaments and biological substances; Z79.82 Long term (current) use of aspirin
CPT/HCPCS: 27096; J0665; J1100; J2003

== ENCOUNTER 2024-12-28 09:31 | Day surgery (SDC) | payer OTHER, SELFPAY ==
--- NOTE | 2024-12-28 09:37 | EXP.PM.HP ---
History of Present Illness *Admission Date: 12/28/24 *Reason for visit:: Intrathecal refill; DDD *History of present illness: Same [facility] Disclaimer: The information contained in this section may have been updated after the patient was seen, as this information can be updated by other users. Medical History Back Pain Carotid artery stenosis Claudication Diabetes mellitus Gout HLD (hyperlipidemia) Hypertension Kidney stone Neuropathy Surgical History Hx of cardiac cath Previous back surgery S/P right knee arthroscopy Family History Father Prostate cancer Grandmother Family history of myocardial infarction Grandfather Family history of myocardial infarction Sister Family history of myocardial infarction Sister Family history of myocardial infarction Mother Family history of diabetes mellitus type II Other No significant family history Social History Smoking Status: Never smoker alcohol intake: never counseling provided: none substance use type: denies use current occupational status: other Travel in the last 8 weeks?: None household members: spouse housing: house caffeine: Yes Have you lived/traveled outside [place] in past 30 days?: No Contact w/someone who lives/traveled outside [place] past 30 days?: No Exposure to someone with infectious disease in past 14 days?: No Do you have a fever (greater than 100.4 F or 38 C)?: No Have you tested positive for COVID-19?: No Exposed to someone with COVID-19 in past 14 days?: No Do you have a sore throat?: No Do you have a cough?: No Do you have any weakness?: No Do you have any diarrhea?: No Are you experiencing any unusual bleeding?: No Do you have any muscle aches/pain?: No Do you have any abdominal pain?: No Are you experiencing loss of taste or smell?: No Other Medical History Have you received the Flu Vaccine for this season: No Have you received the Pneumonia Vaccine: No Review of Systems Review of Systems Review of systems:: pertinent systems reviewed and negative unless documented below Review of systems (narrative): Review of Systems: General: No recent weight changes, no fever, no sleep disturbances Respiratory: No cough, no shortness of air, no recurring pulmonary infections Cardiovascular/peripheral vascular: No chest pain, no palpitations, no edema, no shortness of breath Gastrointestinal: No new onset incontinence, normal bowel movements reported Genitourinary: No new onset incontinence Musculoskeletal: Chronic back pain Psychiatric: [Normal mood/affect] Neurological: [Denies weakness in extremities], [denies balance issues] Meds Home Medications and Allergies Home Medications ?Medication ?Instructions ?Recorded ?Confirmed ?Type fremanezumab-vfrm 225 mg/1.5 mL 225 mg (1.5 mL) SQ QMONTH migraine 04/30/22 12/25/24 Rx subcutaneous auto-injector (Ajovy) #1.5 mL ubrogepant 100 mg tablet (Ubrelvy) 100 mg PO ONCE PRN Episodic 08/02/22 12/25/24 Rx migraine #10 tabs aspirin 81 mg tablet,delayed See Rx Instructions .Route 08/23/22 12/25/24 History release .COMPLEX BLOOD bisoprolol fumarate 10 mg tablet 20 mg PO BID BLOOD PRESSURE 08/23/22 12/25/24 History colchicine 0.6 mg tablet 0.6 mg PO BID PRN gout 08/23/22 12/25/24 History duloxetine 60 mg capsule,delayed See Rx Instructions .Route 08/23/22 12/25/24 History release .COMPLEX MOOD empagliflozin 12.5 mg-metformin See Rx Instructions .Route 08/23/22 12/25/24 History 1,000 mg tablet (Synjardy) .COMPLEX Diabetes flash glucose scanning reader 08/23/22 12/25/24 History (FreeStyle Nir 2 [place]) flash glucose sensor (FreeStyle 08/23/22 12/25/24 History Nir 2 Sensor kit) fluticasone propionate 50 1 spray intranasal QDAY Breathing 08/23/22 12/25/24 History mcg/actuation nasal problems spray,suspension (Flonase Allergy Relief) insulin pump cart,cont inf,BT 08/23/22 12/25/24 History (Omnipod Dash Pods (Gen 4) subcutaneous cartridge) pen needle, diabetic 31 gauge x 08/23/22 12/25/24 History 3/16 (BD Ultra-Fine Mini Pen Needle) semaglutide 0.25 mg or 0.5 mg (2 See Rx Instructions .Route 08/23/22 12/25/24 History mg/1.5 mL) subcutaneous pen .COMPLEX Diabetes injector (Ozempic) meclizine 25 mg tablet 25 mg PO TID DIZZINESS 09/23/22 12/25/24 History insulin lispro 100 unit/mL See Rx Instructions .Route 10/22/22 12/25/24 History subcutaneous solution (Humalog .COMPLEX Diabetes U-100 Insulin) hydroxyzine pamoate 25 mg capsule 25 mg PO BID PRN itching #14 caps 11/05/22 12/25/24 Rx (Vistaril) morphine (PF) 1 mg/mL injection 0.11 mg continuous intrathecal 11/05/22 12/25/24 History solution infusion CONT Pain syringe with needle 3 mL 23 x 1 12/20/22 12/25/24 History (BD Luer-Lyndon Syringe) ropinirole 2 mg tablet 2 mg PO BID LEGS #60 tabs 07/08/23 12/25/24 Rx valsartan 160 mg tablet 160 mg PO DAILY BLOOD PRESSURE 09/15/23 12/25/24 Rx #180 tabs prednisone 20 mg tablet 20 mg PO BID #14 tabs 09/29/23 12/25/24 Rx gabapentin 300 mg capsule 300 mg PO TID Pain #90 caps 12/05/24 12/25/24 Rx methocarbamol 500 mg tablet 1,000 mg (2 x 500 mg) PO TID PRN 12/05/24 12/25/24 Rx muscle spasm #180 tabs New Prescriptions to Start Prescriptions: Allergies Allergy/AdvReac Type Severity Reaction Status Date / Time primidone AdvReac Severe Verified 11/01/23 09:55 Exam Constitutional Constitutional: no acute distress *Routine HEENT Exam Head: Present normocephalic and atraumatic Eye: Present PERRL ENT: Present mucous membranes moist *Routine Neck Exam Neck: Present supple *Routine Respiratory Exam Respiratory: Present CTA bilaterally *Routine Cardiovascular Exam Cardiovascular: Present RRR *Routine Abdominal Exam Abdominal: Present soft *Routine Rectal Exam Rectal:: deferred *Routine Genitalia Exam Genitalia:: deferred Routine Back/Spine/Pelvis Exam Back/Spine: Present pain with flexion *Routine Skin Exam Skin: Present intact and warm *Routine Neurological Exam Neurological: Present alert and oriented X3 Routine Psychiatric Exam Psychiatric: Present normal affect and normal thought process Assessment and Plan *Assessment and plan (1) Low back pain: Status: Chronic Category: Medical Code(s): M54.50 - Low back pain, unspecified (2) Hx of cervical spine surgery: Status: Chronic Category: Surgical Code(s): Z98.890 - Other specified postprocedural states (3) History of lumbosacral spine surgery: Status: Chronic Category: Surgical Code(s): Z98.890 - Other specified postprocedural states Plan Patient has been instructed to contact the clinic with any concerns before the next appointment. Dr. Garcia has reviewed this note and agrees with this plan of care. This note was dictated using voice recognition software and make contain errors or omissions. All injections are used with Lidocaine, Bupivacaine and dexamethasone. Occasionally urine drug screen is needed to verify patient's compliance with our office pain contract. This is ordered based off specific treatments related to chronic pain with the potential to abuse certain medications.
[2024-12-28 09:41] VITALS: BP 121/85; PULSE 70; RESP 18; O2SAT 98; BMI 31.8
--- NOTE | 2024-12-28 09:46 | EXP.PAIN.PRO ---
Procedure Date: 12/28/24 Time: 09:57 Anesthesiologist:: Viviana Jovel APRN Complications:: None Pre-procedure Diagnosis:: Degenerative disc disease of lumbar spine, chronic pain syndrome, left sacroiliitis Post-procedure Diagnosis:: Same Indications for Procedure:: Patient is a pleasant 54-year-old male who presents today for intrathecal refill and reprogram. Today he rates his pain a 0 out of 10. He states that the left SI injection that we did give him here recently did make a world of difference. He is riding at least 80% improvement and feels like it is still working well. Patient is currently managed with morphine 2 mg/mL with a daily dose of 0.3063 mg/day. Patient is also prescribed methocarbamol 1000 mg 3 times a day, gabapentin 300 mg 3 times a day and compounded cream from our office. He denies any side effects. His Kasi has been reviewed and is appropriate. Physical Exam: General: Alert and oriented x3, no acute distress, pleasant and cooperative Lungs: Respirations even and unlabored, symmetrical chest expansion Eyes: PERRL Musculoskeletal: Flexion and extension of lumbar [spine] somewhat guarded secondary to pain, [antalgic gait noted] Neurological: Speech clear, no gross sensory deficit Procedure Details:: Informed consent was obtained and the risk and benefits of the procedure were explained to the patient. The patient had noninvasive monitoring placed including noninvasive blood pressure cuff and pulse oximeter. Patient's pump was interrogated. The area over the pump was cleansed with chlorhexidine as a cleansing solution. In sterile fashion the pump was accessed with a 22-gauge needle. Approximately 7 mls of the pump solution was removed and discarded appropriately. The pump was then refilled with 20 mL's of morphine 2 mg/mL. The needle was withdrawn and a bandage was placed over the puncture site. The infusion rate was reprogrammed and continued at its current dosage. The patient tolerated well with no complication. Plan and Disposition:: Patient tolerated the procedure well with no complications and was discharged neurologically intact. Patient will return to clinic on or before their next intrathecal refill date. We will see the patient back in the clinic at the next intrathecal refill. Patient has been instructed to contact the clinic with any concerns before the next appointment. Dr. Garcia has reviewed this note and agrees with this plan of care. This note was dictated using voice recognition software and make contain errors or omissions. -- It Is medically necessary for this patient to continue to have their intrathecal pump refilled at regular intervals. This patient had an intrathecal pain pump implanted after meeting criteria of chronic intractable pain for greater than 3 months and failing conservative treatments. Patient has committed and been compliant to the treatment plan and all planned follow up care. Since implantation of the intrathecal pain pump, the patient has had decreased pain and been more functional. Oral medications have been reduced including intake of oral opioids. Patient continues to do well with intrathecal therapy with decrease in pain symptoms and increase in functional status. Stopping intrathecal medications can lead to life threatening withdrawal, seizures, cardiac arrest, severe pain, and possible . Pumps that are not refilled at regular intervals can be damages and cause and need for replacement. We continually titrate dose and concentration to optimize pain relief and function. We are limited in concentration for certain drugs to safely deliver medications through the pump and stay within the recommendations from the [employer] Consensus [employer] Guidelines. Depending on dose and concentration these pumps may need to be refilled sooner than 3 months as we titrate. A UDS is needed to verify patient's compliance with our office pain contract. This is ordered based off specific treatments related to chronic pain with the potential to abuse certain medications.
[2024-12-28 09:50] VITALS: BP 129/87; PULSE 74; RESP 18; O2SAT 96
[2024-12-28 10:03] VITALS: BP 100/75; PULSE 78; RESP 18; O2SAT 98
== END 2024-12-28 10:03 | disposition home or self-care (01) ==
PROVIDERS: Visit Provider Nurse Practitioner Family
DX: Z45.1 Encounter for adjustment and management of infusion pump (principal); M51.369 Other intervertebral disc degeneration, lumbar region without mention of lumbar back pain or lower extremity pain; G89.4 Chronic pain syndrome; M46.1 Sacroiliitis, not elsewhere classified; E11.9 Type 2 diabetes mellitus without complications; M10.9 Gout, unspecified; E78.5 Hyperlipidemia, unspecified; I10 Essential (primary) hypertension; G62.9 Polyneuropathy, unspecified; Z88.8 Allergy status to other drugs, medicaments and biological substances; Z79.4 Long term (current) use of insulin; Z79.891 Long term (current) use of opiate analgesic; Z79.899 Other long term (current) drug therapy
CPT/HCPCS: 62370; 95991

== ENCOUNTER 2025-01-14 13:48 | Outpatient (POV) | payer OTHER, SELFPAY ==
--- OUTSIDE RECORDS SUMMARY | 2025-01-14 13:59 | XMS_ITS | Continuity of Care Document ---
Author Organization [facility] Address [address] [place] [address] Care Team Providers Care Certified Histologic Technician Name Role Phone HONG BURNS Referring Provider SEBASTIAN CHAMBERS Referring Provider SARAH NGUYEN Primary Care Provider [phone] Assessment No assessment recorded. Plan of Treatment Reminders Order Date Submit Date Provider Last Modified By Organization Details Last Modified Time Details Appointments Annual Exam 20 2024 08:40A M Damaris Muniz, SPONGE DIVER Not available Not available Not available Diabetic F/U 2024 01:40P M Sarah Nguyen, SPONGE DIVER Not available Not available Not available Lab rapid SARS CoV + SARS CoV 2 Ag, QL IA, respirato ry specimen 2024 025 [facility], [address], [place], [address], 11/30/2024 16:56:03 rapid flu (A+B) 2024 025 [facility], [address], [place], [address], 11/30/2024 16:55:56 rapid strep group A, throat 2024 025 [facility], [address], [place], [address], 11/30/2024 16:55:47 Referral None recorded. Procedures None recorded. Surgeries None recorded. Imaging None recorded. Medication Orders albuterol sulfate HFA 90 mcg/actua tion aerosol inhaler 2024 025 [facility] [place], [address], [place], [address], 11/30/2024 15:43:29 Zithromax Z-Tony 250 mg tablet 2024 025 [facility] [place], [address], [place], [address], 12/20/2024 14:01:36 Patient TargetsNo targets recorded. Patient Instructions Encounter Date Encounter Id Patient Instructions Last Modified By Organization Details Last Modified Time 11/30/2024 [id number] strep, covid and flu screens were negative. 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 [email or web address] Not available 11/30/2024 15:57:34 Reason for Referral None Reported. Results Created Date Observation Date Name Description Value Unit Range Abnormal Flag Note LastModifiedBy Organization Detail LastModifiedTime 12/01/19 25 11/30/2024 rapid SARS CoV + SARS CoV 2 Ag, QL IA, respi rator y speci men SARS CoV antigen Negati ve Not Available [facility] [address], [place], [address], 11/30/2024 15:08:36 12/01/19 25 11/30/2024 rapid strep group A, throa t Strep negati ve Not Available [facility] [address], [place], [address], 11/30/2024 15:08:39 12/01/19 25 11/30/2024 rapid strep group A, throa t Culture No Not Available [facility] [address], [place], [address], 11/30/2024 15:08:39 12/01/19 25 11/30/2024 rapid flu (A+B) Flu negati ve Not Available [facility] [address], [place], [address], 11/30/2024 15:08:38 12/01/19 25 11/30/2024 rapid flu (A+B) Type Both A & B Not Available [facility] [address], [place], [address], 11/30/2024 15:08:38 11/13/19 25 11/12/2024 XR, chest [facility] Name: LEWIS ORDAZ [employer] [facility] [employer] Phys: Cat [place]NA[place] [address] : 1970 Age: 53 Sex: M Acct: [id number] Loc: Jermaine Overton PHONE #: [phone] Exam Date: 2024 Status : ADM IN FAX #: Rad# [id number] Unit# [id number] Admit Date: 2024 EXAMS: CPT CODE: [id number] CHEST PORTAB LE 37003 EXAM: XR CHEST 1 VIEW PORTAB LE INDICA TION: Diagno sis? FUO. TECHNI QUE: Portab le AP or PA view of the chest dated 2024 at 6:07:5 7 AM. COMPAR SIDRA: XR Chest 1 view portab le 2024 at 1:59:2 7 PM FINDIN GS: Heart size and pulmon hellen vascul arity are normal . No pneumo medias tinum or medias tinal wideni ng. No pulmon hellen airspa ce consol idatio n, obviou s pulmon hellen nodule or abnorm al pulmon hellen inters titial patter n. No eviden ce for pneumo thorax or sizabl e pleura l fluid collec tion. No obviou s acute osseou s abnorm ality. Incomp letely visual ized postop erativ e change s of cervic al spinal fusion . No obviou s acute upper abdomi nal abnorm ality. IMPRES TEDDY: NO RADIOG RAPHIC EVIDEN CE OF AN ACUTE CARDIO PULMON HELLEN [employer] Electr onical ly signed by: Aranza Matos DO 2024 11:01 AM EDT RP Workst ation: [id number] Electr onical ly Signed by ARANZA MATOS DO on 2024 at 0826 Report ed and signed by: Eyal MATOS DO PAGE 1 Signed Report (FRANCISCA NUED) [facility] Name: LEWIS ORDAZ [address] [place], [place] [address]a [facility] Phys: Cat HERNANDEZ,[place] [address] : 1970 Age: 53 Sex: M Acct: [id number] Loc: Jermaine A PHONE #: [phone] Exam Date: 2024 Status : ADM IN FAX #: Rad# [id number] Unit# [id number] Admit Date: 2024 EXAMS: CPT CODE: [id number] [id number] CHEST PORTAB LE [id number] CC: Erick Nguyen APRN; Maci Diaz MD Dictat ed Date/T tim: 2024 (0826) Techno logist : ALISHA Parikh RT(R)( CT); BAKARI Lamas Transc ribed Date/T tim: 2024 (0826) Transc riptio nist: DR.HAL Friedman onic Signat ure Date/T tim: 2024 (0826) Printe d Date/T tim: 2024 (1105) BATCH NO: N/A PAGE 2 Signed Report CC'ed Logic: Orderi ng Provid er: CAT SCOTT Attend ing Provid er: CAT SCOTT Referr ing Provid er: PHYSIC MADONNA AMELIA Consul ting Provid er: WENDY Overton Admitt ing Provid er: CAT [email or web address] [address] [place], [address], 11/13/2024 11:31:05 0511/12/2024 US, abdom en, limit ed [facility] Name: LEWIS ORDAZ [address] [employer] [address] Phys: Cat HERNANDEZ,[place] [address] : 1970 Age: 53 Sex: M Acct: [id number] Loc: G.310 A PHONE #: Exam Date: 2024 Status : ADM IN FAX #: Rad# [id number] Unit# [id number] Admit Date: 2024 EXAMS: CPT CODE: [id number] US ABDOME N LIMITE D 57652 US ABDOME N LIMITE D Reason for study: iagnos is? hepati tis TECHNI QUE:Tr ansver se and longit udinal sonogr aphy of the right upper quadra nt of the abdome n. COMPAR SIDRA:N o prior study was submit barrett for compar sidra. FINDIN GS: Liver length approx imatel y 22.7 cm. Increa sed hepati c echoge nicity . No focal hepati c abnorm ality was demons trated . No gallst ones, gallbl adder wall thicke pooja or perich olecys tic fluid was demons trated . Sonogr apher notes negati ve sonogr aphic Shell sign. Common bile duct diamet er was approx imatel y 5.7 mm. Color Dopple r demons trates flow within the portal vein. Right kidney measur es approx imatel y 12.9 x 5.9 x 6.1 cm with cortic al thickn ess approx imatel y 1.7 cm. No hydron ephros is or eviden ce of a renal cortic al mass. Limite d imagin g of the pancre as demons trated no obviou s abnorm ality. IMPRES TEDDY: Hepato megaly . Increa sed hepati c echoge nicity may indica te hepati c steato sis and/or hepato cellul ar diseas e. Electr onical ly signed by: Aranza Matos DO 2024 11:03 AM EDT RP Workst ation: [id number] Electr onical ly Signed by ARANZA MATOS DO on 2024 at 1101 Report ed and signed by: Eyal MATOS DO PAGE 1 Signed Report (FRANCISCA NUED) [facility] Name: LEWIS ORDAZ [employer] Phys: [place] [address] : 1970 Age: 53 Sex: M Acct: [id number] Loc: G.310 A PHONE #: Exam Date: 2024 Status : ADM IN FAX #: Rad# [id number] Unit# [id number] Admit Date: 2024 EXAMS: CPT CODE: [id number] [id number] US ABDOME N LIMITE D 96080 CC: Erick Nguyen APRN; Maci Diaz MD Dictat ed Date/T tim: 2024 (1101) Techno logist : LINDSA Y STEFANIE Transc ribed Date/T tim: 2024 (1101) Transc riptio nist: DR.HAL BATES Electr onic Signat ure Date/T tim: 2024 (1101) Printe d Date/T tim: 2024 (1107) BATCH NO: N/A PAGE 2 Signed Report CC'ed Logic: Orderi ng Provid er: CAT SCOTT Attend ing Provid er: CAT SCOTT Referr ing Provid er: PHYSIC MADONNA NO Consul ting Provid er: WENDY Overton Admitt ing Provid er: CAT [email or web address] [address] , [place], [address], 11/13/2024 11:31:05 11/13/19 25 11/12/2024 - MRI lumba r spine wwo cont [facility] Name: LEWIS ORDAZ [employer] Phys: [place] [address] : 1970 Age: 53 Sex: M Acct: [id number] Loc: Jermaine A PHONE #: Exam Date: 2024 Status : ADM IN FAX #: [phone] Rad# [id number] Unit# [id number] Admit Date: 2024 EXAMS: CPT CODE: [id number] [id number] MRI LUMBAR SPINE WWO CONT 61640 EXAMIN ATION: MR LUMBAR SPINE WITHOU T THEN WITH IV CONTRA ST INDICA TION: Bilate ral leg pain and weakne ss. LBP. Orthop edic screws in cervic al and lumbar spine. TECHNI QUE: Multip lanar multis equenc e MRI of the lumbar spine. Imagin g perfor med before and follow ing IV admini strati on of PROHAN CE- 20 mL GADOLI NIUM Unless specif ied, no imagin g follow -up is recomm ended for incide ntal findin gs. COMPAR SIDRA: CT Lumbar spine withou t IV contra st 2024 FINDIN GS: Postop erativ e change s of L5-S1 Bipedi cular spinal fusion . Interb abimbola fusion at the L5-S1 disc space. The hardwa re produc es artifa ct that degrad es image qualit y. Anatom ic alignm ent of lumbar verteb kristina. The verteb ral body height s are preser oswaldo. No eviden ce for a marrow replac ing proces s. The visual ized portio n of the spinal cord in unrema rkable . No obviou s abnorm ality of the spinal nerves . T12-L1 :Christina l disc height and signal . No obviou s disc hernia tion, spinal stenos is or neurof oramin al narrow ing. L1-L2: Normal disc height . Disc dehydr ation. No disc hernia tion, spinal stenos is or signif icant neural forami nal narrow ing. Left latera l annula r fissur e. L2-L3: Disc space narrow ing and disc dehydr ation. Mild disc bulgin g. Left forami nal disc protru teddy produc es modera te left neural forami nal narrow ing and abuts the exitin g left L2 nerve. No signif icant neural forami nal narrow ing on the right. L3-L4: Disc space narrow ing. Disc dehydr ation. Diffus e disc bulgin g with small centra l disc protru teddy. Deform ity of the thecal sac withou t signif icant spinal stenos is. Mild bilate ral neural forami nal PAGE 1 Signed Report (FRANCISCA NUED) [facility] Name: [facility] [employer] [facility] [employer] [address] [employer] Phys: Cat HERNANDEZ,[place] [address] : 1970 Age: 53 Sex: M Acct: [id number] Loc: G.310 A PHONE #: Exam Date: 2024 Status : ADM IN FAX #: [phone] Rad# [id number] Unit# [id number] Admit Date: 2024 EXAMS: CPT CODE: [id number] [id number] MRI LUMBAR SPINE WWO CONT 26446 narrow ing withou t defini te encroa chment of the exitin g L3 nerves by the bulgin g disc. L4-L5: Normal disc height . Disc dehydr ation. Diffus e disc bulgin g. Right latera l annula r fissur e. No signif icant centra l spinal stenos is. Modera te bilate ral neural forami nal narrow ing with abutme nt of both exitin g L4 nerves by the bulgin g disc. L5-S1: Interb abimbola fusion . No eviden ce for signif icant centra l spinal stenos is. No signif icant left neural forami nal narrow ing. There appear s to be modera te right neural forami nal narrow ing with abutme nt and deform ity of the exitin g right L5 nerve. No abnorm al enhanc ement. No obviou s parasp inal mass or abdomi nal aortic aneury sm. IMPRES TEDDY: 1. NO ACUTE OSSEOU S ABNORM ALITY OR SIGNIF ICANT MALALI GNMENT . 2. L5-S1 SPINAL FUSION . 3. 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 Electr onical ly signed by: Aranza Matos DO 2024 03:39 PM EDT RP Workst ation: [id number] Electr onical ly Signed by ARANZA MATOS DO on 2024 at 1515 Report ed and signed by: Eyal MATOS DO CC: Erick Nguyen APRN; NO PRIMAR Y CARE PHYSIC MADONNA; Maci Diaz MD Dictat ed Date/T tim: 2024 (1515) Techno logist : LIU ACEVEDO RT(R)( M)(CT) (MR) Transc ribed Date/T tim: 2024 (1515) Transc riptio nist: DR.HAL BATES Electr onic Signat ure Date/T tim: 2024 (1514) Printe d Date/T tim: 2024 (1543) BATCH NO: N/A PAGE 2 Signed Report CC'ed Logic: Orderi ng Provid er: CAT SCOTT Attend ing Provid er: CAT SCOTT Referr ing Provid er: PHYSIC MADONNA NO Consul ting Provid er: WENDY Overton Admitt ing Provid er: CAT SCOTT [email or web address] [place], [address], 11/13/2024 11:31:05 01/02/20 25 XR, lumba r spine No observ ation record ed. [email or web address] [facility] [address], [address], 01/03/2025 15:07:08 Result Notes None recorded. Problems Name Problem SNOMED Code Status Onset Date Resolution Date Notes Provider Name and Address Organization Details Recorded Time Hypertensi ve disorder 66513350 Active Tamanna Phelps null, [place] - [facility] 2 11:25:40 Type 2 diabetes mellitus 49830031 Active Tamanna Phelps null, [place] - [facility] 11:25:50 Sleep apnea 97962470 Active Tamanna Phelps null, [place] - [facility] 2 11:26:23 Neuropathy 720308033 Active 2022 Sarah Nguyen, SPONGE DIVER [address], [place], [address] , [place] - [facility] 3 14:45:26 Chronic back pain 945100112 Active 2022 Sarah Nguyen, SPONGE DIVER [address], [place], [address] , [place] - [facility] 3 14:45:41 Chronic neck pain 9626733287950 Active 2022 Sarah Nguyen, SPONGE DIVER [address], [place], [address] , [place] [facility] 3 14:45:51 Migraine 96456655 Active 2022 Sarah Nguyen, SPONGE DIVER [address], [place], [address] , [place] [facility] 3 14:45:59 Depressive disorder 56306142 Active 2022 Sarah Nguyen, SPONGE DIVER [address], [place], [address] , [place] [facility] 3 10:49:49 Gout 79541811 Active 2023 Tiffanie Stears null, [place] - [facility] 4 10:23:45 Restless legs 97430546 Active 2023 Tiffanie Stears null, [place] - [facility] 4 10:23:56 Chronic constipati on 270264587 Active 2023 Tiffanie Stears null, [place] - [facility] 4 10:24:38 Hyperlipid emia 74051797 Active 2023 Sarah Nguyen, SPONGE DIVER [address], [place], [address] , [place] [facility] 4 11:03:13 Cerebrovas cular accident 430801659 Active 2023 Sarah Nguyen, SPONGE DIVER [address], [place], [address] , [place] [facility] 4 15:54:51 Vitamin D deficiency 05650752 Active 2023 Sarah Nguyen, SPONGE DIVER [address], [place], [address] , [place] - [facility] 4 16:40:48 Essential hypertensi on 74652196 Active 2024 Damaris quezada, SPONGE DIVER [address], [place], [address] , [place] - [facility] 5 14:54:31 Asthenia 95854267 Active Tamanna Phelps null, [place] - [facility] 5 15:32:06 Sepsis 08256272 Active Tamanna Phelps null, [place] - [facility] 5 15:32:06 Low back pain 641382333 Active 2024 Damaris quezada, SPONGE DIVER [address], [place], [address] , [place] - [facility] 5 14:34:16 Kidney stone 96373773 Active 2024 Damaris quezada, SPONGE DIVER [address], [place], [address] , [place] - [facility] 5 14:35:13 Renal impairment 486652385 Active 2024 Damaris quezada, SPONGE DIVER [address], [place], [address] , [place] - [facility] 5 14:35:59 Insulin treated type 2 diabetes mellitus 852699249 Active 2024 Damaris quezada, SPONGE DIVER [address], [place], [address] , [place] - [facility] 5 14:37:44 Problem Notes None recorded. Procedures Surgical History Date Name Laterality Status Provider Name and Address Organization Details Recorded Time 02/21/20 24 Suture/Staple removal completed Sarah Nguyen, SPONGE DIVER [address], [place], [address], [place] - [facility] 02/21/2024 17:09:37 12/01/19 24 Medication Reconcilliation completed Tamanna Phelps [place] - [facility] 12/01/2023 14:11:03 09/26/19 24 Medication Reconcilliation completed Tamanna Phelps [place] - [facility] 09/26/2023 14:34:51 Stress test completed Tamanna CHAVEZ - [facility] 06/17/2022 11:23:29 Knee Surgery completed Tamanna CHAVEZ - [facility] 06/17/2022 11:23:29 Endoscopy completed Tamanna CHAVEZ - [facility] 06/17/2022 11:23:29 Cardiac Cath completed Tamanna CHAVEZ - [facility] 06/17/2022 11:23:29 Colonoscopy completed Tamanna CHAVEZ - [facility] 06/17/2022 11:23:29 Back Surgery completed Tamanna CHAVEZ - [facility] 06/17/2022 11:23:29 procedure on neck completed Alessandra CHAVEZ - [facility] 06/17/2022 11:28:57 procedure on hand completed Alessandra CHAVEZ - [facility] 06/17/2022 11:29:30 Imaging Results None recorded. Procedure Notes None recorded. Medical Equipment None Reported. Allergies Allergen ID Allergen Name Allergen Category Reaction Reaction Severity Criticality Documentation Date Start Date Code Code System Note Provider Name and Address Organization Details Recorded Time 229259 ibuprofen medicatio n other moderate high 06/17/2022 5640 RxNorm KATHY Malin - [facility] 11:23:56 285526 primidone medicatio n Not available Not available high 07/15/2022 8691 RxNorm agres teddy/ anxie ty- does not want to take again KATHY Malin - [facility] 3 14:03:33 Medications Name Sig Start Date Stop Date Status Note LastModified by Organization Details LastModified Time Prescript ion - Renewal 08/01 completed Not Available Not Available Not Available amantadin e HCl 100 mg tablet active Not Available Not Available No t Available BD Luer-Lyndon Syringe 3 mL 23 x 1 USE ONCE MONTHLY WITH B-12 active Not Available Not Available No t Available atorvasta tin 40 mg tablet TAKE ONE (1) TABLET BY MOUTH EVERY DAY 05/22 completed Not Available Not Available Not Available methocarb ashley 500 mg tablet TAKE TWO (2) TABLETS BY MOUTH THREE (3) TIMES DAILY NEEDED active Not Available Not Available No t Available primidone 50 mg tablet TAKE ONE (1) TABLET BY MOUTH EVERY NIGHT AT BEDTIME active Not Available Not Available No t Available prednison e 10 mg tablet Take 1 tablet twice a day by oral route for 5 days, for back pain. 10/23 completed Not Available Not Available Not Available Humulin R U-500 (Concentr ated) Insulin 500 unit/mL subcutane ous soln INJECT PER PUMP 250 UNITS MAX DAILY DOSE active Not Available Not Available No t Available azithromy john 250 mg tablet TAKE TWO (2) TABLETS BY MOUTH TODAY THEN TAKE ONE (1) TABLET EVERY DAY FOR 4 DAYS 12/20 completed Not Available Not Available Not Available tizanidin e 4 mg tablet TAKE TWO (2) TABLETS EVERY NIGHT AT BEDTIME 10/14 completed Not Available Not Available Not Available prednison e 20 mg tablet TAKE ONE (1) TABLET BY MOUTH TWICE DAILY 10/23 completed Not Available Not Available Not Available acetamino phen 300 mg-codein e 30 mg tablet TAKE ONE (1) TABLET BY MOUTH EVERY FOUR (4) HOURS NEEDED FOR PAIN 06/17 completed Not Available Not Available Not Available clopidogr el 75 mg tablet TAKE ONE (1) TABLET BY MOUTH ONCE DAILY active Not Available Not Available No t Available amlodipin e 5 mg tablet Take 5 mg every day by oral route. active Not Available Not Available No t Available sulfameth oxazole 800 mg-trimet hoprim 160 mg tablet TAKE ONE (1) TABLET TWICE DAILY FOR 10 DAYS 01/17 completed Not Available Not Available Not Available aspirin 81 mg tablet,de layed release TAKE ONE (1) TABLET EVERY DAY 11/30 completed Not Available Not Available Not Available bisoprolo l fumarate 10 mg tablet TAKE TWO (2) TABLETS BY MOUTH TWICE DAILY 2024 active Not Available Not Available Not Avai lable magnesium oxide 400 mg (241.3 mg magnesium ) tablet TAKE ONE (1) TABLET BY MOUTH FOUR TIMES DAILY 05/22 completed Not Available Not Available Not Available methocarb ashley 750 mg tablet TAKE ONE (1) TABLET BY MOUTH THREE (3) TIMES DAILY FOR PAIN 02/20 completed Not Available Not Available Not Available Humalog U-100 Insulin 100 unit/mL subcutane ous solution INJECT PER SLIDING SCALE. MAX DOSE OF 100 UNITS PER DAY. INCREASE DOSE DUE TO STEROID INJECTIO NS active Not Available Not Available No t Available RegalBoxTouch Ultra Test strips USE TO TEST BLOOD SUGAR THREE (3) TIMES DAILY active Not Available Not Available No t Available ropinirol e 2 mg tablet TAKE ONE (1) TABLET BY MOUTH THREE (3) TIMES DAILY active Not Available Not Available No t Available cephalexi n 500 mg capsule TAKE ONE (1) CAPSULE BY MOUTH THREE (3) TIMES DAILY UNTIL GONE 12/20 completed Not Available Not Available Not Available nortripty line 10 mg capsule TAKE TWO (2) CAPSULES AT BEDTIME 10/14 completed Not Available Not Available Not Available cyanocoba merrill (vit B-12) 1,000 mcg/mL injection solution INJECT 1ML SUBCUTAN EOUSLY EVERY MONTH active Not Available Not Available No t Available hydrochlo rothiazid e 12.5 mg capsule TAKE ONE (1) CAPSULE BY MOUTH EVERY DAY active Not Available Not Available No t Available pramipexo le 0.25 mg tablet TAKE ONE (1) TABLET EVERY NIGHT AT BEDTIME 06/17 completed Not Available Not Available Not Available gabapenti n 300 mg capsule TAKE ONE (1) CAPSULE BY MOUTH THREE (3) TIMES DAILY active Not Available Not Available No t Available aspirin 81 mg chewable tablet CHEW 1 TABLET EVERY DAY 05/22 completed Not Available Not Available Not Available codeine 10 mg-guaife nesin 100 mg/5 mL oral liquid TAKE 10ML BY MOUTH EVERY 4 TO 6 HOURS NEEDED 06/17 completed Not Available Not Available Not Available bisacodyl 5 mg tablet,de layed release TAKE FOUR (4) TABLETS BY MOUTH WITH 8 OZ OF WATER 05/22 completed Not Available Not Available Not Available mupirocin 2 % topical ointment APPLY A SMALL AMOUNT TOPICALL Y TO AFFECTED AREA(S) THREE (3) TIMES DAILY 05/22 completed Not Available Not Available Not Available gabapenti n 100 mg capsule TAKE ONE (1) CAPSULE THREE (3) TIMES DAILY 06/17 completed Not Available Not Available Not Available ergocalci ferol (vitamin D2) 1,250 mcg (50,000 unit) capsule TAKE ONE (1) CAPSULE BY MOUTH EVERY WEEK active Not Available Not Available No t Available dexametha sone sodium phosphate 4 mg/mL injection solution Inject 1 mL twice a day by intramus cular route. 10/23 completed Not Available Not Available Not Available polyethyl kisha glycol 3350 17 gram/dose oral powder MIX ENTIRE BOTTLE WITH 64 OZ OF GATORADE . DRINK MIXTURE OVER THREE (3) HOURS. 05/22 completed Not Available Not Available Not Available colchicin e 0.6 mg tablet TAKE ONE (1) TABLET BY MOUTH EVERY DAY active Not Available Not Available No t Available fluticaso ne propionat e 50 mcg/actua tion nasal spray,booker pension SPRAY ONE (1) SPRAY INTO EACH NOSTRIL EVERY DAY active Not Available Not Available No t Available Ventolin HFA 90 mcg/actua tion aerosol inhaler INHALE TWO (2) PUFFS EVERY FOUR (4) HOURS NEEDED active Not Available Not Available No t Available hydroxyzi ne pamoate 25 mg capsule TAKE ONE (1) CAPSULE BY MOUTH TWICE DAILY NEEDED FOR ITCHING 04/19 completed Not Available Not Available Not Available valsartan 160 mg tablet 160 mg by oral route. active Not Available Not Available No t Available meclizine 25 mg chewable tablet CHEW 1 TABLET AND SWALLOW THREE (3) TIMES DAILY active Not Available Not Available No t Available rosuvasta tin 20 mg tablet TAKE ONE (1) TABLET DAILY 04/19 completed Not Available Not Available Not Available duloxetin e 30 mg capsule,d elayed release TAKE ONE (1) CAPSULE BY MOUTH EVERY DAY 10/14 completed Not Available Not Available Not Available duloxetin e 60 mg capsule,d elayed release TAKE ONE (1) CAPSULE BY MOUTH EVERY DAY active Not Available Not Available No t Available fenofibra te 160 mg tablet TAKE ONE (1) TABLET DAILY 10/14 completed Not Available Not Available Not Available morphine pain pump active Not Available Not Available No t Available ropinirol e ER 2 mg tablet,ex tended release 24 hr 11/23 completed Not Available Not Available Not Available BD Ultra-Fin e Elana Pen Needle 32 gauge x USE DIRECTED active Not Available Not Available No t Available Synjardy 12.5 mg-1,000 mg tablet TAKE ONE (1) TABLET BY MOUTH TWICE DAILY active Not Available Not Available No t Available Align (B.infant is) 10.5 mg (10 million cell) chewable tablet Take 1 tablet every day by oral route. 12/25 completed Not Available Not Available Not Available Synjardy XR 12.5 mg-1,000 mg tablet, extended release Take 1 tablet twice a day by oral route. 01/17 completed Not Available Not Available Not Available oxygen 2 L at bedtime, daytime prn active Not Available Not Available No t Available Ozempic 0.25 mg or 0.5 mg (2 mg/1.5 mL) subcutane ous pen injector Inject 0.5 mg every week by subcutan eous route. 12/25 completed Not Available Not Available Not Available Dexcom G6 Sensor device CHANGE SENSOR EVERY 10 DAYS DIRECTED active Not Available Not Available No t Available Dexcom G6 Eating Disorder Specialist USE DIRECTED 2022 active Not Available Not Available Not Avai labrach Dexcom G6 Transmitt er device USE DIRECTED , CHANGING EVERY 90 DAYS active Not Available Not Available No t Available Omnipod Dash Pods (Gen 4) subcutane ous cartridge change every 48 hours based on sliding scale 11/29 completed switchin g to medtroni cs Not Available Not Available Not Available Ajovy Syringe 225 mg/1.5 mL subcutane ous INJECT 1.5ML (225MG) SUBCUTAN EOUSLY ONCE EVERY MONTH active Not Available Not Available No t Available OneTouch Ultra2 Meter USE DIRECTED active Not Available Not Available No t Available OneTouch Delica Plus Lancet 30 gauge USE TO TEST BLOOD SUGAR THREE (3) TIMES DAILY active Not Available Not Available No t Available Ubrelvy 100 mg tablet TAKE ONE TABLET AT ONSET OF HEADACHE , MAY REPEAT TAKE ONE TABLET AFTER TWO (2) HOURS IF SYMPTOMS PERSIST, MAX TWO (2) TABLETS IN 24 HOURS active Not Available Not Available No t Available Ajovy 225 mg/1.5 mL subcutane ous auto-inje ctor Inject 1.5 mL every month by subcutan eous route as directed . 08/01 completed Not Available Not Available Not Available FreeStyle Nir 2 Sensor kit CHANGE SENSOR EVERY 14 DAYS 10/14 completed Not Available Not Available Not Available FreeStyle Nir 2 Otis DIRECTED (SCAN SELF AT LEAST THREE (3) TIMES DAILY ) 10/14 completed Not Available Not Available Not Available Ozempic 0.25 mg or 0.5 mg (2 mg/3 mL) subcutane ous pen injector INJECT 0.5 MG EVERY WEEK BY SUBCUTAN EOUS ROUTE. 12/25 completed Not Available Not Available Not Available Omnipod 5 G6-G7 Intro Kit(Gen 5) subcutane ous cartridge and controlle r USE DIRECTED - CHANGING PODS EVERY THREE (3) DAYS 11/29 completed switchin g to medtroni cs Not Available Not Available Not Available Omnipod 5 G6-G7 Pods (Gen 5) subcutane ous cartridge USE DIRECTED AND CHANGE EVERY 48 HOURS 11/29 completed switchin g to medtroni cs Not Available Not Available Not Available Vitals Date Recorded Body height Body mass index (BMI) Body weight Body temperature Heart rate Oxygen saturation Oxygen saturation in Arterial blood by Pulse oximetry Respiratory rate Systolic And Diastolic Provider Name and Address Organization Details Last Updated DateTime 5 182.88 cm 32.2 kg/m2 146174. 19 g 97 [degF] 93 /min 98 % 98 % 23 /min 144/86 mm[Hg] Renae Lovelace [place] - [facility] 15:11:05 Social History Question Answer Notes LastModified by Organizat ion Details LastModified Time Tobacco Smoking Status Never Smoker Tamanna [place], [place] - [facility] 06/17/2022 11:27:17 Do You Have An Advance Directive? No Information n ot available 06/17/2022 Are You Blind Or Do You Have Difficulty Seeing? No Information n ot available 06/17/2022 What Is Your Level Of Caffeine Consumption? Moderate Information not available 06/17/2022 In The 14 Days Before Symptom Onset, Have You Had Close Contact With A Laboratory-confirm ed COVID-19 While That Case Was Ill? No Information n ot available 06/17/2022 In The 14 Days Before Symptom Onset, Have You Had Close Contact With A Person Who Is Under Investigation For COVID-19 While That Person Was Ill? No Information not available 06/17/2022 Have You Been To An Area Known To Be High Risk For COVID-19? No Information not available 06/17/2022 Are You Deaf Or Do You Have Serious Difficulty Hearing? No Information not available 06/17/2022 What Type Of Diet Are You Following? DIABETIC Information n ot available 06/17/2022 Have You Processed Blood Or Body Fluids From An Ebola Virus Disease Patient Without Appropriate PPE? No Information not available 06/17/2022 Do You Reside In Or Have You Traveled To An Area Where Ebola Virus Transmission Is Active? No Information not available 06/17/2022 What Is The Highest Grade Or Level Of School You Have Completed Or The Highest Degree You Have Received? [id number] Information not available 06/17/2022 Have There Been Any Changes To Your Family Or Social Situation? No Information no t available 06/17/2022 What Is The Fluoride Status Of Your Home? Fluoridated Information not available 06/17/2022 Have You Recently Or Are You Planning To Travel To An Area With Zika Virus? No Information not available 06/17/2022 Do You Have A Medical Power Of Agricultural Economics Teacher? No Information not available 06/17/2022 What Was The Date Of Your Most Recent Tobacco Screening? 08/28/2024 Information not available 08/28/2024 What Is Your Relationship Status? Information not available 06/17/2022 Do You Have Smoke And Carbon Monoxide Detectors In Your Home? Yes Information not available 06/17/2022 Are You Passively Exposed To Smoke? No Information no t available 06/17/2022 Has Tobacco Cessation Counseling Been Provided? Yes Information not available 10/14/2022 On What Date Was Tobacco Cessation Counseling Provided? 08/01/2023 Information not available 08/01/2023 Do You Have Difficulty Walking Or Climbing Stairs? No Information not available 06/17/2022 How Many Years Have You Used Smokeless Tobacco? 45 Information n ot available 06/17/2022 Sex: Male Functional Status Question Answer Note LastModified by Organizat ion Details LastModified Time Do you use any illicit or recreational drugs? No Information not available 06/17/2022 Do you or have you ever used any other forms of tobacco or nicotine? Yes Information not available 06/17/2022 What is your level of alcohol consumption? None Information not available 06/17/2022 Do you or have you ever used smokeless tobacco? Current snuff user Information not available 06/17/2022 Are you currently employed? No Information not available 06/17/2022 Do you have transportation difficulties? No Information not available 06/17/2022 Are you able to walk? YESWOREST Information not available 06/17/2022 Do you have difficulty doing errands alone? No Information not available 06/17/2022 Are you able to care for yourself? Yes Information n ot available 06/17/2022 Do you have difficulty dressing or bathing? No Information not available 06/17/2022 Do you or have you ever used e-cigarettes or vape? Never used electronic cigarettes Information not available 01/17/2023 What is your exercise level? Occasional Information not available 06/17/2022 Mental Status Question Answer Note LastModified by Organizat ion Details LastModified Time Do you feel stressed (tense, restless, nervous, or anxious, or unable to sleep at night)? [id number] Information not available 06/17/2022 Do you have difficulty concentrating, remembering or making decisions? No Information no t available 06/17/2022 Family History Relationship Description Onset Age of this Age Resolved Age Notes LastModified by Organization Details LastModified Time Unspecified Relation Hypercholest erolemia cbuckler Not available 2021 11:23:28 Unspecified Relation Malignant neoplastic disease cbuckler Not available 2021 11:23:28 Unspecified Relation Diabetes mellitus cbuckler Not available 2021 11:23:28 Unspecified Relation Arthritis cbuckler Not available 2021 11:23:28 Unspecified Relation Hypertensive disorder cbuckler Not available 2021 11:23:28 Medical History Condition Response Diabetes Y Muscle, Joint, or Bone Problems Y Gout Y Vision or Eye Problems Y Arthritis Y Constipation Y Hypercholesterolemia Y Sleep Apnea Y Neuropathy Y Headaches Y Hypertension Y Immunizations Vaccine Type Date Status Note Provider Nam e and Address Organization Details Recorded Time Influenza, split virus, quadrivalent, PF 0 completed Tamanna Phelps null, [place] - [facility] 06/17/2022 11:43:26 Tdap 7 completed Tamanna Phelps [place] [facility] 06/17/2022 11:43:26 Influenza, split virus, trivalent, PF 8 completed Tamanna [place]hel[place] [facility] 06/17/2022 11:43:26 Influenza, split virus, quadrivalent, PF 8 completed Tamanna Mattie [place] [facility] 06/17/2022 11:43:26 Influenza, split virus, quadrivalent, PF 6 completed Tamanna [place]hel[place] [facility] 06/17/2022 11:43:26 Influenza, split virus, quadrivalent, preservative 7 completed Tamanna [place] [facility] 06/17/2022 11:43:26 Tdap 6 completed Tamanna [place]hel[place] [facility] 06/17/2022 11:43:26 COVID-19 vaccine, vector-nr, rS-Ad26, PF, 0.5 mL 1 completed Tamanna [place]hel[place] [facility] 06/17/2022 11:43:26 zoster recombinant 4 completed Chasity Samuel null[place] [facility] 10/20/2023 11:40:11 zoster recombinant 4 completed Chasity Samuel null[place] - [facility] 12/20/2023 16:07:43 Past Encounters Encounter ID Performer Location Encounter Start Date Encounter Closed Date Diagnosis/Indication Diagnosis SNOMED-CT Code Diagnosis ICD10 Code Diagnosis Note [id number] Damaris quezada APRN [facility] [address] [place] [address] 11/05/2024 11:11:55 11/05/2024 11:54:09 Type 2 diabetes mellitus 70464775 Z79.4 A1c 8.5 08/28/24. Patient wants to switch to Medtronic. Patient is in contact with Medtronic rep. Patient enters glucose into Omnipod and give himself bolus manually. Will contact Sarkis, Medtronic rep for update. Body mass index 30+ - obesity 460026844 Z68.32 [id number] Damaris quezada, BERTHA [facility] [address] [address] 11/19/2024 09:43:59 11/19/2024 11:15:35 Type 2 diabetes mellitus 96459349 Z79.4 A1c 8.1, uncontroll ed, improved. Patient wants to switch to Medtronic. Avoid sweet tea and soft drinks. Make appointmen t with nutritioni st. Essential hypertension 20853143 I10 BP 124/85 controlled . Continue Valsartan 160mg daily, Amlodipine 5mg at bedtime. Body mass index 30+ - obesity 872570882 Z68.32 [id number] Claudia Webb MS, RDN, LDN [facility] [address] [address] 11/22/2024 13:48:43 11/22/2024 15:57:06 Type 2 diabetes mellitus 81663407 E11.9 Z79.4 [id number] Sarah Nguyen APRN [address] [address] 11/23/2024 15:17:27 11/23/2024 16:09:32 Chronic low back pain 391904267 M54.40 G89.29 follow up with pain mangement and surgery as scheduled. return for any concerns or go to ed for eval [id number] Jordan Denise MD [facility] [address] [address] 11/30/2024 14:41:41 11/30/2024 15:47:56 Viral screening status 573507840 Z11.59 Asthmatic bronchitis 405 508750 J45.909 Health Concerns Section Related Observation LastModified by Organization Detai ls LastModified Time None Recorded Concern Status LastModified by Organization Details LastModified Time None Recorded Payers Encounter Date Sequence Insurance Name Policy Number Policy Zamudio Covered Member ID Zamudio Member ID Guarantor Name 11/30/2024 1 [facility] (MEDICAID REPLACEMENT - HMO) [id number] Lewis Ordaz [id number] Lewis Ordaz Notes Date Note Type Note Provider Name and Address Organization Details Recorded Time 11/30/2024 text/html Generic HPI TemplateReported bypatient.Notes:54 y/o male with PMH of HTN, HLP, DM, CVA history, RLS, IVORY, migraines, CPS with C/L spine DDD/DJD = s/p surgical intervention and morphine pump, gout and depression who presents with 3-4 days sinus and chest congestion with sweats and chills and harsh non productive cough and mild dyspnea, especially when recumbent. He is without N/V/D. His spouse and grandchildren have been similarly ill. He has been using Theraflu. 54 y/o male sick visit for cough and congestion starting last night. Denies n/v/d and fever. He has taken theraflu. He and grandkids have been sick. Jordan Denise MD [facility] [address], [place], [address], [place] [facility] 11/30/2024 15:57:51
--- OUTSIDE RECORDS SUMMARY | 2025-01-14 13:59 | XMS_ITS | Continuity of Care Document ---
Author Organization [facility] Address [address] [place] [address] Care Team Providers Care Warehouse Analyst Name Role Phone HONG BURNS Referring Provider SEABSTIAN CHAMBERS Referring Provider SARAH NGUYEN Primary Care Provider [phone] Assessment Encounter Date Assessment Date Assessment LastModified by Organization Details LastModified Time 12/20/2024 12/20/2024 Pt counseled on diet and weight management at today's visit. Pt will try to comply with ADA guidelines in regards to diet and increase daily activity as tolerated. Call or RTC sooner than follow up should any questions or concerns arise. reggie Not available 12/20/2024 13:44:29 Plan of Treatment Reminders Order Date Submit Date Provider Last Modified By Organization Details Last Modified Time Details Appointments Annual Exam 20 2024 08:40A M Damaris Muniz APRN Not available Not available Not available Diabet ic F/U 2024 01:40P M Sarah Nguyen, BERTHA Not available Not available Not available Lab None record ed. Referral None record ed. Procedures contin uous glucos e monito ring (PROC) 2024 025 [email or web address] ert Not available 12/20/2024 13:22:51 Surgeries None record ed. Imaging None record ed. Medication Orders Humalo g U-100 Insuli n 100 unit/m L subcut aneous soluti on 2024 025 EDITH [facility] [place], [address], [place], [address], 12/20/2024 13:47:06 Patient Targets Encounter Date Encounter Id Patient Goals Patient Target Last Modified By Organization Details Last Modified Time 12/20/2024 [id number] Goal is A1c 6.5, lose 15 lbs., increase water and exercise as tolerated [email or web address] Not available 12/20/2024 16:48:56 Patient Instructions Encounter Date Encounter Id Patient Instructions Last Modified By Organization Details Last Modified Time 12/20/2024 [id number] learning about healthy weight [email or web address] Not available 12/20/2024 13:22:51 body mass index: care instructions [email or web address] Not available 12/20/2024 13:22:51 pump and meter download and interpretation* [email or web address] Not available 12/20/2024 16:45:26 Call if any questions or if symptoms worsen. [email or web address] Not available 12/20/2024 16:49:09 Reason for Referral None Reported. Results Created Date Observation Date Name Description Value Unit Range Abnormal Flag Note LastModifiedBy Organization Detail LastModifiedTime 01/02/20 25 XR, lumba r spine No observ ation record ed. [email or web address] [facility] [address], [place], [address], 01/03/2025 15:07:08 Result Notes None recorded. Problems Name Problem SNOMED Code Status Onset Date Resolution Date Notes Provider Name and Address Organization Details Recorded Time Hypertensi ve disorder 73317667 Active Tamanna [place], [place] - [facility] 2 11:25:40 Type 2 diabetes mellitus 67001188 Active Tamanna Phelps null, [place] - [facility] 2 11:25:50 Sleep apnea 51185182 Active Tamanna Phelps null, [place] - [facility] 2 11:26:23 Neuropathy 607241069 Active 2022 Sarah Nguyen APRN [address], [place], [address] , [place] - [facility] 3 14:45:26 Chronic back pain 076712539 Active 2022 Sarah Nguyen APRN [address], [place], [address] , [place] - [facility] 3 14:45:41 Chronic neck pain 8320223040369 Active 2022 Sarah Nguyen, CIVIL ENGINEERING PROFESSIONAL [address], [place], [address] , [place] - [facility] 3 14:45:51 Migraine 48668880 Active 2022 Sarah Nguyen, CIVIL ENGINEERING PROFESSIONAL [address], [place], [address] , [place] - [facility] 3 14:45:59 Depressive disorder 87092650 Active 2022 Sarah Nguyen, CIVIL ENGINEERING PROFESSIONAL [address], [place], [address] , [place] - [facility] 3 10:49:49 Gout 42037352 Active 2023 Tiffanie Stears null, [place] - [facility] 4 10:23:45 Restless legs 06697178 Active 2023 Tiffanie Stears null, [place] - [facility] 4 10:23:56 Chronic constipati on 456326469 Active 2023 Tiffanie Stears null, [place] - [facility] 4 10:24:38 Hyperlipid emia 85410821 Active 2023 Sarah Nguyen, CIVIL ENGINEERING PROFESSIONAL [address], [place], [address] , [place] - [facility] 4 11:03:13 Cerebrovas cular accident 264932657 Active 2023 Sarah Nguyen, CIVIL ENGINEERING PROFESSIONAL [address], [place], [address] , [place] - [facility] 4 15:54:51 Vitamin D deficiency 03894682 Active 2023 Sarah Nguyen, CIVIL ENGINEERING PROFESSIONAL [address], [place], [address] , [place] - [facility] 4 16:40:48 Essential hypertensi on 72602901 Active 2024 Damaris quezada, CIVIL ENGINEERING PROFESSIONAL [address], [place], [address] , [place] - [facility] 14:54:31 Asthenia 55054817 Active Tamanna Matt[place] [facility] 15:32:06 Sepsis 83880989 Active Tamanna Matt[place] [facility] 15:32:06 Low back pain 470041789 Active 2024 Damaris quezada, CIV[employer] ENGINEERING PROFESSIONAL [address], [place], [address] , [place] - [facility] 5 14:34:16 Kidney stone 58462284 Active 2024 Damaris quezada, CIVIL ENGINEERING PROFESSIONAL [address], [place], [address] , [place] [facility] 14:35:13 Renal impairment 221884265 Active 2024 Damaris quezada, CIVIL ENGINEERING PROFESSIONAL [address], [place], [address] , [place] - [facility] 14:35:59 Insulin treated type 2 diabetes mellitus 543545889 Active 2024 Damaris quezada, CIVIL ENGINEERING PROFESSIONAL [address], [place], [address] , [place] - [facility] 14:37:44 Problem Notes None recorded. Procedures Surgical History Date Name Laterality Status Provider Name and Address Organization Details Recorded Time 02/21/20 24 Suture/Staple removal completed Ezekielzachariah Andrea, CIVIL ENGINEERING PROFESSIONAL [address], [place], [address], [place] - [facility] 02/21/2024 17:09:37 12/01/19 24 Medication Reconcilliation completed Tamanna Phelps [place] - [facility] 12/01/2023 14:11:03 09/26/19 24 Medication Reconcilliation completed Tamanna Phelps [place] - [facility] 09/26/2023 14:34:51 Stress test completed Tamanna Phelps [place] - [facility] 06/17/2022 11:23:29 Knee Surgery completed Tamanna Phelps [place] - [facility] 06/17/2022 11:23:29 Endoscopy completed Tamanna Phelps [place] [facility] 06/17/2022 11:23:29 Cardiac Cath completed Tamanna Phelps [place] - [facility] 06/17/2022 11:23:29 Colonoscopy completed Tamanna [...] Name and Address Organization Details Recorded Time 959999 ibuprofen medicatio n other moderate high 06/17/2022 5640 RxNorm KATHY Malin - [facility] 11:23:56 959755 primidone medicatio n Not available Not available high 07/15/2022 8691 RxNorm agres barrington/ anxie ty- does not want to take again KATHY Malin - [facility] 14:03:33 Medications Name Sig Start Date Stop [...] Available Not Available No t Available OneTouch Ultra Test strips USE TO TEST BLOOD [...] e Elana Pen Needle 32 gauge x 5/32 USE DIRECTED active Not Available Not Available [...] Not Available No t Available Dexcom G6 Retail Asset Protection Specialist USE DIRECTED 2022 active Not Available Not Available Not Avai lable Dexcom G6 Transmitt er device USE DIRECTED [...] Not Available Not Available FreeStyle Nir 2 [employer] DIRECTED (SCAN SELF AT LEAST THREE (3) [...] height Body mass index (BMI) Body weight Respiratory rate Oxygen saturation Oxygen saturation in Arterial blood by Pulse oximetry Heart rate Systolic And Diastolic Provider Name and Address Organization Details Last Updated DateTime 5 182.88 cm 32.1 kg/m2 431055. 39 g 20 /min 94 % 94 % 88 /min 116/78 mm[Hg] Franny Huerta [place] - [facility] 5 13:11:57 Social History Question Answer Notes LastModified by [...] Or The Highest Degree You Have Received? [id number] Information not available 06/17/2022 Have There Been Any Changes To Your Family Or Social Situation? No Information no t available 06/17/2022 What Is The Fluoride Status Of Your Home? Fluoridated Information not available 06/17/2022 Have You Recently Or Are You Planning To Travel To An Area With Zika Virus? No Information not available 06/17/2022 Do You Have A Medical Power Of Move Coordinator? No Information not available 06/17/2022 What Was [...] anxious, or unable to sleep at night)? [id number] Information not available 06/17/2022 Do you have [...] Eye Problems Y Arthritis Y Constipation Y Sleep Apnea Y Hypercholesterolemia Y Neuropathy Y Headaches Y Hypertension Y [...] split virus, quadrivalent, PF 8 completed Tamanna [place]hel[place] [facility] 06/17/2022 11:43:26 Influenza, split virus, quadrivalent, PF 6 completed Tamanna [place] [facility] 06/17/2022 11:43:26 Influenza, split virus, quadrivalent, preservative 7 completed Tamanna [place] [facility] 06/17/2022 11:43:26 Tdap 6 completed Tamanna [place]hel[place], [place] [facility] 06/17/2022 11:43:26 COVID-19 vaccine, vector-nr, rS-Ad26, PF, 0.5 mL 1 completed Tamanna [place], [place] [facility] 06/17/2022 11:43:26 zoster recombinant 4 completed Chasity Lizzie null[place] - [facility] 10/20/2023 11:40:11 zoster recombinant 4 completed Chasity Samuel null, [place] [facility] 12/20/2023 16:07:43 Past Encounters Encounter ID Performer Location Encounter Start Date Encounter Closed Date Diagnosis/Indication Diagnosis SNOMED-CT Code Diagnosis ICD10 Code Diagnosis Note [id number] Damaris quezada APRN [facility] [address] [place] [address] 11/19/2024 09:43:59 11/19/2024 11:15:35 Type 2 diabetes mellitus 20072163 Z79.4 A1c 8.1, uncontroll ed, improved. Patient wants to switch to Medtronic. Avoid sweet tea and soft drinks. Make appointmen t with nutritioni st. Essential hypertension 13416891 I10 BP 124/85 controlled . Continue Valsartan 160mg daily, Amlodipine 5mg at bedtime. Body mass index 30+ - obesity 455086970 Z68.32 [id number] Claudia Webb, MS, RDN, LDN [facility] [address] [place] [address] 11/22/2024 13:48:43 11/22/2024 15:57:06 Type 2 diabetes mellitus 11916702 E11.9 Z79.4 [id number] Sarah VelasquezBERTHA elena [facility] [address] [place] [address] 11/23/2024 15:17:27 11/23/2024 16:09:32 Chronic low back pain 378483661 M54.40 G89.29 follow up with pain mangement and surgery as scheduled. return for any concerns or go to ed for eval [id number] Jordan Denise MD [facility] [address] [place] [address] 11/30/2024 14:41:41 11/30/2024 15:47:56 Viral screening status 869933445 Z11.59 Asthmatic bronchitis 405 834322 J45.390 [id number] Damaris quezada APRN [facility] [address] [place] [address] 12/20/2024 12:52:52 12/20/2024 16:31:13 Type 2 diabetes mellitus 66893730 E11.9 Z79.4 A1c 8.1, uncontroll ed, improved. Avoid sweet tea and soft drinks. Downloaded Medtronic pump report and adjusted pump settings. Average BG 212+-75. Body mass index 30+ - obesity 770364720 Z68.32 Obesity 941904858 E66.9 Health Concerns Section Related Observation LastModified by Organization Detai ls LastModified Time None Recorded Concern Status LastModified by Organization Details LastModified Time None Recorded Payers Encounter Date Sequence Insurance Name Policy Number Policy Zamudio Covered Member ID Zamudio Member ID Guarantor Name 12/20/2024 1 [facility] ([facility]PLAC[facility] - [place]MO[id number] Lewis Ordaz [id number] Lewis Ordaz Notes Date Note Type Note Provider Name and Address Organization Details Recorded Time 12/20/2024 text/html 54 y/o m present s today for diabetes follow up. Now using Medtronic insulin pump. Pump downloaded and attached to pt chart. pt states his Novolog rx needs updated. He is running out before the 30 days is over. Will also be getting steriod injections in back at [facility] in [place]. Has chronic back pain and has a morphine pump, gets steroid injections regularly. Damaris bunch, CIVIL ENGINEERING PROFESSIONAL [address], [place], [address], [place] - [facility] 12/20/2024 16:49:12
--- OUTSIDE RECORDS SUMMARY | 2025-01-14 13:59 | XMS_ITS | Clinical Summary ---
Author Organization [facility] Address [address] [place] [address] Care Team Providers Care Plywood Scarfer Tender Name Role Phone George Mendez APRN Primary Care Provider [phone] Allergies No known active allergies Medications bisoprolol (Zebeta) 10 MG tablet Two tablets twice daily 9 Active DULoxetine (Cymbalta) [address] capsule TAKE 1 CAPSULE BY MOUTH IN THE MORNING 9 Active empagliflozin- metFORMIN ER (Synjardy XR) 12.5-1000 MG 24 hr tablet Take 1 tablet twice daily 0 Active nitroglycerin (Nitrostat) 0.4 MG SL tablet 9 Active nortriptyline (Pamelor) 10 MG capsule TAKE 2 CAPSULES AT BEDTIME. 0 Active pramipexole (Mirapex) 0.25 MG tablet 0 Active tiZANidine (Zanaflex) 4 MG tablet TAKE 2 TABLETS AT BEDTIME. 0 Active acetaminophen- codeine (Tylenol #3) 300-30 MG tablet TAKE ONE (1) TABLET BY MOUTH TWICE DAILY NEEDED FOR PAIN 2 Active Ozempic, 0.25 or 0.5 MG/DOSE, 2 MG/1.5ML solution pen-injector inj. pen INJECT 0.5MG SUBCUTANEOUSLY ONCE WEEKLY 2 Active HumaLOG 100 UNIT/ML injection USE PER SLIDING SCALE WITH A MAX OF 80 UNITS PER DAY 2 Active fluticasone (Flonase) 50 MCG/ACT nasal spray Administer 1 spray into each nostril 1 (one) time each day. Shake gently. Before first use, prime pump. After use, clean tip and replace cap. Active Omnipod 5 G6 Pod, Gen 5, (Omnipod5) [facility] Active Aspirin Low Dose 81 MG EC tablet TAKE ONE (1) TABLET EVERY DAY 3 Active Continuous Blood Gluc Captain/Airline Pilot (Dexcom G6 biblical studies professor) device See administration instructions. 3 Active Continuous Blood Gluc Sensor (Dexcom G6 Sensor) [facility] APPLY ONE (1) SENSOR EVERY 10 DAYS DIRECTED 3 Active Continuous Blood Gluc Transmit (Dexcom G6 transmitter) [facility] See administration instructions. 3 Active cyanocobalamin (Vitamin B-12) 1000 MCG/ML injection INJECT 1ML SUBCUTANEOUSLY ONCE MONTHLY 3 Active fenofibrate (Triglide) 160 MG tablet TAKE ONE (1) TABLET DAILY 3 Active Ajovy 225 MG/1.5ML injection INJECT 1.5ML SUBCUTANEOUSLY EVERY MONTH 3 Active gabapentin (Neurontin) 300 MG capsule TAKE ONE (1) CAPSULE THREE (3) TIMES A DAY FOR 30 DAYS. 3 Active hydroCHLOROthi azide (Microzide) 12.5 MG capsule TAKE ONE (1) CAPSULE EVERY DAY 3 Active rOPINIRole (Requip) 2 MG tablet TAKE 1 TABLET BY MOUTH TWICE DAILY FOR LEGS 3 Active valsartan (Diovan) 160 MG tablet TAKE ONE (1) TABLET BY MOUTH ONCE DAILY 3 Active ergocalciferol 1.25 MG (00031 UT) capsule Take 1 capsule (50,000 Units) by mouth 1 (one) time per week. Active polyethylene glycol (Miralax) 17 GM/SCOOP powder Take 17 g by mouth 1 (one) time each day. 4 Active ubrogepant (Ubrelvy) 100 MG tablet Active Active Problems Problem Noted Date Diagnosed Date CAD (coronary artery disease) 01/26/2019 Chronic renal disease, stage 3, moderately decreased glomerular filtration rate (GFR) between 30-59 mL/min/1.73 square meter 10/17/2018 Diabetes mellitus type 2 without retinopathy DDD (degenerative disc disease), lumbar 12/02/19 17 Resolved Problems Problem Noted Date Diagnosed Date Resolved Date Essential hypertension 11/02/201812/03 Immunizations Immunization Administration Dates Next Due Influenza, injectable, quadrivalent 06/12/2017 Influenza, injectable, quadrivalent, preservativ e free 04/01/2020,03/11/2016 Influenza, seasonal, injectable, preservative fr ee 05/03/2018 Jackie COVID-19 Vaccine (Blue Cap) 18+ 11/04/19 21 Tdap 12/11/2016,12/23/2015 Family History Medical History Relation Name Comments Cardiac disorder Father Other cancer Father Cardiac disorder Mother Diabetes Mother Cardiac disorder Other 1 Diabetes Other 2 Other cancer Other 3 Other cancer Other 4 Heart Problem Other 5 Diabetes Sibling 1 Other cancer Sibling 2 Heart Problem Sibling 3 Relation Name Status Comments Father Mother Other 1 Other 2 Other 3 Other 4 Other 5 Sibling 1 Sibling 2 Sibling 3 Social History Tobacco Use Types Packs/Day Years Used Date Smoking Tobacco: Never Passive Smoke Exposure: Never Smokeless Tobacco: Current Chew Alcohol Use Standard Drinks/Week Comments No 0 (1 standard drink = 0.6 oz pur e alcohol) Sex and Gender Information Value Date Recorded Sex Assigned at Not on file Legal Sex Male 8:15 PM EDT Gender Identity Not on file Sexual Orientation Not on file Last Filed Vital Signs Vital Sign Reading Time Taken Comments Blood Pressure 142/96 01/02/2024 2:04 PM EDT Pulse 100 01/02/2024 2:04 PM EDT Temperature 37.1 C (98.7 F) 01/26/2019 8:31 AM EDT Respiratory Rate - - Oxygen Saturation 99% 01/02/2024 2:04 PM EDT Inhaled Oxygen Concentration - - Weight 103 kg (228 lb) 01/02/2024 2:04 PM EDT Height 182.9 cm (6') 11/02/2018 2:17 PM EDT Body Mass Index 30.92 11/02/2018 2:17 PM EDT Plan of Treatment Upcoming Encounters Date Type Department Care Team (Late st Contact Info) Description 01/30/2025 2:00 PM EDT Office Visit Professional [facility] [address] , [address] [place] [address] Alexander Emanuel MD [address] [place] [address] Health Maintenance Due Date Last Done Comments [facility]-Depression Screening 1970 [facility]-HIV Screening 1970 [facility]-Hepatitis C Screening 1970 [facility]-Infant/Child/Adol SDOH Screenings 1970 Diabetes: Dental Exam 1978 [facility]- SDOH Screenings 1986 [facility]-Adult SDOH Screenings 1986 [facility]-Hepatitis B Vaccines (1 of 3 - 19+ 3-dose series) 11/18/1987 [facility]-Pneumococcal Vaccine: 50+ Years (1 of 2 - PCV) 11/18/1987 CT Colonography 2013 Colonoscopy 2013 FIT-DNA 2013 FIT 2013 FOBT 2013 Sigmoidoscopy 2013 [facility]-Colorectal Cancer Screening 2013 [facility]-Diabetes: Hemoglobin A1C 02/23/2024 11/24/2023 [id number] Vaccine (2 - season) 2024 11/03/2020 [facility]-Influenza Vaccine (#1) 03/04/202504/01, 05/03/2018, 06/12/2017, Additional history exists [facility]-DTaP,Tdap,and Td Vaccines (3 - Td or Tdap) 12/11/2026 12/11/2016, 12/23/2015 [facility]-Zoster Vaccines Completed 12/20/2023, [facility]-Obesity Intervention Completed 01/02/2024 HPV Vaccines Aged Out No longer eligi ble based on patient's age to complete this topic [facility]-HIB Vaccines Aged Out No longer e ligible based on patient's age to complete this topic [facility]-Hepatitis A Vaccines Aged Out No longer eligible based on patient's age to complete this topic [facility]-IPV Vaccines Aged Out No longer e ligible based on patient's age to complete this topic [facility]-Rotavirus Vaccines Aged Out No lo nger eligible based on patient's age to complete this topic Care Teams Plywood Scarfer Tender Relationship Specialty Start Date End Date George Mendez APRN [address] [place] [address] [facility] - General 11/14/20
--- OUTSIDE RECORDS SUMMARY | 2025-01-14 13:59 | XMS_ITS | Continuity of Care Document ---
Author Organization [facility] Address [address] [place] [address] Care Team Providers Care Personal Chef Name Role Phone HONG BURNS Referring Provider SEBASTIAN CHAMBERS Referring Provider [phone] SARHA NUGYEN Primary Care Provider [phone] Assessment Encounter Date Assessment Date Assessment LastModified by Organization Details LastModified Time 11/19/2024 11/19/2024 Overall, patient doing well at this time. Last a1c was 8.5. This has improved since previous visit. Pt is due for diabetic labs at today's visit. Pt will need repeat A1c today. Discussed routine diabetic follow up in 3 months and patient is agreeable. Pt counseled on diet and weight management at today's visit. Pt will try to comply with ADA guidelines in regards to diet and increase daily activity as tolerated. Call or RTC sooner than follow up should any questions or concerns arise. reggie Not available 11/19/2024 09:55:26 Plan of Treatment Reminders Order Date Submit Date Provider Last Modified By Organization Details Last Modified Time Details Appointments Annual Exam 20 2024 08:40A M Damaris Muniz APRN Not available Not available Not available Diabet ic F/U 2024 01:40P Ivon Nguyen APRN Not available Not available Not available Lab HbA1c (hemog lobin A1c), blood 2024 025 [facility], [address], [place], [address], 11/19/2024 11:12:05 Referral nutrit ionist /catai shreya referr al 2024 025 Not available 12/17/2024 08:36:34 Procedures None record ed. Surgeries None record ed. Imaging None record ed. Medication Orders None record ed. Patient Targets Encounter Date Encounter Id Patient Goals Patient Target Last Modified By Organization Details Last Modified Time 11/19/2024 [id number] Goal is A1c 6.5, increase water and exercise. [email or web address] Not available 11/19/2024 09:58:40 Patient Instructions Encounter Date Encounter Id Patient Instructions Last Modified By Organization Details Last Modified Time 11/19/2024 [id number] pump and meter download and interpretation* [email or web address] Not available 11/19/2024 11:12:05 low sodium diet (2,000 milligram): care instructions reggie Not available 11/19/2024 11:12:05 learning about caffeine reggie Not available 11/19/2024 11:12:05 walking for exercise: care instructions reggie Not available 11/19/2024 11:12:05 Call if any questions or if symptoms worsen. [email or web address] Not available 11/19/2024 09:58:54 Reason for Referral Structural Architect/dietitian Refer ral for Type 2 diabetes mellitus Referring Physician: Damaris Rodas, Family Medicine, Encounter Date: 11/19/2024 Results Created Date Observation Date Name Description Value Unit Range Abnormal Flag Note LastModifiedBy Organization Detail LastModifiedTime 11/20/1911/19/2024 HbA1c (hemo globi n A1c), blood HbA1C 8.1 % Not Available [facility] [address], [place], [address], 11/19/2024 09:49:35 11/13/19 25 11/12/2024 XR, chest [facility] Name: LEWIS ORDAZ [facility] [address] Phys: Cat [place] [address] : 1970 Age: 53 Sex: M Acct: [id number] Loc: G.310 A PHONE #: [phone] Exam Date: 2024 Status : ADM IN FAX #: Rad# [id number] Unit# [id number] Admit Date: 2024 EXAMS: CPT CODE: [id number] [place] [id number] EXAM: XR CHEST 1 VIEW PORTAB LE [...] CE OF AN ACUTE CARDIO PULMON HELLEN PROCES S. Electr onical ly signed by: Aranza Matos DO 2024 11:01 AM EDT RP Workst ation: [id number] Electr onical ly Signed by ARANZA MATOS DO on 2024 at 0826 Report ed and signed by: Eyal MATOS DO PAGE 1 Signed Report (FRANCISCA NUED) [facility] Name: RON LEWISJULY GARCÍA [address] Phys: Cat HERNA[place] [address] : 1970 Age: 53 Sex: M Acct: [id number] Loc: Sami.310 A PHONE #: Exam Date: 2024 Status : ADM IN FAX #: Rad# [id number] Unit# [id number] Admit Date: 2024 EXAMS: CPT CODE: [id number] [place] [id number] CC: Erick Nguyen APRN; Maci Diaz MD Dictat ed Date/T tim: 2024 (825) Techno logist : ALISHA Parikh RT(R)( CT); BAKARI JEFFERY F Transc ribed Date/T tim: 2024 (825) Transc riptio nist: DR.HAL Friedman onic Signat ure Date/T tim: 2024 (825) Printe d Date/T tim: 2024 (1104) BATCH NO: N/A PAGE 2 Signed Report CC'ed Logic: Orderi ng Provid er: CAT SCOTT Attend ing Provid er: CAT SCOTT Referr ing Provid er: PHYSIC MADONNA NO Consul ting Provid er: WENDY Overton Admitt ing Provid er: CAT SCOTT [email or web address] [place], [address], 11/13/2024 11:31:05 11/13/19 25 11/12/2024 US, abdom en, limit ed [facility] Name: RON LEWISJULY GARCÍA [address] [place] [address] Phys: Cat HERNANDEZ,[place] [address] : 1970 Age: 53 Sex: M Acct: [id number] Loc: Jermaine Overton PHONE #: Exam Date: 2024 Status : ADM IN FAX #: Rad# [id number] Unit# [id number] Admit Date: 2024 EXAMS: CPT CODE: [id number] US ABDOME N LIMITE D 31974 US ABDOME N LIMITE D Reason for [...] DO PAGE 1 Signed Report (FRANCISCA NUED) [facility] Name: LEWIS ORDAZDE [employer] Phys: Cat HERNANDEZ,[place] [address] : 1970 Age: 53 Sex: M Acct: [id number] Loc: [id number] A PHONE #: Exam Date: 2024 Status : ADM IN FAX #: [phone] Rad# [id number] Unit# [id number] Admit Date: 2024 EXAMS: CPT CODE: [id number] US ABDOME N LIMITE D 18704 CC: Erick Nguyen YARD PERSON; Maci Diaz MD Dictat ed Date/T tim: 2024 (1101) Techno logist : LINDSA Y STEFANIE Transc ribed Date/T tim: 2024 (1101) Transc riptio nist: DR.HAL Friedman onic Signat ure Date/T tim: 2024 (1101) Printe d Date/T tim: 2024 (1107) BATCH NO: N/A PAGE 2 Signed Report CC'ed Logic: Orderi ng Provid er: CAT SCOTT Attend ing Provid er: CAT SCOTT Referr ing Provid er: CHRISTIAN CISNEROS Consul ting Provid er: WENDY Overton Admitt ing Provid er: CAT SCOTT [address] , [place], [address], 11/13/2024 11:31:05 11/13/19 25 11/12/2024 - MRI lumba r spine wwo cont [facility] Name: LEWIS ORDAZDE [address] [place] [address] Phys: [place] [address] : 1970 Age: 53 Sex: M Acct: [id number] Loc: G.310 A PHONE #: Exam Date: 2024 Status : ADM IN FAX #: Rad# [id number] Unit# [id number] Admit Date: 2024 EXAMS: CPT CODE: [id number] MRI LUMBAR SPINE WWO CONT [id number] EXAMIN ATION: MR LUMBAR SPINE WITHOU T [...] nal PAGE 1 Signed Report (FRANCISCA NUED) [facility] Name: LEWIS ORDAZ RICKY [address] Phys: Cat [place]NAN[place] [address] : 1970 Age: 53 Sex: M Acct: [id number] Loc: G.310 A PHONE #: [phone] Exam Date: 2024 Status : ADM IN FAX #: Rad# [id number] Unit# [id number] Admit Date: 2024 EXAMS: CPT CODE: [id number] [id number] MRI LUMBAR SPINE WWO CONT 15556 narrow ing withou t defini te encroa [...] Diaz MD Dictat ed Date/T tim: 2024 (151) Techno logist : LIU ACEVEDO RT(R)( M)(CT) (MR) Transc ribed Date/T tim: 2024 (1515) Transc riptio nist: DR.HAL BATES Electr onic Signat ure Date/T tim: 2024 (1515) Printe d Date/T tim: 2024 (1543) BATCH NO: N/A PAGE 2 Signed Report CC'ed Logic: Orderi ng Provid er: CAT SCOTT Attend ing Provid er: CAT SCOTT Referr ing Provid er: PHYSIC MADONNA NO Consul ting Provid er: WENDY Overton Admitt ing Provid er: CAT SCOTT [email or web address] , [place], [address], 11/13/2024 11:31:05 01/02/20 25 XR, lumba r spine No observ ation record ed. [email or web address] [facility] [address], [place], [address], 01/03/2025 15:07:08 Result Notes None recorded. Problems Name Problem SNOMED Code Status Onset Date Resolution Date Notes Provider Name and Address Organization Details Recorded Time Hypertensi ve disorder 99942998 Active Tamanna Phelps null, [place] - [facility] 11:25:40 Type 2 diabetes mellitus 23933397 Active Tamanna Phelps null, [place] - [facility] 11:25:50 Sleep apnea 57316750 Active Tamannatc Phelps null, [place] - [facility] 11:26:23 Neuropathy 138713101 Active 2022 Sarah Nguyen APRN [address], [place], [address] , [place] - [facility] 14:45:26 Chronic back pain 681274275 Active 2022 Sarah Nguyen YARD PERSON [address], [place], [address] , [place] - [facility] 14:45:41 Chronic neck pain 2871393247988 Active 2022 Sarah Nguyen YARD PERSON [address], [place], [address] , [place] - [facility] 14:45:51 Migraine 65308587 Active 2022 Eugonda Fryman, YARD PERSON [address], [place], [address] , [place] - [facility] 14:45:59 Depressive disorder 47309558 Active 2022 Sarah Nguyen, YARD PERSON [address], [place], [address] , [place] - [facility] 10:49:49 Gout 08008554 Active 2023 Tiffanie Stears null, [place] - [facility] 10:23:45 Restless legs 05060314 Active 2023 Tiffanie Stears null, [place] - [facility] 10:23:56 Chronic constipati on 592582718 Active 2023 Tiffanie Stears null, [place] - [facility] 10:24:38 Hyperlipid emia 54671385 Active 2023 Sarah Nguyen, YARD PERSON [address], [place], [address] , [place] - [facility] 11:03:13 Cerebrovas cular accident 580199482 Active 2023 Sarah Nguyen, YARD PERSON [address], [place], [address] , [place] - [facility] 4 15:54:51 Vitamin D deficiency 69748836 Active 2023 Sarah Nguyen, YARD PERSON [address], [place], [address] , [place] - [facility] 16:40:48 Essential hypertensi on 61931986 Active 2024 Damaris quezada, YARD PERSON [address], [place], [address] , [place] - [facility] 14:54:31 Asthenia 20525614 Active Tamanna Phelps null, [place] - [facility] 15:32:06 Sepsis 07618696 Active Tamanna Phelps [place], [place] - [facility] 15:32:06 Low back pain 042857753 Active 2024 Damaris quezada, YARD PERSON [address], [place], [address] , [place] - [facility] 14:34:16 Kidney stone 73844478 Active 2024 Damaris quezada, YARD PERSON [address], [place], [address] , [place] - [facility] 14:35:13 Renal impairment 804075826 Active 2024 Damaris quezada, YARD PERSON [address], [place], [address] , [place] - [facility] 14:35:59 Insulin treated type 2 diabetes mellitus 977067682 Active 2024 Damaris quezada, YARD PERSON [address], [place], [address] , [place] - [facility] 14:37:44 Problem Notes None recorded. Procedures Surgical History Date Name Laterality Status Provider Name and Address Organization Details Recorded Time 02/21/20 24 Suture/Staple removal completed Sarah Nguyen, YARD PERSON [address], [place], [address], [place] - [facility] 02/21/2024 17:09:37 12/01/19 24 [...] - [facility] 06/17/2022 11:23:29 Colonoscopy completed Tamanna Phelps [place] - [facility] 06/17/2022 11:23:29 Back Surgery completed Tamanna Phelps [place] - [facility] 06/17/2022 11:23:29 procedure on neck completed Alessandra Phelps [place] - [facility] 06/17/2022 11:28:57 procedure on hand completed Alessandra Phelps [place] - [facility] 06/17/2022 11:29:30 Imaging Results None recorded. Procedure Notes None recorded. Medical Equipment None Reported. Allergies Allergen ID Allergen Name Allergen Category Reaction Reaction Severity Criticality Documentation Date Start Date Code Code System Note Provider Name and Address Organization Details Recorded Time 986994 ibuprofen medicatio n other moderate high 06/17/2022 5640 RxNorm KATHY Mal[place] - [facility] 2 11:23:56 570369 primidone medicatio n Not available Not available high 07/15/2022 8691 RxNorm agres teddy/ anxie ty- does not want to take again Tamanna barfield, KATH[place] - [facility] 3 14:03:33 Medications Name Sig [...] e Elana Pen Needle 32 gauge x /32 USE DIRECTED active Not Available Not Available [...] Not Available No t Available Dexcom G6 Staff Radiation Therapist USE DIRECTED 2022 active Not Available Not [...] Not Available Not Available FreeStyle Nir 2 [place] DIRECTED (SCAN SELF AT LEAST THREE (3) [...] Details Last Updated DateTime 5 182.88 cm 32.5 kg/m2 778023. 17 g 18 /min 95 % 95 % 79 /min 124/85 mm[Hg] Franny Huerta [place] - [facility] 5 09:51:42 Social History Question Answer Notes LastModified by Organizat ion Details LastModified Time Tobacco Smoking Status Never Smoker Tamanna Mattie [place], [place] - [facility] 06/17/2022 11:27:17 Do [...] Or The Highest Degree You Have Received? [id number] Information not available 06/17/2022 Have There Been Any Changes To Your Family Or Social Situation? No Information no t available 06/17/2022 What Is The Fluoride Status Of Your Home? Fluoridated Information not available 06/17/2022 Have You Recently Or Are You Planning To Travel To An Area With Zika Virus? No Information not available 06/17/2022 Do You Have A Medical Power Of Puncher And Fastener? No Information not available 06/17/2022 What Was [...] Functional Status Question Answer Note LastModified by [employer] ion Details LastModified Time Do you use [...] anxious, or unable to sleep at night)? [id number] Information not available 06/17/2022 Do you have [...] SNOMED-CT Code Diagnosis ICD10 Code Diagnosis Note [id number] Damaris quezada APRN [facility] [address] [address] 10/25/2024 12:44:50 10/25/2024 13:56:15 Type 2 diabetes mellitus 45250804 Z79.4 A1c 8.5 08/28/24. Patient wants to switch to Medtr[employer]. Patient is in contact with [employer] rep. Patient entered glucose into Omnipod and give himself bolus manually. Reviewed Dexcom G6 report with patient. Current blood sugar is 119, Average 158, in range 85%, high 15%. Will contact Sarkis, [employer] rep for update. [id number] Damaris quezada APRN [facility] [address] [place] [address] 11/05/2024 11:11:55 11/05/2024 11:54:09 Type 2 diabetes mellitus 53323955 Z79.4 A1c 8.5 08/28/24. Patient wants to switch to Medtronic. Patient is in contact with [employer] rep. Patient enters glucose into Omnipod and give himself bolus manually. Will contact Sarkis, [employer] rep for update. Body mass index 30+ - obesity 266837258 Z68.32 [id number] Damaris quezada APRN [facility] [address] [place] [address] 11/19/2024 09:43:59 11/19/2024 11:15:35 Type 2 diabetes mellitus 69711847 Z79.4 A1c 8.1, uncontroll ed, improved. Patient wants to switch to Medtronic. Avoid sweet tea and soft drinks. Make appointmen t with nutritioni st. Essential hypertension 23338356 I10 BP 124/85 controlled . Continue Valsartan 160mg daily, Amlodipine 5mg at bedtime. Body mass index 30+ - obesity 677130734 Z68.32 Health Concerns Section Related Observation LastModified by Organization Detai ls LastModified Time None Recorded Concern Status LastModified by Organization Details LastModified Time None Recorded Payers Encounter Date Sequence Insurance Name Policy Number Policy Zamudio Covered Member ID Zamudio Member ID Guarantor Name 11/19/2024 1 [facility] (MEDICAID REPLACEMENT - [place]MO) [id number] Lewis Ordaz [id number] Lewis Ordaz Notes Date Note Type Note Provider Name and Address Organization Details Recorded Time 11/19/2024 text/html 54 y/o m presents today for 10 day diabetes follow. Using DexCom G6 and OmniPod.Reports he has been in contact with Sarkis from [employer] and was told her should have his new Medtronic pump in 4 weeks. states he drinks 3 gallons of sweet tea per day and also Dr Schofield zero. Damaris Palma t, YARD PERSON [address], [place], [address], [place] - [facility] 11/19/2024 11:12:29
--- OUTSIDE RECORDS SUMMARY | 2025-01-14 13:59 | XMS_ITS | Data Portability ---
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 Symptoms consistent with IVORY; witnessed apneas, hypersomnia, brain fog and nightly awakenings 2. History of CVA, A fib, colon polyps, DM, elevated cholesterol, hyperlipidemia, HTN, Cardiac Cath *managed by [facility] and PCP Plan 1. Order HST ( will call when available) High suspicion of IVORY. I discussed the anatomy and physiology of the disease. I explained common symptoms and manager long term care effects of the disease. We discussed diagnostic and treatment options as well as realistic expectations with treatment. 2. If positive patient is requesting referral for Inspire Device ([facility]) 3. RTO once HST completed, sooner if needed Portions of this note may be dictated using voice recognition software and or use of a medical secretary receptionist. Variances in spelling and vocabulary are possible and unintentional. Not all errors are caught/corrected . Please notify the author if any discrepancies are noted or if the meaning of any statement is not clear. This is a summary discussion with the patient and in no way is intended to be a verbatum summation of everything discussed. We apologize for any inconvenience. Not available 06/25/2024 14:43:13 07/12/2024 07/12/2024 Assessment 1. Symptoms consistent with IVORY; witnessed apneas, hypersomnia, brain fog and nightly awakenings *HST (07/12/2024): TLS, Inconclusive 2. History of CVA, A fib, colon polyps, DM, elevated cholesterol, hyperlipidemia, HTN, Cardiac Cath *managed by [facility] and PCP Plan 1. Repeat HST (2nd attempt) High suspicion of IVORY. I discussed the anatomy and physiology of the disease. I explained common symptoms and manager long term care effects of the disease. We discussed diagnostic and treatment options as well as realistic expectations with treatment. 2. If positive patient is requesting referral for Inspire Device ([facility]) 3. RTO once HST completed, sooner if needed Portions of this note may be dictated using voice recognition software and or use of a medical secretary receptionist. Variances in spelling and vocabulary are possible and unintentional. Not all errors are caught/corrected . Please notify the author if any discrepancies are noted or if the meaning of any statement is not clear. This is a summary discussion with the patient and in no way is intended to be a verbatum summation of everything discussed. We apologize for any inconvenience. Not available 07/12/2024 13:31:57 07/18/2024 07/18/2024 Assessment 1. Symptoms consistent with IVORY; witnessed apneas, hypersomnia, brain fog and nightly awakenings *HST (07/12/2024): TLS, Inconclusive *HST (07/18/2024): mild IVORY, AHI 9.5, KAVYA 77%, max HR 115 bpm 2. History of CVA, A fib, colon polyps, DM, elevated cholesterol, hyperlipidemia, HTN, Cardiac Cath *managed by [facility] and PCP Plan 1. Order APAP 4-20 cm H20, machine equipment and bleed in adapter with 2 L Oxygen (sent to [facility]) *do not drive or operate heavy machinery if feeling tired or fatigued *Patient is not a candidate for Inspire (mild IVORY) 2. Continue Oxygen 2 L n/c nightly until APAP received 3. Continue follow up with [facility] as scheduled 4. RTO in 2 months for compliance check, sooner if needed Portions of this note may be dictated using voice recognition software and or use of a medical secretary receptionist. Variances in spelling and vocabulary are possible and unintentional. Not all errors are caught/corrected . Please notify the author if any discrepancies are noted or if the meaning of any statement is not clear. This is a summary discussion with the patient and in no way is intended to be a verbatum summation of everything discussed. We apologize for any inconvenience. Not available 07/18/2024 11:16:02 09/19/2024 09/19/2024 Assessment 1. IVORY *HST (07/12/2024): TLS, Inconclusive *HST (07/18/2024): mild IVORY, AHI 9.5, KAVYA 77%, max HR 115 bpm 2. History of CVA, A fib, colon polyps, DM, elevated cholesterol, hyperlipidemia, HTN, Cardiac Cath *managed by [facility] and PCP Plan 1. Resume APAP 4-20 cm H20 w/bleed in adapter with 2 L Oxygen; Encouraged increased compliance *discussed risk of untreated IVORY including but not limited to *do not drive or operate heavy machinery if feeling tired or fatigued *Patient is not a candidate for Inspire (mild IVORY) 2. Continue follow up with [facility] as scheduled 3. RTO in 1 month for compliance check Portions of this note may be dictated using voice recognition software and or use of a medical secretary receptionist. Variances in spelling and vocabulary are possible and unintentional. Not all errors are caught/corrected . Please notify the author if any discrepancies are noted or if the meaning of any statement is not clear. This is a summary discussion with the patient and in no way is intended to be a verbatum summation of everything discussed. We apologize for any inconvenience. Not available 09/19/2024 20:09:27 10/17/2024 10/17/2024 Assessment 1. IVORY *HST (07/12/2024): TLS, Inconclusive *HST (07/18/2024): mild IVORY, AHI 9.5, KAVYA 77%, max HR 115 bpm 2. History of CVA, A fib, colon polyps, DM, elevated cholesterol, hyperlipidemia, HTN, Cardiac Cath *managed by [facility] and PCP Plan 1. Continue APAP 4-20 cm H20 w/bleed in adapter with 2 L Oxygen; Encouraged increased compliance *discussed risk of untreated IVORY including but not limited to *do not drive or operate heavy machinery if feeling tired or fatigued *Patient is not a candidate for Inspire (mild IVORY) 2. Order sent to DME to decrease APAP Humidity setting for patient comfort 3.Continue follow up with [facility] as scheduled 4. RTO in 4 months for compliance check Portions of this note may be dictated using voice recognition software and or use of a medical secretary receptionist. Variances in spelling and vocabulary are possible and unintentional. Not all errors are caught/corrected . Please notify the author if any discrepancies are noted or if the meaning of any statement is not clear. This is a summary discussion with the patient and in no way is intended to be a verbatum summation of everything discussed. We apologize for any inconvenience. Not available 10/19/2024 21:51:42 Plan of Treatment Reminders Order Date Submit Date Provider Last Modified By Organization Details Last Modified Time Details Appointments FOLLOW_U P 2024 10:40A Ivon Youngblood NP Not available Not available Not available Lab None recorded . Referral None recorded . Procedures home sleep testing (PROC) - 2nd attempt 2024 025 EDITH Jordan Rosen DO ([facility]), [address] [facility], [place], [address], 07/18/2024 12:27:02 home sleep testing (PROC) 2023 024 [email or web address] Jordan Rosen DO ([facility]), [address] [facility] [address], [address], [place], [address], 07/02/2024 10:23:53 Surgeries None recorded . Imaging None recorded . Medication Orders None recorded . Patient TargetsNo targets recorded. Patient InstructionsNo instructions recorded. Reason for Referral None Reported. Results Created Date Observation Date Name Description Value Unit Range Abnormal Flag Note LastModifiedBy Organization Detail LastModifiedTime 07/18/1907/18/2024 home sleep testi ng (PROC ) No observ ation record ed. Not Available 07/18 12:27:13 08/07/19 home sleep testi ng (PROC ) No observ ation record ed. [email or web address] Jordan Rosen DO ([facility]) [address] [facility] [address], [place], [address], 08/07/2024 13:45:16 09/22/19 25 09/17/2024 CPAP compl iance * No observ ation record ed. [email or web address] Not Available 2024 11:47:11 10/25/19 25 10/15/2024 CPAP compl iance * No observ ation record ed. [email or web address] Not Available 2024 12:18:30 Result Notes None recorded. Problems Name Problem SNOMED Code Status Onset Date Resolution Date Notes Provider Name and Address Organization Details Recorded Time Hypersomnia 06993486 Active 024 Lili Youngblood NP [address], [place], [address], [place] - [facility] 14:43:19 Obstructive sleep apnea syndrome 83901148 Active 025 Lili Youngblood NP [address], [place], [address], [place] - [facility] 11:16:09 Problem Notes None recorded. Procedures Surgical History Date Name Laterality Status Provider Name and Address Organization Details Recorded Time cardiac catheterization completed sabrina edward [place] - [facility] 06/22/2024 11:30:35 procedure on hand completed sabrina edward [place] - [facility] 06/22/2024 11:31:04 Knee Surgery completed sabrina edward [place] - [facility] 06/22/2024 11:31:13 procedure on neck completed sabrina edwadr [place] - [facility] 06/22/2024 11:31:38 procedure on spine completed elsie edward [place] - [facility] 06/22/2024 11:31:49 Imaging Results None recorded. Procedure Notes None recorded. Medical Equipment None Reported. Allergies Allergen ID Allergen Name Allergen Category Reaction Reaction Severity Criticality Documentation Date Start Date Code Code System Note Provider Name and Address Organization Details Recorded Time 03187 ibuprofen medicatio n Not available Not available Not available 06/13/2024 5640 RxNorm dedrick abrfield [facility] 4 15:43:33 Medications Name Sig Start Date Stop Date Status Note LastModified by Organization Details LastModified Time amantadine HCl 100 mg tablet 06/25 completed Not Available Not Available Not Available BD Luer-Lyndon Syringe 3 mL 23 x 1 USE ONCE MONTHLY WITH B-12 active Not Available Not Available No t Available atorvastati n 40 mg tablet TAKE ONE (1) TABLET BY MOUTH EVERY DAY 06/22 completed Not Available Not Available Not Available methocarbam ol 500 mg tablet TAKE TWO (2) TABLETS BY MOUTH THREE (3) TIMES DAILY NEEDED active Not Available Not Available No t Available primidone 50 mg tablet TAKE ONE (1) TABLET BY MOUTH EVERY NIGHT AT BEDTIME active Not Available Not Available No t Available atorvastati n 80 mg tablet Take 1 tablet every day by oral route. 06/25 completed Not Available Not Available Not Available azithromyci n 250 mg tablet TAKE 2 TABLETS TODAY THEN TAKE 1 TABLET DAILY FOR THE NEXT 4 DAYS 09/19 completed Not Available Not Available Not Available prednisone 20 mg tablet TAKE ONE (1) TABLET BY MOUTH TWICE DAILY 06/22 completed Not Available Not Available Not Available clopidogrel 75 mg tablet TAKE ONE (1) TABLET BY MOUTH EVERY DAY active Not Available Not Available No t Available amlodipine 5 mg tablet TAKE ONE (1) TABLET BY MOUTH EVERY DAY active Not Available Not Available No t Available aspirin 81 mg tablet,soledad yed release TAKE ONE (1) TABLET EVERY DAY 06/22 completed Not Available Not Available Not Available bisoprolol fumarate 10 mg tablet TAKE TWO (2) TABLETS BY MOUTH TWICE DAILY active Not Available Not Available No t Available magnesium oxide 400 mg (241.3 mg magnesium) tablet TAKE ONE (1) TABLET BY MOUTH FOUR TIMES DAILY 06/22 completed Not Available Not Available Not Available methocarbam ol 750 mg tablet TAKE ONE (1) TABLET BY MOUTH THREE (3) TIMES DAILY FOR PAIN 06/22 completed Not Available Not Available Not Available Humalog U-100 Insulin 100 unit/mL subcutaneou s solution INJECT PER SLIDING SCALE. MAX DOSE OF 100 UNITS PER DAY. INCREASE DOSE DUE TO STEROID INJECTION S active Not Available Not Available No t Available ropinirole 2 mg tablet TAKE ONE (1) TABLET BY MOUTH THREE (3) TIMES DAILY active Not Available Not Available No t Available cephalexin 500 mg capsule TAKE ONE (1) CAPSULE BY MOUTH TWICE DAILY FOR 10 DAYS 06/22 completed Not Available Not Available Not Available nortriptyli ne 10 mg capsule Take 2 capsules every day by oral route at bedtime. 06/25 completed Not Available Not Available Not Available cyanocobala min (vit B-12) 1,000 mcg/mL injection solution INJECT 1ML SUBCUTANE OUSLY EVERY MONTH active Not Available Not Available No t Available hydrochloro thiazide 12.5 mg capsule TAKE ONE (1) CAPSULE BY MOUTH EVERY DAY active Not Available Not Available No t Available pramipexole 0.25 mg tablet Take 1 tablet every day by oral route at bedtime. 06/25 completed Not Available Not Available Not Available gabapentin 300 mg capsule TAKE ONE (1) CAPSULE BY MOUTH THREE (3) TIMES DAILY active Not Available Not Available No t Available aspirin 81 mg chewable tablet CHEW 1 TABLET EVERY DAY 06/25 completed Not Available Not Available Not Available bisacodyl 5 mg tablet,soledad yed release TAKE FOUR (4) TABLETS BY MOUTH WITH 8 OZ OF WATER 06/22 completed Not Available Not Available Not Available mupirocin 2 % topical ointment APPLY A SMALL AMOUNT TOPICALLY TO AFFECTED AREA(S) THREE (3) TIMES DAILY 06/25 completed Not Available Not Available Not Available ergocalcife rol (vitamin D2) 1,250 mcg (50,000 unit) capsule TAKE ONE (1) CAPSULE BY MOUTH EVERY WEEK active Not Available Not Available No t Available polyethylen e glycol 3350 17 gram/dose oral powder MIX ENTIRE BOTTLE WITH 64 OZ OF GATORADE. DRINK MIXTURE OVER THREE (3) HOURS. 06/25 completed Not Available Not Available Not Available colchicine 0.6 mg tablet TAKE ONE (1) TABLET BY MOUTH EVERY DAY active Not Available Not Available No t Available fluticasone propionate 50 mcg/actuati on nasal spray,suspe nsion SPRAY ONE (1) SPRAY INTO EACH NOSTRIL EVERY DAY active Not Available Not Available No t Available valsartan 160 mg tablet TAKE ONE (1) TABLET BY MOUTH EVERY DAY active Not Available Not Available No t Available meclizine 25 mg chewable tablet Chew 1 tablet 3 times a day by oral route. 06/25 completed Not Available Not Available Not Available duloxetine 60 mg capsule,del ayed release TAKE ONE (1) CAPSULE BY MOUTH EVERY DAY active Not Available Not Available No t Available morphine (PF) 30 mg/30 mL (1 mg/mL) FINANCIAL AID intravenous solution Inject by intraveno us route. active Not Available Not Available No t Available Synjardy 12.5 mg-1,000 mg tablet TAKE ONE (1) TABLET BY MOUTH TWICE DAILY active Not Available Not Available No t Available Dexcom G6 Sensor device CHANGE SENSOR EVERY 10 DAYS DIRECTED active Not Available Not Available No t Available Dexcom G6 Transmitter device USE DIRECTED, CHANGING EVERY 90 DAYS active Not Available Not Available No t Available Omnipod Dash Pods (Gen 4) subcutaneou s cartridge active Not Available Not Available Not Available Ajovy Syringe 225 mg/1.5 mL subcutaneou s INJECT 225MG (1.5ML) UNDER THE SKIN EVERY MONTH active Not Available Not Available No t Available Ubrelvy 100 mg tablet TAKE ONE TABLET AT ONSET OF HEADACHE, MAY REPEAT TAKE ONE TABLET AFTER TWO (2) HOURS IF SYMPTOMS PERSIST, MAX TWO (2) TABLETS IN 24 HOURS active Not Available Not Available No t Available Ozempic 0.25 mg or 0.5 mg (2 mg/3 mL) subcutaneou s pen injector INJECT 0.5 MG EVERY WEEK BY SUBCUTANE OUS ROUTE. 06/22 completed Not Available Not Available Not Available Omnipod 5 G6-G7 Intro Kit(Gen 5) subcutaneou s cartridge and controller USE DIRECTED - CHANGING PODS EVERY THREE (3) DAYS active Not Available Not Available No t Available Omnipod 5 G6-G7 Pods (Gen 5) subcutaneou s cartridge USE DIRECTED AND CHANGE EVERY 48 HOURS active Not Available Not Available No t Available Vitals Date Recorded Body height Provider Name an d Address Organization Details Last Updated DateTime 07/12/2024 182.88 cm chloe PAZ - [facility] 07/12/2024 12:44:16 Date Recorded Body height Body mass index (BMI) Body weight Oxygen saturation Oxygen saturation in Arterial blood by Pulse oximetry Heart rate Respiratory rate Body temperature Systolic And Diastolic Provider Name and Address Organization Details Last Updated DateTime 5 182.88 cm 33.2 kg/m2 780318. 13 g 97 % 97 % 96 /min 18 /min 98.2 [degF] 144/90 mm[Hg] sabrina edward [place] - [facility] 5 10:38:13 Date Recorded Body height Body mass index (BMI) Body weight Oxygen saturation Oxygen saturation in Arterial blood by Pulse oximetry Heart rate Respiratory rate Body temperature Systolic And Diastolic Provider Name and Address Organization Details Last Updated DateTime 5 182.88 cm 32.9 kg/m2 129018. 51 g 97 % 97 % 94 /min 20 /min 97.6 [degF] 132/96 mm[Hg] sabrina edward [facility] 5 14:10:21 Date Recorded Body height Body mass index (BMI) Body weight Oxygen saturation Oxygen saturation in Arterial blood by Pulse oximetry Heart rate Respiratory rate Body temperature Systolic And Diastolic Provider Name and Address Organization Details Last Updated DateTime 5 182.88 cm 33.1 kg/m2 280747. 54 g 95 % 95 % 100 /min 20 /min 97.5 [degF] 128/78 mm[Hg] caitlyn mchugh [facility] 5 13:02:20 Date Recorded Body weight Body mass index (BMI) Body height Oxygen saturation Oxygen saturation in Arterial blood by Pulse oximetry Heart rate Respiratory rate Body temperature Systolic And Diastolic Provider Name and Address Organization Details Last Updated DateTime 4 124880. 13 g 33.2 kg/m2 182.88 cm 95 % 95 % 80 /min 20 /min 98.7 [degF] 138/84 mm[Hg] sabrina edward [facility] 4 12:28:42 Social History Question Answer Notes LastModified by Organizat ion Details LastModified Time Tobacco Smoking Status Never Smoker dedrick barfield [facility] 06/13/2024 15:47:05 Do You Have An Advance Directive? No [email or web address] Information not available 06/25/2024 Is Your Home Air Conditioned? Yes Uses Wood Stove For Heat [email or web address] Information not available 06/25/2024 Where Do You Live? SingleLevelHouse [email or web address] Information not available 06/25/2024 Do You Have A Medical Power Of College President? No [email or web address] Information not available 06/25/2024 What Was The Date Of Your Most Recent Tobacco Screening? 07/18/2024 Information not available 07/18/2024 Do You Have Any Pets? Yes 2 Dogs, 2 Cats Information not available 06/13/2024 What Is Your Relationship Status? [email or web address] Information not available 06/22/2024 Are There Any Smokers In Your House? No [email or web address] Information not available 06/25/2024 Has Tobacco Cessation Counseling Been Provided? Yes [email or web address] Information not available 06/25/2024 On What Date Was Tobacco Cessation Counseling Provided? 09/19/2024 [email or web address] Information not available 09/19/2024 Have You Recently Traveled Abroad? No [email or web address] Information not available 06/25/2024 Are You Currently In School? No [email or web address] Information not available 06/25/2024 Sex: Unknown Functional Status Question Answer Note LastModified by Organizat ion Details LastModified Time Do you or have you ever used any other forms of tobacco or nicotine? Yes Chewing tobacco [email or web address] Information not available 06/13/2024 Do you or have you ever used smokeless tobacco? 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 Never used electronic cigarettes [email or web address] Information not available 06/25/2024 Mental Status None recorded. Family History Relationship Description Onset Age of this Age Resolved Age Notes LastModified by Organization Details LastModified Time Father Malignant neoplastic disease [email or web address] Not available 2023 15:44:01 Father Heart disease [email or web address] Not available 2023 15:44:57 Sister Chronic obstructive pulmonary disease [email or web address] Not available 06/25 12:49:17 Sister Heart disease [email or web address] Not available 2023 15:44:57 Sister Allergy [email or web address] Not availabl e 06/25/2024 12:48:19 Sister Asthma [email or web address] Not available 06/25/2024 12:48:30 Sister Malignant neoplastic disease [email or web address] Not available 06/25 12:49:03 Mother Heart disease Not available 2023 15:44:57 Mother Restless legs [email or web address] Not available 2023 15:45:20 Mother Sleep apnea [email or web address] Not avai lable 06/25/2024 12:50:06 Brother Heart disease [email or web address] Not available 2023 15:44:57 Brother Chronic obstructive pulmonary disease Not available 06/25 12:49:20 Brother Sleep apnea Not portillo ilable 06/25/2024 12:50:06 Maternal Grandfather Heart disease [email or web address] Not available 2023 15:44:57 Maternal Grandfather Restless legs [email or web address] Not available 2023 15:45:20 Maternal Grandfather Pulmonary embolism [email or web address] Not available 06/25 12:48:42 Maternal Grandmother Heart disease [email or web address] Not available 2023 15:44:57 Maternal Grandmother Pulmonary embolism [email or web address] Not available 06/22 11:17:21 Paternal Grandfather Heart disease [email or web address] Not available 2023 15:44:57 Paternal Grandfather Malignant neoplastic disease [email or web address] Not available 06/25 12:49:08 Medical History Condition Response Diabetes Y Sleep Apnea High Cholesterol Y Heart Disease Y Stroke Y Hospital Admission Other Than Y Hypertension Y Kidney Disease Y Past Encounters Encounter ID Performer Location Encounter Start Date Encounter Closed Date Diagnosis/Indication Diagnosis SNOMED-CT Code Diagnosis ICD10 Code Diagnosis Note [id number] Amado Gillis DO [place] [facility] [address] [place] [phone] 06/25/2024 12:11:32 06/25/2024 12:50:22 Hypersomnia 85661513 G47.10 [id number] Amado Gillis [facility] [address] [place] [address] [address] [place] [address] 07/12/2024 12:34:48 07/12/2024 13:26:58 Hypersomnia 97389810 G47.10 [id number] Amado Gillis [facility] [address] [place] [address] [address] [place] [id number] 07/18/2024 10:27:31 07/18/2024 10:55:05 Obstructive sleep apnea syndrome 32270940 G47.33 [id number] Amado Gillis [facility] [address] [place] [address] [address] [place] [id number] 09/19/2024 13:59:32 09/19/2024 14:24:13 Obstructive sleep apnea syndrome 50000063 G47.33 [id number] Amado Gillis [address] [place], [place] [id number] 10/17/2024 12:53:58 10/17/2024 13:18:59 Obstructive sleep apnea syndrome 07859701 G47.33 Health Concerns Section Related Observation LastModified by Organization Detai ls LastModified Time None Recorded Concern Status LastModified by Organization Details LastModified Time None Recorded Advance Directives Directive N: Payers Insurance Date Sequence Insurance Name Policy Number Policy Zamudio Covered Member ID Zamudio Member ID Guarantor Name 10/20/2024 1 [facility] (MEDICAID REPLACEMENT - HMO) [id number] Lewis Ordaz [id number] Lewis Ordaz 07/12/2024 1 [place] [id number] Lewis Ordaz [id number] Lewis Ordaz Notes Date Note Type Note Provider Name and Address Organization Details Recorded Time 06/25/2024 text/html This 53 year-old male presents to the office for evaluation of IVORY. He was reffered by [facility] Neuro Stroke department.Patient reports CVA in November 2023.The patient complains today of an occasional cough attributed to a tickle in the throat and shortness of breath on exertion. He is not currently on any inhaled respiratory medications and denies any respiratory diagnosis.The patient denies a smoking history but reports chewing tobacco. He has residential exposure to 2 cats and 1 dogs.The patient has a history of obstructive sleep apnea, diagnosed 10 years ago, but was unable to tolerate the mask. He has Oxygen for home use in lieu of CPAP but also states he is unable to tolerate the nasal cannula. Patient would like a referral for the Inspire device.Positive nocturnal respiratory symptoms include nightly awakenings, snoring, witnessed apneas, hypersomnia, brain fog, and a history of migraines.Denies any fever, chills, nausea, vomiting, or diarrhea Lili Youngblood NP [address], [place], [address], [facility] 06/25/2024 14:44:14 07/12/2024 text/html This is a 53 year-old female who presents to the office today to review the results of a home sleep study completed on 07/12/2023 that revealed inconclusive results due to a timed limited study. Lili Youngblood NP [address], [place], [address], [facility] 07/12/2024 13:32:41 07/18/2024 text/html This is a 53 year-old male who presents to the office today to review the results of a recent home sleep study completed on 07/18/2024 that revealed mild IVORY, AHI 9.5, KAVYA 77%, max HR 115 bpm. Results and proposed treatment plan was discussed with the patient. Patient denies any significant medical events since his last visit. Denies any fever, chills, n/v/d, abdominal pain or lower extremity edema. Lili Youngblood NP [address], [place], [address], [facility] 07/18/2024 11:19:25 09/19/2024 text/html This 53 year-old male returns to the office today for the ongoing management of IVORY.Patient denies any significant medical events since his last visit.Denies any shortness of breath, cough, wheezing or nocturnal respiratory symptoms.A CPAP compliance report was performed in the office today that revealed 3% compliance, 1/30 days overall, 0% greater than 4 hours with AHI: 0.0 and median leaks 0 L/min. Compliance data was discussed during todays visit.Patient states his stays up late and he has been staying up with her until 3 to 4 am and goes to bed without using his CPAP.Denies any fever, chills, n/v/d, abdominal pain or lower extremity edema. Lili Youngblood NP [address], [place], [address], [facility] 09/19/2024 20:12:10 10/17/2024 text/html This 53 year-old male returns to the office today for the ongoing management of IVORY.Patient denies any significant medical events since his last visit.Denies any shortness of breath, cough, wheezing or nocturnal respiratory symptoms.A CPAP compliance report was performed in the office today for the dates of 09/16/2024- 025 that revealed 10 days (33%) compliance greater than 4 hours, 25/30 days (83%) overall compliance, AHI 3.0 and median leaks 9.0 L/min. Compliance data was discussed during todays visit. Patient complains of excess moisture in his tubing and face mask.Denies any fever, chills, n/v/d, abdominal pain or lower extremity edema. Lili Youngblood NP [address], [place], [address], [facility] 10/19/2024 21:52:24
--- OUTSIDE RECORDS SUMMARY | 2025-01-14 13:59 | XMS_ITS | Continuity of Care Document ---
Author Organization [facility] Address [address] [place] [address] Care Team Providers Care Pickle Solution Maker Name Role Phone GRANTJACLYNEW Referring Provider SEBASTIAN CHAMBERS Referring Provider SARAH NGUYEN Primary Care Provider Assessment No assessment recorded. Plan of Treatment Reminders Order Date Submit Date Provider Last Modified By Organization Details Last Modified Time Details Appointments Annual Exam 2024 08:40A M Damaris Muniz APRN Not available Not available Not available Diabetic F/U 2024 01:40P M Sarah Nguyen APRN Not available Not available Not available Lab None recorded. Referral None recorded. Procedures None recorded. Surgeries None recorded. Imaging None recorded. Medication Orders None recorded. Patient TargetsNo targets recorded. Patient InstructionsNo instructions recorded. Reason for Referral None Reported. Results Created Date Observation Date Name Description Value Unit Range Abnormal Flag Note LastModifiedBy Organization Detail LastModifiedTime 11/13/1911/12/2024 XR, chest [facility] Name: RON LEWISJULY GARCÍA [address] [facility] Phys: Cat HERNANDEZ,[place] [address] : 1970 Age: 53 Sex: M Acct: [id number] Loc: Jermaine A PHONE #: Exam Date: 2024 Status : ADM IN FAX #: Rad# [id number] Unit# [id number] Admit Date: 2024 EXAMS: CPT CODE: [id number] 993 CHEST PORTAB LE [id number] EXAM: XR CHEST 1 VIEW PORTAB LE [...] DO PAGE 1 Signed Report (FRANCISCA NUED) [facility] Name: LEWIS ORDAZDE Formerly [facility] [employer] Phys: Cat HERNANDEZ,Boogie Somers [facility] [place] [address] : 1970 Age: 53 Sex: M Acct: [id number] Loc: G.310 A PHONE #: Exam Date: 2024 Status : ADM IN FAX #: [phone] Rad# [id number] Unit# [id number] Admit Date: 2024 EXAMS: CPT CODE: [id number] 993 CHEST PORTAB LE [id number] CC: Erick Nguyen COLOR PRINTER OPERATOR; Maci Diaz MD Dictat ed Date/T tim: 2024 (825) Techno logist : ALISHA Parikh RT(R)( CT); BAKARI Lamas Transc ribed Date/T tim: 2024 (825) Transc riptio nist: DR.HAL Friedman onjennie Signat ure Date/T tim: 2024 (825) Printe d Date/T tim: 2024 (1104) BATCH NO: N/A PAGE 2 Signed Report CC'ed Logic: Orderi ng Provid er: CAT SCOTT Attend ing Provid er: CAT SCOTT Referr ing Provid er: PHYSIC MADONNAKati CISNEROS Consul ting Provid er: WENDY Overton Admitt ing Provid er: CAT [email or web address] , [place], [address], 11/13/2024 11:31:05 11/13/19 25 11/12/2024 US, abdom en, limit ed [facility] Name: LEWIS ORDAZ [address] [place] [address] Drive Phys: Cat HERNANDEZ,Boogie [place] [address] : 1970 Age: 53 Sex: M Acct: [id number] Loc: Jermaine A PHONE #: Exam Date: 2024 Status : ADM IN FAX #: Rad# [id number] Unit# [id number] Admit Date: 2024 EXAMS: CPT CODE: [id number] 994 US ABDOME N LIMITE D 77093 US ABDOME N LIMITE D Reason for [...] DO PAGE 1 Signed Report (FRANCISCA NUED) [facility] Name: LEWIS ORDAZ [facility] JANZZ Phys: Cat HERNANDEZ,Boogie Somers [facility] [place] [address] : 1970 Age: 53 Sex: M Acct: [id number] Loc: G.310 A PHONE #: [phone] Exam Date: 2024 Status : ADM IN FAX #: [phone] Rad# [id number] Unit# [id number] Admit Date: 2024 EXAMS: CPT CODE: [id number] 994 US ABDOME N LIMITE D 78042 CC: Erick Nguyen APRN; Maci Diaz MD Dictat ed Date/T tim: 2024 (1101) Techno logist : LINDSA Y STEFANIE Transc ribed Date/T tim: 2024 (1101) Transc riptio nist: DR.HAL Friedman onic Signat ure Date/T tim: 2024 (1101) Printe d Date/T tim: 2024 (9357) BATCH NO: N/A PAGE 2 Signed Report CC'ed Logic: Orderi ng Provid er: CAT SCOTT Attend ing Provid er: CAT SCOTT Referr ing Provid er: PHYSIC MADONNA AMELIA Consul ting Provid er: WENDY Overton Admitt ing Provid er: CAT [email or web address] [address] , [place], [address], 11/13/2024 11:31:05 11/13/19 25 11/12/2024 - MRI lumba r spine wwo cont [facility] Ce Name: LEWIS ORDAZ [address] [place], [place] [address] [address] Phys: [place] [address] : 1970 Age: 53 Sex: M Acct: [id number] Loc: G.310 A PHONE #: Exam Date: 2024 Status : ADM IN FAX #: Rad# [id number] Unit# [id number] Admit Date: 2024 EXAMS: CPT CODE: [id number] [id number] MRI LUMBAR SPINE WWO CONT 74384 EXAMIN ATION: MR LUMBAR SPINE WITHOU T [...] nal PAGE 1 Signed Report (FRANCISCA NUED) [facility] Name: LEWIS ORDAZ [facility] JANZZ Phys: Cat HERNANDEZ,Boogie Somers [facility] [place] [address] : 1970 Age: 53 Sex: M Acct: [id number] Loc: G.310 A PHONE #: Exam Date: 2024 Status : ADM IN FAX #: [phone] Rad# [id number] Unit# [id number] Admit Date: 2024 EXAMS: CPT CODE: [id number] [id number] MRI LUMBAR SPINE WWO CONT 41577 narrow ing withou t defini te encroa [...] PHYSIC MADONNA NO Consul ting Provid er: FRYMAN EUGJW Storm er: CAT MARTINEZLY [email or web address] [facility] [address] [place], [address], 11/13/2024 11:31:05 01/02/20 25 XR, lumba r spine No observ ation record ed. [email or web address] [facility] [address], [place], [address], 01/03/2025 15:07:08 Result Notes None recorded. Problems Name Problem SNOMED Code Status Onset Date Resolution Date Notes Provider Name and Address Organization Details Recorded Time Hypertensi ve disorder 22097332 Active Tamanna Phelps null, [place] - [facility] 11:25:40 Type 2 diabetes mellitus 79083549 Active Tamanna Phelps null, [place] - [facility] 11:25:50 Sleep apnea 23404410 Active Tamanna Phelps null, [place] - [facility] 11:26:23 Neuropathy 156066502 Active 2022 Sarah Nguyen, COLOR PRINTER OPERATOR [address], [place], [address] , [place] - [facility] 14:45:26 Chronic back pain 376703532 Active 2022 Sarah Nguyen, COLOR PRINTER OPERATOR [address], [place], [address] , [place] - [facility] 14:45:41 Chronic neck pain 0790723751403 Active 2022 Sarah Nguyen, COLOR PRINTER OPERATOR [address], [place], [address] , [place] - [facility] 14:45:51 Migraine 98394956 Active 2022 Sarah Nguyen, COLOR PRINTER OPERATOR [address], [place], [address] , [place] - [facility] 14:45:59 Depressive disorder 59769289 Active 2022 Sarah Nguyen COLOR PRINTER OPERATOR [address], [place], [address] , [place] - [facility] 10:49:49 Gout 55251510 Active 2023 Tiffanie Stears null, [place] - [facility] 10:23:45 Restless legs 99465635 Active 2023 Tiffanie Stears null, [place] - [facility] 10:23:56 Chronic constipati on 696286364 Active 2023 Tiffanie Stears null, [place] - [facility] 10:24:38 Hyperlipid emia 92444391 Active 2023 Sarah Nguyen, COLOR PRINTER OPERATOR [address], [place], [address] , [place] - [facility] 11:03:13 Cerebrovas cular accident 393046350 Active 2023 Sarah Nguyen, COLOR PRINTER OPERATOR [address], [place], [address] , [place] [facility] 15:54:51 Vitamin D deficiency 03420112 Active 2023 Sarah Nguyen, COLOR PRINTER OPERATOR [address], [place], [address] , [place] [facility] 16:40:48 Essential hypertensi on 07522760 Active 2024 Damaris HiramSami quezada, COLOR PRINTER OPERATOR [address], [place], [address] , [place] [facility] 14:54:31 Asthenia 65306853 Active Tamanna Phelps null, [place] - [facility] 15:32:06 Sepsis 67571080 Active Tamanna Phelps [place], [place] - [facility] 15:32:06 Low back pain 958365442 Active 2024 Damaris HiramSami augustofranco, COLOR PRINTER OPERATOR [address], [place], [address] , [place] [facility] 14:34:16 Kidney stone 10002681 Active 2024 Damaris HiramSami pilar, COLOR PRINTER OPERATOR [address], [place], [address] , [place] [facility] 14:35:13 Renal impairment 343102338 Active 2024 Damaris quezada, COLOR PRINTER OPERATOR [address], [place], [address] , [place] - [facility] 14:35:59 Insulin treated type 2 diabetes mellitus 099900440 Active 2024 Damaris quezada, COLOR PRINTER OPERATOR [address], [place], [address] , [place] - [facility] 14:37:44 Problem Notes None recorded. Procedures Surgical History Date Name Laterality Status Provider Name and Address Organization Details Recorded Time 02/21/20 24 Suture/Staple removal completed Sarah Nguyen, COLOR PRINTER OPERATOR [address], [place], [address], [place] - [facility] 02/21/2024 17:09:37 12/01/19 24 [...] Name and Address Organization Details Recorded Time 605458 ibuprofen medicatio n other moderate high 06/17/2022 5640 RxNorm Tamanna barfield, [place] - [facility] 11:23:56 299935 primidone medicatio n Not available Not available high 07/15/2022 8691 RxNorm agres teddy/ anxie ty- does not want to take again Tamanna Phelps null, [place] - [facility] 14:03:33 Medications Name Sig Start [...] Not Available Not Available No t Available AdScootTouch Ultra Test strips USE TO TEST BLOOD [...] Not Available No t Available Dexcom G6 Warehouse Loader USE DIRECTED 2022 active Not Available Not [...] Not Available Not Available FreeStyle Nir 2 [place] DIRECTED (SCAN SELF AT LEAST THREE (3) [...] Not Available Vitals Date Recorded Body height Heart rate Oxygen saturation Oxygen saturation in Arterial blood by Pulse oximetry Respiratory rate Systolic And Diastolic Provider Name and Address Organization Details Last Updated DateTime 182.88 cm 110 /min 96 % 96 % 18 /min 128/88 mm[Hg] Tamanna Phelps [place] - [facility] 15:42:17 Social History Question Answer Notes LastModified by Organizat ion Details LastModified Time Tobacco Smoking Status Never Smoker Tamanna Phelps null, [place] - [facility] 06/17/2022 11:27:17 Do You [...] Or The Highest Degree You Have Received? [id number] Information not available 06/17/2022 Have There Been Any Changes To Your Family Or Social Situation? No Information no t available 06/17/2022 What Is The Fluoride Status Of Your Home? Fluoridated Information not available 06/17/2022 Have You Recently Or Are You Planning To Travel To An Area With Zika Virus? No Information not available 06/17/2022 Do You Have A Medical Power Of Foreclosure Field Inspector? No Information not available 06/17/2022 What Was [...] anxious, or unable to sleep at night)? [id number] Information not available 06/17/2022 Do you have [...] available 2021 11:23:28 Medical History Condition Response Gout Y Constipation Y Diabetes Y Muscle, Joint, or Bone Problems Y Vision or Eye Problems Y Arthritis Y Hypercholesterolemia Y Sleep Apnea Y Neuropathy Y Headaches Y Hypertension Y Immunizations Vaccine Type Date Status Note Provider Nam e and Address Organization Details Recorded Time Influenza, split virus, quadrivalent, PF 0 completed Tamanna Phelps null, [place] - [facility] 06/17/2022 11:43:26 Tdap 7 completed Tamanna Phel[place] [facility] 06/17/2022 11:43:26 Influenza, split virus, trivalent, PF 8 completed Tamannatc Phelps [place], [place] [facility] 06/17/2022 11:43:26 Influenza, split virus, quadrivalent, PF 8 completed Tamanna [place]hel[place] [facility] 06/17/2022 11:43:26 Influenza, split virus, quadrivalent, PF 6 completed Tamannatc [place]hel[place] [facility] 06/17/2022 11:43:26 Influenza, split virus, quadrivalent, preservative 7 completed Tamanna [place]hel[place] [facility] 06/17/2022 11:43:26 Tdap 6 completed Tamanna [place] [facility] 06/17/2022 11:43:26 COVID-19 vaccine, vector-nr, rS-Ad26, PF, 0.5 mL 1 completed Tamanna Phel[place], [place] [facility] 06/17/2022 11:43:26 zoster recombinant 4 completed Chasity barfield, [place] - [facility] 10/20/2023 11:40:11 zoster recombinant 4 completed Chasity barfield, [place] - [facility] 12/20/2023 16:07:43 Past Encounters Encounter ID Performer Location Encounter Start Date Encounter Closed Date Diagnosis/Indication Diagnosis SNOMED-CT Code Diagnosis ICD10 Code Diagnosis Note [id number] Damaris quezada [facility] [address] [place] [address] 10/25/2024 12:44:50 10/25/2024 13:56:15 Type 2 diabetes mellitus 93845580 Z79.4 A1c 8.5 08/28/24. Patient wants to switch to Medtronic. Patient is in contact with [employer] rep. Patient entered glucose into Omnipod and give himself bolus manually. Reviewed Dexcom G6 report with patient. Current blood sugar is 119, Average 158, in range 85%, high 15%. Will contact Sarkis, [employer] rep for update. [id number] Damaris quezada APRN [facility] [address] [place] [address] 11/05/2024 11:11:55 11/05/2024 11:54:09 Type 2 diabetes mellitus 68330864 Z79.4 A1c 8.5 08/28/24. Patient wants to switch to Medtronic. Patient is in contact with [employer] rep. Patient enters glucose into Omnipod and give himself bolus manually. Will contact Sarkis, [employer] rep for update. Body mass index 30+ - obesity 089218049 Z68.32 [id number] Damaris quezada APRN [facility] [address] [place] [address] 11/19/2024 09:43:59 11/19/2024 11:15:35 Type 2 diabetes mellitus 01736147 Z79.4 A1c 8.1, uncontroll ed, improved. Patient wants to switch to Medtronic. Avoid sweet tea and soft drinks. Make appointmen t with nutritioni . Essential hypertension 00633271 I10 BP 124/85 controlled . Continue Valsartan 160mg daily, Amlodipine 5mg at bedtime. Body mass index 30+ - obesity 302864908 Z68.32 [id number] Claudia Webb, MS, RDN, LDN [facility] [address] [place] [address] 11/22/2024 13:48:43 11/22/2024 15:57:06 Type 2 diabetes mellitus 55043189 E11.9 Z79.4 Health Concerns Section Related Observation LastModified by Organization Detai ls LastModified Time None Recorded Concern Status LastModified by Organization Details LastModified Time None Recorded Payers Encounter Date Sequence Insurance Name Policy Number Policy Zamudio Covered Member ID Zamudio Member ID Guarantor Name 11/22/2024 1 [facility] ([place]AC[place] - [place] Lewis Ordaz [id number] Lewis Ordaz Notes Date Note Type Note Provider Name and Address Organization Details Recorded Time 5 text/htm l Initial Nutrition assessment for:[id number] was referred by:Davina Leary history: Medical History:DM, HTN, hyperlipidemia, Vit D deficiency, CVA, gout, neuropathy, sleep apnea, obesity, depression,Medications:Synja rdy BID, SSI, insulin pumpDexacomFamily History:hypercholesterolemia , DM, CA, HTN,Personal History Social History: Employment:noSmoking Status:nonDiet Recall Breakfast:not usuallyegg and sausage on toast or Croatian muffinSnack:noLunch:not alwaysSnack: Dinner:porkchickenbeef- greens and 1/2 cup of starchSnack:on occasion-peanut butter and crackers,Beverages:Tea w/splenda Notes and/or Diet History:Has been able to see how what he eats effects his blood sugar, he is getting set up with a regular pump next week.Physical Activity/Sleep:limited with back issuesLabs:A1C 8.1, POC 317, chol 232, Trig 366, HDL 32 and LDL 134Energy Needs:72 , 240#, BMI 32.14555 caloriesNutrition Diagnosis:[facility]ci Goals:To get A1C < 7Short Term Goals:1) Try to eat 3 meals/day with a consistent amount of carbohydrate at meals and snacks. 2) Include protien with meals and snacks. 3) Read food labels to help with proper portions and counting carbohydrates.Nutrition Prescription:DM My Plate 45-60 gm of carbohydrate at meals and 0-15 gm at snacks.Intervention #1: Modify distribution, type, amount of food and nutrients within a meal or at specified times ND1.2Follow diet prescriptionIntervention #2: Nutrition Education E1.1Discussed his current diet and made suggestions for changes. His was also present and she has good knowledge of carbs and portions, but felt he should also hear it from someone else. Reviewed DM My plate/carbohydrate foods- balanced meals and label reading.Intervention #3: Self monitoring C2.3CGMMonitoring and Evaluation:Food/Nutrient-rel ated history outcomes: Types of food/meals Labs:A1C < 7Anthropometric:weight lossHandouts provided:Planning Healthy Meals/DM My Plate, sample meal plan, carbohydrate foods/proper portions and label reading.[id number] of face to face time with patient. Claudia Webb MS, RDN, LDN [address], [place], [address], [employer] 11/23/2024 11:43:29 5 text/htm l 54 yr old male presents to follow up on hospital stay for sepsis. He was admitted to [facility] for observation for sepsis due to low back. pt states he was told he finished a course of antibiotics. pt states he is doing well since d/c just having low back pain. pt states pain management is going to do epidural to help with pain. has pain pump in place. pt states he has appointment with his back dr in january Sarah Nguyen, BERTHA [address], [place], [address], [employer] 11/23/2024 16:26:11
--- OUTSIDE RECORDS SUMMARY | 2025-01-14 13:59 | XMS_ITS | Data Portability ---
Author Organization [facility] & [facility] ADMIN Address [address] [place] [id number] Care Team Providers Care Inside Sales Lead Name Role Phone SVEN CHAMBERS Referring Provider SARAH NGUYEN Primary Care Provider [phone] Assessment No assessment recorded. Plan of Treatment Reminders Order Date Submit Date Provider Last Modified By Organization Details Last Modified Time Details Appointments None record ed. Lab None record ed. Referral None record ed. Procedures None record ed. Surgeries None record ed. Imaging None record ed. Medication Orders None record ed. Patient TargetsNo targets recorded. Patient Instructions Encounter Date Encounter Id Patient Instructions Last Modified By Organization Details Last Modified Time 08/16/2022 [id number] Will have him ge t home sleep study as this has been 7 years and he has lost approximately 100 pounds since then. [email or web address] Not available 08/16/2022 10:00:20 Reason for Referral None Reported. Problems Name Problem SNOMED Code Status Onset Date Resolution Date Notes Provider Name and Address Organization Details Recorded Time Chronic back pain 054063549 Active Marcia Christy null, [place] - [facility] & [place] 3 12:13:21 Carotid artery stenosis 88828143 Active Marcia Christy null, [place] - [facility] - [place] & [place] 3 12:14:07 Hyperlipidemia 57095406 Active Marcia Christy null, [place] - [facility] & [place] 3 12:14:14 Neuropathy 310276931 Active Marcia Christy null, [place] - [facility] - [place] & [place] 3 12:14:25 Problem Notes None recorded. Procedures Surgical History Date Name Laterality Status Provider Name and Address Organization Details Recorded Time Cervical Spine Surgery completed [facility] & [place] 08/16/2022 09:23:05 Lumbar Spine Surgery completed Marcia Christy WHITE [facility] & [place] 08/16/2022 09:22:59 Unlisted px hands/fingers completed Marcia Simental [facility] & [place] 08/16/2022 09:23:24 Unlisted px femur/knee completed Marcia Christy WHITE [facility] & [place] 08/16/2022 09:23:59 cardiac catheterization completed Marcia Simental [facility] & [place] 08/16/2022 09:24:19 colonoscopy completed [facility] Christy CHAVEZ - L PNT [facility] & [place] 08/16/2022 09:24:24 Imaging Results None recorded. Procedure Notes None recorded. Medical Equipment None Reported. Allergies Allergen ID Allergen Name Allergen Category Reaction Reaction Severity Criticality Documentation Date Start Date Code Code System Note Provider Name and Address Organization Details Recorded Time 65246 Iodinated contrast media (substanc e) medicatio n vomiting Not available Not available 08/13/2022 62405 2004 SNOMED KATHY Arreguin [facility] & [place] 3 12:02:18 53740 primidone medicatio n Not available Not available Not available 08/13/2022 8691 RxNorm KATHY Arreguin [facility] & [place] 3 12:02:32 Medications Name Sig Start Date Stop Date Status Note LastModified by Organization Details LastModified Time BD Luer-Lyndon Syringe 3 mL 23 x 1 USE DIRECTED WITH B12 INJECTION S active Not Available Not Available No t Available atorvastati n 40 mg tablet TAKE ONE (1) TABLET EVERY NIGHT AT BEDTIME 08/16 completed Not Available Not Available Not Available primidone 50 mg tablet TAKE ONE (1) TABLET AT BEDTIME FOR 7 DAYS AND IF WELL TOLERATED WITH ONGOING TREMOR INCREASE TO ONE (1) TABLET TWICE DAILY UNTIL FOLLOW UP 08/16 completed Not Available Not Available Not Available tizanidine 4 mg tablet TAKE TWO (2) TABLETS EVERY NIGHT AT BEDTIME active Not Available Not Available No t Available prednisone 20 mg tablet TAKE ONE (1) TABLET BY MOUTH TWICE DAILY WITH FOOD OR MILK 08/16 completed Not Available Not Available Not Available acetaminoph en 300 mg-codeine 30 mg tablet TAKE ONE (1) TABLET BY MOUTH EVERY FOUR (4) HOURS NEEDED FOR PAIN 08/16 completed Not Available Not Available Not Available aspirin 81 mg tablet,soledad yed release Take 1 tablet every day by oral route. active Not Available Not Available No t Available bisoprolol fumarate 10 mg tablet Take 2 tablets twice a day by oral route. active Not Available Not Available No t Available Humalog U-100 Insulin 100 unit/mL subcutaneou s solution USE DIRECTED PER SLIDING SCALE; MAX DAILY DOSE OF 200 UNITS DAILY active Not Available Not Available No t Available OneTouch Ultra Test strips USE TO TEST BLOOD SUGAR THREE (3) TIMES DAILY active Not Available Not Available No t Available nortriptyli ne 10 mg capsule TAKE TWO (2) CAPSULES AT BEDTIME active Not Available Not Available No t Available cyanocobala min (vit B-12) 1,000 mcg/mL injection solution INJECT ONE (1) ML EVERY MONTH BY SUBCUTANE OUS ROUTE. active Not Available Not Available No t Available hydrochloro thiazide 12.5 mg capsule TAKE ONE (1) CAPSULE EVERY DAY active Not Available Not Available No t Available pramipexole 0.25 mg tablet TAKE ONE (1) TABLET EVERY NIGHT AT BEDTIME active Not Available Not Available No t Available gabapentin 300 mg capsule Take 1 capsule 3 times a day by oral route. active Not Available Not Available No t Available gabapentin 100 mg capsule TAKE ONE (1) CAPSULE THREE (3) TIMES DAILY 08/16 completed Not Available Not Available Not Available colchicine 0.6 mg tablet Take 1 tablet twice a day by oral route. active Not Available Not Available No t Available fluticasone propionate 50 mcg/actuati on nasal spray,suspe nsion [place] 1 spray every day by intranasa l route. active Not Available Not Available No t Available cyanocobala min (vit B-12) 1,000 mcg/mL injection syringe SQ MONTHLY 08/16 completed Not Available Not Available Not Available rosuvastati n 20 mg tablet Take 1 tablet every day by oral route. active Not Available Not Available No t Available duloxetine 60 mg capsule,del ayed release TAKE ONE (1) CAPSULE EVERY DAY 08/16 completed Not Available Not Available Not Available fenofibrate 160 mg tablet Take 1 tablet every day by oral route. active Not Available Not Available No t Available tizanidine TAKE 2 TABLETS EVERY NIGHT AT BEDTIME 08/16 completed Not Available Not Available Not Available hydrochloro thiazide 1 capsule every day 08/16 completed Not Available Not Available Not Available Humalog U-100 Insulin USE DIRECTED PER SLIDING SCALE; MAX DOSE OF 200 UNITS DAILY active Not Available Not Available No t Available duloxetine 1 CAPSULE EVERY DAY 08/16 completed Not Available Not Available Not Available BD Ultra-Fine Elana Pen Needle 32 gauge x USE DIRECTED active Not Available Not Available No t Available Synjardy 12.5 mg-1,000 mg tablet Take 1 tablet twice a day by oral route. active Not Available Not Available No t Available flash glucose sensor FreeStyle Nir 2 Sensor Kit -- change every 14 days active Not Available Not Available No t Available flash glucose scanning reader FreeStyle Nir 2 [place] (Scan self at least TID) active Not Available Not Available No t Available Ozempic 0.25 mg or 0.5 mg (2 mg/1.5 mL) subcutaneou s pen injector INJECT 0.5MG SUBCUTANE OUSLY ONCE WEEKLY active Not Available Not Available No t Available Ozempic INJECT 0.5MG SUBCUTANE OUSLY ONCE WEEKLY active Not Available Not Available No t Available Omnipod Dash Pods (Gen 4) subcutaneou s cartridge DIRECTED active Not Available Not Available No t Available Ajovy Syringe 225 mg/1.5 mL subcutaneou s INJECT 1.5ML SUBCUTANE OUSLY EVERY MONTH active Not Available Not Available No t Available OneTouch Ultra2 Meter USE DIRECTED active Not Available Not Available No t Available OneTouch Delica Plus Lancet 30 gauge USE TO TEST BLOOD SUGAR THREE (3) TIMES DAILY active Not Available Not Available No t Available ubrogepant 100 mg tablet Take 1 tablet every day by oral route as needed. active Not Available Not Available No t Available fremanezuma b-vfrm 225 mg/1.5 mL subcutaneou s auto-inject or INJECT 225 MG BY SUBCUTANE OUS ROUTE ONCE A MONTH IN THE ABDOMEN, THIGH, OR UPPER ARM active Not Available Not Available No t Available Gvoke HypoPen 1-Pack 1 mg (0.2 mL) SQ ONCE active Not Available Not Available No t Available FreeStyle Nir 2 Sensor kit CHANGE SENSOR EVERY 14 DAYS active Not Available Not Available No t Available FreeStyle Nir 2 [place] DIRECTED (SCAN SELF AT LEAST THREE (3) TIMES DAILY ) active Not Available Not Available No t Available Vitals Date Recorded Body height Body mass index (BMI) Body weight Body temperature Oxygen saturation Oxygen saturation in Arterial blood by Pulse oximetry Heart rate Systolic And Diastolic Provider Name and Address Organization Details Last Updated DateTime 3 182.88 cm 31.9 kg/m2 547987. 21 g 97.4 [degF] 97 % 97 % 72 /min 137/91 mm[Hg] Marcia Harrison [facility] - [place] & [place] 3 09:28:12 Social History None recorded. Functional Status None recorded. Mental Status None recorded. Family History Relationship Description Onset Age of this Age Resolved Age Notes LastModified by Organization Details LastModified Time Unspecified Relation Malignant neoplastic disease [email or web address] Not available 2022 09:21:55 Unspecified Relation Heart disease [email or web address] Not available 2022 09:22:07 Unspecified Relation Diabetes mellitus [email or web address] Not available 2022 09:22:15 Unspecified Relation Cerebrovascu lar accident [email or web address] Not available 09:22:21 Medical History No medical history recorded. Past Encounters Encounter ID Performer Location Encounter Start Date Encounter Closed Date Diagnosis/Indication Diagnosis SNOMED-CT Code Diagnosis ICD10 Code Diagnosis Note [id number] Rose Laughlin MD [facility] [address] [facility] [address] [place] [id number] 08/16/2022 08:52:48 08/16/2022 12:32:58 Obstructive sleep apnea of adult 0418615861 103 G47.33 Snoring 72331181 R06.83 Health Concerns Section Related Observation LastModified by Organization Detai ls LastModified Time None Recorded Concern Status LastModified by Organization Details LastModified Time None Recorded Advance Directives Directive None Recorded Payers Insurance Date Sequence Insurance Name Policy Number Policy Zamudio Covered Member ID Zamudio Member ID Guarantor Name 01/21/2024 1 MARGE-KATHY: [place]E [place] - [place]ICA[place] [id number] [id number] Lewis Ordaz Notes Date Note Type Note Provider Name and Address Organization Details Recorded Time 08/16/2022 text/html Patient is here today for sleep apena, states he has used CPAP before and failed multiple times. He is not interested in BiPAP either. He does use oxygen on 2 of the night. Has had sleep study done in [facility], in 2016 which had a RDI in the low 30s. He has since lost about 100lbs since 2016. Rose Laughlin MD [id number], [place], [address], [facility] - [place] & [place] 08/16/2022 10:00:36
--- OUTSIDE RECORDS SUMMARY | 2025-01-14 14:00 | XMS_ITS | Data Portability ---
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 Name Role Phone HONG BURNS Referring Provider SEBASTIAN CHAMBERS Referring Provider GEORGE NGUYEN Primary Care Provider Assessment Encounter Date Assessment Date Assessment LastModified [...] available Diabet ic F/U 2024 01:40P Ivon Nguyen, MANAGER PORTABLE Not available Not available Not available Lab rapid SARS CoV + SARS CoV 2 Ag, QL IA, respir atory specim en 2024 025 [facility], [address], [place], [address], 11/30/2024 16:56:03 rapid flu (A+B) 2024 025 [facility], [address], [place], [address], 11/30/2024 16:55:56 rapid strep group A, throat 2024 025 [facility], [address], [place], [address], 11/30/2024 16:55:47 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 Imaging XR, lumbar spine 2024 025 [facility], [address], [place], [address], 01/01/2025 10:12:29 Medication Orders Humuli n R U-500 (Ashlee ntrate d) Insuli n 500 unit/m L subcut aneous soln 2024 025 [facility], [address], [place], [address], 12/31/2024 14:38:55 Humalo g U-100 Insuli n 100 unit/m L subcut aneous soluti on 2024 025 [facility], [address], [place], [address], 12/20/2024 13:47:06 albute rol sulfat e HFA 90 mcg/ac tuatio n aeroso l inhale r 2024 025 [facility], [address], [place], [address], 11/30/2024 15:43:29 Zithro max Z-Tony 250 mg tablet 2024 025 [facility] [place], [facility] [address], [place], [address], 12/20/2024 14:01:36 Patient Targets Encounter Date Encounter Id Patient Goals Patient Target Last Modified By Organization Details Last Modified Time 12/20/2024 [id number] Goal is A1c 6.5, lose 15 lbs., increase water and exercise as tolerated [email or web address] Not available 12/20/2024 16:48:56 12/31/2024 [id number] Goal is A1c 6.5, increase water and exercise as tolerated. [email or web address] Not available 12/31/2024 14:44:42 Patient Instructions Encounter Date Encounter Id Patient Instructions Last Modified By Organization Details Last Modified Time 11/30/2024 [id number] strep, covid and flu screens were negative. We will treat with Zpac and Albuterol Inhaler (spouse will athletic coach on use) RTC if not better 3-5 days. [email or web address] Not available 11/30/2024 15:57:34 12/20/2024 [id number] learning about healthy weight [email or web address] Not available 12/20/2024 13:22:51 body mass index: care instructions [email or web address] Not available 12/20/2024 13:22:51 pump and meter download and interpretation* Not available 12/20/2024 16:45:26 Call if any questions or if symptoms worsen. [email or web address] Not available 12/20/2024 16:49:09 12/31/2024 [id number] Call if any questions or if symptoms worsen. 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 wants to transfer from Referring Physician: Damaris Rodas, Family Medicine, Encounter Date: 12/31/2024 Results Created Date Observation Date Name Description Value Unit Range Abnormal Flag Note LastModifiedBy Organization Detail LastModifiedTime 11/12/19 25 11/11/2024 THYRO ID PANEL W/TSH note See Note Order ing Provi kathrin: Maci britton MD Not Available [address] , [place], [address], 11/11/2024 18:39:49 11/12/19 25 11/11/2024 THYRO ID PANEL W/TSH T4 free 1.18 NG/dL 0.76-1 .46 normal This test may be affec barrett by high level s of bioti n, found in some presc ripti on and over- the-c ounte r suppl ement s. [place], patie nts shoul d disco ntinu e bioti n 3 days befor e testi ng. Resul ts obtai treasure after recen t bioti n inges tion shoul d be inter prete d with cauti on. Not Available [address] , [place], [address], 11/11/2024 18:39:49 11/12/19 25 11/11/2024 THYRO ID PANEL W/TSH thyroid stimulating hormone 1.69 uIU/m L 0.36-3 .74 normal This test may be affec barrett by high level s of bioti n, found in some presc ripti on and over- the-c ounte r suppl ement s. [place], patie nts shoul d disco ntinu e bioti n 3 days befor e testi ng. Resul ts obtai treasure after recen t bioti n inges tion shoul d be inter prete d with cauti on. Not Available [address] , [place], [address], 11/11/2024 18:39:49 11/12/1911/11/2024 THYRO ID PANEL W/TSH performing lab see note - PATRICIA [address] [employer] [address] Not Available [address] , [place], [address], 11/11/2024 18:39:49 11/12/19 25 11/11/2024 C-RAY CTIVE PROTE IN note See Note Order ing Provi kathrin: Maci britton MD Not Available [address] , [place], [address], 11/11/2024 18:39:50 11/12/19 25 11/11/2024 C-RAY CTIVE PROTE IN C-reactive protein <5.0 mg/L <5.0 NOT E NEW REFER ENCE RANGE S Not Available [address] , [place], [address], 11/11/2024 18:39:50 11/12/19 25 11/11/2024 C-RAY CTIVE PROTE IN performing lab see note - [facility] [address] [employer] [address] Not Available [address] , [place], [address], 11/11/2024 18:39:50 11/12/19 25 11/11/2024 CREAT INE KINAS E (CK) note See Note Order ing Provi kathrin: Maci britton MD Not Available [address] , [place], [address], 11/11/2024 18:39:51 11/12/19 25 11/11/2024 CREAT INE KINAS E (CK) creatine kinase (CK) 383 U/L 39-308 high Not Available [address] , [place], [address], 11/11/2024 18:39:51 11/12/19 25 11/11/2024 CREAT INE KINAS E (CK) performing lab see note - [facility] R [address] [place] [address] Not Available [address] , [place], [address], 11/11/2024 18:39:51 11/12/19 25 11/11/2024 GLUCO SE POINT OF CARE note See Note Order ing Provi kathrin: Maci britton MD Not Available [address] , [place], [address], 11/11/2024 19:59:01 11/12/19 25 11/11/2024 GLUCO SE POINT OF CARE glucose point of care 206 mg/dL 70-99 high Not Available [address] , [place], [address], 11/11/2024 19:59:01 11/12/19 25 11/11/2024 GLUCO SE POINT OF CARE performing lab see note [facility] [address] [place] [address] Not Available [address] , [place], [address], 11/11/2024 19:59:01 11/13/19 25 11/12/2024 GLUCO SE POINT OF CARE note See Note Order ing Provi kathrin: Maci britton MD Not Available [address] , [place], [address], 11/12/2024 00:25:54 11/13/19 25 11/12/2024 GLUCO SE POINT OF CARE glucose point of care 229 mg/dL 70-99 high Not Available [address] , [place], [address], 11/12/2024 00:25:54 11/13/19 25 11/12/2024 GLUCO SE POINT OF CARE performing lab see note [facility] [address] [place] [address] Not Available [address] , [place], [address], 11/12/2024 00:25:54 11/13/19 25 11/12/2024 GLUCO SE POINT OF CARE note See Note Order ing Provi kathrin: Maci britton MD Not Available [address] , [place], [address], 11/12/2024 03:47:42 11/13/19 25 11/12/2024 GLUCO SE POINT OF CARE glucose point of care 219 mg/dL 70-99 high Not Available [address] , [place], [address], 11/12/2024 03:47:42 11/13/1911/12/2024 GLUCO SE POINT OF CARE performing lab see note [facility]PO - [address] [facility] [address] Not Available [address] , [place], [address], 11/12/2024 03:47:42 11/13/19 25 11/12/2024 CBC W/AUT O DIFFE RENTI AL note See Note Order ing Provi kathrin: Maci britton MD Not Available [address] , [place], [address], 11/12/2024 05:22:58 11/13/19 25 11/12/2024 CBC W/AUT O DIFFE RENTI AL white blood cell 7.9 10e3/ uL 4.5-13 .0 normal Not Available [address] , [place], [address], 11/12/2024 05:22:58 11/13/19 25 11/12/2024 CBC W/AUT O DIFFE RENTI AL red blood cell 4.51 10e6/ uL 4.10-5 .70 normal Not Available [address] , [place], [address], 11/12/2024 05:22:58 11/13/19 25 11/12/2024 CBC W/AUT O DIFFE RENTI AL hemoglobin 13.9 g/dL 12.0-1 6.9 normal Not Available [address], [place], [address], 11/12/2024 05:22:58 11/13/19 25 11/12/2024 CBC W/AUT O DIFFE RENTI AL hematocrit 40.0 % 36.0-4 9.0 normal Not Available [address] [place], [place], [address], 11/12/2024 05:22:58 11/13/19 25 11/12/2024 CBC W/AUT O DIFFE RENTI AL mean cell volume 89 fL 78.0-9 8.0 normal Not Available [address], [place], [address], 11/12/2024 05:22:58 11/13/19 25 11/12/2024 CBC W/AUT O DIFFE RENTI AL mean cell HGB 30.8 pg 25.0-3 5.0 normal Not Available [place] [address], [place], [address], 11/12/2024 05:22:58 11/13/19 25 11/12/2024 CBC W/AUT O DIFFE RENTI AL mean cell HGB concentratio n 34.8 g/dL 31.0-3 6.0 normal Not Available [address], [place], [address], 11/12/2024 05:22:58 11/13/19 25 11/12/2024 CBC W/AUT O DIFFE RENTI AL red cell distribution width 12.3 % 11.0-1 5.0 normal Not Available [address], [place], [address], 11/12/2024 05:22:58 05/12/20 25 11/12/2024 CBC W/AUT O DIFFE RENTI AL platelet count 285 10e3/ uL 150-40 0 normal Not Available [address], [place], [address], 11/12/2024 05:22:58 11/13/19 25 11/12/2024 CBC W/AUT O DIFFE RENTI AL immature granulocyte % 1 0-1 normal Not Available [address] [place], [place], [address], 11/12/2024 05:22:58 11/13/19 25 11/12/2024 CBC W/AUT O DIFFE RENTI AL neutrophil % 83 % 35-75 high Not Available [address] , [place], [address], 11/12/2024 05:22:58 11/13/19 25 11/12/2024 CBC W/AUT O DIFFE RENTI AL lymphocyte % 15 % 10-50 normal Not Available [address], [place], [address], 11/12/2024 05:22:58 11/13/19 25 11/12/2024 CBC W/AUT O DIFFE RENTI AL monocyte % 1 % 0-15 normal Not Available [place] [address], [place], [address], 11/12/2024 05:22:58 11/13/19 25 11/12/2024 CBC W/AUT O DIFFE RENTI AL eosinophil % 0 % 0-5 normal Not Available [address], [place], [address], 11/12/2024 05:22:58 11/13/19 25 11/12/2024 CBC W/AUT O DIFFE RENTI AL basophil % 0 % 0-5 normal Not Available [address], [place], [address], 11/12/2024 05:22:58 11/13/19 25 11/12/2024 CBC W/AUT O DIFFE RENTI AL immature granulocyte # 0.04 x1000 /uL 0-0.05 normal Not Available [address], [place], [address], 11/12/2024 05:22:58 11/13/19 25 11/12/2024 CBC W/AUT O DIFFE RENTI AL neutrophil # 6.50 x1000 /uL 1.50-8 .00 normal Not Available [address] , [place], [address], 11/12/2024 05:22:58 11/13/19 25 11/12/2024 CBC W/AUT O DIFFE RENTI AL lymphocyte # 1.21 x1000 /uL 1.20-5 .20 normal Not Available [address], [place], [address], 11/12/2024 05:22:58 11/13/19 25 11/12/2024 CBC W/AUT O DIFFE RENTI AL monocyte # 0.08 x1000 /uL 0.30-0 .90 low Not Available [address], [place], [address], 11/12/2024 05:22:58 11/13/19 25 11/12/2024 CBC W/AUT O DIFFE RENTI AL eosinophil # 0.00 x1000 /uL 0.00-0 .50 normal Not Available [address], [place], [address], 11/12/2024 05:22:58 11/13/19 25 11/12/2024 CBC W/AUT O DIFFE RENTI AL basophil # 0.03 x1000 /uL 0.00-0 .30 normal Not Available [address] , [place], [address], 11/12/2024 05:22:58 11/13/19 25 11/12/2024 CBC W/AUT O DIFFE RENTI AL NRBC automated 0.0 /100_ WBC Not Available [address] , [place], [address], 11/12/2024 05:22:58 11/13/19 25 11/12/2024 CBC W/AUT O DIFFE RENDILLON AL performing lab see note ML [facility] [address] [employer] [address] Not Available [address] , [place], [address], 11/12/2024 05:22:58 11/13/19 25 11/12/2024 SEDIM ENTAT ION RATE note See Note Order ing Provi kathrin: Maci britton MD Not Available [address] , [place], [address], 11/12/2024 05:25:59 11/13/19 25 11/12/2024 SEDIM ENTAT ION RATE sedimentatio n rate 15 mm/HR 0-20 normal Not Available [address] , [place], [address], 11/12/2024 05:25:59 11/13/19 25 11/12/2024 SEDIM ENTAT ION RATE performing lab see note ML - [facility] [address] [employer] [address] Not Available [address] , [place], [address], 11/12/2024 05:25:59 11/13/19 25 11/12/2024 COMP METAB OLIC PANEL note See Note Order ing Provi kathrin: Maci britton MD Not Available [address], [place], [address], 11/12/2024 05:56:45 11/13/19 25 11/12/2024 COMP METAB OLIC PANEL sodium 141 mmol/ L 136-14 5 normal Not Available [address] [place], [place], [address], 11/12/2024 05:56:45 11/13/19 25 11/12/2024 COMP METAB OLIC PANEL potassium 3.9 mmol/ L 3.5-5. 1 normal Not Available [address], [place], [address], 11/12/2024 05:56:45 11/13/19 25 11/12/2024 COMP METAB OLIC PANEL chloride 103 mmol/ L 98-107 normal Not Available [address], [place], [address], 11/12/2024 05:56:45 11/13/19 25 11/12/2024 COMP METAB OLIC PANEL carbon dioxide 23 mmol/ L 24-33 low Not Available [address], [place], [address], 11/12/2024 05:56:45 11/13/19 25 11/12/2024 COMP METAB OLIC PANEL anion gap 18.9 mmol/ L 10-20 normal Not Available [address], [place], [address], 11/12/2024 05:56:45 11/13/19 25 11/12/2024 COMP METAB OLIC PANEL glucose 215 mg/dL 70-99 high Not Available [address], [place], [address], 11/12/2024 05:56:45 11/13/19 25 11/12/2024 COMP METAB OLIC PANEL blood urea nitrogen 14 mg/dL 7-18 normal Not Available [address] , [place], [address], 11/12/2024 05:56:45 11/13/19 25 11/12/2024 COMP METAB OLIC PANEL creatinine 1.10 mg/dL 0.70-1 .30 normal Not Available [address] [place], [address], 11/12/2024 05:56:45 11/13/19 25 11/12/2024 COMP METAB OLIC PANEL GFR (estimated) 79 mL/mi n >60 normal [IM TIMUR NT]: The 2020 CKD-E PI equat ion is now the recom shannan d stand darryn. This versi on does not inclu de race, as do the 2008 and 2011 CKD-E PI creat inine and creat inine -cyst atin C equat ions. Pleluana e note that the eGFR now repor barrett is gener ated by the new 2020 CKD-E PI equat ion, which decre ases the eGFR for black s by up to 10% and incre ases the eGFR for non-b lacks by up to 10% in salud rison to the old equat ion. To salud re a legac y eGFR to a curre nt value , a 2008 CKD-E PI calcu lator is easil y searc hable on the inter net. Calcu lated GFR: This calcu lated GFR is advoc ated by the Natio nal Kidne y Found ation to be used as an indic ator of Chron ic Kidne y Disea se (CKD) . 5 Stage s of Chron ic Kidne y Disea se. Stage 1 90 mL/mi n or more Healt hy kidne ys or Kidne y damag e with christina l or high GFR detai ls Stage 2 60 to 89 mL/mi n Kidne y damag e and mild decre ase in GFR detai ls Stage 3 30 to 59 mL/mi n Moder ate decre ase in GFR detai ls Stage 4 15 to 29 mL/mi n Sever e decre ase in GFR detai ls Stage 5 Less than 15 mL/mi n On dialy sis or Kidne y failu re Patie nt's clini khai statu s must be consi dered for the care of your patie nt. Not Available [address], [place], [address], 11/12/2024 05:56:45 11/13/19 25 11/12/2024 COMP METAB OLIC PANEL BUN/creatini ne ratio 06-22 normal Not Available [address] [place], [place], [address], 11/12/2024 05:56:45 11/13/19 25 11/12/2024 COMP METAB OLIC PANEL total protein 8.0 g/dL 6.4-8. 2 normal Not Available [address] , [place], [address], 11/12/2024 05:56:45 11/13/19 25 11/12/2024 COMP METAB OLIC PANEL albumin 4.1 g/dL 3.4-5. 0 normal Not Available [address], [place], [address], 11/12/2024 05:56:45 11/13/19 25 11/12/2024 COMP METAB OLIC PANEL globulin 3.9 g/dL 1.5-4. 0 normal Not Available [address], [place], [address], 11/12/2024 05:56:45 11/13/19 25 11/12/2024 COMP METAB OLIC PANEL albumin/glob ulin ratio 1.1 0.5-2. 0 normal Not Available [address], [place], [address], 11/12/2024 05:56:45 11/13/19 25 11/12/2024 COMP METAB OLIC PANEL calcium 9.3 mg/dL 8.5-10 .1 normal Not Available [address] , [place], [address], 11/12/2024 05:56:45 11/13/19 25 11/12/2024 COMP METAB OLIC PANEL osmolality serum calculated 287 mOsm/ kg 272-28 8 normal Not Available [address] , [place], [address], 11/12/2024 05:56:45 11/13/19 25 11/12/2024 COMP METAB OLIC PANEL bilirubin total 0.9 mg/dL 0.2-1. 0 normal Use of this assay is not recom shannan d for patie nts under going treat ment with Eltro mbopa g due to the poten tial for false ly eleva barrett resul ts. Not Available [address] , [place], [address], 11/12/2024 05:56:45 11/13/19 25 11/12/2024 COMP METAB OLIC PANEL SGOT/AST 48 U/L 15-37 high Not Available [address] , [place], [address], 11/12/2024 05:56:45 11/13/19 25 11/12/2024 COMP METAB OLIC PANEL SGPT/ALT 62 U/L 16-63 normal Not Available [address] , [place], [address], 11/12/2024 05:56:45 11/13/19 25 11/12/2024 COMP METAB OLIC PANEL alkaline phosphatase total 81 U/L 46-116 normal Not Available [address], [place], [address], 11/12/2024 05:56:45 11/13/19 25 11/12/2024 COMP METAB OLIC PANEL performing lab see note - [facility] R [address] [employer] [address] Not Available [address] , [place], [address], 11/12/2024 05:56:45 11/13/19 25 11/12/2024 MAGNE SIUM note See Note Order ing Provi kathrin: Maci britton MD Not Available [address] , [place], [address], 11/12/2024 05:56:45 11/13/19 25 11/12/2024 MAGNE SIUM magnesium 2.0 mg/dL 1.8-2. 4 normal Not Available [address] , [place], [address], 11/12/2024 05:56:45 11/13/19 25 11/12/2024 MAGNE SIUM performing lab see note [facility] R [address] [place] [address] Not Available [address] , [place], [address], 11/12/2024 05:56:45 11/13/19 25 11/12/2024 GLUCO SE POINT OF CARE note See Note Order ing Provi kathrin: Maci britton MD Not Available [address] , [place], [address], 11/12/2024 11:39:03 11/13/19 25 11/12/2024 GLUCO SE POINT OF CARE glucose point of care 197 mg/dL 70-99 high Not Available [address] , [place], [address], 11/12/2024 11:39:03 11/13/19 25 11/12/2024 GLUCO SE POINT OF CARE performing lab see note [facility] [place] [address] Not Available [address] [place], [address], 11/12/2024 11:39:03 11/13/19 25 11/12/2024 GLUCO SE POINT OF CARE note See Note Order ing Provi kathrin: Maci britton MD Not Available [address] , [place], [address], 11/12/2024 11:39:07 11/13/19 25 11/12/2024 GLUCO SE POINT OF CARE glucose point of care 245 mg/dL 70-99 high Not Available [address] , [place], [address], 11/12/2024 11:39:07 11/13/19 25 11/12/2024 GLUCO SE POINT OF CARE performing lab see note [place] [address] [place] [address] Not Available [address] , [place], [address], 11/12/2024 11:39:07 11/13/19 25 11/12/2024 GLUCO SE POINT OF CARE note See Note Order ing Provi kathrin: Maci britton MD Not Available [address] , [place], [address], 11/12/2024 16:51:02 11/13/19 25 11/12/2024 GLUCO SE POINT OF CARE glucose point of care 326 mg/dL 70-99 high Not Available [address] , [place], [address], 11/12/2024 16:51:02 11/13/19 25 11/12/2024 GLUCO SE POINT OF CARE performing lab see note [facility] [address] [place] [address] Not Available [address] , [place], [address], 11/12/2024 16:51:02 11/13/19 25 11/12/2024 GLUCO SE POINT OF CARE note See Note Order ing Provi kathrin: Maci britton MD Not Available [address] , [place], [address], 11/12/2024 20:08:38 11/13/19 25 11/12/2024 GLUCO SE POINT OF CARE glucose point of care 384 mg/dL 70-99 high Not Available [address] , [place], [address], 11/12/2024 20:08:38 11/13/19 25 11/12/2024 GLUCO SE POINT OF CARE performing lab see note PO - [address] [facility] [address] Not Available [address] , [place], [address], 11/12/2024 20:08:38 11/13/19 25 11/12/2024 ACUTE HEPAT ITIS PANEL note See Note Order ing Provi kathrin: Maci britton MD Not Available [address] , [place], [address], 11/13/2024 12:44:58 11/13/19 25 11/12/2024 ACUTE HEPAT ITIS PANEL Ab hepatitis A IgM Negati ve negati ve A negat butch anti- HAV IgM resul t sugge sts no recen t or curre nt HAV infec tion. Not Available [address] [place], [address], 11/13/2024 12:44:58 11/13/19 25 11/12/2024 ACUTE HEPAT ITIS PANEL Ag hepatitis B surface Negati ve negati ve Not Available [address] [place], [address], 11/13/2024 12:44:58 11/13/19 25 11/12/2024 ACUTE HEPAT ITIS PANEL Ab hepatitis B core IgM Negati ve negati ve Not Available [address] [place], [address], 11/13/2024 12:44:58 11/13/19 25 11/12/2024 ACUTE HEPAT ITIS PANEL Ab hepatitis C Non Reacti ve non reacti ve Not Available [address] , [place], [address], 11/13/2024 12:44:58 11/13/1911/12/2024 ACUTE HEPAT ITIS PANEL Ab hepatitis C comment Commen t () . Not infec barrett with HCV unles s early or acute infec tion is suspe cted (whic h may be delay ed in an immun ocomp romis ed indiv idual ), or other evide nce exist s to indic ate HCV infec tion. Perfo rmed At: CB, [facility] [address] [place], [address] [address] Juan vee parra, PhD, Phone : [phone] Not Available [address] , [place], [address], 11/13/2024 12:44:58 11/13/19 25 11/12/2024 ACUTE HEPAT ITIS PANEL performing lab see note LC2 - LAB[facility] RP CLIEN T# [id number] [place] [address] Not Available [address] [place], [address], 11/13/2024 12:44:58 11/13/1911/12/2024 AG HEPAT ITIS B SURFA CE note See Note Order ing Provi kathrin: Maci britton MD Not Available [address] [place], [address], 11/13/2024 07:11:37 11/13/1911/12/2024 AG HEPAT ITIS B SURFA CE Ag hepatitis B surface Negati ve negati ve Perfo rmed At: CB, [facility] [place] [address] [facility], [place], [address] Juan vee parra, PhD, Phone : [phone] Not Available [address] [place], [address], 11/13/2024 07:11:37 11/13/19 25 11/12/2024 AG HEPAT ITIS B SURFA CE performing lab see note LC2 - LAB[facility] RP CLIEN T# [id number] [place] [address] Not Available [address] , [place], [address], 11/13/2024 07:11:37 11/13/19 25 11/12/2024 LYME DISEA SE WESTE RN BLOT note See Note Order ing Provi kathrin: Maci britton MD Not Available [address] , [place], [address], 11/19/2024 13:54:10 11/13/19 25 11/12/2024 LYME DISEA SE WESTE RN BLOT lyme P93 IgG Absent () Not Available [address] , [place], [address], 11/19/2024 13:54:10 11/13/19 25 11/12/2024 LYME DISEA SE WESTE RN BLOT lyme P66 IgG Absent () Not Available [address] [place], [address], 11/19/2024 13:54:10 11/13/19 25 11/12/2024 LYME DISEA SE WESTE RN BLOT lyme P58 IgG Absent () Not Available [address] [place], [address], 11/19/2024 13:54:10 11/13/19 25 11/12/2024 LYME DISEA SE WESTE RN BLOT lyme P45 IgG Absent () Not Available [address] , [place], [address], 11/19/2024 13:54:10 11/13/19 25 11/12/2024 LYME DISEA SE WESTE RN BLOT lyme P41 IgG Absent () Not Available [address] , [place], [address], 11/19/2024 13:54:10 11/13/19 25 11/12/2024 LYME DISEA SE WESTE RN BLOT lyme P39 IgG Absent () Not Available [address] , [place], [address], 11/19/2024 13:54:10 11/13/19 25 11/12/2024 LYME DISEA SE WESTE RN BLOT lyme P30 IgG Absent () Not Available [address] , [place], [address], 11/19/2024 13:54:10 11/13/19 25 11/12/2024 LYME DISEA SE WESTE RN BLOT lyme P28 IgG Absent () Not Available [address] , [place], [address], 11/19/2024 13:54:10 11/13/19 25 11/12/2024 LYME DISEA SE WESTE RN BLOT lyme P23 IgG Absent () Not Available [address] , [place], [address], 11/19/2024 13:54:10 11/13/19 25 11/12/2024 LYME DISEA SE WESTE RN BLOT lyme P18 IgG Absent () Not Available [address] , [place], [address], 11/19/2024 13:54:10 11/13/19 25 11/12/2024 LYME DISEA SE WESTE RN BLOT lyme IgG by WB interp Negati ve negati ve Not Available [address] , [place], [address], 11/19/2024 13:54:10 11/13/19 25 11/12/2024 LYME DISEA SE WESTE RN BLOT lyme P41 IgM Absent () Not Available [address] , [place], [address], 11/19/2024 13:54:10 11/13/19 25 11/12/2024 LYME DISEA SE WESTE RN BLOT lyme P39 IgM Absent () Not Available [address] , [place], [address], 11/19/2024 13:54:10 11/13/19 25 11/12/2024 LYME DISEA SE WESTE RN BLOT lyme P23 IgM Presen t () Not Available [address] , [place], [address], 11/19/2024 13:54:10 11/13/19 25 11/12/2024 LYME DISEA SE WESTE RN BLOT lyme IgM by WB interp Negati ve negati ve Pleas e Note: Lyme immun oblot alone is not recom shannan d for the diagn osis of Lyme disea se. Curre nt guide lines recom mend the use of a two-t iered appro ach to Lyme serol ogy testi ng to impro ve the sensi tivit y and speci ficit y of testi ng. [facility] offer s test code 53638 6 Lyme Disea se Serol ogy with Refle x to aid in the diagn osis of Lyme Disea se. Not Available [address] , [place], [address], 11/19/2024 13:54:10 11/13/19 25 11/12/2024 DRE PHAN RN BLOT performing lab see note LC2 - [facility] RP CLIEN T# [id number] 022 [address] [place] [address] Not Available [address] , [place], [address], 11/19/2024 13:54:10 11/14/19 25 11/13/2024 GLUCO SE POINT OF CARE note See Note Order ing Provi kathrin: Maci britton MD Not Available [address] , [place], [address], 11/13/2024 03:06:37 11/14/19 25 11/13/2024 GLUCO SE POINT OF CARE glucose point of care 334 mg/dL 70-99 high Not Available [address] , [place], [address], 11/13/2024 03:06:37 11/14/19 25 11/13/2024 GLUCO SE POINT OF CARE performing lab see note [facility] - [address] [facility] [address] Not Available [address] , [place], [address], 11/13/2024 03:06:37 11/14/19 25 11/13/2024 GLUCO SE POINT OF CARE note See Note Order ing Provi kathrin: Maci britton MD Not Available [address] , [place], [address], 11/13/2024 04:37:27 11/14/19 25 11/13/2024 GLUCO SE POINT OF CARE glucose point of care 247 mg/dL 70-99 high Not Available [address] , [place], [address], 11/13/2024 04:37:27 11/14/19 25 11/13/2024 GLUCO SE POINT OF CARE performing lab see note [facility] - [facility] [address] [place] [address] Not Available [address] , [place], [address], 11/13/2024 04:37:27 11/14/19 25 11/13/2024 GLUCO SE POINT OF CARE note See Note Order ing Provi kathrin: Maci britton MD Not Available [address] , [place], [address], 11/13/2024 08:53:54 11/14/19 25 11/13/2024 GLUCO SE POINT OF CARE glucose point of care 317 mg/dL 70-99 high Not Available [address] , [place], [address], 11/13/2024 08:53:54 11/14/19 25 11/13/2024 GLUCO SE POINT OF CARE performing lab see note [address] [place] [address] Not Available [address] , [place], [address], 11/13/2024 08:53:54 11/20/19 25 11/19/2024 HbA1c (hemo globi n A1c), blood HbA1C 8.1 % Not Available [facility] [address], [place], [address], 11/19/2024 09:49:35 12/01/19 25 11/30/2024 rapid SARS CoV + SARS CoV 2 Ag, QL IA, respi rator y speci men SARS CoV antigen Negati ve Not Available [facility] [address], [place], [address], 11/30/2024 15:08:36 12/01/19 25 11/30/2024 rapid strep group A, throa t Strep negati ve Not Available [facility] [address], [place], [address], 11/30/2024 15:08:39 12/01/19 25 11/30/2024 rapid strep group A, throa t Culture No Not Available [facility] [address], [place], [address], 11/30/2024 15:08:39 12/01/19 25 11/30/2024 rapid flu (A+B) Flu negati ve Not Available [facility] [address], [place], [address], 11/30/2024 15:08:38 12/01/19 25 11/30/2024 rapid flu (A+B) Type Both A & B Not Available [facility] [address], [place], [address], 11/30/2024 15:08:38 11/13/19 25 11/12/2024 XR, chest [facility] Name: PARAG ORDAZ [email or web address] Phys: Cat HERNANDEZ,[place] [address] : 1970 Age: 53 Sex: M Acct: [id number] Loc: Jermaine A PHONE #: Exam Date: 2024 Status : ADM IN FAX #: Rad# [id number] Unit# [id number] Admit Date: 2024 EXAMS: CPT CODE: [id number] [id number] [place] [address] EXAM: XR CHEST 1 VIEW PORTAB LE INDICA TION: Diagno sis? FUO. TECHNI QUE: Portab le AP or PA view of the chest dated 2024 at 6:07:5 7 AM. COMPAR DAVE: XR Chest 1 view portab le 2024 at 1:59:2 7 PM FINDIN GS: Heart size and pulmon claudia vascul arity are normal . No pneumo medias tinum or medias tinal wideni ng. No pulmon claudai airspa ce consol idatio n, obviou s pulmon claudia nodule or abnorm al pulmon claudia inters titial patter n. No eviden ce for pneumo thorax or sizabl e pleura l fluid collec tion. No obviou s acute osseou s abnorm ality. Incomp letely visual ized postop erativ e change s of cervic al spinal fusion . No obviou s acute upper abdomi nal abnorm ality. IMPRES BARRINGTON: NO RADIOG RAPHIC EVIDEN CE OF AN ACUTE CARDIO PULMON CLAUDIA PROCES S. Electr onical ly signed by: Aranza Matos DO 2024 11:01 AM EDT RP Workst ation: [id number] Electr onical ly Signed by ARANZA MATOS DO on 2024 at 0826 Report ed and signed by: Eyal MATOS DO PAGE 1 Signed Report (FRANCISCA NUED) [facility] Name: PARAG ORDAZDE [employer] Phys: Cat HERNANDEZ,[place] [address] : 1970 Age: 53 Sex: M Acct: [id number] Loc: G.310 A PHONE #: [phone] Exam Date: 2024 Status : ADM IN FAX #: Rad# [id number] Unit# [id number] Admit Date: 2024 EXAMS: CPT CODE: [id number] [id number] CHEST [place] [address]198 CC: Erick Nguyen MANAGER PORTABLE; Maci Diaz MD Dictat ed Date/T tim: 2024 (08) Techno logist : ALISHA Britton RT(R)( CT); BAKARI Lamas Transc ribed Date/T tim: 2024 (825) Transc riptio nist: DR.HAL Friedman onic Signat ure Date/T tim: 2024 (08) Printe d Date/T tim: 2024 (1105) BATCH NO: N/A PAGE 2 Signed Report CC'ed Logic: Orderi ng Provid er: CAT SCOTT Attend ing Provid er: CAT SCOTT Referr ing Provid er: CHRISTIAN CISNEROS Consul ting Provid er: WENDY Overton Admitt ing Provid er: CAT SCOTT [email or web address] [facility] [address] [place] [address] , [place], [address], 11/13/2024 11:31:05 11/13/19 25 11/12/2024 US, abdom en, limit ed [facility] Name: PARAG ORDAZ [address] [place] [address] Phys: [place] [address] : 1970 Age: 53 Sex: M Acct: [id number] Loc: G.310 A PHONE #: Exam Date: 2024 Status : ADM IN FAX #: Rad# [id number] Unit# [id number] Admit Date: 2024 EXAMS: CPT CODE: [id number] 994 US ABDOME N LIMITE D 14659 US ABDOME N LIMITE D Reason for study: iagnos is? hepati tis TECHNI QUE:Tr ansver se and longit udinal sonogr aphy of the right upper quadra nt of the abdome n. COMPAR DAVE:N o prior study was submit barrett for compar dave. FINDIN GS: Liver length approx imatel y [...] trated no obviou s abnorm ality. IMPRES BARRINGTON: Hepato megaly . Increa sed hepati c [...] MATOS DO PAGE 1 Signed Report (FRANCISCA KATE) [facility] Name: PARAG ORDAZ [address] [employer] Phys: Cat HERNANDEZ,[place] [address] : 1970 Age: 53 Sex: M Acct: [id number] Loc: G.310 A PHONE #: [phone] Exam Date: 2024 Status : ADM IN FAX #: Rad# [id number] Unit# [id number] Admit Date: 2024 EXAMS: CPT CODE: [id number] 994 US ABDOME N LIMITE D 45065 CC: Erick Nguyen APRN; Maci Diaz MD Dictat ed Date/T tim: 2024 (110) Techno logist : LINDSA Y CAPRICE Transc ribed Date/T tim: 2024 (1101) Transc [...] WENDY Overton Admitt ing Provid er: CAT [email or web address] [facility] [address] , [place], [address], 11/13/2024 11:31:05 11/13/19 25 11/12/2024 - MRI lumba r spine wwo cont [facility] Name: PARAG ORDAZ [facility] [address] [address] Phys: Cat HERNANDEZ,[place] [address] : 1970 Age: 53 Sex: M Acct: [id number] Loc: G.310 A PHONE #: [phone] Exam Date: 2024 Status : ADM IN FAX #: [phone] Rad# [id number] Unit# [id number] Admit Date: 2024 EXAMS: CPT CODE: [id number] 080 MRI LUMBAR SPINE WWO CONT 81221 EXAMIN ATION: MR LUMBAR SPINE WITHOU T [...] ended for incide ntal findin gs. COMPAR DAVE: CT Lumbar spine withou t IV contra [...] bulgin g. Left forami nal disc protru barrington produc es modera te left neural forami nal narrow ing and abuts the exitin g left L2 nerve. No signif icant neural forami nal narrow ing on the right. L3-L4: Disc space narrow ing. Disc dehydr ation. Diffus e disc bulgin g with small centra l disc protru barrington. Deform ity of the thecal sac withou t signif icant spinal stenos is. Mild bilate ral neural forami nal PAGE 1 Signed Report (FRANCISCA NUED) [facility] Name: PARAG ORDAZ [facility] [employer] Phys: Cat HERNANDEZ,Boogie Austinric [facility] [place] [address] : 1970 Age: 53 Sex: M Acct: [id number] Loc: G.310 A PHONE #: Exam Date: 2024 Status : ADM IN FAX #: Rad# [id number] Unit# [id number] Admit Date: 2024 EXAMS: CPT CODE: [id number] [id number] MRI LUMBAR SPINE WWO CONT 59525 narrow ing withou t defini te encroa [...] or abdomi nal aortic aneury sm. IMPRES B[place]INGTON: 1. NO ACUTE OSSEOU S ABNORM ALITY [...] Overton Admitt ing Provid er: CAT SCOTT [email or web address] [place] [id number] [facility] , [place], [address], 11/13/2024 11:31:05 01/02/20 25 XR, lumba r spine No observ ation record ed. [email or web address] [facility] [address], [place], [address], 01/03/2025 15:07:08 Result Notes None recorded. Problems Name Problem SNOMED Code Status Onset Date Resolution Date Notes Provider Name and Address Organization Details Recorded Time Hypertensi ve disorder 52617256 Active Tamanna Phelps null, [place] - [facility] 11:25:40 Type 2 diabetes mellitus 95147883 Active Tamanna Phelps null, [place] - [facility] 11:25:50 Sleep apnea 19926462 Active Tamanna Phelps null, [place] - [facility] 11:26:23 Neuropathy 484126322 Active 2022 Ezekielzachariah satnam, MANAGER [employer] [address], [place], [address] , [place] - [facility] 14:45:26 Chronic back pain 191412840 Active 2022 Ezekielzachariah satnam, MANAGER [employer] [address], [place], [address] , [place] - [facility] 3 14:45:41 Chronic neck pain 4840991028979 Active 2022 Ezekielzachariah satnam, MANAGER [employer] [address], [place], [address] , [place] - [facility] 3 14:45:51 Migraine 50680496 Active 2022 Ezekielcamiloskye Bensonsatnam, MANAGER [employer] [address], [place], [address] , [place] - [facility] 3 14:45:59 Depressive disorder 67356206 Active 2022 Ezekielzachariah Nguyen, MANAGER [employer] [address], [place], [address] , [place] - [facility] 3 10:49:49 Gout 69820478 Active 2023 Tiffanie Stears null, [place] - [facility] 4 10:23:45 Restless legs 49921384 Active 2023 Tiffanie Stears null, [place] - [facility] 10:23:56 Chronic constipati on 687182622 Active 2023 Tiffanie Stears null, [place] - [facility] 10:24:38 Hyperlipid emia 81439573 Active 2023 George Nguyen, MANAGER [employer] [address], [place], [address] , [place] - [facility] 11:03:13 Cerebrovas cular accident 924130482 Active 2023 George Nguyen, MANAGER [employer] [address], [place], [address] , [place] [facility] 4 15:54:51 Vitamin D deficiency 95833983 Active 2023 George Nguyen, MANAGER [employer] [address], [place], [address] , [place] [facility] 4 16:40:48 Essential hypertensi on 33946094 Active 2024 Damaris quezada, MANAGER [employer] [address], [place], [address] , [place] [facility] 5 14:54:31 Asthenia 10350593 Active Tamanna Mattie null, [place] - [facility] 15:32:06 Sepsis 88142133 Active Tamanna Mattie null, [place] - [facility] 5 15:32:06 Low back pain 508024690 Active 2024 Damaris quezada, MANAGER [employer] [address], [place], [address] , [place] [facility] 14:34:16 Kidney stone 89854639 Active 2024 Damaris quezada, MANAGER [employer] [address], [place], [address] , [place] [facility] 14:35:13 Renal impairment 212732020 Active 2024 Damaris quezada, MANAGER [employer] [address], [place], [address] , [place] [facility] 14:35:59 Insulin treated type 2 diabetes mellitus 654603968 Active 2024 Damaris quezada, MANAGER [employer] [address], [place], [address] , [place] [facility] 5 14:37:44 Problem Notes None recorded. Procedures Surgical History Date Name Laterality Status Provider Name and Address Organization Details Recorded Time 02/21/20 24 Suture/Staple removal completed George Nguyen, MANAGER [employer] [address], [place], [address], [place] - [facility] 02/21/2024 17:09:37 12/01/19 24 Medication Reconcilliation completed Tamanna Phelps [place] - [facility] 12/01/2023 14:11:03 09/26/19 24 Medication Reconcilliation completed Tamanna Phelps [place] - [facility] 09/26/2023 14:34:51 Stress test completed Tamanna Phelps [place] - [facility] 06/17/2022 11:23:29 Knee Surgery completed Tamanna Phelps [place] - [facility] 06/17/2022 11:23:29 Endoscopy completed Tamanna Phelps [place] - [facility] 06/17/2022 11:23:29 Cardiac Cath completed Tamanna Phelps [place] - [facility] 06/17/2022 11:23:29 Colonoscopy completed Tamanna Phelps [place] - [facility] 06/17/2022 11:23:29 Back Surgery completed Tamanna Phelps [place] - [facility] 06/17/2022 11:23:29 procedure on neck completed Alessandra Phelps [place] - [facility] 06/17/2022 11:28:57 procedure on hand completed Alessandra Phelps [place] - [facility] 06/17/2022 11:29:30 Imaging Results None recorded. Procedure Notes None recorded. Medical Equipment None Reported. Allergies Allergen ID Allergen Name Allergen Category Reaction Reaction Severity Criticality Documentation Date Start Date Code Code System Note Provider Name and Address Organization Details Recorded Time 566714 ibuprofen medicatio n other moderate high 06/17/2022 5640 RxNorm Tamanna barfield [place] - [facility] 2 11:23:56 926592 primidone medicatio n Not available Not available high 07/15/2022 8691 RxNorm agres barrington/ anxie ty- does not want to take again Tamanna barfield [place] - [facility] 14:03:33 Medications Name Sig [...] Available Not Available No t Available Align (B. is) 10.5 mg (10 million cell) chewable [...] Not Available No t Available Dexcom G6 Sulky Driver USE DIRECTED 2022 active Not Available Not [...] Not Available Not Available FreeStyle Nir 2 [place] DIRECTED (SCAN SELF AT LEAST THREE (3) [...] Details Last Updated DateTime 5 182.88 cm 110 /min 96 % 96 % 18 /min 128/88 mm[Hg] Tamanna Phelps [place] - [facility] 5 15:42:17 Date Recorded Body height Body mass index (BMI) Body weight Body temperature Heart rate Oxygen saturation Oxygen saturation in Arterial blood by Pulse oximetry Respiratory rate Systolic And Diastolic Provider Name and Address Organization Details Last Updated DateTime 5 182.88 cm 32.2 kg/m2 977308. 19 g 97 [degF] 93 /min 98 % 98 % 23 /min 144/86 mm[Hg] Renae Lovelace [place] - [facility] 5 15:11:05 Date Recorded Body height Body mass index (BMI) Body weight Respiratory rate Oxygen saturation Oxygen saturation in Arterial blood by Pulse oximetry Heart rate Systolic And Diastolic Provider Name and Address Organization Details Last Updated DateTime 5 182.88 cm 32.1 kg/m2 053779. 39 g 20 /min 94 % 94 % 88 /min 116/78 mm[Hg] Franny Huerta [place] - [facility] 13:11:57 Date Recorded Body height Body mass index (BMI) Body weight Body temperature Heart rate Oxygen saturation Oxygen saturation in Arterial blood by Pulse oximetry Respiratory rate Systolic And Diastolic Provider Name and Address Organization Details Last Updated DateTime 5 182.88 cm 32.2 kg/m2 738268. 14 g 98.2 [degF] 87 /min 97 % 97 % 20 /min 121/87 mm[Hg] Annalisa Benitez [place] - [facility] 5 13:58:37 Social History Question Answer Notes LastModified by Organizat ion Details LastModified Time Tobacco Smoking Status Never Smoker Tamanna barfield, [place] - [facility] 06/17/2022 11:27:17 Do You Have [...] Or The Highest Degree You Have Received? [id number] Information not available 06/17/2022 Have There Been Any Changes To Your Family Or Social Situation? No Information no t available 06/17/2022 What Is The Fluoride Status Of Your Home? Fluoridated Information not available 06/17/2022 Have You Recently Or Are You Planning To Travel To An Area With Zika Virus? No Information not available 06/17/2022 Do You Have A Medical Power Of Hand Sizer? No Information not available 06/17/2022 What Was [...] anxious, or unable to sleep at night)? [id number] Information not available 06/17/2022 Do you have [...] 11:23:28 Medical History Condition Response Gout Y Muscle, Joint, or Bone Problems Y Vision or Eye Problems Y Arthritis Y Hypercholesterolemia Y Headaches Y Constipation Y Diabetes Y Sleep Apnea Y Neuropathy Y Hypertension Y Immunizations Vaccine Type Date [...] split virus, quadrivalent, PF 6 completed Tamanna Mattie null, [place] - [facility] 06/17/2022 11:43:26 Influenza, split virus, quadrivalent, preservative 7 completed Tamanna Phelps null, [place] - [facility] 06/17/2022 11:43:26 Tdap 6 completed Tamanna Phelps null, [place] - [facility] 06/17/2022 11:43:26 COVID-19 vaccine, vector-nr, rS-Ad26, PF, 0.5 mL 1 completed Tamanna Phelps null, [place] - [facility] 06/17/2022 11:43:26 zoster recombinant 4 completed Chasity Lizzie null, [place] - [facility] 10/20/2023 11:40:11 zoster recombinant 4 completed Chasity Samuel null, [place] - [facility] 12/20/2023 16:07:43 Past Encounters Encounter ID Performer Location Encounter Start Date Encounter Closed Date Diagnosis/Indication Diagnosis SNOMED-CT Code Diagnosis ICD10 Code Diagnosis Note [id number] George Nguyen [address] [address] 06/17/2022 11:08:16 06/17/2022 12:01:26 Hypertensive disorder 00085447 I10 Type 2 caprice betes mellitus 75549392 Z79.4 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 2 diabetes mellitus 9123036242 107 E11.42 [id number] medication compliance discussedL ast uds:Control substance agreement on file Long-term drug therapy 968609683 Z79.020 [id number] George Nguyen [address] [address] 07/15/2022 13:40:35 07/15/2022 15:18:22 Type 2 diabetes mellitus 49495610 Z79.4 *Diabetic Measures: Metformin: yes YU/ARB:wi ll talk to cardiology was taken off by cardiology ASA:yes Statin:west l talk to cardiology GLP:yes Neuropathy 847004080 G62 .9 Migraine 48239469 G43.90 9 Chronic back pain 435243 002 G89.29 Chronic neck pain 907867 0357 107 M54.2 follow up with neck surgeon osmin Hypertensive disorder 38 931920 I10 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 2 diabetes mellitus 3191975216 107 E11.42 Pt compliant with plan of careKasper reviewed manual jadyn pulled# [id number] edication compliance discussedL ast uds: 3Control substance agreement on file Vitamin B1 2 deficiency (non anemic) 28310076 E53.8 Long-term drug therapy 069302801 Z79.442 [id number] George Nguyen [address] [address] 10/14/2022 09:40:35 10/14/2022 11:03:25 Chronic back pain 275026870 G89.29 Chronic neck pain 997840 2090 107 M54.2 follow up with neck surgeon osmin Neuropathy 547509904 G62 .9 Pt compliant with plan of careKasper reviewed and appropriat emedicatio n compliance discussedL ast uds: 3Control substance agreement on file Type 2 caprice betes mellitus 80357814 Z79.4 has insulin pump and wears dexcom*Caprice betic Measures:M etformin:y esACE/ARB: will talk to cardiology was taken off by cardiology ASA:yesSta tin:restar tedGLP:yes Vitamin B1 2 deficiency (non anemic) 49353014 E53.8 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 2 diabetes mellitus 7405204537 107 E11.42 Pt compliant with plan of careKasper reviewed manual jadyn pulled#[id number] cation compliance discussedL ast uds: 3Control substance agreement on file Restless legs 77650258 G 25.81 Depressive disorder 7643 9007 F32.A [id number] George Nguyen [address] [address] 01/17/2023 13:34:14 01/17/2023 14:31:03 Type 2 diabetes mellitus 19587930 Z79.4 has insulin pump and wears dexcom*Caprice betic Measures:M etformin:y esACE/ARB: will talk to cardiology was taken off by cardiology ASA:Adelfo tin:restar tedGLP:yes Hypertensive disorder 38 197927 I10 Neuropathy 499036394 G62 .9 Pt compliant with plan of careKasper reviewed and appropriat emedicatio n compliance discussedL ast uds: 3Control substance agreement on file Depressive disorder 3548 9527 F32.A Body mass index 30+ - obesity 702614207 Z68.31 31.9 Obesity 599355428 E66.9 Chronic constipation 236 968656 K59.09 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 2 diabetes mellitus 3268280730 107 E11.42 Pt compliant with plan of careKasper reviewed manual jadyn pulled #[id number] -see chartmedic ation compliance discussedL ast uds: 3Control substance agreement on file [id number] George Nguyen APRN [address] [address] 04/19/2023 13:15:02 04/19/2023 14:26:53 Migraine 39331459 G43.909 placed on by neuro and they asked us to refill them Chronic constipation 236 032131 K59.09 Type 2 caprice betes mellitus 93983546 Z79.4 has insulin pump and wears dexcom*Caprice betic Measures:M etformin:y esACE/ARB: will talk to cardiology was taken off by cardiology ASA:yesStsyke tin:yesGLP :yeswill try to get omnipod 5 approved so his glucose can be better controlled , already has dexcom 6 Hyperglyce carol due to type 2 diabetes mellitus 2627858639 10604 E11.65 labs at cardiology recently will obtain copies Hypertensive disorder 38 710754 I10 Vitamin B1 2 deficiency (non anemic) 04911907 E53.8 Depressive disorder 1532 9007 F32.A Seasonal a llergic rhinitis 229134685 J30.2 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 2 diabetes mellitus 8331039812 107 E11.42 Pt compliant with plan of careKasper reviewed manual jadyn pulled #[id number] medication compliance discussedL ast uds: 3Control substance agreement on file Restless legs 34210955 G 25.81 Hyperlipidemia 87598040 E78.5 Gout 36778344 M10.9 Chronic back pain 248690 002 G89.29 [id number] George Nguyen [address] [address] 08/01/2023 10:01:54 08/01/2023 11:32:07 Type 2 diabetes mellitus 72880829 Z79.4 has insulin pump and wears dexcom*Caprice betic Measures:M etformin:y esACE/ARB: yesASA:yes Statin:yes GLP:yeswil l try to get omnipod 5 approved so his glucose can be better controlled , already has dexcom 6 Hypertensive disorder 38 838707 I10 Depressive disorder 3548 9007 F32.A Migraine 69926939 G43.90 9 placed on by neuro and they asked us to refill them Chronic back pain 854792 002 G89.29 Neuropathy 670703109 G62 .9 Pt compliant with plan of careKasper reviewed and appropriat e# manual [id number] edication compliance discussedL ast uds: 4Control substance agreement on file Body mass index 30+ - obesity 388972882 Z68.33 33.2 Obesity 251452259 E66.9 HIV screen ing declined 6686432889 24522 Z53.20 Hepatitis C screening 41 9616595 Z11.59 Hyperlipidemia 71180492 E78.5 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 2 diabetes mellitus 9225553858 107 E11.42 Pt compliant with plan of careKasper reviewed manual jadyn pulled # [id number] medication compliance discussedL ast uds: 4Control substance agreement on file Long-term drug therapy 897193646 Z79.899 Active or passive immunization 443899990 Z23 [id number] George Nguyen MANAGER [employer] [address] [address] 09/26/2023 14:34:09 09/26/2023 16:06:21 Low back pain 049540260 M54.50 Hypomagnesemia 779202012 E83.42 Resting tremor 82625467 G25.2 Kidney stone 43704791 N2 0.0 [id number] George Nguyen [address] [address] 10/24/2023 13:46:34 10/24/2023 14:49:55 Alkaline phosphatase above reference range 339770791 R74.8 Magnesium deficiency 238 635096 E61.2 [id number] George Nguyen [address] [address] 12/01/2023 13:35:46 12/01/2023 15:28:19 Hyperlipidemia 43520128 E78.5 Type 2 caprice betes mellitus 42380041 Z79.4 has insulin pump and wears dexcom*Caprice betic Measures:M etformin:y esACE/ARB: yesASA:yes Statin:yes GLP:yeswil l try to get omnipod 5 approved so his glucose can be better controlled , already has dexcom 6 Neuropathy 642783174 G62 .9 Pt compliant with plan of careKasper reviewed and appropriat e# manual [id number] edication compliance discussedL ast uds: 4Control substance agreement on file Cerebrovas cular accident [id number] I63.9 [id number] George Nguyen[address] [address] 02/21/2024 15:14:28 02/21/2024 17:17:46 Type 2 diabetes mellitus 88353162 Z79.4 has insulin pump and wears dexcom*Caprice betic Measures:M etformin:y esACE/ARB: yesASA:yes Statin:yes GLP:yeswil l try to get omnipod 5 approved so his glucose can be better controlled , already has dexcom 6 Hyperlipidemia 70033994 E78.5 Neuropathy 711168736 G62 .9 Pt compliant with plan of careKasper reviewed and appropriat e# manual [id number] edication compliance discussedL ast uds: 4Control substance agreement on file Depressive disorder 3548 9007 F32.A Vitamin D deficiency 347 61446 E55.9 Long-term current use of drug therapy 651794469 Z79.899 Nail bed infection 87001 003 L60.8 Laceration of finger 274 115264 S61.210A sutures removed 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 2 diabetes mellitus 3429923505 107 E11.42 Pt compliant with plan of careKasper reviewed medication compliance discussedL ast uds: 4Control substance agreement on file Mood swings 40004989 R45 .86 [id number] George Nguyen APR[address] [address] 05/22/2024 13:38:02 05/22/2024 14:53:40 Type 2 diabetes mellitus 24552032 Z79.4 has insulin pump and wears dexcom*Caprice betic Measures:M etformin:y esACE/ARB: yesASA:yes Statin:yes GLP:yeswil l try to get omnipod 5 approved so his glucose can be better controlled , already has dexcom 6 Neuropathy 064989064 G62 .9 Pt compliant with plan of careKasper reviewed and appropriat e# [id number] edication compliance discussedL ast uds: 4Control substance agreement on file Hypertensive disorder 38 496569 I10 Migraine 31656314 G43.90 9 placed on by neuro and they asked us to refill them Coronary arteriosclerosis 49620767 I25.10 Gout 70779550 M10.9 Vitamin B1 2 deficiency (non anemic) 76367972 E53.8 Depressive disorder 3548 9007 F32.A Seasonal a llergic rhinitis 587134884 J30.2 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 2 diabetes mellitus 6498269824 107 E11.42 Pt compliant with plan of careKasper reviewed medication compliance discussedL ast uds: 4Control substance agreement on file Chronic back pain 465553 002 G89.29 [id number] George Nguyen APRN [address] [address] 08/28/2024 13:02:05 08/28/2024 13:35:08 Migraine 22012169 G43.909 placed on by neuro and they asked us to refill them Hypertensive disorder 38 091271 I10 Coronary arteriosclerosis 07460676 I25.10 Gout 61956967 M10.9 Vitamin B1 2 deficiency (non anemic) 11767469 E53.8 Depressive disorder 3548 9007 F32.A Seasonal a llergic rhinitis 366233764 J30.2 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 2 diabetes mellitus 4826452746 107 E11.42 Pt compliant with plan of careKasper reviewedme dication compliance discussedL velasquez uds: 5Control substance agreement on file Type 2 caprice betes mellitus 29382616 Z79.4 has insulin pump and wears dexcom*Caprice betic Measures:M etformin:y esACE/ARB: yesASA:yes Statin:yes GLP:yeswil l try to get omnipod 5 approved so his glucose can be better controlled , already has dexcom 6 Chronic back pain 390446 002 G89.29 Restless legs 39371315 G 25.81 Acute maxi llary sinusitis 61992955 J01.00 Long-term drug therapy 703456092 Z79.899 Fatigue 29320115 R53.83 [id number] George Nguyen APRN [address] [address] 09/03/2024 14:15:33 09/03/2024 15:35:17 Type 2 diabetes mellitus 19330759 Z79.4 has insulin pump and wears dexcom*Caprice betic Measures:M etformin:y esACE/ARB: yesASA:yes Statin:yes GLP:yeswil l try to get omnipod 5 approved so his glucose can be better controlled , already has dexcom 6 Body mass index 30+ - obesity 896006946 Z68.33 33.5 Obesity 559682121 E66.9 Insulin pump present 450 208885 Z96.41 changed settings to omnipod 5 pt applied and no questions asked [id number] Damaris quezada APRN [facility] [address] [place] [address] [place] [address] 10/12/2024 14:52:50 10/12/2024 16:33:02 Type 2 diabetes mellitus 03904046 Z79.4 Removed Dexcom G6 to see if G7 will work with Omnipod. Patient wants to switch to Medtronic. Will contact Medtronic rep. Applied Dexcom G7 sample loaner, patient will return to office Tuesday. Patient entered glucose into Omnipod and gave himself bolus manually. HIV screening 654761675 Z11.4 [id number] Damaris quezada [facility] [address] [address] 10/15/2024 13:05:09 10/15/2024 14:57:44 Type 2 diabetes mellitus 53960681 Z79.4 Patient wants to switch to Medtronic. Patient is in contact with Medtr[employer] rep. Returned Dexcom G7 sample loaner. Patient entered glucose into Omnipod and give himself bolus manually. Reviewed Dexcom G7 download. [address], GMI 6.4, 84% in range, 12% high, 4% very high. Essential hypertension 64819384 I10 BP 143/92, uncontroll ed. Continue Valsartan 160mg daily. Add Amlodipine 5mg at bedtime. [id number] Damaris quezada [facility] [address] [address] 10/25/2024 12:44:50 10/25/2024 13:56:15 Type 2 diabetes mellitus 92652265 Z79.4 A1c 8.5 08/28/24. Patient wants to switch to Medtronic. Patient is in contact with Medtronic rep. Patient entered glucose into Omnipod and give himself bolus manually. Reviewed Dexcom G6 report with patient. Current blood sugar is 119, Average 158, in range 85%, high 15%. Will contact Sarkis, [employer] rep for update. [id number] Damaris quezada [facility] [address] [address] 11/05/2024 11:11:55 11/05/2024 11:54:09 Type 2 diabetes mellitus 36881616 Z79.4 A1c 8.5 08/28/24. Patient wants to switch to Medtronic. Patient is in contact with Medtronic rep. Patient enters glucose into Omnipod and give himself bolus manually. Will contact Sarkis, Medtronic rep for update. Body mass index 30+ - obesity 998923636 Z68.32 [id number] Damaris quezada, MANAGER [employer] [facility] [address] [place] [address] [place] [address] 11/19/2024 09:43:59 11/19/2024 11:15:35 Type 2 diabetes mellitus 12542226 Z79.4 A1c 8.1, uncontroll ed, improved. Patient wants to switch to Medtronic. Avoid sweet tea and soft drinks. Make appointmen t with nutritioni st. Essential hypertension 41883210 I10 BP 124/85 controlled . Continue Valsartan 160mg daily, Amlodipine 5mg at bedtime. Body mass index 30+ - obesity 688902824 Z68.32 [id number] Claudia Webb, MS, RDN, LDN [facility] [address] [address] 11/22/2024 13:48:43 11/22/2024 15:57:06 Type 2 diabetes mellitus 81327091 E11.9 Z79.4 [id number] George Nguyen APRN [address] [address] 11/23/2024 15:17:27 11/23/2024 16:09:32 Chronic low back pain 103590302 M54.40 G89.29 follow up with pain mangement and surgery as scheduled. return for any concerns or go to ed for eval [id number] Jordan Denise MD [facility] [address] [address] 11/30/2024 14:41:41 11/30/2024 15:47:56 Viral screening status 522255830 Z11.59 Asthmatic bronchitis 405 625643 J45.312 [id number] Damaris quezada APRN [facility] [address] [place] [address] 12/20/2024 12:52:52 12/20/2024 16:31:13 Type 2 diabetes mellitus 63811507 E11.9 Z79.4 A1c 8.1, uncontroll ed, improved. Avoid sweet tea and soft drinks. Downloaded Medtronic pump report and adjusted pump settings. Average BG 212+-75. Body mass index 30+ - obesity 879876779 Z68.32 Obesity 488450233 E66.9 [id number] Damaris quezada APRN [facility] [address] [place] [address] 12/31/2024 13:52:45 12/31/2024 15:11:12 Low back pain 149989160 M54.50 Patient advised to take medication as directed here. Patient advised to rest initially and then slowly increase activity level. Monitor changes in symptoms such as numbness, tingling or weakness in legs, changes in bowel or bladder habits or worsening back pain. Proper ergonomics discussed. Referral to physical therapy as needed. Patient will call if symptoms worsen or if pain persists greater than 8 weeks. Renal impairment 2272475 03 N28.9 [address] eated type 2 diabetes mellitus 313496353 E11.9 Z79.4 A1c 8.1, uncontroll ed, improved. Avoid sweet tea and soft drinks. Downloaded Medtronic pump report and adjusted pump settings. Average BG 212+-75. Health Concerns Section Related Observation LastModified by Organization Detai ls LastModified Time None Recorded Concern Status LastModified by Organization Details LastModified Time None Recorded Advance Directives Directive N: Payers Insurance Date Sequence Insurance Name Policy Number Policy Zamudio Covered Member ID Zamudio Member ID Guarantor Name 11/23/2024 2 [place] [id number] Parag Ordaz [id number] Parag Ordaz 08/09/2022 1 UNSPECIFIED REMIT PAYOR Parag Ordaz 12/20/2024 [place] [id number] Parag Ordaz [id number] Parag Ordaz 12/28/2024 1 [facility] [id number] Parag Ordaz [id number] Parag Ordaz 11/23/2024 1 [id number] Parag Ordaz [id number] Parag Ordaz Notes Date Note Type Note Provider Name and Address Organization Details Recorded Time 5 text/htm l Initial Nutrition assessment for:[id number] was referred by:Davina Leary history: Medical History:DM, HTN, hyperlipidemia, Vit D deficiency, CVA, gout, neuropathy, sleep apnea, obesity, depression,Medications:Synja rdy BID, SSI, insulin pumpDexacomFamily History:hypercholesterolemia , DM, CA, HTN,Personal History Social History: Employment:noSmoking Status:nonDiet Recall Breakfast:not usuallyegg and sausage on toast or Czech muffinSnack:noLunch:not alwaysSnack: Dinner:porkchickenbeef- greens and 1/2 cup of starchSnack:on occasion-peanut butter and crackers,Beverages:Tea w/splenda Notes and/or Diet History:Has been able to see how what he eats effects his blood sugar, he is getting set up with a regular pump next week.Physical Activity/Sleep:limited with back issuesLabs:A1C 8.1, POC 317, chol 232, Trig 366, HDL 32 and LDL 134Energy Needs:72 , 240#, BMI 32.91588 caloriesNutrition Diagnosis:Mcc Goals:To get A1C < 7Short Term Goals:1) [...] meal plan, carbohydrate foods/proper portions and label reading.Trred20xpqtiyg of face to face time with patient. Claudia Webb MS, RDN, LDN [facility] [address], [place], [address], [place] [facility] 11/23/2024 11:43:29 5 text/htm l 54 yr old male presents to follow up on hospital stay for sepsis. He was admitted to [facility] for observation for sepsis due to low back. pt states he was told he finished a course of antibiotics. pt states he is doing well since d/c just having low back pain. pt states pain management is going to do epidural to help with pain. has pain pump in place. pt states he has appointment with his back dr in january George Nguyen, MANAGER [employer] [address], [place], [address], [place] [facility] 11/23/2024 16:26:11 5 text/htm l Generic HPI TemplateReported bypatient.Notes:54 y/o male with [...] grandkids have been sick. Jordan Denise MD [address], [place], [address], [place] [facility] 11/30/2024 15:57:51 5 text/htm l 54 y/o m presents today for diabetes follow up. Now using Medtronic insulin pump. Pump downloaded and attached to pt chart. pt states his Novolog rx needs updated. He is running out before the 30 days is over. Will also be getting steriod injections in back at [facility] in [place]. Has chronic back pain and has a morphine pump, gets steroid injections regularly. Damaris gamez, MANAGER [employer] [address], [place], [address], [place] [facility] 12/20/2024 16:49:12 5 text/htm l 54 year old male here today for diabetic follow up.c/o low back pain, had MRI at [facility]. Wants to switch nephrology to [place]. Damaris gamez, MANAGER [employer] [address], [place], [address], [place] [facility] 12/31/2024 14:44:46
--- NOTE | 2025-01-14 14:26 | EXP.PAIN.SOA ---
[facility] Disclaimer: The information contained in this section may have been updated after the patient was seen, as this information can be updated by other users. Medical History Back Pain Carotid artery stenosis Claudication Diabetes mellitus Gout HLD (hyperlipidemia) Hypertension Kidney stone Neuropathy Surgical History Hx of cardiac cath Previous back surgery S/P right knee arthroscopy Family History Father Prostate cancer Grandmother Family history of myocardial infarction Grandfather Family history of myocardial infarction Sister Family history of myocardial infarction Sister Family history of myocardial infarction Mother Family history of diabetes mellitus type II Other No significant family history Social History Smoking Status: Never smoker alcohol intake: never counseling provided: none substance use type: denies use current occupational status: other Travel in the last 8 weeks?: None household members: spouse housing: house caffeine: Yes Have you lived/traveled outside US in past 30 days?: No Contact w/someone who lives/traveled outside US past 30 days?: No Exposure to someone with infectious disease in past 14 days?: No Do you have a fever (greater than 100.4 F or 38 C)?: No Have you tested positive for COVID-19?: No Exposed to someone with COVID-19 in past 14 days?: No Do you have a sore throat?: No Do you have a cough?: No Do you have any weakness?: No Do you have any diarrhea?: No Are you experiencing any unusual bleeding?: No Do you have any muscle aches/pain?: No Do you have any abdominal pain?: No Are you experiencing loss of taste or smell?: No PM Subjective & Objective Subjective Subjective:: Patient is a 50 pleasant 54-year-old male who presents today for left SI follow-up. Today he rates his pain a 3 out of 10. Patient states that he did have 100% improvement following the SI injection while it was nice and numb. He does state then it did seem to be a little bit more sore for a couple of days before it started to officially kicking in. Patient states that even now it is still continue to provide significant improvement. He states between it and the compounded cream that he feels like it really does take it to 100% still ongoing. Patient is currently managed with intrathecal morphine 2 mg/mL with a daily dosage of 0.3063 mg/day. He is also prescribed methocarbamol 1000 mg 3 times a day, gabapentin 300 mg 3 times a day and compounded cream. He denies any side effects and is requesting additional refills on his compounded cream. Patient is unsure if he needs refills on the gabapentin and methocarbamol. His Kasi has been reviewed and is appropriate. Review of Systems: General: No recent weight changes, no fever, no sleep disturbances Respiratory: No cough, no shortness of air, no recurring pulmonary infections Cardiovascular/peripheral vascular: No chest pain, no palpitations, no edema, no shortness of breath Gastrointestinal: No new onset incontinence, normal bowel movements reported Genitourinary: No new onset incontinence Musculoskeletal: Low back pain Psychiatric: [Normal mood/affect] Neurological: [Denies weakness in extremities], [denies balance issues] Pain at rest (0-10 scale): 3 Objective Objective:: Physical Exam: General: Alert and oriented x3, no acute distress, pleasant and cooperative Lungs: Respirations even and unlabored, symmetrical chest expansion Eyes: PERRL Musculoskeletal: Flexion and extension of lumbar [spine] somewhat guarded secondary to pain, [antalgic gait noted] Neurological: Speech clear, no gross sensory deficit Has patient had previous pain injection?: Yes Percent improvement in pain since last injection: 100% Conservative treatment options previously tried: Home exercise plan Length of treatment: Longer than 12 weeks Meds Home Medications and Allergies Home Medications ?Medication ?Instructions ?Recorded ?Confirmed ?Type fremanezumab-vfrm 225 mg/1.5 mL 225 mg (1.5 mL) SQ QMONTH migraine 04/30/22 12/28/24 Rx subcutaneous auto-injector (Ajovy) #1.5 mL ubrogepant 100 mg tablet (Ubrelvy) 100 mg PO ONCE PRN Episodic 08/02/22 12/28/24 Rx migraine #10 tabs aspirin 81 mg tablet,delayed See Rx Instructions .Route 08/23/22 12/28/24 History release .COMPLEX BLOOD bisoprolol fumarate 10 mg tablet 20 mg PO BID BLOOD PRESSURE 08/23/22 12/28/24 History colchicine 0.6 mg tablet 0.6 mg PO BID PRN gout 08/23/22 12/28/24 History duloxetine 60 mg capsule,delayed See Rx Instructions .Route 08/23/22 12/28/24 History release .COMPLEX MOOD empagliflozin 12.5 mg-metformin See Rx Instructions .Route 08/23/22 12/28/24 History 1,000 mg tablet (Synjardy) .COMPLEX Diabetes flash glucose scanning reader 08/23/22 12/28/24 History (FreeStyle Nir 2 [place]) flash glucose sensor (FreeStyle 08/23/22 12/28/24 History Nir 2 Sensor kit) fluticasone propionate 50 1 spray intranasal QDAY Breathing 08/23/22 12/28/24 History mcg/actuation nasal problems spray,suspension (Flonase Allergy Relief) insulin pump cart,cont inf,BT 08/23/22 12/28/24 History (Omnipod Dash Pods (Gen 4) subcutaneous cartridge) pen needle, diabetic 31 gauge x 08/23/22 12/28/24 History 3/16 (BD Ultra-Fine Mini Pen Needle) semaglutide 0.25 mg or 0.5 mg (2 See Rx Instructions .Route 08/23/22 12/28/24 History mg/1.5 mL) subcutaneous pen .COMPLEX Diabetes injector (Ozempic) meclizine 25 mg tablet 25 mg PO TID DIZZINESS 09/23/22 12/28/24 History insulin lispro 100 unit/mL See Rx Instructions .Route 10/22/22 12/28/24 History subcutaneous solution (Humalog .COMPLEX Diabetes U-100 Insulin) hydroxyzine pamoate 25 mg capsule 25 mg PO BID PRN itching #14 caps 11/05/22 12/28/24 Rx (Vistaril) morphine (PF) 1 mg/mL injection 0.11 mg continuous intrathecal 11/05/22 12/28/24 History solution infusion CONT Pain syringe with needle 3 mL 23 x 1 12/20/22 12/28/24 History (BD Luer-Lyndon Syringe) ropinirole 2 mg tablet 2 mg PO BID LEGS #60 tabs 07/08/23 12/28/24 Rx valsartan 160 mg tablet 160 mg PO DAILY BLOOD PRESSURE 09/15/23 12/28/24 Rx #180 tabs prednisone 20 mg tablet 20 mg PO BID #14 tabs 09/29/23 12/28/24 Rx gabapentin 300 mg capsule 300 mg PO TID Pain #90 caps 12/05/24 12/28/24 Rx methocarbamol 500 mg tablet 1,000 mg (2 x 500 mg) PO TID PRN 12/05/24 12/28/24 Rx muscle spasm #180 tabs New Prescriptions to Start Prescriptions: Allergies Allergy/AdvReac Type Severity Reaction Status Date / Time primidone AdvReac Severe Verified 11/01/23 09:55 Assessment and Plan *Assessment and plan (1) Degenerative disc disease, cervical: Status: Acute Category: Medical Code(s): M50.30 - Other cervical disc degeneration, unspecified cervical region (2) Degenerative disc disease, lumbar: Status: Acute Category: Medical Code(s): M51.369 - Other intervertebral disc degeneration, lumbar region without mention of lumbar back pain or lower extremity pain (3) Lower back pain: Status: Acute Category: Medical Code(s): M54.50 - Low back pain, unspecified Plan Patient has had significant improvement with his SI injection and does not require any additional injection therapy at this time. Patient is also doing well on his pump. I will make sure that he has refills on his compounded cream, gabapentin and methocarbamol. Patient did have his present during today's visit and did bring up the fact that he is having to drive pretty much 2 hours to get to our office and any help would be appreciated to make it as minimal extra visits as needed. I did discuss with him in future if he goes to need additional injections that we will always make sure that his next follow-up over the injection efficacy will be done at the same time as a pump refill. I did ask that his and the patient help us remember to not do the typical 2-week follow-up after injections. They acknowledge understanding agree with this plan of care. Patient has been instructed to contact the clinic with any concerns before the next appointment. Dr. Garcia has reviewed this note and agrees with this plan of care. This note was dictated using voice recognition software and make contain errors or omissions. All injections are used with Lidocaine, Bupivacaine and dexamethasone. Occasionally urine drug screen is needed to verify patient's compliance with our office pain contract. This is ordered based off specific treatments related to chronic pain with the potential to abuse certain medications.
[2025-01-14 14:33] VITALS: BP 125/86; PULSE 91; RESP 18; O2SAT 98; BMI 31.8
== END 2025-01-14 23:59 | disposition home or self-care (01) ==
PROVIDERS: Visit Provider Nurse Practitioner Family
DX: M50.30 Other cervical disc degeneration, unspecified cervical region (principal); M51.360 Other intervertebral disc degeneration, lumbar region with discogenic back pain only; Z79.899 Other long term (current) drug therapy
CPT/HCPCS: 99212; G0463